=== PATIENT | female | born 1990 | race Asian ===

== ENCOUNTER → 2019-05-29 10:37 | Outpatient (CLI) | payer OTHER, SELFPAY ==
[2019-05-29 12:30] LABS: Absolute Lymphocyte Count 2.22 X10^3/uL (0.83-4.51); Absolute Neutrophil Count 3.1 X10^3/uL (2.0-7.7); Basophil# 0.05 X10^3/uL; Basophil% 0.9 % (0-1); Eosinophils% 1.7 % (0-5); Hematocrit 41.5 % (37-47); Hemoglobin 13.6 g/dL (12.0-15.0); Lymphocyte # 2.22 X10^3/ul (4.0); Mean Corp Hgb Conc 32.8 g/dL (32-36); Mean Corpuscular Hgb 30.5 pg (27.0-32.0); Mean Platelet Vol. 12.1 fl (6.2-12.0); Monocyte# 0.37 X10^3/uL; Monocyte% 6.3 % (0-10); NRBC Flagged by Analyzer 0 % (0-5); Neutrophil # 3.09 X10^3/uL (2.7-7.7); Neutrophil % 52.9 % (47-70); Platelet Count 231 K/mm3 (150-450); RBC Distribution Width CV 12.1 % (11.6-14.6); RBC Distribution Width SD 41.4 fl (35.1-43.9); Red Blood Count 4.46 M/mm3 (4.2-5.4); White Blood Count 5.8 K/mm3 (4.4-11.0)
[2019-05-29 12:41] LABS: Free T3 2.7 pg/mL (2.18-3.98); T4 Free Direct 0.98 ng/dL (0.76-1.46); Thyroid Stim Hormone (TSH) 4.18 uIU/mL (0.358-3.74)
[2019-05-30 20:28] LABS: Anti-Thyroglobulin AB < 1.0 IU/mL (0.0-0.9); Thyroglobulin, Serum Qt. 14.1 ng/mL (1.5-38.5)
== END ==
PROVIDERS: Family Provider Family Medicine; PCP Family Medicine; Referring Provider Family Medicine; Visit Provider Family Medicine
DX: E07.9 Disorder of thyroid, unspecified (principal)
CPT/HCPCS: 36415; 84432; 84439; 84443; 84481; 85025; 86800

== ENCOUNTER → 2020-07-12 18:22 | Outpatient (CLI) | payer OTHER, SELFPAY | PROVIDERS: PCP Family Medicine; Visit Provider Nurse Practitioner Adult Health | DX: Z20.828 Contact with and (suspected) exposure to other viral communicable diseases (principal) | CPT/HCPCS: 87635; U0003 ==

== ENCOUNTER → 2023-11-06 | Outpatient (CLI) | payer OTHER, SELFPAY ==
[2023-11-06 16:29] LABS: Absolute Lymphocyte Count 2.96 X10^3/uL (0.83-4.51); Absolute Neutrophil Count 4.1 X10^3/uL (2.0-7.7); Basophil# 0.05 X10^3/uL; Basophil% 0.6 % (0-1); Eosinophil# 0.09 X10^3/uL; Eosinophils% 1.2 % (0-5); Hematocrit 43.3 % (37-47); Lymphocyte # 2.96 X10^3/ul (0.83-4.51); Lymphocyte % 38.1 % (19-41); Mean Corp Hgb Conc 32.3 g/dL (32-36); Mean Corpuscular Volume 92.7 fL (81-99); Mean Platelet Vol. 12.1 fl (6.2-12.0); Monocyte# 0.57 X10^3/uL; Monocyte% 7.3 % (0-10); NRBC Flagged by Analyzer 0 % (0-5); Neutrophil # 4.05 X10^3/uL (2.7-7.7); Neutrophil % 52.3 % (47-70); Platelet Count 278 K/mm3 (150-450); RBC Distribution Width CV 11.9 % (11.6-14.6); RBC Distribution Width SD 40.7 fl (35.1-43.9); Red Blood Count 4.67 M/mm3 (4.2-5.4); White Blood Count 7.8 K/mm3 (4.4-11.0)
[2023-11-06 17:02] LABS: AST(SGOT) 19 U/L (15-37); Alanine Aminotransfer ALT/SGPT 21 U/L (13-56); Alkaline Phosphatase 55 U/L (45-117); Anion Gap 7 (5-15); BUN 10 mg/dL (7-18); BUN/Creat Ratio 15.9 RATIO (10-20); Chloride 105 mmol/L (98-107); Cholesterol 169 mg/dL (200); Creatinine, Serum 0.63 mg/dL (0.55-1.02); EST Glomerular Filtration Rate 117 mL/min (>60); Est Glom Filt Rate - Afr Amer 142 mL/min (>60); Follicle Stimulating Hormone 5.7 mIU/mL; Glucose 98 mg/dL (74-106); High Density Lipoprotein 43 mg/dL; Luteinizing Hormone 20.8 mIU/mL; Potassium 3.9 mmol/L (3.5-5.1); Sodium Level 139 mmol/L (136-145); Thyroid Stim Hormone (TSH) 4.81 uIU/mL (0.358-3.74); Triglycerides 117 mg/dL; Very Low Density Lipoprotein 23 mg/dL (5-40)
== END | disposition home or self-care (01) ==
LOC: BIMLAB 15:03
PROVIDERS: PCP Family Medicine; Referring Provider Family Medicine; Visit Provider Family Medicine
DX: E78.5 Hyperlipidemia, unspecified (principal); E78.6 Lipoprotein deficiency
CPT/HCPCS: 36415; 80053; 80061; 83001; 83002; 84146; 84443; 85025

== ENCOUNTER → 2023-11-13 | Outpatient (CLI) | payer OTHER, SELFPAY ==
--- NOTE | 2023-11-13 08:08 | US_ITS ---
INDICATION: infertility EXAMINATION: Ultrasound US Transvaginal Non-OB TECHNIQUE: Transvaginal (for optimal evaluation of the adnexa) pelvic ultrasound was performed. Grayscale and color flow Doppler evaluation of the adnexa. COMPARISON: None. FINDINGS: UTERUS: Anteverted. The uterus measures 7.8 x 4.4 x 2.9 cm. Normal myometrial appearance. The endometrial stripe measures 1 cm in AP diameter which is within normal limits. RIGHT OVARY: 3.3 x 1.7 x 2.5 cm. Multiple normal small follicles. Internal color flow is noted. LEFT OVARY: 3.4 x 2.3 x 2.6 cm. Multiple normal small follicles. Internal color flow is noted. FREE FLUID: Trace anechoic free fluid in the cul-de-sac.. US/Transvaginal Non- IMPRESSION: Normal uterine appearance. Normal ovarian appearance. Trace dependent fluid in the cul-de-sac which is commonly physiologic. Electronically Signed: Shlomo Ramsey MD at 18:08 EDT ,
== END | disposition home or self-care (01) ==
LOC: US 08:08
PROVIDERS: PCP Family Medicine; Referring Provider Family Medicine; Visit Provider Family Medicine
DX: E78.5 Hyperlipidemia, unspecified (principal); E78.6 Lipoprotein deficiency
CPT/HCPCS: 76830

== ENCOUNTER → 2023-11-27 | Outpatient (CLI) | payer OTHER, SELFPAY ==
[2023-11-27 15:33] LABS: Internal QC Validated? YES +Cl - CLEAR BKGD; Pregnancy, Serum, hCG Quali. NEGATIVE Negative
== END | disposition home or self-care (01) ==
LOC: BIMLAB 13:09
PROVIDERS: PCP Family Medicine; Visit Provider Family Medicine
DX: N91.2 Amenorrhea, unspecified (principal)
CPT/HCPCS: 36415; 84703

== ENCOUNTER → 2024-04-10 | Outpatient (CLI) | payer OTHER, SELFPAY ==
--- NOTE | 2024-04-10 09:03 | RAD_ITS ---
INDICATION: INFERTILITY EXAMINATION/TECHNIQUE: Routine hysterosalpingography was performed. Total Fluoroscopic Time: 35 seconds AND number of Fluoroscopic Images: 3 OR Radiation dosage index: 12.59 mGy. COMPARISON: FINDINGS: The uterine cavity contour is unremarkable. There are no filling defects or abnormalities. The left fallopian tube is patent with free peritoneal spillage. The proximal portion of the left fallopian tube is visualized without any spell. RAD/Salpingogram IMPRESSION: Patency of the right fallopian tube with free spill. The uterus is unremarkable. The proximal portion of the left fallopian tube is visualized with no spill. Electronically Signed: Bo Adam MD at 9:47 EDT ,
--- NOTE | 2024-04-10 09:23 | PCM.OPRPT ---
Problems Associated Problem List Diagnoses (1) Infertility, tubal origin: (2) PCOS (polycystic ovarian syndrome): (3) Hirsutism: (4) Abnormal uterine bleeding (AUB): (5) Infertility: Report of Operation Date of Procedure: 04/10/24 Pre-Operative Diagnosis: Infertility, PCOS Post-Operative Diagnosis: Same , left fallopian tube not patent Surgery/Procedure Performed:: HSG Description of Surgical Findings:: Right tube patent , left tube not patent Surgeon: Lois Nava surgical services assistant: None Type of Anesthesia: None Description of Procedure: Speculum was placed in the vagina. Cervix was cleaned with Betadine. Tenaculum used to grasp the anterior lip of the cervix. Cervix was stenotic, had to use os finder to dilate- once dilated the cather inserted w/o difficulty. At this time fluoroscopy dye was injected and spillage was noted from the right tube however not from the left tube. Grafts/Implants Used: none Complications none
== END | disposition home or self-care (01) ==
LOC: RAD 08:57
PROVIDERS: PCP Family Medicine; Referring Provider Obstetrics & Gynecology; Visit Provider Obstetrics & Gynecology
DX: N97.9 Female infertility, unspecified (principal)
CPT/HCPCS: 58340; 74740

== ENCOUNTER 2025-04-13 22:12 | Outpatient (CLI) | payer OTHER, SELFPAY ==
[2025-04-13 22:18] VITALS: BMI 29.7
--- OUTSIDE RECORDS SUMMARY | 2025-04-13 22:18 | XMS RPT_ITS | CCD ---
Author Organization [facility] Care Team Providers Care Virtual Assistant Name Role Phone MARGARITO CASTAÑEDA Unavailable Unavailable SELF, SELF Unavailable Unavailable CLAUDY BERGER Unavailable Unavailable SELF, SELF Unavailable Unavailable Dr. Solis Berger Primary Care Provider Dr. Solis Berger Referring Provider Dr. Rakesh Vega Attending Provider Unavailable Primary Care Provider Unavailabl e Nekishoret-Clive, Lois Attending Unavail able Rakesh Vega Primary Care Unavailable Neyhart-Perez, Lois Admitting Unavail able Neyhart-Perez, Lois Attending Unavail able Neyhart-Perez, Lois Referring Unavail able Rakesh Vega Primary Care Unavailable MINDZORA, KAMILA Referring Unavailable NEYHART PEREZ, LOIS Referring Unavail able MINDZORAREVAEN Attending Unavailable REVA BEARDEN Referring Unavailable JOHN MAE Attending Unavailable NEYHART PEREZ, LOIS Referring Unavail able HUMBERTO, MEAGAN Referring Unavailable CORRY POLANCO Referring Unavailable NEYHART PEREZ, LOIS Attending Unavail able HUMBERTO, MEAGAN Referring Unavailable ANTHONY VILLATORO Attending Unavailable MANUEL WHITTAKERICA Referring Unavailable FERN WHITTAKER Attending Unavailable NEYHART PEREZ, LOIS Attending Unavail able JOHN MAE Attending Unavailable ROSALINDA, FERN Referring Unavailable FERN WHITTAKER Attending Unavailable EDMAR ALLISON Attending Unavailable HUMBERTO, MEAGAN Attending Unavailable MINDZORA, KAMILA Referring Unavailable ANTHONY VILLATORO Attending Unavailable WISWELL, ARIANNA Referring Unavailable ANTHONY VILLATORO Attending Unavailable ARIANNA NYE Attending Unavailable HUMBERTO, MEAGAN Referring Unavailable RUBINA LANDAVERDE Attending Unavailable HUMBERTO, MEAGAN Referring Unavailable RUBINA LANDAVERDE Referring Unavailable MEAGAN PAUL Referring Unavailable MEAGAN PAUL Referring Unavailable Allergies Allergy Classification Reported Allergen(s) Allergy Type Date of Onset Reaction(s) Facility Sulfonamides (antibiotic) (1 source) Sulfonamides (Antibiotic) Drug Allergy 9 [facility] Work Phone: (4 sources) Sulfonamides (Antibiotic); Translations: [SULFA (SULFONAMIDE ANTIBIOTICS)] Allergy to substance 9 [facility] (20 sources) Sulfonamides (Antibiotic) Drug Allergy 9 [facility] Work Phone: (1 source) Sulfonamides (Antibiotic) Drug allergy (disorder) 4 [facility] Repository Medications Current Medications Medication Drug Class(es) Dates Sig (Normalized) Sig (Original) aspirin 81 mg delayed release oral tablet (20 sources) Platelet Aggregation Inhibitor, Nonsteroidal Anti-inflammatory Drug Start: 09-09-2024 take 1 tablet by mouth once daily aspirin, enteric coated (ECOTRIN LOW STRENGTH) 81 mg EC tablet Indications: Encounter for supervision in primigravida, antepartum ([facility]) , with uncertain dates, antepartum ([facility]) , Encounter for care in first trimester of first ([facility]) Take 1 tablet by mouth once daily. 90 tablet 3 09/09/2024 Active docosahexaenoic acid 200 mg oral capsule (3 sources) Start: 11-06-2023 Docosahexaenoic Acid (Algal [place]-3 Dha) 200 mg capsule Active MG PO November 06, 2023 12:00am Kzfeysln-Xjchwpq-Wgjb amine (3 sources) Start: 11-06-2023 Xvfkryay-Kcrvfpa-Uje tamine Active TABLET PO November 06, 2023 12:00am levothyroxine sodium 0.05 mg oral tablet (20 sources) l-Thyroxine Start: 12-01-2024 End: 04-08-2025 take 1 tablet by mouth once daily before breakfast levothyroxine (SYNTHROID) 50 mcg tablet Take 1 tablet by mouth daily before breakfast. 30 tablet 2 04/08/2025 Active Start: 11-07-2023 End: 12-01-2024 take 1 tablet by mouth once levothyroxine (SYNTHROID) 25 mcg tablet Take 1 tablet by mouth every afternoon. 90 tablet 11/10/2024 12/01/2024 Discontinued 24 hr metFORMIN hydrochloride 500 mg extended release oral tablet (16 sources) Biguanide Start: 01-24-2024 End: 01-31-2025 take 3 tablets by mouth once daily at dinner, then take 1 tablet by mouth at breakfast, then take 2 tablets by mouth at dinner, then take 3 tablets by mouth at dinner metFORMIN ER (GLUCOPHAGE XR) 500 mg 24 hr tablet Take 3 tablets by mouth daily with dinner. May divide dose up and take 1 tablet with breakfast or lunch and 2 tablets with dinner if you don't tolerate all three with dinner. 270 tablet 1 08/04/2024 10/30/2024 Discontinued (Other) Multivitamin preparation (3 sources) Start: 11-06-2023 take 1 tablet by mouth once daily Multivitamin Active 1 TABLET PO DAILY November 06, 2023 12:00am vcoye-1-wpr-epa-dpa-f don oil 1,050 mg(300 mg -675 mg-75 mg) cap (20 sources) take 3 tablets by mouth once daily dtubg-4-wgy-epa-dpa -fish oil 1,050 mg(300 mg -675 mg-75 mg) cap Take 3 tablets by mouth once daily. Active qasvn-8-pgr-epa- dpa-fish oil 1,050 mg(300 mg -675 mg-75 mg) cap Take by mouth. Active pqabi-6-snz-epa- dpa-fish oil 1,050 mg(300 mg -675 mg-75 mg) cap Take by mouth. 0 Active PNV no.95/ferrous fum/folic ac ( ORAL) (20 sources) take 2 tablets by mouth once daily before mealtime PNV no.95/ferrous fum/folic ac ( ORAL) Take 2 tablets by mouth once daily. Active ubidecarenone 75 mg oral capsule (3 sources) Start: 11-06-2023 Coenzyme Q10 (Ultra Coq10) 75 mg capsule Active 75 MG PO DAILY November 06, 2023 12:00am Completed/Discontinued Medications Medication Drug Class(es) Dates Sig (Normalized) Sig (Original) ZSBNIINA-GUDOVWV-QM UTAMINE ORAL (14 sources) Start: 11-06-2023 End: 09-09-2024 QWYQSVPA-TSDDVOD-NVC TAMINE ORAL Take by mouth. 11/06/2023 09/09/2024 Discontinued Start: 11-06-2023 INOSITOL-CHOLI NE-GLUTAMINE ORAL Take by mouth. 11/06/2023 Active Start: 11-06-2023 INOSITOL-CHOLI NE-GLUTAMINE ORAL Take by mouth. 0 11/06/2023 Active letrozole 2.5 mg oral tablet (4 sources) Aromatase Inhibitor Start: 07-03-2024 End: 09-09-2024 letrozole (FEMARA) 2.5 mg tablet Take 2 tablets by mouth once daily. Cycle days 3-7 10 tablet 3 07/03/2024 09/09/2024 Discontinued MERCQTGOMOLM-JSCL-UPH IC ACID ORAL (14 sources) End: 09-09-2024 IXHQMXOEBKNE-VUHH-MJBFV ACID ORAL Take by mouth. 09/09/2024 Discontinued MULTIVITAMIN-IRO N-FOLIC ACID ORAL Take by mouth. Active MULTIVITAMIN-IRO N-FOLIC ACID ORAL Take by mouth. 0 Active Problems Active Problems Problem Classification Problem Date Documented Da te Episodic/Chronic Conditions associated with dizziness or vertigo (1 source) Conditions associated with dizziness or vertigo Onset: 11-15-2017 Disorders of lipid metabolism (6 sources) Hyperlipidemia; Translations: [Hyperlipidemia, unspecified] 11-06-2023 Chronic Female infertility (20 sources) Female infertility; Translations: [Female infertility, unspecified] Onset: 04-16-2024 04-23-2024 Chronic Immunizations and screening for infectious disease (3 sources) Vaccination needed; Translations: [Encounter for immunization] Onset: 05-29-2024 01-23-2025 Episodic Menstrual disorders (2 sources) Amenorrhea; Translations: [Amenorrhea, unspecified] 11-27-2023 Chronic Other complications of (8 sources) Uterine size for dates discrepancy; Translations: [Uterine size-date discrepancy, third trimester] Onset: 03-30-2025 03-26-2025 Episodic Other complications of (1 source) Uterine size-date discrepancy, third trimester; Translations: [Uterine size-date discrepancy, third trimester (HCC)] Onset: 03-30-2025 Episodic Other endocrine disorders (2 sources) Polycystic ovary syndrome; Translations: [Polycystic ovarian syndrome] 04-23-2024 Chronic Other endocrine disorders (1 source) Polycystic ovarian syndrome; Translations: [PCOS (polycystic ovarian syndrome)] Onset: 05-19-2024 Chronic Other female genital disorders (1 source) Abnormal uterine bleeding; Translations: [Abnormal uterine and vaginal bleeding, unspecified] 12-14-2023 Chronic Other female genital disorders (2 sources) Fallopian tube disorder; Translations: [Noninflammatory disorder of ovary, fallopian tube and broad ligament, unspecified] 04-23-2024 Episodic Other nutritional; endocrine; and metabolic disorders (20 sources) Lipoprotein deficiency disorder; Translations: [Lipoprotein deficiency] Onset: 11-06-2023 09-09-2024 Chronic Other and delivery including normal (20 sources) ; Translations: [Encounter for supervision of normal first , unspecified trimester] Onset: 09-09-2024 09-03-2024 Episodic Other screening for suspected conditions (not mental disorders or infectious disease) (14 sources) Patient encounter status; Translations: [Encounter for screening for diabetes mellitus] Onset: 06-10-2024 12-14-2023 Episodic Other skin disorders (2 sources) Hirsutism; Translations: [Hirsutism] 12-14-2023 Episodic Residual codes; unclassified (1 source) Gestation period, 9 weeks; Translations: [9 weeks gestation of ] 09-09-2024 Episodic Residual codes; unclassified (2 sources) Gestation period, 12 weeks; Translations: [12 weeks gestation of ] 10-02-2024 Episodic Residual codes; unclassified (1 source) Gestation period, 16 weeks; Translations: [16 weeks gestation of ] 10-30-2024 Episodic Residual codes; unclassified (2 sources) Gestation period, 20 weeks; Translations: [20 weeks gestation of ] 11-27-2024 Episodic Residual codes; unclassified (1 source) Gestation period, 24 weeks; Translations: [24 weeks gestation of ] 12-25-2024 Episodic Residual codes; unclassified (1 source) Gestation period, 28 weeks; Translations: [28 weeks gestation of ] 01-23-2025 Episodic Residual codes; unclassified (1 source) Gestation period, 30 weeks; Translations: [30 weeks gestation of ] 02-03-2025 Episodic Residual codes; unclassified (1 source) Gestation period, 32 weeks; Translations: [32 weeks gestation of ] 02-20-2025 Episodic Residual codes; unclassified (1 source) Gestation period, 34 weeks; Translations: [34 weeks gestation of ] 03-06-2025 Episodic Residual codes; unclassified (2 sources) Gestation period, 37 weeks; Translations: [37 weeks gestation of ] 03-24-2025 Episodic Residual codes; unclassified (1 source) Gestation period, 38 weeks; Translations: [38 weeks gestation of ] 03-31-2025 Episodic Residual codes; unclassified (1 source) Gestation period, 39 weeks; Translations: [39 weeks gestation of ] 04-07-2025 Episodic Residual codes; unclassified (1 source) 39 weeks gestation of ; Translations: [39 weeks gestation of (HCC)] Onset: 04-07-2025 Episodic Residual codes; unclassified (1 source) 38 weeks gestation of ; Translations: [38 weeks gestation of (HCC)] Onset: 03-31-2025 Episodic Residual codes; unclassified (1 source) 36 weeks gestation of ; Translations: [36 weeks gestation of (HCC)] Onset: 03-26-2025 Episodic Residual codes; unclassified (1 source) 37 weeks gestation of ; Translations: [37 weeks gestation of (HCC)] Onset: 03-24-2025 Episodic Residual codes; unclassified (1 source) 34 weeks gestation of ; Translations: [34 weeks gestation of (HCC)] Onset: 03-06-2025 Episodic Residual codes; unclassified (1 source) 32 weeks gestation of ; Translations: [32 weeks gestation of (HCC)] Onset: 02-20-2025 Episodic Residual codes; unclassified (1 source) 28 weeks gestation of ; Translations: [28 weeks gestation of (HCC)] Onset: 02-03-2025 Episodic Residual codes; unclassified (1 source) 30 weeks gestation of ; Translations: [30 weeks gestation of (HCC)] Onset: 02-03-2025 Episodic Thyroid disorders (20 sources) Subclinical hypothyroidism; Translations: [Other specified hypothyroidism] Onset: 09-09-2024 11-07-2023 Chronic Unclassified (6 sources) Infertile; Translations: [Infertility] 11-06-2023 Unclassified (20 sources) [facility] - COMMON Onset: 09-09-2024 09-09-2024 Unclassified (20 sources) Education - [place] Onset: 09-09-2024 09-09-2024 Past or Other Problems Problem Classification Problem Date Documented Date Episodic/Chronic Conditions associated with dizziness or vertigo (1 source) Dizziness and giddiness; Translations: [Dizziness and giddiness] Onset: 11-15-2017 Episodic Contraceptive and procreative management (6 sources) Fertility problem; Translations: [Encounter for other procreative investigation and testing] Onset: 05-29-2024 05-19-2024 Episodic Other female genital disorders (1 source) Noninflammatory disorder of ovary, fallopian tube and broad ligament, unspecified; Translations: [Fallopian tube disorder] Onset: 05-19-2024 Episodic Residual codes; unclassified (1 source) 24 weeks gestation of ; Translations: [24 weeks gestation of (HCC)] Onset: 12-25-2024 Episodic Residual codes; unclassified (1 source) 20 weeks gestation of ; Translations: [20 weeks gestation of (HCC)] Onset: 11-27-2024 Episodic Residual codes; unclassified (1 source) 9 weeks gestation of ; Translations: [9 weeks gestation of ] Onset: 10-02-2024 Episodic Results Test Name Value Interpretation Reference Range Facility [facility] 04[facility]09[facility]20[facility] (NIRUGYLindaM[facility] -------- CELIA TORRES ([id number]) 1990 F Date Time Provider Department 04/09/25 CORRY POLANCO During your visit today, we recorded the following information about you: Shadia Hargrove RN 04/09/2025 9:51 AM Addendum 39w5d Pt calls c/o dark brown sticky discharge noted this morning. Denies vaginal bleeding. No recent sexual intercourse. States on Sunday had cervical exam AND has had a little spotting since then. Having Irregular cramping in lower abdomen. Positive movement. Staying hydrated. Pt advised to continue to monitor at this time AND advised that the brownish discharge is likely due to recent cervical exam AND nearing due date/body is preparing itself. Advised to monitor for severe abdominal pain, vaginal bleeding, LOF, decreased movement, and regular contractions lasting every 10 minutes or more. Pt voiced understanding. No need to call Pt unless additional advise is needed.BRIDGETT Gallardo Jennifer, MD 04/09/2025 10:09 AM Signed agree Allergies As of Date: 04/09/2025 Noted Allergy Reaction SULFA (SULFONAMIDE ANTIBIOTICS) 03/17/2019 2 - Rash Date Reviewed: 04/07/2025 Reviewed by: Dulce Schmitz MA - Fully Assessed Reason for Visit: Brown sticky discharge [Other] Prescriptions as of 04/09/2025 - levothyroxine (SYNTHROID) 50 mcg tablet Take 1 tablet by mouth daily before breakfast. - aspirin, enteric coated (ECOTRIN LOW STRENGTH) 81 mg EC tablet Take 1 tablet by mouth once daily. - PNV no.95/ferrous fum/folic ac ( ORAL) Take 2 tablets by mouth once daily. - kvfwh-1-xnz-hcs-lwo-kkvt oil 1,050 mg(300 mg -675 mg-75 mg) cap Take 3 tablets by mouth once daily. Problem List As Of Date 04/09/2025 Noted Resolved Hypothyroidism [E03.9] Encounter for supervision in primigra*09/09/2024 Female infertility, unspecified [N97.9] 04/16/2024 Lipoprotein deficiency [E78.6] 11/06/2023 Uterine size-date discrepancy, third trimester *03/30/2025 Encounter Status:Closed by CORRY POLANCO on 04/09/25 Normal [facility] URINE OB DIP B/Oon 5 Glucose Ql (U) Negative Neg mg/dL [facility] Protein.monoclonal (U) [Mass/Vol] Negative Neg mg/dL [facility] URINE OB DIP B/Oon 5 Glucose Ql (U) Negative Neg mg/dL [facility] Interpretation and review of laboratory results Normal [facility] Protein.monoclonal (U) [Mass/Vol] Negative Neg mg/dL [facility] Examination level ultrasound on 03-26-2025 [facility] Radiology Study observation (narrative) [facility] CNOVon 03-24-2025 CNOV Office Visit (OBGYWM ) -------- CELIA TORRES ([id number]) 1990 F Date Time Provider Department 03/24/25 1:45 PM FERN WHITTAKER During your visit today, we recorded the following information about you: Blood pressure Weight 114/68 68 kg Sowmya Edgar MA 03/24/2025 1:34 PM Signed SEQUENTIAL SCREENINGS The [facility] offers sequential screenings for women who are interested in screenings for chromosomal abnormalities and certain defects during a . The sequential screen combines ultrasound and blood tests to determine the risk of chromosomal abnormalities, including Down's Syndrome (Trisomy 21) and Trisomy 18, as well as open neural tube defects including spina bifida. Ultrasound examination is performed between 11 weeks and 13 weeks gestational age. Blood tests are drawn after the ultrasound and again later in the between 15 and 21 weeks gestational age. Please let your physician know if you are interested in this testing. It will require an appointment with our fisheries technician. This is not an ultrasound performed by a physician in our office during a routine visit. SIGNS AND SYMPTOMS OF LABOR 1. Contractions every 10 minutes or more often 2. Clear, pink, or brownish fluid (water) leaking from vagina 3. Feeling that baby is pushing down, pressure 4. Low, dull backache 5. Cramps that feel like a period 6. Cramps with or without diarrhea If you notice any of the above symptoms, contact our office at [phone] and ask to speak with a nurse. After hours, you can call [employer] [facility] at [phone] OR call [facility] at [phone] and ask to have the doctor shoe reconditioner paged. If you consider this an emergency, dial 4-1-2 or go to your nearest emergency department. NEED HELP? Are you dealing with a violent or abusive relationship? Are you a victim of rape or sexual assult? Call [facility] ([place]) 24 hour Crisis Hotline: 836.752.2623 or 075-960-0357. MANUAL Your Guide to a Healthy manual is now on-line. Visit [email or web address] to download your free copy Fern Whittaker APRN.CNM 03/25/2025 1:35 PM Signed ARMANDO-S: Celia Torres is a 34 year old female who presents at 37w3d with MAZIN:04/11/2025, by Last Menstrual Period for a routine visit. Denies headache, visual changes, chest pain, shortness of breath, vaginal bleeding, leakage of fluid, or dysuria. Feeling well, no complaints. O: See flow sheet Gen: No apparent distress Abd: Gravid, nontender 27lb TWG, S>D ASSESSMENT/PLAN: 1. 37 weeks gestation of -Continue PNV -Continue ASA 2. Encounter for supervision of normal first in third trimester 3. Hypothyroidism, unspecified type -Thyroid studies normal, continue Synthroid 50mcg PO once daily 4. Uterine size-date discrepancy, third trimester -S>D, growth US ordered and scheduled for 2 days PTL precautions reviewed and when to call RTO in one week Fern Whittaker APRN.CNM Allergies As of Date: 03/24/2025 Noted Allergy Reaction SULFA (SULFONAMIDE ANTIBIOTICS) 03/17/2019 2 - Rash Date Reviewed: 03/24/2025 Reviewed by: Sowmya Edgar MA - Fully Assessed Reason for Visit: Care [86] Primary Visit Diagnosis:Encounter for supervision in primigravida, antepartum (HCC) [Z34.00] Other Visit Diagnoses:Hypothyroidism , unspecified type [E03.9] 37 weeks gestation of (HCC) [Z3A.37] Order(s):URINE OB DIP B/O [[id number]] Order #: [id number] Prescriptions as of 03/25/2025 - levothyroxine (SYNTHROID) 50 mcg tablet Take 1 tablet by mouth daily before breakfast. - aspirin, enteric coated (ECOTRIN LOW STRENGTH) 81 mg EC tablet Take 1 tablet by mouth once daily. - PNV no.95/ferrous fum/folic ac ( ORAL) Take 2 tablets by mouth once daily. - hskji-0-ljm-rid-jsk-pghz oil 1,050 mg(300 mg -675 mg-75 mg) cap Take 3 tablets by mouth once daily. Problem List As Of Date 03/24/2025 Noted Resolved Hypothyroidism [E03.9] Encounter for supervision in primigra*09/09/2024 Female infertility, unspecified [N97.9] 04/16/2024 Lipoprotein deficiency [E78.6] 11/06/2023 Notes for Staff Will only call if abnormal Other instructions from your clinician: SEQUENTIAL SCREENINGS The [facility] offers sequential screenings for women who are interested in screenings for chromosomal abnormalities and certain defects during a . The sequential screen combines ultrasound and blood tests to determine the risk of chromosomal abnormalities, including Down's Syndrome (Trisomy 21) and Trisomy 18, as well as open neural tube defects including spina bifida. Ultrasound examination is performed between 11 weeks and 13 weeks gestational age. Blood tests are drawn after the ultrasound and again later in the between 15 and 2 (more content not included)... Normal [facility] URINE OB DIP B/Oon 5 Glucose Ql (U) Negative Neg mg/dL [facility] Interpretation and review of laboratory results Normal [facility] Protein.monoclonal (U) [Mass/Vol] Negative Neg mg/dL [facility] ROUTINE, GROUP B ST REPTOCOCCUS BY PCRon 03-20-2025 ROUTINE, GROUP B STREPTOCOCCUS BY PCR Not detected Normal [facility] Comment on above: Performed By: #### T SPN #### [facility] CLIA [id number] [address] [place] [address] [place] T4 Free SerPl-mCncon 025 Free T4 [Mass/Vol] 0.9 ng/dL Normal 0.9-1.7 [facility] Comment on above: Order Comment: Speci men Type: BLOOD SPECIMEN Ordering Facility: [facility] Address: [address] [place] [address] Performed By: #### 3 024-7, 3016-3 #### [facility] CLIA [id number] [address] [place] [address] [place] TSH SerPl-aCncon 03-20-2025 TSH Qn 2.330 m[IU]/L Normal 0.270-4.200 [facility] Comment on above: Order Comment: Speci men Type: BLOOD SPECIMEN Ordering Facility: [facility] Address: [address] [place] [address] Result Comment: If t he patient is , TSH reference range varies by gestational period: First Trimester (weeks 9-12): 0.180-2.990 mIU/L Second Trimester: 0.110-3.980 mIU/L Third Trimester: 0.480-4.710 mIU/L Leobardo Young et al. A Practical Approach for the Verifications and Determination of Site- and Trimester-Specific Reference Intervals for Thyroid Function tests in . Thyroid, 2019:29:3:412-420. Victor Manuel Simons, et al. 2017 Guidelines of the [place] [employer] Association for the Diagnosis and Management of Thyroid Disease during and the . Thyroid, 2017:27:3:315-389. Performed By: #### 3 024-7, 3016-3 #### [facility] CLIA [id number] [address] [place] [address] [place] URINE OB DIP B/Oon 5 Glucose Ql (U) Negative Neg mg/dL [facility] Interpretation and review of laboratory results Normal [facility] Protein.monoclonal (U) [Mass/Vol] Negative Neg mg/dL [facility] TSH SerPl-aCncon 02-03-2025 TSH Qn 1.690 m[IU]/L Normal 0.270-4.200 [facility] Comment on above: Order Comment: Geovannai men Type: BLOOD SPECIMEN Ordering Facility: [facility] Address: [address] [place] [address] Result Comment: If t he patient is , TSH reference range varies by gestational period: First Trimester (weeks 9-12): 0.180-2.990 mIU/L Second Trimester: 0.110-3.980 mIU/L Third Trimester: 0.480-4.710 mIU/L Leobardo Young et al. A Practical Approach for the Verifications and Determination of Site- and Trimester-Specific Reference Intervals for Thyroid Function tests in . Thyroid, 2019:29:3:412-420. Victor Manuel Simons et al. 2017 Guidelines of the [place] Thy[employer] Association for the Diagnosis and Management of Thyroid Disease during and the . Thyroid, 2017:27:3:315-389. Performed By: #### 3 016-3 #### [facility] CLIA [id number] [address] [place] [address] [place] CBC W Auto Differential pane l (Bld)on 01-23-2025 Basophils (Bld) [#/Vol] 0.05 10*3/uL Normal <0.11 [facility] Comment on above: Order Comment: Speci men Type: BLOOD SPECIMEN Ordering Facility: [facility] Address: [address] [place] [address] Performed By: #### 3 016-3 #### [facility] CLIA [id number] [address] [place] [address] [place] Basophils/100 WBC (Bld) 0.5 % Normal [facility] Comment on above: Order Comment: Geovannai parveen Type: BLOOD SPECIMEN Ordering Facility: [facility] Address: [address] [place] [address] Performed By: #### 3 016-3 #### [facility] CLIA [id number] [address] [place] [address] [place] Differential cell count method Nom (Bld) Auto Normal [facility] Comment on above: Order Comment: Speci men Type: BLOOD SPECIMEN Ordering Facility: [facility] Address: [address] [place] [address] Performed By: #### 3 016-3 #### [facility] CLIA [id number] [address] [place] [address] [place] Eosinophils (Bld) [#/Vol] 0.05 10*3/uL Normal <0.46 [facility] Comment on above: Order Comment: Speci men Type: BLOOD SPECIMEN Ordering Facility: [facility] Address: [address] [place] [address] Performed By: #### 3 016-3 #### [facility] CLIA [id number] [address] [place] [address] [place] Eosinophils/100 WBC (Bld) 0.5 % Normal [facility] Comment on above: Order Comment: Speci men Type: BLOOD SPECIMEN Ordering Facility: [facility] Address: [address] [place] [address] Performed By: #### 3 016-3 #### [facility] CLIA [id number] [address] [place] [address] [place] Erythrocyte distribution width (RBC) [Ratio] 13.7 % Normal 11.5-15.0 [facility] Comment on above: Order Comment: Speci men Type: BLOOD SPECIMEN Ordering Facility: [facility] Address: [address] [place] [address] Performed By: #### 3 016-3 #### [facility] CLIA [id number] [address] [place] [address] [place] Hematocrit (Bld) [Volume fraction] 35.2 % Low 36.0-46.0 [facility] Comment on above: Order Comment: Speci men Type: BLOOD SPECIMEN Ordering Facility: [facility] Address: [address] [place] [address] Performed By: #### 3 016-3 #### [facility] CLIA [id number] [address] [place] [address] [place] Hemoglobin (Bld) [Mass/Vol] 11.8 g/dL Normal 11.5-15.5 [facility] Comment on above: Order Comment: Speci men Type: BLOOD SPECIMEN Ordering Facility: [facility] Address: [address] [place] [address] Performed By: #### 3 016-3 #### [facility] CLIA [id number] [address] [place] [address] [place] Immature granulocytes (Bld) [#/Vol] 0.17 10*3/uL High <0.10 [facility] Comment on above: Order Comment: Speci men Type: BLOOD SPECIMEN Ordering Facility: [facility] Address: [address] [place] [address] Performed By: #### 3 016-3 #### [facility] CLIA [id number] [address] [place] [address] [place] Immature granulocytes/100 WBC (Bld) 1.8 % Normal [facility] Comment on above: Order Comment: Speci men Type: BLOOD SPECIMEN Ordering Facility: [facility] Address: [address] [place] [address] Performed By: #### 3 016-3 #### [facility] CLIA [id number] [address] [place] [address] [place] Lymphocytes (Bld) [#/Vol] 1.67 10*3/uL Normal 1.00-4.00 [facility] Comment on above: Order Comment: Speci men Type: BLOOD SPECIMEN Ordering Facility: [facility] Address: [address] [place] [address] Performed By: #### 3 016-3 #### [facility] CLIA [id number] [address] [place] [address] [place] Lymphocytes/100 WBC (Bld) 18.0 % Normal [facility] Comment on above: Order Comment: Speci men Type: BLOOD SPECIMEN Ordering Facility: [facility] Address: [address] [place] [address] Performed By: #### 3 016-3 #### [facility] CLIA [id number] [address] [place] [address] [place] MCH (RBC) [Entitic mass] 30.1 pg Normal 26.0-34.0 [facility] Comment on above: Order Comment: Speci men Type: BLOOD SPECIMEN Ordering Facility: [facility] Address: [address] [place] [address] Performed By: #### 3 016-3 #### [facility] CLIA [id number] [address] [place] [address] [place] MCHC (RBC) [Mass/Vol] 33.5 g/dL Normal 30.5-36.0 [facility] Comment on above: Order Comment: Speci men Type: BLOOD SPECIMEN Ordering Facility: [facility] Address: [address] [place] [address] Performed By: #### 3 016-3 #### [facility] CLIA [id number] [address] [place] [address] [place] MCV (RBC) [Entitic vol] 89.8 fL Normal 80.0-100.0 [facility] Comment on above: Order Comment: Speci men Type: BLOOD SPECIMEN Ordering Facility: [facility] Address: [address] [place] [address] Performed By: #### 3 016-3 #### [facility] CLIA [id number] [address] [place] [address] [place] Monocytes (Bld) [#/Vol] 0.59 10*3/uL Normal <0.87 [facility] Comment on above: Order Comment: Speci men Type: BLOOD SPECIMEN Ordering Facility: [facility] Address: [address] [place] [address] Performed By: #### 3 016-3 #### [facility] CLIA [id number] [address] [place] [address] [place] Monocytes/100 WBC (Bld) 6.4 % Normal [facility] Comment on above: Order Comment: Speci men Type: BLOOD SPECIMEN Ordering Facility: [facility] Address: [address] [place] [address] Performed By: #### 3 016-3 #### [facility] CLIA [id number] [address] [place] [address] [place] Neutrophils (Bld) [#/Vol] 6.75 10*3/uL Normal 1.45-7.50 [facility] Comment on above: Order Comment: Speci men Type: BLOOD SPECIMEN Ordering Facility: [facility] Address: [address] [place] [address] Performed By: #### 3 016-3 #### [facility] CLIA [id number] [address] [place] [address] [place] Neutrophils/100 WBC (Bld) 72.8 % Normal [facility] Comment on above: Order Comment: Speci men Type: BLOOD SPECIMEN Ordering Facility: [facility] Address: [address] [place] [address] Performed By: #### 3 016-3 #### [facility] CLIA [id number] [address] [place] [address] [place] Nucleated RBC (Bld) [#/Vol] 10*3/uL Normal <0.01 [facility] Comment on above: Order Comment: Speci men Type: BLOOD SPECIMEN Ordering Facility: [facility] Address: [address] [place] [address] Performed By: #### 3 016-3 #### [facility] CLIA [id number] [address] [place] [address] [place] Nucleated RBC/100 WBC (Bld) [Ratio] 0.0 /100 WBC Normal [facility] Comment on above: Order Comment: Speci men Type: BLOOD SPECIMEN Ordering Facility: [facility] Address: [address] [place] [address] Performed By: #### 3 016-3 #### [facility] CLIA [id number] [address] [place] [address] [place] Platelet mean volume (Bld) [Entitic vol] 10.6 fL Normal 9.0-12.7 [facility] Comment on above: Order Comment: Speci men Type: BLOOD SPECIMEN Ordering Facility: [facility] Address: [address] [place] [address] Performed By: #### 3 016-3 #### [facility] CLIA [id number] [address] [place] [address] [place] Platelets (Bld) [#/Vol] 207 10*3/uL Normal 150-400 [facility] Comment on above: Order Comment: Speci men Type: BLOOD SPECIMEN Ordering Facility: [facility] Address: [address] [place] [address] Performed By: #### 3 016-3 #### [facility] CLIA [id number] [address] [place] [address] [place] RBC (Bld) [#/Vol] 3.92 10*6/uL Normal 3.90-5.20 [facility] Comment on above: Order Comment: Speci men Type: BLOOD SPECIMEN Ordering Facility: [facility] Address: [address] [place] [address] Performed By: #### 3 016-3 #### [facility] CLIA [id number] [address] [place] [address] [place] WBC (Bld) [#/Vol] 9.28 10*3/uL Normal 3.70-11.00 [facility] Comment on above: Order Comment: Speci men Type: BLOOD SPECIMEN Ordering Facility: [facility] Address: [address] [place] [address] Performed By: #### 3 016-3 #### [facility] CLIA [id number] [address] [place] [address] [place] GESTATIONAL GLUCOSE SCREEN, 1-HOUR, 50 GRAM, NON-FASTINGon 01-23-2025 Glucose [Mass/Vol] 127 mg/dL Normal 74-134 [facility] Comment on above: Order Comment: Juan saiin Type: BLOOD SPECIMEN Ordering Facility: [facility] Address: [address] [place] [address] Result Comment: [facility] Congress of Obstetricians and Gynecologists (Bola/Jaret) guidelines state a gestational diabetes mellitus positive screen is made, in women not previously diagnosed with overt diabetes, when the 1 hr plasma glucose level is equal to or above 140 mg/dL. The [facility] 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 [facility] [place] recommends a 135 mg/dL cutoff. Performed By: #### 3 016-3 #### [facility] CLIA [id number] [address] [place] [address] [place] Reagin and Treponema pallidu m IgG and IgM [Interp]on 01-23-2025 T. pallidum IgG+IgM IA Ql (S) Non-Reactive Normal Nonreactive [facility] Comment on above: Order Comment: Juan saini Type: BLOOD SPECIMEN Ordering Facility: [facility] Address: [address] [place] [address] Performed By: #### T SPN #### [facility] CLIA [id number] [address] [place] [address] [place] Reagin+T pallidum IgG+IgM Se rPl-Impon 01-23-2025 Reagin and Treponema pallidum IgG and IgM [Interp] Cannot exclude recent Treponemal infection if specimen collected within 7-10 days after appearance of suspect lesions or 2-3 weeks after an exposure. Clinical correlation is required. Normal [facility] Comment on above: Order Comment: Juan saini Type: BLOOD SPECIMEN Ordering Facility: [facility] Address: [address] [place] [address] Performed By: #### T SPN #### [facility] CLIA [id number] [address] [place] [address] [place] TSH W/REFLEX FT4on Interpretation and review of laboratory results Normal [facility] TSH Qn 2 m[IU]/L [facility] Comment on above: If the patient is pr egnant, TSH reference range varies by gestational period: First Trimester (weeks 9-12): 0.180-2.990 mIU/L Second Trimester: 0.110-3.980 mIU/L Third Trimester: 0.480-4.710 mIU/L Leobardo Young et al. A Practical Approach for the Verifications and Determination of Site- and Trimester-Specific Reference Intervals for Thyroid Function tests in . Thyroid, 2019:29:3:412-420. Victor Manuel Simons et al. 2017 Guidelines of the [place] Thyroid Association for the Diagnosis and Management of Thyroid Disease during and the . Thyroid, 2017:27:3:315-389. [facility] TSH W/REFLEX FT4on 5 TSH Qn 2.000 m[IU]/L Normal 0.270-4.200 [facility] Comment on above: Order Comment: Speci men Type: BLOOD SPECIMEN Ordering Facility: [facility] Address: [address] [place] [address] Result Comment: If t he patient is , TSH reference range varies by gestational period: First Trimester (weeks 9-12): 0.180-2.990 mIU/L Second Trimester: 0.110-3.980 mIU/L Third Trimester: 0.480-4.710 mIU/L Leobardo Young et al. A Practical Approach for the Verifications and Determination of Site- and Trimester-Specific Reference Intervals for Thyroid Function tests in . Thyroid, 2019:29:3:412-420. Victor Manuel Simons et al. 2017 Guidelines of the [place] Thyroid Association for the Diagnosis and Management of Thyroid Disease during and the . Thyroid, 2017:27:3:315-389. Performed By: #### 3 024-7, 3016-3 #### [facility] CLIA [id number] [address] [place] [address] [place] [address] [place] Examination level ultrasound on 11-27-2024 Indication Standard anatomic survey Impression REMOTE READ The patient is referred for a standard anatomic survey. - Single, live, intrauterine . - biometry is consistent with the established gestational age. - No malformations were visualized on a complete standard anatomic survey. - The amniotic fluid volume is normal amount. - The placenta is posterior, fundal. - The Transabdominal cervical length measures 30 mm with no evidence of funneling or other dynamic changes. - Not all structural malformations can be detected by ultrasound examination. Recommendations Additional follow-up as clinically indicated. Maternal Assessment Height 152 cm Height (ft) 5 ft Physical Exam Initial weight (lb) 123 lb Initial BMI 24.02 kg/m Method Transabdominal ultrasound examination. View: Adequate visualization Sandhu . Number of fetuses: 1 Dating LMP on: 07/05/2024 GA by LMP 20 w + 5 d MAZIN by LMP: 04/11/2025 GA by prior assessment 20 w + 5 d MAZIN by prior assessment: 04/11/2025 Ultrasound examination on: 11/27/2024 GA by U/S based upon: AC, BPD, Femur, HC GA by U/S 20 w + 1 d MAZIN by U/S: 04/15/2025 Assigned: based on stated MAZIN, selected on 10/02/2024 Assigned GA 20 w + 5 d Assigned MAZIN: 04/11/2025 General Evaluation Cardiac activity present. FHR 144 bpm. movements: present. Presentation: breech Placenta: Placental site: posterior, fundal Umbilical cord: Cord vessels: 3 vessel cord. Insertion site: normal insertion Amniotic fluid: Amount of AF: normal amount. MVP 4.6 cm Growth Overview Exam date GA BPD (mm) HC (mm) AC (mm) FL (mm) HL (mm) EFW (g) 11/27/2024 20w 5d 48.3 45% 176.6 32% 142.7 13% 32.6 43% 30.7 28% 319 11% Biometry Standard BPD 48.3 mm 20w 4d 45% Hadlock OFD 62.4 mm 20w 1d 39% Nicolaides HC 176.6 mm 20w 1d 32% Nirali Cerebellum tr 20.9 mm 19w 6d 36% Hill Nuchal fold 2.2 mm AC 142.7 mm 19w 4d 13% Hadlock Femur 32.6 mm 20w 2d 43% Nirali Humerus 30.7 mm 20w 1d 28% Nirali EFW 319 g 19w 6d 11% Hadlock EFW (lb) 0 lb EFW (oz) 11 oz EFW by: Hadlock (HC-AC-FL) Extended Scarrer 4.2 mm CM 5.0 mm 43% Nicolaides Extremities / Bony Struc FL / HC 0.18 15% Hadlock Other Structures FHR 144 bpm Anatomy Cranium: normal Lateral ventricles: normal Choroid plexus: normal Midline falx: normal Cavum septi pellucidi: normal Cerebellum: normal Cisterna magna: normal Head / Neck Vermis: Normal but not required for a standard anatomy exam Neck: Normal but not required for a standard anatomy exam Nuchal fold: Normal but not required for a standard anatomy exam Lips: normal Profile: Normal but not required for a standard anatomy exam Nose: Normal but not required for a standard anatomy exam Face Maxilla: Normal but not required for a standard anatomy exam Mandible: Normal but not required for a standard anatomy exam Orbits: Normal but not required for a standard anatomy exam Lens: Normal but not required for a standard anatomy exam 4-chamber view: normal RVOT view: normal LVOT view: normal 3-vessel view: normal 5-wlakca-dmbhxmt view: normal Heart / Thorax Situs: situs solitus (normal) Aortic arch view: Normal but not required for a standard anatomy exam SVC: Normal but not required for a standard anatomy exam IVC: Normal but not required for a standard anatomy exam Cardiac axis: normal Rt lung: Normal but not required for a standard anatomy exam Lt lung: Normal but not required for a standard anatomy exam Diaphragm: Normal but not required for a standard anatomy exam Cord insertion: normal Stomach: normal Kidneys: normal Bladder: normal Genitals: normal Abdomen Abdom. wall: normal Cervical spine: normal Thoracic spine: normal Lumbar spine: normal Sacral spine: normal Arms: normal Legs: normal Rt upper arm: normal Rt forearm: normal Rt hand: normal Rt fingers: normal Lt upper arm: normal Lt forearm: normal Lt hand: normal Lt fingers: normal Rt upper leg: normal Rt lower leg: normal Rt foot: normal Lt upper leg: normal Lt lower leg: normal Lt foot: normal sex: female sex: normal Wants to know sex: yes Maternal Structures Uterus / Cervix Uterus: Visualized Cervix: Visualized Approach: Transabdominal Cervical length 30.0 mm Other: Patient declined transvaginal ultrasound for cervical length. Ovaries / Tubes / Adnexa Rt ovary: Visualized Lt ovary: Visualized Performed By: Kamila Felix RDMS Read By: Marisel Ojeda M.D. MATERNAL MEDICINE [facility] Radiology Study observation (narrative) [facility] T4 Free SerPl-mCncon 025 Free T4 [Mass/Vol] 0.9 ng/dL Normal 0.9-1.7 [facility] Comment on above: Order Comment: Specsaqib saini Type: BLOOD SPECIMEN Ordering Facility: [facility] Address: [address] [place] [address] Performed By: #### 3 024-7, 3016-3 #### [facility] CLIA [id number] [address] [place] [address] [place] TSH SerPl-aCncon 11-27-2024 TSH Qn 4.420 m[IU]/L High 0.270-4.200 [facility] Comment on above: Order Comment: Juan saini Type: BLOOD SPECIMEN Ordering Facility: [facility] Address: [address] [place] [address] Result Comment: If t he patient is , TSH reference range varies by gestational period: First Trimester (weeks 9-12): 0.180-2.990 mIU/L Second Trimester: 0.110-3.980 mIU/L Third Trimester: 0.480-4.710 mIU/L Leobardo Young et al. A Practical Approach for the Verifications and Determination of Site- and Trimester-Specific Reference Intervals for Thyroid Function tests in . Thyroid, 2019:29:3:412-420. Victor Manuel E, et al. 2017 Guidelines of the [place] Thyroid Association for the Diagnosis and Management of Thyroid Disease during and the . Thyroid, 2017:27:3:315-389. Performed By: #### 3 024-7, 6-3 #### [facility] CLIA [id number] [address] [place] [address] [place] [id number] PLUSon 10-15-2024 Cell-free DNA./Cell-free DNA.total Dosage of chromosome-specific cfDNA (cfDNA) [Molar fraction] 17% Normal [facility] Comment on above: Order Comment: Juan saini Type: BLOOD SPECIMEN Ordering Facility: [facility] Address: [address] [place] [address] Performed By: #### T SPN #### [facility] CLIA [id number] [address] [place] [address] [place] Chr 13+18+21+X+Y aneuploidy Dosage of chromosome-specific cfDNA Ql (cfDNA) Negative Normal [facility] Comment on above: Order Comment: Speci men Type: BLOOD SPECIMEN Ordering Facility: [facility] Address: [address] [place] [address] Performed By: #### T SPN #### [facility] CLIA [id number] [address] [place] [address] [place] Chr 21 trisomy Dosage of chromosome-specific cfDNA Ql (cfDNA) Negative Normal [facility] Comment on above: Order Comment: Speci men Type: BLOOD SPECIMEN Ordering Facility: [facility] Address: [address] [place] [address] Performed By: #### T SPN #### [facility] CLIA [id number] [address] [place] [address] [place] Chr X and Y aneuploidy risk Sequencing Ql (cfDNA) [Interp] Not detected Normal [facility] Comment on above: Order Comment: Speci men Type: BLOOD SPECIMEN Ordering Facility: [facility] Address: [address] [place] [address] Result Comment: Not Detected Not Detected Performed By: #### T SPN #### [facility] CLIA [id number] [address] [place] [address] [place] Citation Raghavendra (Reference lab test) Comment Normal [facility] Comment on above: Order Comment: Speci men Type: BLOOD SPECIMEN Ordering Facility: [facility] Address: [address] [place] [address] Result Comment: 1. P oksana BARBER, et al. Clarissa Med. 2012;14(3):296-305. 2. Watson LUEVANO et al. Prenat Diag. 2013;33(6):591-597. 3. Douglas C, et al. Clin Chem. 2015 Apr;61(4):608-616. 4. Henry BARBER et al. Clarissa Med. 2011;13(11):913-920. 5. ACOG/SMFM Practice Bulletin No. 226, May 2020. Performed By: #### T SPN #### [facility] CLIA [id number] [address] [place] [address] [place] Gestational age Estimated from conception date Sandhu Normal [facility] Comment on above: Order Comment: Speci men Type: BLOOD SPECIMEN Ordering Facility: [facility] Address: [address] [place] [address] Performed By: #### T SPN #### [facility] CLIA [id number] [address] [place] [address] GESTATIONALAGE AGE > OR = 9W Yes Normal [facility] Comment on above: Order Comment: Juan saini Type: BLOOD SPECIMEN Ordering Facility: [facility] Address: [address] [place] [address] Performed By: #### T SPN #### [facility] CLIA [id number] [address] [place] [address] [place] Laboratory comment Raghavendra (Report) Comment Normal [facility] Comment on above: Order Comment: Juan saini Type: BLOOD SPECIMEN Ordering Facility: [facility] Address: [address] [place] [address] Result Comment: The MaterniT(R) 21 PLUS laboratory-developed test (LDT) analyzes circulating cell-free DNA from a maternal blood sample. This test is used for screening purposes and not diagnostic. Clinical correlation is recommended. Validation data on twin pregnancies is limited and the ability of this test to detect aneuploidy in higher multiple gestations has not yet been validated. Performed By: #### T SPN #### [facility] CLIA [id number] [address] [place] [address] survey operations director name Nom (Provider) Comment Normal [facility] Comment on above: Order Comment: Geovannai parveen Type: BLOOD SPECIMEN Ordering Facility: [facility] Address: [address] [place] [address] Result Comment: This specimen showed an expected representation of chromosome 21, 18 and 13 material. Clinical correlation is suggested. Comment Wu Dumont MD, PhD, Director, [employer] Performed By: #### T SPN #### [facility] CLIA [id number] [address] [place] [address] [id number] [place] [address] [place] LIMITATIONS OF THE TEST Comment Normal [facility] Comment on above: Order Comment: Speci men Type: BLOOD SPECIMEN Ordering Facility: [facility] Address: [address] [place] [address] Result Comment: Whil e the results of these tests are highly reliable, discordant results, including inaccurate sex prediction, may occur due to placental, maternal, or mosaicism or neoplasm; vanishing twin; prior maternal organ transplant; or other causes. These tests are screening tests and not diagnostic; they do not replace the accuracy and precision of diagnosis with CVS or amniocentesis. A patient with a positive test result should be referred for genetic counseling and offered invasive diagnosis for confirmation of test results.[5] The results of this testing, including the benefits and limitations, should be discussed with a qualified healthcare provider. management decisions, including termination of the , should not be based on the results of these tests alone. The healthcare provider is responsible for the use of this information in the management of their patient. Sex chromosomal aneuploidies are not reportable for known multiple gestations. A negative result does not ensure an unaffected nor does it exclude the possibility of other chromosomal abnormalities or defects which are not a part of these tests. An uninformative result may be reported, the causes of which may include, but are not limited to, insufficient sequencing coverage, noise or artifacts in the region, amplification or sequencing bias, or insufficient fraction. These tests are not intended to identify pregnancies at risk for neural tube defects or ventral wall defects. Testing for whole chromosome abnormalities (including sex chromosomes) and for subchromosomal abnormalities could lead to the potential discovery of both and maternal genomic abnormalities that could have major, minor, or no, clinical significance. Evaluating the significance of a positive or a non-reportable result may involve both invasive testing and additional studies on the mother. Such investigations may lead to a diagnosis of maternal chromosomal or subchromosomal abnormalities, which on occasion may be associated with benign or malignant maternal neoplasms. These tests may not accurately identify triploidy, balanced rearrangements, or the precise location of subchromosomal duplications or deletions; these may be detected by diagnosis with CVS or amniocentesis. The ability to report results may be impacted by maternal BMI, maternal weight, maternal systemic lupus erythematosus (SLE) and/or by certain pharmaceutical agents such as low molecular weight heparin (for example: Lovenox(R), Xaparin(R), Clexane(R) and Fragmin(R)). Performed By: #### T SPN #### [facility] CLIA [id number] [address] [place] [address] [facility] Monosomy X risk Dosage of chromosome-specific cfDNA Ql (Plasma cell-free+WBC DNA) [Interp] Not detected Normal [facility] Comment on above: Order Comment: Juan saini Type: BLOOD SPECIMEN Ordering Facility: [facility] Address: [address] [place] [address] Performed By: #### T SPN #### [facility] CLIA [id number] [address] [place] [address] [facility] NEGATIVE PREDICTIVE VALUE Note Normal [facility] Comment on above: Order Comment: Juan saini Type: BLOOD SPECIMEN Ordering Facility: [facility] Address: [address] [place] [address] Result Comment: The Negative Predictive Value (NPV) for trisomy 21, 18, and 13 is greater than 99%. The NPV for SCA and ESS cannot be calculated as SCA and ESS are only reported when an abnormality is detected. Performed By: #### T SPN #### [facility] CLIA [id number] [address] [place] [address] [place] PERFORMANCE CHARACTERISTICS Note Normal [facility] Comment on above: Order Comment: Juan saini Type: BLOOD SPECIMEN Ordering Facility: [facility] Address: [address] [place] [address] Result Comment: ! Sex ! Accuracy: 99.4% ! ! ! ! Region (associated syndrome) ! Est. Sens# ! Est. Spec ! ! ! ! Trisomy 21 (Down Syndrome) ! 99.1% ! 99.9% ! ! ! ! Trisomy 18 (Barcenas Syndrome) ! >99.9% ! 99.6% ! ! ! ! Trisomy 13 (Patau Syndrome) ! 91.7% ! 99.7% ! ! ! ! Sex Chromosome Aneuploidies## ! 96.2% ! 99.7% ! ! ! * As reported in ISCA database nstd37 [https://www.ncbi.nlm.nih.gov/dbvar/studies/nstd37/ ] # Estimated Sensitivity. Sensitivity estimated across the observed size distribution of each syndrome [per ISCA database nstd37] and across the range of fractions observed in routine clinical NIPT. Actual sensitivity can also be influenced by other factors such as the size of the event, total sequence counts, amplification bias, or sequence bias. ## Sandhu gestation only. Performed By: #### T SPN #### [facility] CLIA [id number] [address] [place] [address] POSITIVE PREDICTIVE VALUE N/A Normal [facility] Comment on above: Order Comment: Speci men Type: BLOOD SPECIMEN Ordering Facility: [facility] Address: [address] [place] [address] Performed By: #### T SPN #### [facility] CLIA [id number] [address] [place] [address] Reference Lab Test Method Comment Normal [facility] Comment on above: Order Comment: Speci men Type: BLOOD SPECIMEN Ordering Facility: [facility] Address: [address] [place] [address] Result Comment: See Notes Circulating cell-free DNA was purified from the plasma component of maternal blood. The extracted DNA was then converted into a genomic DNA library for aneuploidy analysis of chromosomes 21, 18, and 13 via next generation sequencing.[1] Optional findings based on the test order include sex chromosome aneuploidy (SCA)[2], and enhanced sequencing series (ESS)[3], which will only be reported on as an additional finding when an abnormality is detected. SCA testing includes information on X and Y representation, while ESS testing includes deletions in selected regions (22q, 15q, 11q, 8q, 5p, 4p, 1p) and trisomy of chromosomes 16 and 22. Performed By: #### T SPN #### [facility] CLIA [id number] [address] [place] [address] [place] Service comment (Unsp spec) [Interp] Comment Normal [facility] Comment on above: Order Comment: Speci men Type: BLOOD SPECIMEN Ordering Facility: [facility] Address: [address] [place] [address] Result Comment: See Notes [employer] is a subsidiary of [employer], using the brand [employer]. This test was developed and its performance characteristics determined by [employer]. It has not been cleared or approved by the Food and Drug Administration. This laboratory is certified under the Clinical Laboratory Improvement Amendments (CLIA) as qualified to perform high complexity clinical laboratory testing and accredited by the [employer] ([employer]). If there is future clinical need for adding MaterniT GENOME testing, this specimen will be available until term. [facility] samples will not be retained beyond 60 days. [facility] patients will have to send a new sample for re-sequencing ([facility] Test Code: 160774). Performed By: #### T SPN #### [facility] CLIA [id number] [address] [place] [address] [place] Sex Dosage of chromosome-specific cfDNA Nom (cfDNA) Comment Normal [facility] Comment on above: Order Comment: Speci men Type: BLOOD SPECIMEN Ordering Facility: [facility] Address: [address] [place] [address] Result Comment: Cons istent with Female Performed By: #### T SPN #### [facility] CLIA [id number] [address] [place] [address] [place] Test performance information Raghavendra (Unsp spec) Comment Normal [facility] Comment on above: Order Comment: Speci men Type: BLOOD SPECIMEN Ordering Facility: [facility] Address: [address] [place] [address] Result Comment: The performance characteristics of the MaterniT(R) 21 PLUS laboratory-developed test (LDT) have been determined in a clinical validation study with women at increased risk for chromosomal aneuploidy.[1-4] Performed By: #### T SPN #### [facility] CLIA [id number] [address] [place] [address] [place] Trisomy 13 risk Dosage of chromosome-specific cfDNA Ql (cfDNA) [Interp] Negative Normal [facility] Comment on above: Order Comment: Speci men Type: BLOOD SPECIMEN Ordering Facility: [facility] Address: [address] [place] [address] Performed By: #### T SPN #### [facility] CLIA [id number] [address] [place] [address] [place] Trisomy 18 risk Dosage of chromosome-specific cfDNA Ql (Plasma cell-free+WBC DNA) [Interp] Negative Normal [facility] Comment on above: Order Comment: Speci men Type: BLOOD SPECIMEN Ordering Facility: [facility] Address: [address] [place] [address] Performed By: #### T SPN #### [facility] CLIA [id number] [address] [place] [address] [place] CNCOon 10-06-2024 CNCO Letter Text Normal [facility] CBC W Auto Differential pane l (Bld)on 10-02-2024 Basophils (Bld) [#/Vol] 0.04 10*3/uL Normal <0.11 [facility] Comment on above: Order Comment: Speci men Type: BLOOD SPECIMEN Ordering Facility: [facility] Address: [address] [place] [address] Performed By: #### 3 024-7, 3016-3 #### [facility] CLIA [id number] [address] [place] [address] [place] Basophils/100 WBC (Bld) 0.5 % Normal [facility] Comment on above: Order Comment: Speci men Type: BLOOD SPECIMEN Ordering Facility: [facility] Address: [address] [place] [address] Performed By: #### 3 024-7, 3016-3 #### [facility] CLIA [id number] [address] [place] [address] [place] Differential cell count method Nom (Bld) Auto Normal [facility] Comment on above: Order Comment: Speci men Type: BLOOD SPECIMEN Ordering Facility: [facility] Address: [address] [place] [address] Performed By: #### 3 024-7, 3016-3 #### [facility] CLIA [id number] [address] [place] [address] [place] Eosinophils (Bld) [#/Vol] 0.04 10*3/uL Normal <0.46 [facility] Comment on above: Order Comment: Speci men Type: BLOOD SPECIMEN Ordering Facility: [facility] Address: [address] [place] [address] Performed By: #### 3 024-7, 3016-3 #### [facility] CLIA [id number] [address] [place] [address] [place] Eosinophils/100 WBC (Bld) 0.5 % Normal [facility] Comment on above: Order Comment: Speci men Type: BLOOD SPECIMEN Ordering Facility: [facility] Address: [address] [place] [address] Performed By: #### 3 024-7, 3016-3 #### [facility] CLIA [id number] [address] [place] [address] [place] Erythrocyte distribution width (RBC) [Ratio] 12.1 % Normal 11.5-15.0 [facility] Comment on above: Order Comment: Speci men Type: BLOOD SPECIMEN Ordering Facility: [facility] Address: [address] [place] [address] Performed By: #### 3 024-7, 3016-3 #### [facility] CLIA [id number] [address] [place] [address] [place] Hematocrit (Bld) [Volume fraction] 38.6 % Normal 36.0-46.0 [facility] Comment on above: Order Comment: Speci men Type: BLOOD SPECIMEN Ordering Facility: [facility] Address: [address] [place] [address] Performed By: #### 3 024-7, 3016-3 #### [facility] CLIA [id number] [address] [place] [address] [place] Hemoglobin (Bld) [Mass/Vol] 13.1 g/dL Normal 11.5-15.5 [facility] Comment on above: Order Comment: Speci men Type: BLOOD SPECIMEN Ordering Facility: [facility] Address: [address] [place] [address] Performed By: #### 3 024-7, 3015-3 #### [facility] CLIA [id number] [address] [place] [address] [place] Immature granulocytes (Bld) [#/Vol] 0.04 10*3/uL Normal <0.10 [facility] Comment on above: Order Comment: Speci men Type: BLOOD SPECIMEN Ordering Facility: [facility] Address: [address] [place] [address] Performed By: #### 3 024-7, 3015-3 #### [facility] CLIA [id number] [address] [place] [address] [place] Immature granulocytes/100 WBC (Bld) 0.5 % Normal [facility] Comment on above: Order Comment: Speci men Type: BLOOD SPECIMEN Ordering Facility: [facility] Address: [address] [place] [address] Performed By: #### 3 024-7, 6-3 #### [facility] CLIA [id number] [address] [place] [address] [place] Lymphocytes (Bld) [#/Vol] 1.89 10*3/uL Normal 1.00-4.00 [facility] Comment on above: Order Comment: Speci men Type: BLOOD SPECIMEN Ordering Facility: [facility] Address: [address] [place] [address] Performed By: #### 3 024-7, 3016-3 #### [facility] CLIA [id number] [address] [place] [address] [place] Lymphocytes/100 WBC (Bld) 22.3 % Normal [facility] Comment on above: Order Comment: Speci men Type: BLOOD SPECIMEN Ordering Facility: [facility] Address: [address] [place] [address] Performed By: #### 3 024-7, 3016-3 #### [facility] CLIA [id number] [address] [place] [address] [place] MCH (RBC) [Entitic mass] 30.2 pg Normal 26.0-34.0 [facility] Comment on above: Order Comment: Speci men Type: BLOOD SPECIMEN Ordering Facility: [facility] Address: [address] [place] [address] Performed By: #### 3 024-7, 3016-3 #### [facility] CLIA [id number] [address] [place] [address] [place] MCHC (RBC) [Mass/Vol] 33.9 g/dL Normal 30.5-36.0 [facility] Comment on above: Order Comment: Speci men Type: BLOOD SPECIMEN Ordering Facility: [facility] Address: [address] [place] [address] Performed By: #### 3 024-7, 3016-3 #### [facility] CLIA [id number] [address] [place] [address] [place] MCV (RBC) [Entitic vol] 88.9 fL Normal 80.0-100.0 [facility] Comment on above: Order Comment: Speci men Type: BLOOD SPECIMEN Ordering Facility: [facility] Address: [address] [place] [address] Performed By: #### 3 024-7, 3016-3 #### [facility] CLIA [id number] [address] [place] [address] [place] Monocytes (Bld) [#/Vol] 0.42 10*3/uL Normal <0.87 [facility] Comment on above: Order Comment: Speci men Type: BLOOD SPECIMEN Ordering Facility: [facility] Address: [address] [place] [address] Performed By: #### 3 024-7, 3016-3 #### [facility] CLIA [id number] [address] [place] [address] [place] Monocytes/100 WBC (Bld) 5.0 % Normal [facility] Comment on above: Order Comment: Speci men Type: BLOOD SPECIMEN Ordering Facility: [facility] Address: [address] [place] [address] Performed By: #### 3 024-7, 3016-3 #### [facility] CLIA [id number] [address] [place] [address] [place] Neutrophils (Bld) [#/Vol] 6.03 10*3/uL Normal 1.45-7.50 [facility] Comment on above: Order Comment: Speci men Type: BLOOD SPECIMEN Ordering Facility: [facility] Address: [address] [place] [address] Performed By: #### 3 024-7, 3016-3 #### [facility] CLIA [id number] [address] [place] [address] [place] Neutrophils/100 WBC (Bld) 71.2 % Normal [facility] Comment on above: Order Comment: Speci men Type: BLOOD SPECIMEN Ordering Facility: [facility] Address: [address] [place] [address] Performed By: #### 3 024-7, 3016-3 #### [facility] CLIA [id number] [address] [place] [address] [place] Nucleated RBC (Bld) [#/Vol] 10*3/uL Normal <0.01 [facility] Comment on above: Order Comment: Speci men Type: BLOOD SPECIMEN Ordering Facility: [facility] Address: [address] [place] [address] Performed By: #### 3 024-7, 3016-3 #### [facility] CLIA [id number] [address] [place] [address] [place] Nucleated RBC/100 WBC (Bld) [Ratio] 0.0 /100 WBC Normal [facility] Comment on above: Order Comment: Speci men Type: BLOOD SPECIMEN Ordering Facility: [facility] Address: [address] [place] [address] Performed By: #### 3 024-7, 3016-3 #### [facility] CLIA [id number] [address] [place] [address] [place] Platelet mean volume (Bld) [Entitic vol] 10.8 fL Normal 9.0-12.7 [facility] Comment on above: Order Comment: Speci men Type: BLOOD SPECIMEN Ordering Facility: [facility] Address: [address] [place] [address] Performed By: #### 3 024-7, 3016-3 #### [facility] CLIA [id number] [address] [place] [address] [place] Platelets (Bld) [#/Vol] 277 10*3/uL Normal 150-400 [facility] Comment on above: Order Comment: Speci men Type: BLOOD SPECIMEN Ordering Facility: [facility] Address: [address] [place] [address] Performed By: #### 3 024-7, 3016-3 #### [facility] CLIA [id number] [address] [place] [address] [place] RBC (Bld) [#/Vol] 4.34 10*6/uL Normal 3.90-5.20 [facility] Comment on above: Order Comment: Speci men Type: BLOOD SPECIMEN Ordering Facility: [facility] Address: [address] [place] [address] Performed By: #### 3 024-7, 3016-3 #### [facility] CLIA [id number] [address] [place] [address] [address] [place] WBC (Bld) [#/Vol] 8.46 10*3/uL Normal 3.70-11.00 [facility] Comment on above: Order Comment: Speci men Type: BLOOD SPECIMEN Ordering Facility: [facility] Address: [address] [place] [address] Performed By: #### 3 024-7, 3016-3 #### [facility] CLIA [id number] [address] [place] [address] [place] Examination level ultrasound on 10-02-2024 Indication First trimester anatomic survey Impression REMOTE READ The patient is referred for a first trimester anatomy scan including nuchal translucency measurement as clinically indicated. - Single, live, intrauterine . - Bloomer rump length measurement is consistent with the established gestational age. - A qualitative screen of the nuchal translucency and other anatomic structures was unremarkable on incomplete first trimester anatomic assessment. - Not all structural malformations can be detected by ultrasound examination. Maternal Structures: Right Ovary: Size 35 mm x 19 mm x 16 mm Left Ovary: Size 23 mm x 23 mm x 14 mm Recommendations Return for anatomy ultrasound Maternal Assessment Height 152 cm Height (ft) 5 ft Physical Exam Initial weight (lb) 123 lb Initial BMI 24.02 kg/m Maternal assessment other: 1 Para 0 Method Transabdominal ultrasound examination Sandhu . Number of fetuses: 1 Dating LMP on: 07/05/2024 GA by LMP 12 w + 5 d MAZIN by LMP: 04/11/2025 GA by prior assessment 12 w + 5 d MAZIN by prior assessment: 04/11/2025 Ultrasound examination on: 10/02/2024 GA by U/S based upon: CRL GA by U/S 12 w + 4 d MAZIN by U/S: 04/12/2025 Assigned: based on stated MAZIN, selected on 10/02/2024 Assigned GA 12 w + 5 d Assigned MAZIN: 04/11/2025 General Evaluation Cardiac activity present Placenta: posterior Cord vessels: 3 vessel cord Amniotic fluid: normal amount Biometry Standard FHR 151 bpm CRL 61.6 mm 12w 4d 31% [facility] First Trimester Anatomy Calvarium: normal Falx cerebri: normal Choroid plexus: normal Profile: normal Nasal bone: normal Retronasal triangle: normal Maxilla: normal Mandible: normal Nuchal translucency: Unremarkable Situs: normal Cardiac position: normal Cardiac axis: normal 4-chamber view: suboptimal 4-chamber view with color: suboptimal [id number] view: suboptimal Abdominal cord insertion: normal Stomach: normal Kidneys: normal Bladder: normal Color doppler of perivesical umbilical arteries: normal Vertebral alignment: normal Arms: normal Hands: normal Legs: normal Feet: normal Maternal Structures Uterus / Cervix Uterus: Visualized Uterus length 113 mm Uterus width 91 mm Uterus height 84 mm Uterus Vol 450.1 cm Ovaries / Tubes / Adnexa Rt ovary: Visualized Rt ovary D1 35 mm Rt ovary D2 19 mm Rt ovary D3 16 mm Rt ovary Vol 5.7 cm Lt ovary: Visualized Lt ovary D1 23 mm Lt ovary D2 23 mm Lt ovary D3 14 mm Lt ovary Vol 3.8 cm Performed By: Mae Jordan RDMS, RVT Read By: Marisel Ojeda M.D. MATERNAL MEDICINE [facility] Radiology Study observation (narrative) [facility] HBV surface Ag Ser Qlon 09-14 HBV surface Ag Ql (S) Negative Normal Negative [facility] Comment on above: Order Comment: Speci men Type: BLOOD SPECIMEN Ordering Facility: [facility] Address: [address] [place] [address] Performed By: #### T SPN #### [facility] CLIA [id number] [address] [place] [address] [place] HCV Ab Ser Qlon 10-02-2024 HCV Ab Ql (S) Negative Normal Negative [facility] Comment on above: Order Comment: Speci men Type: BLOOD SPECIMEN Ordering Facility: [facility] Address: [address] [place] [address] Result Comment: The result suggests no evidence of active infection with Hepatitis C virus. Should recent infection be suspected, repeat testing may be considered 4-6 weeks after this draw. Performed By: #### 3 016-3 #### [facility] CLIA [id number] [address] [place] HIV 1+2 Ab IA Qlon HIV 1 and 2 Ab IA.rapid Nom (S/P/Bld) Normal [facility] Comment on above: Order Comment: Speci men Type: BLOOD SPECIMEN Ordering Facility: [facility] Address: [address] [place] [address] Result Comment: Test not indicated. Performed By: #### T SPN #### [facility] CLIA [id number] [address] [place] [address] [place] HIV 1+2 Ab+HIV1 p24 Ag IA Ql Non-Reactive Normal Nonreactive [facility] Comment on above: Order Comment: Speci men Type: BLOOD SPECIMEN Ordering Facility: [facility] Address: [address] [place] [address] Performed By: #### T SPN #### [facility] CLIA [id number] [address] [place] [address] OF [facility] HIV immunoassay testing algorithm interpretation (S/P/Bld) [Interp] Normal [facility] Comment on above: Order Comment: Speci men Type: BLOOD SPECIMEN Ordering Facility: [facility] Address: [address] [place] [address] Result Comment: No e vidence of HIV-1 or HIV-2 infection. Should recent infection be suspected, repeat testing may be considered 2-3 weeks after this draw. [place] Rev. Code 3701.243(E): This information has been disclosed to you from confidential records protected from disclosure by state law. ???You shall make no further disclosure of this information without the specific, written, and informed release of the individual to whom it pertains or as otherwise permitted by state law. A general authorization for the release of medical or other information is not sufficient for the purpose of the release of HIV test results or diagnoses. Performed By: #### T SPN #### [facility] CLIA [id number] [address] [place] [address] [place] HbA1c (Bld)on 10-02-2024 Average glucose Estimated from glycated hemoglobin (Bld) [Mass/Vol] 97 mg/dL Normal [facility] Comment on above: Order Comment: Juan parveen Type: BLOOD SPECIMEN Ordering Facility: [facility] Address: [address] [place] [address] Result Comment: eAG: (Estimated average glucose) is a calculated value from HgbA1c and is insurance sales representative of the average blood glucose level in the last 2-3 month period. Performed By: #### T SPN #### [facility] CLIA [id number] [address] [place] [address] STATES OF [facility] HbA1c (Bld) [Mass fraction] 5.0 % Normal 4.3-5.6 [facility] Comment on above: Order Comment: Juan saini Type: BLOOD SPECIMEN Ordering Facility: [facility] Address: [address] [place] [address] Result Comment: [place] Diabetes [employer] guidelines indicate that patients with HgbA1c in the range 5.7-6.4% are at increased risk for development of diabetes, and intervention by lifestyle modification may be beneficial. HgbA1c greater or equal to 6.5% is considered diagnostic of diabetes. Performed By: #### T SPN #### [facility] CLIA [id number] [address] [place] [address] [place] RUBELLA IGG ANTIBODYon 10-02 RUBELLA IGG AB, QUAL Positive Normal Positive [facility] Comment on above: Order Comment: Juan parveen Type: BLOOD SPECIMEN Ordering Facility: [facility] Address: [address] [place] [address] Result Comment: The result suggests recent or past exposure to Rubella virus or history of Rubella vaccination. Positive result may also be seen due to presence of passively-transferred antibodies. Please correlate with patient's history. Performed By: #### T SPN #### [facility] CLIA [id number] [address] [place] [address] [place] Reagin and Treponema pallidu m IgG and IgM [Interp]on 10-02-2024 T. pallidum IgG+IgM IA Ql (S) Non-Reactive Normal Nonreactive [facility] Comment on above: Order Comment: Speci men Type: BLOOD SPECIMEN Ordering Facility: [facility] Address: [address] [place] [address] Performed By: #### T SPN #### [facility] CLIA [id number] [address] [place] [address] [place] Reagin+T pallidum IgG+IgM Se rPl-Impon 10-02-2024 Reagin and Treponema pallidum IgG and IgM [Interp] Cannot exclude recent Treponemal infection if specimen collected within 7-10 days after appearance of suspect lesions or 2-3 weeks after an exposure. Clinical correlation is required. Normal [facility] Comment on above: Order Comment: Speci men Type: BLOOD SPECIMEN Ordering Facility: [facility] Address: [address] [place] [address] Performed By: #### T SPN #### [facility] CLIA [id number] [address] [place] [address] [place] T4 Free SerPl-mCncon 025 Free T4 [Mass/Vol] 1.1 ng/dL Normal 0.9-1.7 [facility] Comment on above: Order Comment: Speci men Type: BLOOD SPECIMEN Ordering Facility: [facility] Address: [address] [place] [address] Performed By: #### 3 016-3 #### [facility] CLIA [id number] [address] [place] [address] [place] TSH SerPl-aCncon 10-02-2024 TSH Qn 2.060 m[IU]/L Normal 0.270-4.200 [facility] Comment on above: Order Comment: Speci men Type: BLOOD SPECIMEN Ordering Facility: [facility] Address: [address] [place] [address] Result Comment: If t he patient is , TSH reference range varies by gestational period: First Trimester (weeks 9-12): 0.180-2.990 mIU/L Second Trimester: 0.110-3.980 mIU/L Third Trimester: 0.480-4.710 mIU/L Leobardo Young et al. A Practical Approach for the Verifications and Determination of Site- and Trimester-Specific Reference Intervals for Thyroid Function tests in . Thyroid, 2019:29:3:412-420. Victor Manuel Simons, et al. 2017 Guidelines of the [place] [employer] for the Diagnosis and Management of Thyroid Disease during and the . Thyroid, 2017:27:3:315-389. Performed By: #### 3 016-3 #### [facility] CLIA [id number] [address] [place] [address] [place] TYPE + SCREEN PRENATALon ABO A Normal [facility] Comment on above: Order Comment: Speci men Type: BLOOD SPECIMEN Ordering Facility: [facility] Address: [address] [place] [address] Performed By: #### T SPN #### [facility] CLIA [id number] [address] [place] [address] [place] Rh Nom (Bld) Positive Normal [facility] Comment on above: Order Comment: Speci men Type: BLOOD SPECIMEN Ordering Facility: [facility] Address: [address] [place] [address] Performed By: #### T SPN #### [facility] CLIA [id number] [address] [place] [address] [place] TYPE AND SCREEN EXPIRATION 10/05/2024 23:59 Normal [facility] Comment on above: Order Comment: Speci men Type: BLOOD SPECIMEN Ordering Facility: [facility] Address: [address] [place] [address] Performed By: #### T SPN #### [facility] CLIA [id number] [address] [place] [address] [place] Bacteria Ur Culton 5 Bacteria identified Cx Nom (U) ORGANISM ID: 1 <10,000 CFU/ml Lactose positive gram negative bacilli Insignificant colony count. No further workup. Normal [facility] Comment on above: Performed By: #### T SPN #### [facility] CLIA [id number] [address] [place] [address] [place] C. trachomatis+N. gonorrhoea e DNA DIMITRY+probe Ql (Unsp spec)on 09-09-2024 C. trachomatis rRNA DIMITRY+probe Ql (Unsp spec) Not detected Normal Not detected [facility] Comment on above: Order Comment: Speci men Type: BLOOD SPECIMEN Ordering Facility: [facility] Address: [address] [place] [address] Performed By: #### T SPN #### [facility] CLIA [id number] [address] [place] [address] [place] N. gonorrhoeae rRNA DIMITRY+probe Ql (Unsp spec) Not detected Normal Not detected [facility] Comment on above: Order Comment: Speci men Type: BLOOD SPECIMEN Ordering Facility: [facility] Address: [address] [place] [address] Performed By: #### T SPN #### [facility] CLIA [id number] [address] [place] [address] [place] HIGH RISK HUMAN PAPILLOMA KENDRA (HPV), PCR FOR DETECTION AND GENOTYPINGon 09-09-2024 HPV 16 Ag Ql (Unsp spec) Not detected Normal Not detected [facility] Comment on above: Order Comment: Speci men Type: BLOOD SPECIMEN Ordering Facility: [facility] Address: [address] [place] [address] Performed By: #### T SPN #### [facility] CLIA [id number] [address] [place] [address] [place] HPV 18 Ag Ql (Unsp spec) Not detected Normal Not detected [facility] Comment on above: Order Comment: Speci men Type: BLOOD SPECIMEN Ordering Facility: [facility] Address: [address] [place] [address] Performed By: #### T SPN #### [facility] CLIA [id number] [address] [place] [address] [place] HPV 31+33+35+39+45+51+52+ 56+58+59+66+68 DNA DIMITRY+probe Ql (Cvx) Not detected Normal Not detected [facility] Comment on above: Order Comment: Speci men Type: BLOOD SPECIMEN Ordering Facility: [facility] Address: [address] [place] [address] Result Comment: High Risk HPV Other Type includes HPV types 31, 33, 35, 39, 45, 51, 52, 56, 58, 59, 66 and 68. Performed By: #### T SPN #### [facility] CLIA [id number] [address] [place] [address] [place] PAP TESTon 09-09-2024 ADEQUACY Satisfactory for interpretation. Normal [facility] Comment on above: Order Comment: Speci men Type: BLOOD SPECIMEN Ordering Facility: [facility] Address: [address] [place] [address] Performed By: #### T SPN #### [facility] CLIA [id number] [address] [place] [address] [place] CASE REPORT Normal [facility] Comment on above: Order Comment: Speci men Type: BLOOD SPECIMEN Ordering Facility: [facility] Address: [address] [place] [address] Result Comment: Gyne cologic Cytology Report Case: [id number] Authorizing Provider: Meagan Paul APRN.HEAVY RAIL TRAIN OPERATOR Collected: 09/09/2024 09:31 AM Ordering Location: OB/Gynecology Received: 09/09/2024 12:04 PM First Screen: Sharon, Tammi, CT, ASCP Specimen: Pap Test, ThinPrep, Cervix Performed By: #### T SPN #### [facility] CLIA [id number] [address] [place] [address] [place] CLINICAL HISTORY, CYTOLOGY, TRAVELING ELECTRICIAN Routine Exam Normal [facility] Comment on above: Order Comment: Speci men Type: BLOOD SPECIMEN Ordering Facility: [facility] Address: [address] [place] [address] Performed By: #### T SPN #### [facility] CLIA [id number] [address] [place] [address] [place] FINAL PERFORMING LAB Normal [facility] Comment on above: Order Comment: Speci men Type: BLOOD SPECIMEN Ordering Facility: [facility] Address: [address] [place], [place] [id number] Result Comment: Tech nical component, ceramic tiler screening performed at [facility], [address] [place] [address] CLIA# [id number] Diagnostic interpretation performed at [facility], [address] [place] [address] CLIA# [id number] Crtt: Edward Toledo M.D. Performed By: #### T SPN #### [facility] CLIA [id number] [address] [place], [place] [id number] [place] INTERPRETATION, CYTOLOGY, TRAVELING ELECTRICIAN Normal [facility] Comment on above: Order Comment: Speci men Type: BLOOD SPECIMEN Ordering Facility: [facility] Address: [address] [place] [address] Result Comment: Nega tive for intraepithelial lesion or malignancy. Performed By: #### T SPN #### [facility] CLIA [id number] [address] [place] [address] [place] LMP 07/05/2024 Normal [facility] Comment on above: Order Comment: Speci men Type: BLOOD SPECIMEN Ordering Facility: [facility] Address: [address] [place] [address] Performed By: #### T SPN #### [facility] CLIA [id number] [address] [place], [place] [id number] [place] PAP DISCLAIMER COMMENT The Pap Smear is a screening test for cervical cancer. False negative results occur with all screening tests, emphasizing the need for rescreening at recommended intervals, and clinical correlation. Normal [facility] Comment on above: Order Comment: Speci men Type: BLOOD SPECIMEN Ordering Facility: [facility] Address: [address] [place] [address] Performed By: #### T SPN #### [facility] CLIA [id number] [address] [place] [address] STATES [facility] PAP COMPUTER PROCESSING SCHEDULER COMMENT This specimen has be en analyzed by the ThinPrep Imaging System, an automated imaging and review system, which assists the laboratory in evaluating cells on ThinPrep Pap tests. Following automated imaging, selected rudd from every slide are reviewed by a ceramic tiler. Normal [facility] Comment on above: Order Comment: Speci men Type: BLOOD SPECIMEN Ordering Facility: [facility] Address: [address] [place] [address] Performed By: #### T SPN #### [facility] CLIA [id number] [address] [place] [address] [place] POC RN GYNECOLOGY ULTRASOUNDon 09-09-19 Indication Confirmation of intrauterine . Confirmation of cardiac activity. Estimation of gestational age Impression cardiac activity is visualized, CRL is appropriate for clinical dates, corresponding to MAZIN 04/11/25 Recommendations Follow up for 1st Trimester Anatomy with Nuchal Translucency as clinically indicated if desired. Method Transabdominal and transvaginal ultrasound examination. View: Adequate visualization Sandhu . Number of embryos: 1 Dating LMP on: 07/05/2024 GA by LMP 9 w + 3 d MAZIN by LMP: 04/11/2025 Ultrasound examination on: 09/09/2024 GA by U/S based upon: CRL GA by U/S 9 w + 1 d MAZIN by U/S: 04/13/2025 Assigned: based on the LMP, selected on 09/09/2024 Assigned GA 9 w + 3 d Assigned MAZIN: 04/11/2025 Biometry Standard FHR 177 bpm CRL 23.8 mm 9w 1d 15% Hadlock Assessment Gestational sac: visualized Location: intrauterine Yolk sac: visualized Embryo: visualized CRL 23.8 mm 9w 1d 15% Hadlock Cardiac activity: present FHR 177 bpm General Evaluation Cardiac activity present. FHR 177 bpm. movements: present Performed By: Meagan Paul CNP Read By: Meagan Paul CNP MATERNAL MEDICINE [facility] Radiology Study observation (narrative) [facility] B-HCG SerPl-aCncon 5 HCG.beta subunit Qn 7485.0 m[IU]/mL High <5.0 [facility] Comment on above: Order Comment: Speci men Type: BLOOD SPECIMEN Ordering Facility: [facility] Address: [address] [place] [address] Result Comment: STEPHANIE TITATIVE HCG NORMAL RANGES Weeks of Gestation (Weeks Since LMP) 3 Weeks (5.8-71.2 mIU/mL) 4 Weeks (9.5-750 mIU/mL) 5 Weeks (217-7138 mIU/mL) 6 Weeks (158-80669 mIU/mL) 7 Weeks (3697-758095 mIU/mL) 8 Weeks (66157-730216 mIU/mL) 9 Weeks (67971-717869 mIU/mL) 10 Weeks (08362-731954 mIU/mL) 12 Weeks (34144-304317 mIU/mL) Referenced to 4th IS of [facility] Performed By: #### 3 016-3 #### [facility] CLIA [id number] [address] [place] [address] [place] B-HCG SerPl-aCncon 4 HCG.beta subunit Qn 4864.0 m[IU]/mL High <5.0 [facility] Comment on above: Order Comment: Speci men Type: BLOOD SPECIMEN Ordering Facility: [facility] Address: [address] [place] [address] Result Comment: STEPHANIE TITATIVE HCG NORMAL RANGES Weeks of Gestation (Weeks Since LMP) 3 Weeks (5.8-71.2 mIU/mL) 4 Weeks (9.5-750 mIU/mL) 5 Weeks (217-7138 mIU/mL) 6 Weeks (158-97209 mIU/mL) 7 Weeks (3697-088286 mIU/mL) 8 Weeks (15822-846539 mIU/mL) 9 Weeks (05644-846765 mIU/mL) 10 Weeks (27244-880307 mIU/mL) 12 Weeks (08091-681951 mIU/mL) Referenced to 4th IS of [facility] Performed By: #### T SPN #### [facility] CLIA [id number] [address] [place] [address] [place] CARRIER SCREEN, EXPANDEDon 1 CARRIER SCREEN RESULTS View results in Scanned Documents link when available. Normal [facility] Comment on above: Order Comment: Speci men Type: BLOOD SPECIMEN Ordering Facility: [facility] Address: [address] [place] [address] Performed By: #### T SPN #### [facility] CLIA [id number] [address] [place] [address] OF [place] TYPE + SCREEN PRENATALon ABO A Normal [facility] Comment on above: Order Comment: Speci men Type: BLOOD SPECIMEN Ordering Facility: [facility] Address: [address] [place] [address] Performed By: #### T SPN #### [facility] CLIA [id number] [address] [place] [address] [place] Rh Nom (Bld) Positive Normal [facility] Comment on above: Order Comment: Speci men Type: BLOOD SPECIMEN Ordering Facility: [facility] Address: [address] [place] [address] Performed By: #### T SPN #### [facility] CLIA [id number] [address] [place] [address] [place] TYPE AND SCREEN EXPIRATION 06/13/2024 23:59 Normal [facility] Comment on above: Order Comment: Speci men Type: BLOOD SPECIMEN Ordering Facility: [facility] Address: [address] [place] [address] Performed By: #### T SPN #### [facility] CLIA [id number] [address] [place] [address] [place] WHIIVF GC/CHLAMYDIA AMPLIF, URINEon 06-10-2024 WHIIVF GC/CHLAMYDIA AMPLIF, URINE NEISSERIA GONORRHOEAE (GC): Negative for Neisseria gonorrhoeae by amplification CHLAMYDIA TRACHOMATIS (CT): Negative for Chlamydia trachomatis by amplification Normal [facility] Comment on above: Performed By: #### T SPN #### [facility] CLIA [id number] [address] [place] [address] [place] HBV core Ab Ser Qlon 024 HBV core Ab Ql (S) Negative Normal Negative [facility] Comment on above: Order Comment: Speci men Type: BLOOD SPECIMEN Ordering Facility: [facility] Address: [address] [place] [address] Result Comment: No e vidence of current or past infection with Hepatitis B virus. Should recent infection be suspected, repeat testing may be considered 3-4 weeks after this draw. Performed By: #### 3 016-3 #### [facility] CLIA [id number] [address] [place] [address] [place] HBV surface Ag Ser Qlon 05-13 HBV surface Ag Ql (S) Negative Normal Negative [facility] Comment on above: Order Comment: Speci men Type: BLOOD SPECIMEN Ordering Facility: [facility] Address: [address] [place] [address] Performed By: #### 3 016-3 #### [facility] CLIA [id number] [address] [place] [address] [place] HCV Ab Ser Qlon 05-29-2024 HCV Ab Ql (S) Negative Normal Negative [facility] Comment on above: Order Comment: Speci men Type: BLOOD SPECIMEN Ordering Facility: [facility] Address: [address] [place] [address] Result Comment: The result suggests no evidence of active infection with Hepatitis C virus. Should recent infection be suspected, repeat testing may be considered 4-6 weeks after this draw. Performed By: #### 3 024-7, 3016-3 #### [facility] CLIA [id number] [address] [place] [address] OF [place] HIV 1+2 Ab IA Qlon 4 HIV 1 and 2 Ab IA.rapid Nom (S/P/Bld) Normal [facility] Comment on above: Order Comment: Speci men Type: BLOOD SPECIMEN Ordering Facility: [facility] Address: [address] [place] [address] Result Comment: Test not indicated. Performed By: #### 3 016-3 #### [facility] CLIA [id number] [address] [place] [address] OF [facility] HIV 1+2 Ab+HIV1 p24 Ag IA Ql Non-Reactive Normal Nonreactive [facility] Comment on above: Order Comment: Speci men Type: BLOOD SPECIMEN Ordering Facility: [facility] Address: [address] [place] [address] Performed By: #### 3 016-3 #### [facility] CLIA [id number] [address] [place] [address] HIV immunoassay testing algorithm interpretation (S/P/Bld) [Interp] Normal [facility] Comment on above: Order Comment: Speci men Type: BLOOD SPECIMEN Ordering Facility: [facility] Address: [address] [place] [address] Result Comment: No e vidence of HIV-1 or HIV-2 infection. Should recent infection be suspected, repeat testing may be considered 2-3 weeks after this draw. [place] Rev. Code 3701.243(E): This information has been disclosed to you from confidential records protected from disclosure by state law. ???You shall make no further disclosure of this information without the specific, written, and informed release of the individual to whom it pertains or as otherwise permitted by state law. A general authorization for the release of medical or other information is not sufficient for the purpose of the release of HIV test results or diagnoses. Performed By: #### 3 016-3 #### [facility] CLIA [id number] [address] [place] [address] [place] RUBELLA IGG ANTIBODYon 05-29 RUBELLA IGG AB, QUAL Positive Normal Positive [facility] Comment on above: Order Comment: Speci men Type: BLOOD SPECIMEN Ordering Facility: [facility] Address: [address] [place] [address] Result Comment: The result suggests recent or past exposure to Rubella virus or history of Rubella vaccination. Positive result may also be seen due to presence of passively-transferred antibodies. Please correlate with patient's history. Performed By: #### 3 024-7, 3016-3 #### [facility] CLIA [id number] [address] [place] [address] [place] Reagin and Treponema pallidu m IgG and IgM [Interp]on 05-29-2024 T. pallidum IgG+IgM IA Ql (S) Non-Reactive Normal Nonreactive [facility] Comment on above: Order Comment: Speci men Type: BLOOD SPECIMEN Ordering Facility: [facility] Address: [address] [place] [address] Performed By: #### 3 016-3 #### [facility] CLIA [id number] [address] [place] [address] [place] Reagin+T pallidum IgG+IgM Se rPl-Impon 05-29-2024 Reagin and Treponema pallidum IgG and IgM [Interp] Cannot exclude recent Treponemal infection if specimen collected within 7-10 days after appearance of suspect lesions or 2-3 weeks after an exposure. Clinical correlation is required. Normal [facility] Comment on above: Order Comment: Speci men Type: BLOOD SPECIMEN Ordering Facility: [facility] Address: [address] [place] [address] Performed By: #### 3 016-3 #### [facility] CLIA [id number] [address] [place] [address] [place] VARICELLA ZOSTER IGGon 05-29 VARICELLA ZOSTER IGG, QUAL Positive Normal Positive [facility] Comment on above: Order Comment: Juan saini Type: BLOOD SPECIMEN Ordering Facility: [facility] Address: [address] [place] [address] Result Comment: The result suggests recent or past exposure to Varicella-Zoster virus or chickenpox vaccination or zoster vaccination. Positive result may also be seen due to presence of passively-transferred antibodies. Please correlate with patient's history. Performed By: #### 3 024-7, 3016-3 #### [facility] CLIA [id number] [address] [place] [address] [place] T3Free SerPl-mCncon 04-25-20 24 Free T3 [Mass/Vol] 2.6 pg/mL Normal 2.3-4.1 [facility] Comment on above: Order Comment: Juan saini Type: BLOOD SPECIMEN Ordering Facility: [facility] Address: [address] [place] [address] Performed By: #### T SPN #### [facility] CLIA [id number] [address] [place] [address] [place] T4 Free SerPl-mCncon 024 Free T4 [Mass/Vol] 1.1 ng/dL Normal 0.9-1.7 [facility] Comment on above: Order Comment: Juan saini Type: BLOOD SPECIMEN Ordering Facility: [facility] Address: [address] [place] [address] Performed By: #### T SPN #### [facility] CLIA [id number] [address] [place] [address] [place] TSH SerPl-aCncon 04-25-2024 TSH Qn 3.760 m[IU]/L Normal 0.270-4.200 [facility] Comment on above: Order Comment: Juan saini Type: BLOOD SPECIMEN Ordering Facility: [facility] Address: [address] [place] [address] Result Comment: If t he patient is , TSH reference range varies by gestational period: First Trimester (weeks 9-12): 0.180-2.990 mIU/L Second Trimester: 0.110-3.980 mIU/L Third Trimester: 0.480-4.710 mIU/L Leobardo Young et al. A Practical Approach for the Verifications and Determination of Site- and Trimester-Specific Reference Intervals for Thyroid Function tests in . Thyroid, 2019:29:3:412-420. Victor Manuel Simons et al. 2017 Guidelines of the [place] [employer] for the Diagnosis and Management of Thyroid Disease during and the . Thyroid, 2017:27:3:315-389. Performed By: #### T SPN #### [facility] CLIA [id number] [address] [place], [place] [id number] [facility] Operative Reporton 4 Operative Report [facility] Medical Records Department [address] [place] [address] Operative Report 04/10/24 0923 MR#: [id number] Acct: [id number] Name: CELIA TORRES Rep #: [id number] : 1990 33 From: Lois Nava MD PCP: Dr. Rakesh Vega, DO Status:[facility] Location: RAD Problems Associated Problem List Diagnoses (1) Infertility, tubal origin: (2) PCOS (polycystic ovarian syndrome): (3) Hirsutism: (4) Abnormal uterine bleeding (AUB): (5) Infertility: Report of Operation Date of Procedure: 04/10/24 Pre-Operative Diagnosis: Infertility, PCOS Post-Operative Diagnosis: Same , left fallopian tube not patent Surgery/Procedure Performed:: [facility] Description of Surgical Findings:: Right tube patent , left tube not patent Surgeon: Lois Nava yarn finisher: None Type of Anesthesia: None Description of Procedure: Speculum was placed in the vagina. Cervix was cleaned with Betadine. Tenaculum used to grasp the anterior lip of the cervix. Cervix was stenotic, had to use os finder to dilate- once dilated the cather inserted w/o difficulty. At this time fluoroscopy dye was injected and spillage was noted from the right tube however not from the left tube. Grafts/Implants Used: none Complications none 04/10/24 0930 Cosigner Signature (if applicable): CC: Dr Lois Nava MD; Dr. Rakesh Vega, Signed Normal [facility] Salpingogramon 04-10-2024 Salpingogram [facility] Imaging Services [address] [place], [place] [id number] Salpingogram MR#: [id number] Acct: [id number] Name: CELIA TORRES Rep #: [id number] : 1990 F 33 From: Bo sigala MD PCP: Dr. Rakesh Vega DO Status: REG CLI Study: Salpingogram Date of Exam: 04/10/24 Exam# [id number] Ordering Dr: Ragland MD [id number] INDICATION: INFERTILITY EXAMINATION/TECHNIQUE: Routine hysterosalpingography was performed. Total Fluoroscopic Time: 35 seconds AND number of Fluoroscopic Images: 3 OR Radiation dosage index: 12.59 mGy. COMPARISON: FINDINGS: The uterine cavity contour is unremarkable. There are no filling defects or abnormalities. The left fallopian tube is patent with free peritoneal spillage. The proximal portion of the left fallopian tube is visualized without any spell. RAD/Salpingogram IMPRESSION: Patency of the right fallopian tube with free spill. The uterus is unremarkable. The proximal portion of the left fallopian tube is visualized with no spill. Electronically Signed: Bo Adam MD at 9:47 EDT , CC: Dr Lois Nava MD; Dr. Rakesh Vega DO Felt Finishing Supervisor: Signed Normal [facility] Serum or plasma choriogonado tropin detectionOrdered By: Rakesh Gary on 11-27-2023 HCG ( test) Ql Negative [facility] Absolute lymphocyte countOrd ered By: aRkesh Gary on 11-06-2023 Lymphocytes Auto (Unsp spec) [#/Vol] 2.96 10*3/uL 0.83-4.51 [facility] Automated lymphocyte count a s percentage of total leukocytesOrdered By: Rkaesh Vega on 11-06-2023 Lymphocytes/100 WBC Auto (Unsp spec) 38.1 % 19-41 [facility] Basophil percentageOrdered B y: Rakesh Vega on 11-06-2023 Basophils/100 WBC (Bld) 0.6 % 0-1 [facility] Bilirubin [Mass/Vol] 0.40 mg/dL 0.20-1.00 [facility] Comment on above: For patients on eltr ombopag therapy, use of Dimension [place] TBIL is not recommended. Chloride [Moles/Vol] 105 mmol/L 98-107 [facility] Cholesterol [Mass/Vol] 169 mg/dL <200 [facility] Comment on above: <200 mg/dL Desirable 200-240 mg/dL Borderline >240 mg/dL High Risk Eosinophils/100 WBC (Bld) 1.2 % 0-5 [facility] Glucose [Mass/Vol] 98 mg/dL 74-106 [facility] Hemoglobin (Bld) [Mass/Vol] 14.0 g/dL 12.0-15.0 [facility] Monocytes/100 WBC (Bld) 7.3 % 0-10 [facility] Neutrophils (Bld) [#/Vol] 4.1 10*3/uL 2.0-7.7 [facility] Neutrophils/100 WBC (Bld) 52.3 % 47-70 [facility] Potassium [Moles/Vol] 3.9 mmol/L 3.5-5.1 [facility] Protein [Mass/Vol] 8.0 g/dL 6.4-8.2 [facility] Sodium [Moles/Vol] 139 mmol/L 136-145 [facility] Triglyceride [Mass/Vol] 117 mg/dL <199 [facility] Comment on above: The drugs N-Acetylcy steine and Metamizole may falsely depress this assay.Serum Triglycerides Reference Interval Normal <150 mg/dL Borderline high 150 - 199 mg/dL High 200 - 499 mg/dL Very High > or = 500 mg/dL WBC (Bld) [#/Vol] 7.8 10*3/uL 4.4-11.0 [facility] Determination of erythrocyte mean corpuscular volume (MCV)Ordered By: Rakesh Vega on 11-06-2023 MCV (RBC) [Entitic vol] 92.7 fL 81-99 [facility] Erythrocyte distribution wid th ratioOrdered By: Rakeshlion Vega on 11-06-2023 Erythrocyte distribution width (RBC) [Ratio] 11.9 % 11.6-14.6 [facility] Erythrocyte distribution wid th standard deviationOrdered By: Rakesh Vega on 11-06-2023 Erythrocyte distribution width (RBC) [Entitic vol] 40.7 fL 35.1-43.9 [facility] Hematocrit Auto (Bld) [Volum e fraction]Ordered By: Rakesh Vega on 11-06-2023 Hematocrit (Bld) [Volume fraction] 43.3 % 37-47 [facility] Immature granulocytes/100 WB C Auto (Bld)Ordered By: Rakesh Vega on 11-06-2023 Immature granulocytes/100 WBC (Bld) 0.500 % 0.0-0.9 [facility] Comment on above: IG% - Immature Granu locytes (promyelocytes, myelocytes and metamyelocytes) > 1% indicates that a LEFT SHIFT is Present. Laboratory - Chemistry and C hemistry - challengeOrdered By: Rakesh Vega on 11-06-2023 Albumin/Globulin [Mass ratio] 1.0 {ratio} 0.9-2.4 [facility] ALP [Catalytic activity/Vol] 55 U/L 45-117 [facility] ALT [Catalytic activity/Vol] 21 U/L 13-56 [facility] Cholesterol in HDL [Mass/Vol] 43 mg/dL >40 [facility] Comment on above: The drugs N-Acetylcy steine and Metamizole may falsely depress this assay. Reference Range HDL <40 mg/dL Low HDL Cholesterol HDL >or= 60 mg/dL High HDL Cholesterol Cholesterol in LDL [Mass/Vol] 103 mg/dL 0-130 [facility] CO2 [Moles/Vol] 27.0 mmol/L 21.0-32.0 [facility] Globulin (S) [Mass/Vol] 4.0 g/dL 2.2-4.2 [facility] Urea nitrogen/Creatinine [Mass ratio] 15.9 mg/mg 10-20 [facility] Laboratory - Hematology and Cell countsOrdered By: Rakesh Vega on 11-06-2023 MCH (RBC) [Entitic mass] 30.0 pg 27.0-32.0 [facility] MCHC (RBC) [Mass/Vol] 32.3 g/dL 32-36 [facility] Nucleated RBC/100 WBC (Bld) [Ratio] 0 % 0-5 [facility] Platelet mean volume (Bld) [Entitic vol] 12.1 fL 6.2-12.0 [facility] Platelets (Bld) [#/Vol] 278 10*3/uL 150-450 [facility] No Panel InformationOrdered By: Rakesh Vega on 11-06-2023 Estimated GFR (MDRD) Amer 142 mL/min >60 [facility] Comment on above: GFR Calc Estimated GFR (MDRD) Non-Af Amer 117 mL/min >60 [facility] Comment on above: Non- GFR Calc Follicle Stimulating Hormone 5.7 mIU/mL [facility] Comment on above: NORMAL REFERENCE RAN GES FEMALE FOLLICULAR 2.3 - 12.6 mIU/mL MID-CYCLE PEAK 5.2 - 17.5 mIU/mL LUTEAL 1.7 - 12.9 mIU/mL POST-MENOPAUSAL ON MHT 5.9 - 72.8 mIU/mL NOT ON MHT 12.7 - 132.2 mlU/mL MALE 0.7 - 10.8 mIU/mL Luteinizing Hormone 20.8 mIU/mL [facility] Comment on above: NORMAL REFERENCE RAN GES FEMALE FOLLICULAR 1.9 - 26.2 mIU/mL MID-CYCLE PEAK 22.8 - 76.1 mIU/mL LUTEAL 0.6 - 16.6 mIU/mL POST-MENOPAUSAL ON MHT 1.1 - 52.4 mIU/mL NOT ON MHT 8.6 - 61.8 mIU/mL MALE 1.2 - 10.6 mIU/mL Prolactin 10.0 ng/mL [facility] Comment on above: NORMAL REFERENCE RAN GES FEMALE NON- 2.2 - 30.3 ng/mL 8.1 - 347.6 ng/mL POST-MENOPAUSAL 0.7 - 31.5 ng/mL MALE 2.5 - 17.4 ng/mL VLDL Cholesterol 23 mg/dL 5-40 [facility] RBC Auto (Bld) [#/Vol]Ordere d By: Rakesh Vega on 11-06-2023 RBC (Bld) [#/Vol] 4.67 10*6/uL 4.2-5.4 [facility] Serum or plasma calcium sni urement (mass/volume)Ordered By: Rakesh Vega on 11-06-2023 Calcium [Mass/Vol] 9.0 mg/dL 8.5-10.1 [facility] Serum or plasma creatinine m easurement (mass/volume)Ordered By: Rakesh Vega on 11-06-2023 Creatinine [Mass/Vol] 0.63 mg/dL 0.55-1.02 [facility] Comment on above: The validity of the calculated GFR & GFRAA in patients over 70 years has not been determined. Clinical correlation is essential. Serum or plasma thyroid stim ulating hormone (TSH) measurement (units/volume)Ordered By: Rakesh Vega on 11-06-2023 TSH Qn 4.81 uIU/mL 0.358-3.74 [facility] Serum or plasma urea nitroge n measurement (mass/volume)Ordered By: Rakesh Vega on 11-06-2023 Urea nitrogen [Mass/Vol] 10 mg/dL 7-18 [facility] Thin prep Papanicolaou smear with manual screeningOrdered By: Rakesh Vega on 11-06-2023 Thin prep Papanicolaou smear with manual screening 4.0 g/dL 3.2-5.0 [facility] Thin prep Papanicolaou smear with manual screening 19 U/L 15-37 [facility] Thin prep Papanicolaou smear with manual screening 7 5-15 [facility] Vital Signs Date Time Vital Sign Value Performing Clinician Faci lity 04-07-2025 08:46-0400 Body mass index (BMI) [Ratio] 28.9 kg/m2 Lois Perez MD Work Phone: [facility] 04-07-2025 08:46-0400 Body weight 67.13 kg Lois Perez MD Work Phone: [facility] 04-07-2025 08:46-0400 Diastolic blood pressure 60 mm[Hg] Lois Perez MD Work Phone: [facility] 04-07-2025 08:46-0400 Systolic blood pressure 100 mm[Hg] Lois Perez MD Work Phone: [facility] 03-31-2025 10:04-0400 Body mass index (BMI) [Ratio] 29.29 kg/m2 John Mae MD Work Phone: [facility] 03-31-2025 10:04-0400 Body weight 68.04 kg John Mae MD Work Phone: [facility] 03-31-2025 10:04-0400 Diastolic blood pressure 58 mm[Hg] John Mae MD Work Phone: [facility] 03-31-2025 10:04-0400 Systolic blood pressure 102 mm[Hg] John Mae MD Work Phone: [facility] 03-26-2025 11:20-0400 Diastolic blood pressure 66 mm[Hg] [facility] 03-26-2025 11:20-0400 Systolic blood pressure 118 mm[Hg] [facility] 03-24-2025 13:36-0400 Body mass index (BMI) [Ratio] 29.29 kg/m2 Fern Whittaker APRN.CNM Work Phone: [facility] 03-24-2025 13:36-0400 Body weight 68.04 kg Fern Whittaker APRN.CNM Work Phone: [facility] 03-24-2025 13:36-0400 Diastolic blood pressure 68 mm[Hg] Fern Whittaker APRN.CNM Work Phone: [facility] 03-24-2025 13:36-0400 Systolic blood pressure 114 mm[Hg] Fern Whittaker FORMING PROCESS LINE WORKER.CNM Work Phone: [facility] 03-06-2025 08:58-0400 Body mass index (BMI) [Ratio] 28.32 kg/m2 Edmar Haury FORMING PROCESS LINE WORKER.HEAVY RAIL TRAIN OPERATOR Work Phone: [facility] 03-06-2025 08:58-0400 Body weight 65.77 kg Edmar Haury FORMING PROCESS LINE WORKER.HEAVY RAIL TRAIN OPERATOR Work Phone: [facility] 03-06-2025 08:58-0400 Diastolic blood pressure 60 mm[Hg] Edmar Haury FORMING PROCESS LINE WORKER.HEAVY RAIL TRAIN OPERATOR Work Phone: [facility] 03-06-2025 08:58-0400 Systolic blood pressure 98 mm[Hg] Edmar Haury FORMING PROCESS LINE WORKER.HEAVY RAIL TRAIN OPERATOR Work Phone: [facility] 02-20-2025 08:50-0400 Body mass index (BMI) [Ratio] 27.73 kg/m2 Anthony Villatoro MD Work Phone: [facility] 02-20-2025 08:50-0400 Body weight 64.41 kg Anthony Villatoro MD Work Phone: [facility] 02-20-2025 08:50-0400 Diastolic blood pressure 52 mm[Hg] Anthony Villatoro MD Work Phone: [facility] 02-20-2025 08:50-0400 Systolic blood pressure 96 mm[Hg] Anthony Villatoro MD Work Phone: [facility] 02-03-2025 13:40-0400 Body mass index (BMI) [Ratio] 27.38 kg/m2 Anthony Villatoro MD Work Phone: [facility] 02-03-2025 13:40-0400 Body weight 63.59 kg Anthony Villatoro MD Work Phone: [facility] 02-03-2025 13:40-0400 Diastolic blood pressure 60 mm[Hg] Anthony Villatoro MD Work Phone: [facility] 02-03-2025 13:40-0400 Systolic blood pressure 100 mm[Hg] Anthony Villatoro MD Work Phone: [facility] 01-23-2025 09:48-0400 Body mass index (BMI) [Ratio] 26.99 kg/m2 Arianna Nye MD Work Phone: [facility] 01-23-2025 09:48-0400 Body weight 62.69 kg Arianna Nye MD Work Phone: [facility] 01-23-2025 09:48-0400 Diastolic blood pressure 54 mm[Hg] Arianna Nye MD Work Phone: [facility] 01-23-2025 09:48-0400 Systolic blood pressure 98 mm[Hg] Arianna Nye MD Work Phone: [facility] 12-25-2024 08:04-0400 Body mass index (BMI) [Ratio] 25.58 kg/m2 Lois Perez MD Work Phone: [facility] 12-25-2024 08:04-0400 Body weight 59.42 kg Lois Perez MD Work Phone: [facility] 12-25-2024 08:04-0400 Diastolic blood pressure 56 mm[Hg] Lois Perez MD Work Phone: [facility] 12-25-2024 08:04-0400 Systolic blood pressure 100 mm[Hg] Lois Perez MD Work Phone: [facility] 11-27-2024 09:01-0400 Body mass index (BMI) [Ratio] 25 kg/m2 Rubina Landaverde APRN.CNM Work Phone: [facility] 11-27-2024 09:01-0400 Body weight 58.06 kg Rubina Landaverde FORMING PROCESS LINE WORKER.CNM Work Phone: [facility] 11-27-2024 09:01-0400 Diastolic blood pressure 66 mm[Hg] Rubina Landaverde FORMING PROCESS LINE WORKER.CNM Work Phone: [facility] 11-27-2024 09:01-0400 Systolic blood pressure 102 mm[Hg] Rubina Landaverde FORMING PROCESS LINE WORKER.CNM Work Phone: [facility] 10-30-2024 08:35-0400 Body mass index (BMI) [Ratio] 24.41 kg/m2 John Mae MD Work Phone: [facility] 10-30-2024 08:35-0400 Body weight 56.7 kg John Mae MD Work Phone: [facility] 10-30-2024 08:35-0400 Diastolic blood pressure 60 mm[Hg] John Mae MD Work Phone: [facility] 10-30-2024 08:35-0400 Systolic blood pressure 108 mm[Hg] John Mae MD Work Phone: [facility] 10-02-2024 09:27-0500 Body mass index (BMI) [Ratio] 24.02 kg/m2 Anthony Villatoro MD Work Phone: [facility] 10-02-2024 09:27-0500 Body weight 55.79 kg Anthony Villatoro MD Work Phone: [facility] 10-02-2024 09:27-0500 Diastolic blood pressure 60 mm[Hg] Anthony Villatoro MD Work Phone: [facility] 10-02-2024 09:27-0500 Systolic blood pressure 102 mm[Hg] Anthony Villatoro MD Work Phone: [facility] 09-09-2024 08:20-0500 Body height 152.4 cm Meagan Humberto FORMING PROCESS LINE WORKER.HEAVY RAIL TRAIN OPERATOR Work Phone: [facility] 09-09-2024 08:20-0500 Body mass index (BMI) [Ratio] 24.06 kg/m2 Meagan [place] FORMING PROCESS LINE WORKER.HEAVY RAIL TRAIN OPERATOR Work Phone: [facility] 09-09-2024 08:20-0500 Body weight 55.88 kg Meagan Humberto FORMING PROCESS LINE WORKER.HEAVY RAIL TRAIN OPERATOR Work Phone: [facility] 09-09-2024 08:20-0500 Diastolic blood pressure 62 mm[Hg] Meagan Humberto FORMING PROCESS LINE WORKER.HEAVY RAIL TRAIN OPERATOR Work Phone: [facility] 09-09-2024 08:20-0500 Systolic blood pressure 108 mm[Hg] Meagan Humberto FORMING PROCESS LINE WORKER.HEAVY RAIL TRAIN OPERATOR Work Phone: [facility] 12-14-2023 09:18-0400 Body height 149.9 cm Lois Perez MD Work Phone: [facility] 12-14-2023 09:18-0400 Body mass index (BMI) [Ratio] 24.64 kg/m2 Lois Perez MD Work Phone: [facility] 12-14-2023 09:18-0400 Body weight 55.34 kg Lois Perez MD Work Phone: [facility] 12-14-2023 09:18-0400 Diastolic blood pressure 60 mm[Hg] Lois Perez MD Work Phone: [facility] 12-14-2023 09:18-0400 Systolic blood pressure 98 mm[Hg] Lois Perez MD Work Phone: [facility] 11-06-2023 14:21-0400 Body height 154.[address] Solis Berger Work Phone: [facility] 11-06-2023 14:21-0400 Body mass index (BMI) [Ratio] 22.6 kg/m2 Dr. Solis Berger Work Phone: [facility] 11-06-2023 14:21-0400 Body temperature 98.2 [degF] Dr. Solis Berger Work Phone: [facility] 11-06-2023 14:21-0400 Body weight 54.[address] Solis Berger Work Phone: [facility] 11-06-2023 14:21-0400 Diastolic blood pressure 72 mm[Hg] Dr. Solis Berger Work Phone: [facility] 11-06-2023 14:21-0400 Heart rate 74 /min Dr. Solis Berger Work Phone: [facility] 11-06-2023 14:21-0400 Respiratory rate 16 /min Dr. Solis Berger Work Phone: [facility] 11-06-2023 14:21-0400 SaO2% (BldA) [Mass fraction] 99 % Dr. Solis Berger Work Phone: [facility] 11-06-2023 14:21-0400 Systolic blood pressure 108 mm[Hg] Dr. Solis Berger Work Phone: [facility] Encounters Encounter Date Encounter Type Care Provider Facility Start: 04-11-2025 ambulatory Lois Nava Facility:[facility] Start: 04-09-2025 End: 04-09-2025 Telephone encounter Corry Polanco MD Work Phone: OB/Gynecology Comment on above: Brown sticky dischar ge Start: 04-08-2025 End: 04-08-2025 Get Medical Advice Lois Perez MD Work Phone: OB/Gynecology Comment on above: Need refills for thy roid medication Start: 04-07-2025 End: 04-07-2025 ambulatory LOIS PEREZ Facility:[facility] Start: 04-07-2025 End: 04-07-2025 Patient encounter procedure Lois Perez MD Work Phone: OB/Gynecology Comment on above: Encounter for superv ision in primigravida, antepartum (HCC) (Primary Dx); Hypothyroidism, unspecified type; Uterine size-date discrepancy, third trimester (HCC); 39 weeks gestation of (HCC) Start: 04-01-2025 End: 04-01-2025 ambulatory Lexis Rogers MA [facility] Start: 04-01-2025 End: 04-01-2025 Patient encounter procedure Lexis Rogers MA [facility] [place] Comment on above: Population Health Na vigation Outreach (Ob/peds) Start: 03-31-2025 End: 03-31-2025 Patient encounter procedure John Mae MD Work Phone: OB/Gynecology Comment on above: Encounter for superv ision in primigravida, antepartum (HCC) (Primary Dx); Hypothyroidism, unspecified type; 38 weeks gestation of (HCC) Start: 03-31-2025 End: 03-31-2025 ambulatory JOHN MAE Facility:[facility] Start: 03-26-2025 End: 03-26-2025 Patient encounter procedure [employer] [facility] Comment on above: Uterine size date di screpancy, third trimester (HCC) (Primary Dx); Encounter for supervision of normal first in third trimester (HCC); 37 weeks gestation of (HCC) Start: 03-26-2025 End: 03-26-2025 ambulatory FERN WHITTAKER Facility:[facility] Start: 03-24-2025 End: 03-24-2025 Patient encounter procedure Fern Whittaker APRN.CNM Work Phone: OB/Gynecology Comment on above: Encounter for superv ision in primigravida, antepartum (HCC) (Primary Dx); Hypothyroidism, unspecified type; 37 weeks gestation of (HCC) Start: 03-24-2025 End: 03-24-2025 ambulatory FERN WHITTAKER Facility:[facility] Start: 03-20-2025 End: 03-20-2025 ambulatory FERN WHITTAKER Facility:[facility] Start: 03-06-2025 End: 03-06-2025 Patient encounter procedure Edmar Allison FORMING PROCESS LINE WORKER.HEAVY RAIL TRAIN OPERATOR Work Phone: OB/Gynecology Comment on above: Encounter for superv ision of normal first in third trimester (HCC) (Primary Dx); 34 weeks gestation of (HCC); Hypothyroidism, unspecified type Start: 03-06-2025 End: 03-06-2025 ambulatory EDMAR ALLISON Facility:[facility] Start: 02-20-2025 End: 02-20-2025 Patient encounter procedure Anthony Villatoro MD Work Phone: OB/Gynecology Comment on above: Encounter for superv ision of normal first in third trimester (HCC) (Primary Dx); Hypothyroidism, unspecified type; 32 weeks gestation of (HCC) Start: 02-20-2025 End: 02-20-2025 ambulatory ANTHONY VILLATORO Facility:[facility] Start: 02-16-2025 End: 02-17-2025 ambulatory Anthony Villatoro MD Work Phone: OB/Gynecology Comment on above: FMLA paperwork Start: 02-16-2025 End: 02-17-2025 E-mail encounter from caregiver Anthony Villatoro MD Work Phone: OB/Gynecology Start: 02-05-2025 End: 04-07-2025 Follow-up encounter Arianna Nye MD Work Phone: OB/Gynecology Start: 02-03-2025 End: 02-03-2025 Patient encounter procedure Anthony Villatoro MD Work Phone: OB/Gynecology Comment on above: 30 weeks gestation o f (HCC) (Primary Dx); Encounter for supervision of normal first in third trimester (HCC); Hypothyroidism, unspecified type Start: 02-03-2025 End: 02-03-2025 ambulatory ARIANNA [facility] Facility:[facility] Start: 01-26-2025 End: 03-28-2025 Follow-up encounter Lois Perez MD Work Phone: OB/Gynecology Start: 01-23-2025 End: 01-23-2025 Patient encounter procedure Arianna Nye MD Work Phone: OB/Gynecology Comment on above: 28 weeks gestation o f (HCC) (Primary Dx); Encounter for supervision of normal first in third trimester (HCC); Need for vaccination; Hypothyroidism, unspecified type Start: 01-23-2025 End: 01-23-2025 [facility] Start: 01-22-2025 End: 01-22-2025 ambulatory Lois Perez MD Work Phone: OB/Gynecology Start: 01-22-2025 End: 01-22-2025 Letter encounter Lois Perez MD Work Phone: OB/Gynecology Comment on above: Can I get a letter s aying I am ? Start: 12-31-2024 End: 12-31-2024 ambulatory CORRY POLANCO Facility:[facility] Start: 12-25-2024 End: 12-25-2024 Patient encounter procedure Lois Perez MD Work Phone: OB/Gynecology Comment on above: Encounter for superv ision of normal first in second trimester (HCC) (Primary Dx); Hypothyroidism, unspecified type; Screening for diabetes mellitus; Encounter for supervision of normal first in third trimester (HCC); 24 weeks gestation of (HCC) Start: 12-25-2024 End: 12-25-2024 ambulatory LOIS PEREZ Facility:[facility] Start: 12-01-2024 End: 01-31-2025 Follow-up encounter Corry Polanco MD Work Phone: OB/Gynecology Start: 11-27-2024 End: 11-27-2024 ambulatory RUBINA LANDAVERDE Facility:[facility] Start: 11-27-2024 End: 11-27-2024 Patient encounter procedure Rubina Landaverde FORMING PROCESS LINE WORKER.CNM Work Phone: OB/Gynecology Comment on above: Hypothyroidism, unsp ecified type (Primary Dx); Encounter for supervision of normal first in second trimester (HCC); 20 weeks gestation of (HCC) Encounter for anatomic survey (HCC) (Primary Dx); 20 weeks gestation of (HCC) Start: 11-27-2024 End: 11-27-2024 ambulatory MEAGAN PAUL Facility:[facility] Start: 11-10-2024 End: 11-10-2024 Get Medical Advice Anthony Villatoro MD Work Phone: OB/Gynecology Comment on above: Thyroid medication r efill Start: 10-30-2024 End: 10-30-2024 ambulatory JOHN MAE Facility:[facility] Start: 10-30-2024 End: 10-30-2024 Patient encounter procedure John Mae MD Work Phone: OB/Gynecology Comment on above: Hypothyroidism, unsp ecified type (Primary Dx); 16 weeks gestation of ; Encounter for supervision of normal first in second trimester Start: 10-15-2024 End: 10-15-2024 [facility] Facility:[facility] Start: 10-02-2024 End: 12-02-2024 Follow-up encounter John Mae MD Work Phone: OB/Gynecology Start: 10-02-2024 End: 10-02-2024 [facility] Facility:[facility] Start: 10-02-2024 End: 10-02-2024 Patient encounter procedure Anthony Villatoro MD Work Phone: OB/Gynecology Comment on above: Encounter for prenat al care in first trimester of first (Primary Dx); 12 weeks gestation of ; Hypothyroidism, unspecified type Encounter for antena tamara screening for malformation using ultrasound (Primary Dx); 12 weeks gestation of Start: 09-11-2024 End: 09-11-2024 ambulatory [facility] FORMING PROCESS LINE WORKER.HEAVY RAIL TRAIN OPERATOR Work Phone: OB/Gynecology Comment on above: NIPT needs prior aut horization from insurance Start: 09-09-2024 End: 09-09-2024 [facility] Facility:[facility] Start: 09-09-2024 End: 09-09-2024 Patient encounter procedure [facility] FORMING PROCESS LINE WORKER.HEAVY RAIL TRAIN OPERATOR Work Phone: OB/Gynecology Comment on above: Encounter for superv ision in primigravida, antepartum (Primary Dx); with uncertain dates, antepartum; Encounter for care in first trimester of first ; Screening for cervical cancer; 9 weeks gestation of ; Hypothyroidism, unspecified type Start: 08-14-2024 End: 08-14-2024 ambulatory [facility] Facility:[facility] Start: 08-12-2024 End: 08-12-2024 [facility] Facility:[facility] Start: 08-05-2024 End: 08-11-2024 ambulatory Kamila Beard APRN.HEAVY RAIL TRAIN OPERATOR Work Phone: Reproductive Endocrinology Infertility Start: 08-05-2024 End: 08-11-2024 Patient encounter procedure Kamila Beard APRN.HEAVY RAIL TRAIN OPERATOR Work Phone: Reproductive Endocrinology Infertility Comment on above: Got a positive pregn fide test!! Start: 08-04-2024 End: 08-04-2024 Get Medical Advice Lois Perez MD Work Phone: OB/Gynecology Comment on above: Metformin is about t o finish with no refills left Start: 07-06-2024 End: 07-07-2024 ambulatory Kamila Beard APRN.HEAVY RAIL TRAIN OPERATOR Work Phone: Reproductive Endocrinology Infertility Start: 07-06-2024 End: 07-07-2024 Patient encounter procedure Kamila Beard APRN.HEAVY RAIL TRAIN OPERATOR Work Phone: Reproductive Endocrinology Infertility Comment on above: Updates Start: 06-10-2024 End: 06-10-2024 ambulatory KAMILA BEARD Facility:[facility] Start: 06-03-2024 End: 06-04-2024 ambulatory Kamila Beard FORMING PROCESS LINE WORKER.HEAVY RAIL TRAIN OPERATOR Work Phone: Reproductive Endocrinology Infertility Start: 06-03-2024 End: 06-04-2024 Patient encounter procedure Kamila Beard APRN.HEAVY RAIL TRAIN OPERATOR Work Phone: Reproductive Endocrinology Infertility Comment on above: Request for missing labs Missing tests Start: 05-29-2024 End: 05-29-2024 ambulatory KAMILA BEARD Facility:[facility] Start: 05-19-2024 End: 06-02-2024 [facility] Kamila Beard FORMING PROCESS LINE WORKER.HEAVY RAIL TRAIN OPERATOR Work Phone: Reproductive Endocrinology Infertility Comment on above: Screen for sexually transmitted diseases (Primary Dx); PCOS (polycystic ovarian syndrome); Fallopian tube disorder; Female infertility; Procreation management investigation and testing; Screening for genetic disease carrier status IUI scheduling with monitoring Start: 04-25-2024 End: 04-25-2024 ambulatory LOIS PEREZ Facility:[facility] Start: 04-22-2024 End: 04-23-2024 ambulatory Lois Perez MD Work Phone: OB/Gynecology Comment on above: Any suggestions on w hat to do next? Start: 04-10-2024 End: 04-10-2024 ambulatory Lois Perez MD Work Phone: OB/Gynecology Start: 04-10-2024 End: 04-10-2024 ambulatory Lois Nava Facility:[facility] Start: 01-24-2024 Orders Only Lois Perez MD Work Phone: OB/Gynecology Start: 01-23-2024 ambulatory Lois Perez MD Work Phone: OB/Gynecology Comment on above: Progesterone test Start: 01-14-2024 ambulatory Lois Perez MD Work Phone: OB/Gynecology Start: 01-14-2024 Follow-up encounter Lois Perez MD Work Phone: OB/Gynecology Comment on above: Test results follow up Start: 12-14-2023 End: 12-14-2023 Patient encounter procedure Lois Perez MD Work Phone: OB/Gynecology Comment on above: Abnormal uterine ble eding (AUB) (Primary Dx); Hirsutism; Hypothyroidism, unspecified type; Encounter for screening for diabetes mellitus; Screening cholesterol level Start: 11-27-2023 End: 11-27-[address] Solis Berger Work Phone: [facility] Work Phone: Start: 11-27-2023 End: 11-27-[address] Solis Berger Work Phone: [facility], [facility] Start: 11-13-2023 End: 11-13-[address] Solis Berger Work Phone: [facility] Work Phone: Start: 11-13-2023 End: 11-13-[address] Solis Berger Work Phone: [facility], [facility] Work Phone: Start: 11-06-2023 End: 11-06-[address] Solis Berger Work Phone: [facility] Work Phone: Start: 11-06-2023 End: 11-06-[address] Solis Berger Work Phone: [facility], [facility] Start: 11-06-2023 End: 11-06-[address] Solis Berger Work Phone: [facility] Work Phone: Start: 11-15-2017 Ambulatory CLAUDY BERGER [facility] Procedures Date Procedure Procedure Detail Performing Clinician Start: 04-07-2025 Urnls dip stick/tabl et rgnt non-auto w/o micrscp Lois Perez MD Work Phone: Start: 03-31-2025 Urnls dip stick/tabl et rgnt non-auto w/o micrscp John Mae MD Work Phone: Start: 03-26-2025 Us preg uterus after 1st trimest 08/13 gestation Fern Whittaker FORMING PROCESS LINE WORKER.CNM Work Phone: Start: 03-24-2025 Urnls dip stick/tabl et rgnt non-auto w/o micrscp Fern Whittaker FORMING PROCESS LINE WORKERMilyCNM Work Phone: Start: 03-06-2025 Urnls dip stick/tabl et rgnt non-auto w/o micrscp Edmar Allison FORMING PROCESS LINE WORKER.HEAVY RAIL TRAIN OPERATOR Work Phone: Start: 11-27-2024 Us preg uterus after 1st trimest 08/13 gestation Meagan Paul FORMING PROCESS LINE WORKER.HEAVY RAIL TRAIN OPERATOR Work Phone: Start: 10-02-2024 Antibody screen KAMILA CHIRAG Comment on above: Order Comment: Speci men Type: BLOOD SPECIMEN Ordering Facility: [facility] Address: [address] [place] [address] Performed By: #### T SPN #### [facility] CLIA [id number] [address] [place] [address] [place] Start: 10-02-2024 Us preg uterus after 1st trimest 08/13 gestation Meagan Humberto FORMING PROCESS LINE WORKER.HEAVY RAIL TRAIN OPERATOR Work Phone: Start: 09-09-2024 Us uterus l imited fetuses Meagan Humberto FORMING PROCESS LINE WORKER.HEAVY RAIL TRAIN OPERATOR Work Phone: Start: 09-09-2024 Adult depression scr eening assessment Anthony Villatoro MD Work Phone: Start: 06-10-2024 Antibody screen KAMILA BATISTACHEPE Comment on above: Order Comment: Speci men Type: BLOOD SPECIMEN Ordering Facility: [facility] Address: [address] [place] [address] Performed By: #### T SPN #### [facility] CLIA [id number] [address] [place] [address] Start: 11-13-[address] Solis Beregr Work Phone: Plan of Treatment Date Care Activity Detail Author Start: 01-23-2035 Urine microalbumin profile DTaP,Tdap,Td Vaccine (2 - Td or Tdap) [facility] Start: 09-09-2029 Screening for malign ant neoplasm of cervix Cervical Cancer Screening [facility] Start: 09-09-2025 Anxiety Screening Anxiety Screening [facility] Start: 09-09-2025 Depression Screening Depression Scre ening [facility] Start: 04-16-2025 End: 04-16-2025 Patient encounter procedure 04/16/2025 10:00 AM EDT Routine Office Visit OB/Gynecology [address] [place] [address] Corry Polanco MD [address] [place] [address] OB OB/Gynecology Comment on above: OB Start: 04-13-2025 [facility] Start: 04-07-2025 End: 04-07-2025 Patient encounter procedure 04/07/2025 8:40 AM EDT Routine Office Visit OB/Gynecology [address] [place] [address] Lois Quinn MD [address] [place] [address] OB OB/Gynecology Comment on above: OB Start: 03-31-2025 End: 03-31-2025 Patient encounter procedure 03/31/2025 10:10 AM EDT Routine Office Visit OB/Gynecology [address] [place] [address] John Mae MD [address] [place] [address] OB OB/Gynecology Comment on above: OB Start: 03-26-2025 End: 03-26-2025 Patient encounter procedure 03/26/2025 9:00 AM EDT Routine Office Visit Maternal Medicine [address] [place] [address] Growth Maternal Medicine Comment on above: Growth Start: 03-24-2025 End: 03-24-2025 Patient encounter procedure 03/24/2025 1:45 PM EDT Office Visit OB/Gynecology [address] [place] [address] Fern Whittaker APRN.CN [address] [place] [address] OB OB/Gynecology Comment on above: OB Start: 03-20-2025 End: 03-20-2025 Patient encounter procedure 03/20/2025 9:15 AM EDT Routine Office Visit OB/Gynecology [address] [place] [address] Fern Whittaker APRN.CNM [address] [place] [address] OB OB/Gynecology Comment on above: OB Start: 03-06-2025 End: 03-06-2025 Patient encounter procedure 03/06/2025 9:00 AM EDT Routine Office Visit OB/Gynecology [address] [place] [address] Edmar Allison, FORMING PROCESS LINE WORKER.HEAVY RAIL TRAIN OPERATOR [address] [place] [address] OB OB/Gynecology Comment on above: OB Start: 02-23-2025 Hepatitis B Vaccine (2 of 2 - CpG 2-dose series) Hepatitis B Vaccine (2 of 2 - CpG 2-dose series) [facility] Start: 02-20-2025 End: 02-20-2025 Patient encounter procedure OB/Gynecology Comment on above: OB OB- FMLA paperwork c ompleted, extra copy for patient in chart prep binder Start: 02-03-2025 End: 02-03-2025 Patient encounter procedure 02/03/2025 1:50 PM EDT Routine Office Visit OB/Gynecology [address] [place] [address] Anthony Villatoro MD [address] [place] [address] OB OB/Gynecology Comment on above: OB Start: 01-26-2025 End: 01-26-2025 ambulatory 01/26/2025 8:30 AM EDT Results Only Jermain Joy [facility] [address] [place] [address] Jermain [place] [facility] Start: 01-25-2025 End: 04-26-2025 ANEMIA REFLEX PANEL ANEMIA REFLEX PANEL Lab Routine Encounter for supervision of normal first in third trimester (HCC) Expected: 01/25/2025, Expires: 04/26/2025 [facility] Comment on above: Expected: 01/25/2025 , Expires: 04/26/2025 Start: 01-25-2025 End: 12-25-2025 GESTATIONAL GLUCOSE SCREEN, 1-HOUR, 50 GRAM, NON-FASTING GESTATIONAL GLUCOSE SCREEN, 1-HOUR, 50 GRAM, NON-FASTING Lab Routine Screening for diabetes mellitus Expected: 01/25/2025, Expires: 12/25/2025 [facility] Work Phone: Comment on above: Expected: 01/25/2025 , Expires: 12/25/2025 Start: 01-25-2025 End: 12-25-2025 SYPHILIS TREPONEMAL W/REFLEX SYPHILIS TREPONEMAL W/REFLEX Lab Routine Encounter for supervision of normal first in third trimester (HCC) Expected: 01/25/2025, Expires: 12/25/2025 [facility] Comment on above: Expected: 01/25/2025 , Expires: 12/25/2025 Start: 01-23-2025 End: 04-24-2025 Thyrotropin [Units/volume] in Serum or Plasma THYROID STIMULATING HORMONE Lab Routine 28 weeks gestation of ([facility]) Hypothyroidism, unspecified type Expected: 01/23/2025, Expires: 04/24/2025 [facility] Work Phone: Comment on above: Expected: 01/23/2025 , Expires: 04/24/2025 Start: 01-23-2025 End: 01-23-2025 Patient encounter procedure 01/23/2025 10:10 AM EDT Routine Office Visit OB/Gynecology [address] [place] [address] Arianna Nye MD [address] [place] [address] Glucose Test OB/Gynecology Comment on above: Glucose Test Start: 01-23-2025 End: 01-23-2025 ambulatory 01/23/2025 9:45 AM EDT Results [facility] [address] [place] [address] Glucose Test Jermain [facility] Comment on above: Glucose Test Start: 01-22-2025 End: 01-22-2025 Patient encounter procedure 01/22/2025 8:45 AM EDT Routine Office Visit OB/Gynecology [address] [place] [address] Edmar Allison APRN.HEAVY RAIL TRAIN OPERATOR [address] [place] [address] Glucose Test OB/Gynecology Comment on above: Glucose Test Start: 01-22-2025 End: 01-22-2025 ambulatory 01/22/2025 8:30 AM EDT Results Only [place] [facility] [address] [place] [address] Glucose Test [facility] Comment on above: Glucose Test Start: 12-31-2024 End: 12-31-2024 ambulatory 12/31/2024 8:45 AM EDT Results Only Jermain [place]ard[place] [facility] [address] [place] [address] Jermain Broussardwn [facility] Start: 12-25-2024 End: 12-25-2024 Patient encounter procedure 12/25/2024 8:10 AM EDT Routine Office Visit OB/Gynecology [address] [place] [address] Lois Quinn MD [address] [place] [address] OB OB/Gynecology Comment on above: OB Start: 11-27-2024 End: 02-26-2025 Thyrotropin [Units/volume] in Serum or Plasma [facility] Work Phone: Comment on above: Expected: 11/27/2024 , Expires: 02/26/2025 Start: 11-27-2024 End: 02-26-2025 Thyroxine (T4) free [Mass/volume] in Serum or Plasma [facility] Comment on above: Expected: 11/27/2024 , Expires: 02/26/2025 Start: 11-27-2024 End: 11-27-2024 Patient encounter procedure Maternal Medicine Comment on above: Anatomy Anatomy/OB Start: 10-30-2024 End: 10-30-2024 Patient encounter procedure 10/30/2024 8:30 AM EDT Routine Office Visit OB/Gynecology [address] [place] [address] John Mae MD [address] [place] [address] OB OB/Gynecology Comment on above: OB Start: 10-02-2024 End: 01-01-2025 Thyroxine (T4) free [Mass/volume] in Serum or Plasma [facility] Work Phone: Comment on above: Expected: 10/02/2024 , Expires: 01/01/2025 Start: 10-02-2024 End: 10-02-2024 Patient encounter procedure Maternal Medicine Comment on above: Nuchal OB Routine Start: 09-09-2024 End: 12-09-2024 ANEMIA REFLEX PANEL ANEMIA REFLEX PANEL Lab Routine Encounter for supervision in primigravida, antepartum with uncertain dates, antepartum Encounter for care in first trimester of first Expected: 09/09/2024, Expires: 12/09/2024 [facility] Work Phone: Comment on above: Expected: 09/09/2024 , Expires: 12/09/2024 Start: 09-09-2024 End: 12-09-2024 Chromosome 21 trisomy [Presence] in Blood or Tissue by Cytogenetics [id number] PLUS Lab Routine 9 weeks gestation of Expected: 09/09/2024, Expires: 12/09/2024 [facility] Comment on above: Expected: 09/09/2024 , Expires: 12/09/2024 Start: 09-09-2024 End: 12-09-2024 Hemoglobin A1c in Blood HEMOGLOBIN A1C Lab Routine Encounter for supervision in primigravida, antepartum with uncertain dates, antepartum Encounter for care in first trimester of first Expected: 09/09/2024, Expires: 12/09/2024 [facility] Comment on above: Expected: 09/09/2024 , Expires: 12/09/2024 Start: 09-09-2024 End: 12-09-2024 Hepatitis B virus surface Ag [Presence] in Serum HEPATITIS B SURFACE ANTIGEN Lab Routine Encounter for supervision in primigravida, antepartum with uncertain dates, antepartum Encounter for care in first trimester of first Expected: 09/09/2024, Expires: 12/09/2024 [facility] Comment on above: Expected: 09/09/2024 , Expires: 12/09/2024 Start: 09-09-2024 End: 12-09-2024 Hepatitis C virus Ab [Presence] in Serum HEPATITIS C ANTIBODY IA WITH CONFIRMATION Lab Routine Encounter for supervision in primigravida, antepartum with uncertain dates, antepartum Encounter for care in first trimester of first Expected: 09/09/2024, Expires: 12/09/2024 [facility] Comment on above: Expected: 09/09/2024 , Expires: 12/09/2024 Start: 09-09-2024 End: 12-09-2024 HIV 1+2 Ab [Presence] in Serum or Plasma by Immunoassay HIV 1/2 COMBO WITH REFLEX TO DIFFERENTIATION Lab Routine Encounter for supervision in primigravida, antepartum with uncertain dates, antepartum Encounter for care in first trimester of first Expected: 09/09/2024, Expires: 12/09/2024 [facility] Comment on above: Expected: 09/09/2024 , Expires: 12/09/2024 Start: 09-09-2024 End: 09-09-2025 OBSTETRIC ULTRASOUND WHI OBSTETRIC ULTRASOUND WHI Anc Imaging Routine Encounter for supervision in primigravida, antepartum with uncertain dates, antepartum Encounter for care in first trimester of first Expected: 09/09/2024, Expires: 09/09/2025 [facility] Comment on above: Expected: 09/09/2024 , Expires: 09/09/2025 Start: 09-09-2024 End: 12-09-2024 RUBELLA IGG ANTIBODY RUBELLA IGG ANTIBODY Lab Routine Encounter for supervision in primigravida, antepartum with uncertain dates, antepartum Encounter for care in first trimester of first Expected: 09/09/2024, Expires: 12/09/2024 [facility] Comment on above: Expected: 09/09/2024 , Expires: 12/09/2024 Start: 09-09-2024 End: 12-09-2024 SYPHILIS TREPONEMAL W/REFLEX SYPHILIS TREPONEMAL W/REFLEX Lab Routine Encounter for supervision in primigravida, antepartum with uncertain dates, antepartum Encounter for care in first trimester of first Expected: 09/09/2024, Expires: 12/09/2024 [facility] Comment on above: Expected: 09/09/2024 , Expires: 12/09/2024 Start: 09-09-2024 End: 12-09-2024 Thyrotropin [Units/volume] in Serum or Plasma THYROID STIMULATING HORMONE Lab Routine 9 weeks gestation of Hypothyroidism, unspecified type Expected: 09/09/2024, Expires: 12/09/2024 [facility] Comment on above: Expected: 09/09/2024 , Expires: 12/09/2024 Start: 09-09-2024 End: 12-09-2024 TYPE + SCREEN TYPE + SCREEN Blood Bank Routine Encounter for supervision in primigravida, antepartum with uncertain dates, antepartum Encounter for care in first trimester of first Expected: 09/09/2024, Expires: 12/09/2024 [facility] Comment on above: Expected: 09/09/2024 , Expires: 12/09/2024 Start: 05-19-2024 End: 08-18-2024 CARRIER SCREEN, EXPANDED CARRIER SCREEN, EXPANDED Lab Routine Screening for genetic disease carrier status Expected: 05/19/2024, Expires: 08/18/2024 [facility] Comment on above: Expected: 05/19/2024 , Expires: 08/18/2024 Start: 05-19-2024 End: 08-18-2024 Hepatitis B virus core Ab [Presence] in Serum HEPATITIS B CORE ANTIBODY TOTAL Lab Routine Screen for sexually transmitted diseases Expected: 05/19/2024 (Approximate), Expires: 08/18/2024 [facility] Comment on above: Expected: 05/19/2024 (Approximate), Expires: 08/18/2024 Start: 05-19-2024 End: 08-18-2024 Hepatitis B virus surface Ag [Presence] in Serum HEPATITIS B SURFACE ANTIGEN Lab Routine Screen for sexually transmitted diseases Expected: 05/19/2024 (Approximate), Expires: 08/18/2024 [facility] Comment on above: Expected: 05/19/2024 (Approximate), Expires: 08/18/2024 Start: 05-19-2024 End: 08-18-2024 Hepatitis C virus Ab [Presence] in Serum HEPATITIS C ANTIBODY IA WITH CONFIRMATION Lab Routine Screen for sexually transmitted diseases Expected: 05/19/2024 (Approximate), Expires: 08/18/2024 [facility] Comment on above: Expected: 05/19/2024 (Approximate), Expires: 08/18/2024 Start: 05-19-2024 End: 08-18-2024 HIV 1+2 Ab [Presence] in Serum or Plasma by Immunoassay HIV 1/2 COMBO WITH REFLEX TO DIFFERENTIATION Lab Routine Screen for sexually transmitted diseases Expected: 05/19/2024, Expires: 08/18/2024 [facility] Comment on above: Expected: 05/19/2024 , Expires: 08/18/2024 Start: 05-19-2024 End: 08-18-2024 RUBELLA IGG ANTIBODY RUBELLA IGG ANTIBODY Lab Routine Procreation management investigation and testing Expected: 05/19/2024, Expires: 08/18/2024 [facility] Comment on above: Expected: 05/19/2024 , Expires: 08/18/2024 Start: 05-19-2024 End: 08-18-2024 SYPHILIS TOTAL W/REFLEX SYPHILIS TOTAL W/REFLEX Lab Routine Screen for sexually transmitted diseases Expected: 05/19/2024 (Approximate), Expires: 08/18/2024 [facility] Comment on above: Expected: 05/19/2024 (Approximate), Expires: 08/18/2024 Start: 05-19-2024 End: 08-18-2024 TYPE + SCREEN TYPE + SCREEN Blood Bank Routine Procreation management investigation and testing Expected: 05/19/2024 (Approximate), Expires: 08/18/2024 [facility] Comment on above: Expected: 05/19/2024 (Approximate), Expires: 08/18/2024 Start: 05-19-2024 End: 08-18-2024 VARICELLA ZOSTER IGG VARICELLA ZOSTER IGG Lab Routine Procreation management investigation and testing Expected: 05/19/2024, Expires: 08/18/2024 [facility] Comment on above: Expected: 05/19/2024 , Expires: 08/18/2024 Start: 05-19-2024 End: 08-18-2024 WHIIVF GC/CHLAMYDIA AMPLIF, URINE WHIIVF GC/CHLAMYDIA AMPLIF, URINE Microbiology Routine Screen for sexually transmitted diseases Expected: 05/19/2024 (Approximate), Expires: 08/18/2024 [facility] Work Phone: Comment on above: Expected: 05/19/2024 (Approximate), Expires: 08/18/2024 Start: 04-23-2024 End: 07-23-2024 Thyrotropin [Units/volume] in Serum or Plasma THYROID STIMULATING HORMONE Lab Routine Hypothyroidism, unspecified type Expected: 04/23/2024, Expires: 07/23/2024 [facility] Work Phone: Comment on above: Expected: 04/23/2024 , Expires: 07/23/2024 Start: 04-23-2024 End: 07-23-2024 Thyroxine (T4) free [Mass/volume] in Serum or Plasma T4 FREE/FREE THYROXINE Lab Routine Hypothyroidism, unspecified type Expected: 04/23/2024, Expires: 07/23/2024 [facility] Comment on above: Expected: 04/23/2024 , Expires: 07/23/2024 Start: 04-23-2024 End: 07-23-2024 Triiodothyronine (T3) Free [Mass/volume] in Serum or Plasma T3, FREE Lab Routine Hypothyroidism, unspecified type Expected: 04/23/2024, Expires: 07/23/2024 [facility] Comment on above: Expected: 04/23/2024 , Expires: 07/23/2024 Start: 04-13-2024 Covid-19 Vaccine () Covid-19 Vaccine () [facility] Start: 04-13-2024 Covid-19 Vaccine ( season) Covid-19 Vaccine () [facility] Start: 04-13-2024 Covid-19 Vaccine ( season) Covid-19 Vaccine () [facility] Start: 04-13-2024 Influenza vaccination C [facility] Start: 01-22-2024 End: 01-22-2024 ambulatory 01/22/2024 8:45 AM EDT Results Only [facility] [address] [place] [address] [facility] Start: 01-15-2024 End: 04-15-2024 Progesterone [Mass/volume] in Serum or Plasma PROGESTERONE Lab Routine Irregular menstrual cycle Expected: 01/15/2024, Expires: 04/15/2024 [facility] Work Phone: Comment on above: Expected: 01/15/2024 , Expires: 04/15/2024 Start: 01-01-2024 End: 04-01-2024 DHEA-S BLD DHEA-S BLD Lab Routine Abnormal uterine bleeding (AUB) Hirsutism Expected: 01/01/2024, Expires: 04/01/2024 [facility] Comment on above: Expected: 01/01/2024 , Expires: 04/01/2024 Start: 01-01-2024 End: 04-01-2024 Hemoglobin A1c in Blood HEMOGLOBIN A1C Lab Routine Encounter for screening for diabetes mellitus Expected: 01/01/2024 (Approximate), Expires: 04/01/2024 [facility] Comment on above: Expected: 01/01/2024 (Approximate), Expires: 04/01/2024 Start: 01-01-2024 End: 04-01-2024 Insulin [Units/volume] in Serum or Plasma INSULIN ASSAY BLOOD Lab Routine Encounter for screening for diabetes mellitus Expected: 01/01/2024 (Approximate), Expires: 04/01/2024 [facility] Work Phone: Comment on above: Expected: 01/01/2024 (Approximate), Expires: 04/01/2024 Start: 01-01-2024 End: 04-01-2024 Lipid 1996 panel - Serum or Plasma LIPID PANEL BASIC Lab Routine Screening cholesterol level Expected: 01/01/2024 (Approximate), Expires: 04/01/2024 [facility] Comment on above: Expected: 01/01/2024 (Approximate), Expires: 04/01/2024 Start: 01-01-2024 End: 04-01-2024 TESTOSTERONE, FREE AND TOTAL TESTOSTERONE, FREE AND TOTAL Lab Routine Abnormal uterine bleeding (AUB) Hirsutism Expected: 01/01/2024, Expires: 04/01/2024 [facility] Comment on above: Expected: 01/01/2024 , Expires: 04/01/2024 Start: 01-01-2024 End: 04-01-2024 Thyrotropin [Units/volume] in Serum or Plasma THYROID STIMULATING HORMONE Lab Routine Hypothyroidism, unspecified type Expected: 01/01/2024 (Approximate), Expires: 04/01/2024 [facility] Comment on above: Expected: 01/01/2024 (Approximate), Expires: 04/01/2024 Start: 01-01-2024 End: 04-01-2024 WHIIVF ANTI MULLERIAN HORMONE WHIIVF ANTI [facility] Lab Routine Abnormal uterine bleeding (AUB) Hirsutism Expected: 01/01/2024 (Approximate), Expires: 04/01/2024 [facility] Comment on above: Expected: 01/01/2024 (Approximate), Expires: 04/01/2024 Start: 01-01-2024 End: 01-01-2024 ambulatory 01/01/2024 8:15 AM EDT Results Only [facility] [address] [place] [address] [facility] Start: 08-13-2023 Behavioral Health Screening Behavioral Health Screening [facility] Start: 04-13-2023 Covid-19 Vaccine () Covid-19 Vaccine () [facility] Start: 2022 Screening for malign ant neoplasm of cervix HPV Testing [facility] Start: 2019 HPV Vaccine (1 - 3-d ose SCDM series) HPV Vaccine (1 - 3-dose SCDM series) [facility] Start: 2013 Screening for malign ant neoplasm of cervix [facility] Start: 2011 Hepatitis B Vaccine (1 of 3 - 19+ 3-dose series) Hepatitis B Vaccine (1 of 3 - 19+ 3-dose series) [facility] Start: 2011 Urine microalbumin profile DTaP,Tdap,Td Vaccine (1 - Tdap) [facility] Start: 2010 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 Disease Visit Annual PCP Team Chronic Disease Visit [facility] Start: 2010 Anxiety Screening Anxiety Screening [facility] Start: 2010 Depression Screening Depression Scre ening [facility] Start: 2010 Hepatitis C screening Hepatitis C Sc lucía [facility] Start: 2010 HIV screening HIV Screening [facility] Bacteria identified in Urine by Culture BACTERIAL CULTURE, URINE Microbiology Routine Encounter for supervision in primigravida, antepartum with uncertain dates, antepartum Encounter for care in first trimester of first 09/09/2024 9:31 AM [facility] Chlamydia trachomatis+Neisseria gonorrhoeae DNA [Presence] in Unspecified specimen by DIMITRY with probe detection GONORRHEA/CHLAMYDIA NAAT Lab Routine Encounter for supervision in primigravida, antepartum with uncertain dates, antepartum Encounter for care in first trimester of first 09/09/2024 9:31 AM [facility] End: 08-11-2025 Choriogonadotropin.beta subunit [Units/volume] in Serum or Plasma HCG QUANTITATIVE Lab Routine examination or test, unconfirmed Daily for 2 Occurrences starting 08/11/2024 until 08/11/2025 [facility] Work Phone: Comment on above: Daily for 2 Occurren octavia starting 08/11/2024 until 08/11/2025 PAP TEST PAP TEST Lab Nima magana Screening for cervical cancer 09/09/2024 9:31 AM [facility] US Pelvis transvaginal [facility] Immunizations Immunization Date Immunization Notes Care Provider Fa cility 01-23-2025 tetanus toxoid, redu jose diphtheria toxoid, and acellular pertussis vaccine, adsorbed Arianna Nye MD Work Phone: [facility] Payers Date Payer Category Payer Self-pay [id number] 2024 Unknown [id number] 2023 Private Health Insurance [id number] 2023 Unknown [employer] [place] [employer] CHOICE PLAN GENERIC [id number] 2023-Present [address] [place] [address] PPO [id number] 2023 Unknown [id number] 2017 Unknown [id number] Unknown [id number] Unknown [id number] Social History Date Type Detail Facility Start: 11-06-2023 [facility] ever smoked [facility] Start: 1990 Sex Assigned At Female [facility] Start: 12-14-2023 [facility] Never smoked tobacco [facility] Start: 12-14-2023 Tobacco use and exposure Smokeless tobacco non-user [facility] Start: 12-14-2023 End: 03-31-2025 Alcohol intake Lifetime non-drinker (finding) [facility] Start: 12-14-2023 End: 01-23-2025 History of Social function [facility] Start: 12-14-2023 End: 01-23-2025 Tobacco use panel [facility] Start: 03-08-2019 National Score (1-10 0), lower number is lower risk 35 [facility] Start: 12-11-2023 Gender identity Identifies as female gender (finding) [facility] Start: 12-11-2023 Sexual orientation Heterosexual (fin ding) [facility] Start: 09-03-2024 Education 20 [facility] Start: 07-19-2024 [facility] Goals Date Patient Goal Desired Activity /State Personal health goal Clinical Notes 12-14-2023 to 04-09-2025 Telephone Encounter - Corry Polanco MD - 04/09/2025 10:09 AM EDTTelephone Encounter - Corry Polanco MD - 04/09/2025 10:09 AM EDTTelephone Encounter - Shadia Hargrove RN - 04/09/2025 9:20 AM EDT Note Date & Type Note Facility 04-09-2025 Telephone encounter Note agree [facility] Work Phone: 04-09-2025 Miscellaneous Notes agree 39w5d Pt calls c/o dark brown sticky discharge noted this morning. Denies vaginal bleeding. No recent sexual intercourse. States on Sunday had cervical exam & has had a little spotting since then. Having Irregular cramping in lower abdomen. Positive movement. Staying hydrated. Pt advised to continue to monitor at this time & advised that the brownish discharge is likely due to recent cervical exam & nearing due date/body is preparing itself. Advised to monitor for severe abdominal pain, vaginal bleeding, LOF, decreased movement, and regular contractions lasting every 10 minutes or more. Pt voiced understanding. No need to call Pt unless additional advise is needed.Shadia Hargrove, BRIDGETT documented in this encounter [facility] 04-09-2025 Telephone encounter Note 39w5d Pt calls c/o dark brown sticky discharge noted this morning. Denies vaginal bleeding. No recent sexual intercourse. States on Sunday had cervical exam & has had a little spotting since then. Having Irregular cramping in lower abdomen. Positive movement. Staying hydrated. Pt advised to continue to monitor at this time & advised that the brownish discharge is likely due to recent cervical exam & nearing due date/body is preparing itself. Advised to monitor for severe abdominal pain, vaginal bleeding, LOF, decreased movement, and regular contractions lasting every 10 minutes or more. Pt voiced understanding. No need to call Pt unless additional advise is needed.Shadia Hargrove RN [facility] 04-08-2025 Telephone encounter Note ordered [facility] 04-08-2025 Miscellaneous Notes ordered Last refill 11/2024. Thyroid labs drawn 03/20/2025 documented in this encounter [facility] 04-08-2025 Telephone encounter Note Last refill 11/2024. Thyroid labs drawn 03/20/2025 [facility] 04-07-2025 Progress note Formatting of t his note might be different from the original. DM-Pt doing well. Denies vaginal Bleeding, Leaking fluid, or regular Contractions. Pt reports good movement Physical Exam: Gen: female in no apparent distress Abd: soft, Gravid. Non tender to palpation. See flow sheet Participation of a fellow, resident, medical student, or advanced practice provider student in performing the sensitive examination was discussed with the patient or authorized insurance sales representative. The patient or authorized insurance sales representative has agreed to proceed with the sensitive examination. @ 39.3 weeks Assessment & Plan Encounter for supervision in primigravida, antepartum (HCC) Orders: URINE OB DIP B/O Hypothyroidism, unspecified type Orders: URINE OB DIP B/O Uterine size-date discrepancy, third trimester (HCC) Orders: URINE OB DIP B/O 39 weeks gestation of (HCC) Kick counts and labor reviewed RTO weekly- pt agreeable to IOL 41 weeks- will schedule next week if no spontaneous labor at that time. Orders: URINE OB DIP B/O Lois Nava MD [facility] 04-07-2025 Miscellaneous Notes DM-Pt doing well. Denies vaginal Bleeding, Leaking fluid, or regular Contractions. Pt reports good movement Physical Exam: Gen: female in no apparent distress Abd: soft, Gravid. Non tender to palpation. See flow sheet Participation of a fellow, resident, medical student, or advanced practice provider student in performing the sensitive examination was discussed with the patient or authorized insurance sales representative. The patient or authorized insurance sales representative has agreed to proceed with the sensitive examination. @ 39.3 weeks Assessment & Plan Encounter for supervision in primigravida, antepartum (HCC) Orders: URINE OB DIP B/O Hypothyroidism, unspecified type Orders: URINE OB DIP B/O Uterine size-date discrepancy, third trimester (HCC) Orders: URINE OB DIP B/O 39 weeks gestation of ([facility]) Kick counts and labor reviewed RTO weekly- pt agreeable to IOL 41 weeks- will schedule next week if no spontaneous labor at that time. Orders: URINE OB DIP B/O Lois Nava MD documented in this encounter [facility] 04-07-2025 Instructions Dulce Schmitz MA - 04/07/2025 8:43 AM EDT SEQUENTIAL SCREENINGS The [facility] offers sequential screenings for women who are interested in screenings for chromosomal abnormalities and certain defects during a . The sequential screen combines ultrasound and blood tests to determine the risk of chromosomal abnormalities, including Down's Syndrome (Trisomy 21) and Trisomy 18, as well as open neural tube defects including spina bifida. Ultrasound examination is performed between 11 weeks and 13 weeks gestational age. Blood tests are drawn after the ultrasound and again later in the between 15 and 21 weeks gestational age. Please let your physician know if you are interested in this testing. It will require an appointment with our fisheries technician. This is not an ultrasound performed by a physician in our office during a routine visit. SIGNS AND SYMPTOMS OF LABOR 1. Contractions every 10 minutes or more often 2. Clear, pink, or brownish fluid (water) leaking from vagina 3. Feeling that baby is pushing down, pressure 4. Low, dull backache 5. Cramps that feel like a period 6. Cramps with or without diarrhea If you notice any of the above symptoms, contact our office at [phone] and ask to speak with a nurse. After hours, you can call doctors registry at [phone] OR call [facility] at [phone] and ask to have the doctor shoe reconditioner paged. If you consider this an emergency, dial [phone] or go to your nearest emergency department. NEED HELP? Are you dealing with a violent or abusive relationship? Are you a victim of rape or sexual assult? Call [facility] ([place]) 24 hour Crisis Hotline: 345.414.9153 or 529-571-9652. MANUAL Your Guide to a Healthy manual is now on-line. Visit [email or web address] to download your free copy documented in this encounter [facility] 04-01-2025 Note HNO ID: [id number] Author: LEXIS ROGERS MA Service: ? Author Type: Creative Arts Therapist Type: Progress Notes Filed: 04/01/2025 13:27 Note Text: POPULATION HEALTH NAVIGATION OUTREACH Action/FYI Called and spoke with pt and states she will outreach back via [facility]. Reason for Outreach Medicaid OB/Peds Care Gaps due: N/A Patient Contacted: Spoke to patient/parent/or legal guardian Patient identified by name and : Yes Medicaid OB/Peds actions taken: Patient declined: Patient requested call back from navigator/ will call navigator back Navigation Signature: Lexis Magaña MA April 01, 2025 1:26 PM [facility] 04-01-2025 History of Presen t illness Narrative POPULATION HEALTH NAVIGATION OUTREACH Action/FYI Called and spoke with pt and states she will outreach back via . Reason for Outreach Medicaid OB/Peds Care Gaps due: N/A Patient Contacted: Spoke to patient/parent/or legal guardian Patient identified by name and : Yes Medicaid OB/Peds actions taken: Patient declined: Patient requested call back from navigator/ will call navigator back Navigation Signature: Lexis Magaña MA April 01, 2025 1:26 PM documented in this encounter [facility] 04-01-2025 Note Patient Outreach (NE TNAV) CELIA TORRES ([id number]) 1990 F Date Time Provider Department 04/01/25 LEXIS ROGERS During your visit today, we recorded the following information about you: Lexis Rogers MA 04/01/2025 1:27 PM Signed POPULATION HEALTH NAVIGATION OUTREACH Action/FYI Called and spoke with pt and states she will outreach back via . Reason for Outreach Medicaid OB/Peds Care Gaps due: N/A Patient Contacted: Spoke to patient/parent/or legal guardian Patient identified by name and : Yes Medicaid OB/Peds actions taken: Patient declined: Patient requested call back from navigator/ will call navigator back Navigation Signature: Lexis Magaña MA April 01, 2025 1:26 PM Allergies As of Date: 04/01/2025 Noted Allergy Reaction SULFA (SULFONAMIDE ANTIBIOTICS) 03/17/2019 2 - Rash Date Reviewed: 03/31/2025 Reviewed by: John Mae MD - Fully Assessed Reason for Visit: Population Health Navigation Outreach [3910] Cmt: Ob/peds Prescriptions as of 04/01/2025 - levothyroxine (SYNTHROID) 50 mcg tablet Take 1 tablet by mouth daily before breakfast. - aspirin, enteric coated (ECOTRIN LOW STRENGTH) 81 mg EC tablet Take 1 tablet by mouth once daily. - PNV no.95/ferrous fum/folic ac ( ORAL) Take 2 tablets by mouth once daily. - ppfln-7-uwz-scj-kul-mopb oil 1,050 mg(300 mg -675 mg-75 mg) cap Take 3 tablets by mouth once daily. 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 RR- VB No. LOF No. CTXS No. Movement: present. Other c/o: No. Medication list reviewed. SENSITIVE EXAM: Sensitive exam not performed. Physical Exam See Flow Sheet Abd: soft, nontender, gravid Ext: edema: 2+ , 2+ DTR, no clonus A/P 38w3d Estimated Date of Delivery: 04/11/25 ASSESSMENT/PLAN: 1. Encounter for supervision in primigravida, antepartum (HCC) - ICD9: V22.0, ICD10: Z34.00 (primary diagnosis) - URINE OB DIP B/O 2. Hypothyroidism, unspecified type - ICD9: 244.9, ICD10: E03.9 labs up to date, cont current dose of levothyroxine - URINE OB DIP B/O 3. 38 weeks gestation of (HCC) - ICD9: V22.2, ICD10: Z3A.38 d/w her edema. Call/return for signs/symptoms of preeclampsia kick counts Growth US done today. - URINE OB DIP B/O John Mae MD [facility] 03-31-2025 Miscellaneous Notes RR- VB No. LOF No. CTXS No. Movement: present. Other c/o: No. Medication list reviewed. SENSITIVE EXAM: Sensitive exam not performed. Physical Exam See Flow Sheet Abd: soft, nontender, gravid Ext: edema: 2+ , 2+ DTR, no clonus A/P 38w3d Estimated Date of Delivery: 04/11/25 ASSESSMENT/PLAN: 1. Encounter for supervision in primigravida, antepartum ([facility]) - ICD9: V22.0, ICD10: Z34.00 (primary diagnosis) - URINE OB DIP B/O 2. Hypothyroidism, unspecified type - ICD9: 244.9, ICD10: E03.9 labs up to date, cont current dose of levothyroxine - URINE OB DIP B/O 3. 38 weeks gestation of ([facility]) - ICD9: V22.2, ICD10: Z3A.38 d/w her edema. Call/return for signs/symptoms of preeclampsia kick counts Growth US done today. - URINE OB DIP B/O John Mae MD documented in this encounter [facility] 03-31-2025 Instructions Shanta Charles MA - 03/31/2025 10:02 AM EDT SEQUENTIAL SCREENINGS The [facility] offers sequential screenings for women who are interested in screenings for chromosomal abnormalities and certain defects during a . The sequential screen combines ultrasound and blood tests to determine the risk of chromosomal abnormalities, including Down's Syndrome (Trisomy 21) and Trisomy 18, as well as open neural tube defects including spina bifida. Ultrasound examination is performed between 11 weeks and 13 weeks gestational age. Blood tests are drawn after the ultrasound and again later in the between 15 and 21 weeks gestational age. Please let your physician know if you are interested in this testing. It will require an appointment with our fisheries technician. This is not an ultrasound performed by a physician in our office during a routine visit. SIGNS AND SYMPTOMS OF LABOR 1. Contractions every 10 minutes or more often 2. Clear, pink, or brownish fluid (water) leaking from vagina 3. Feeling that baby is pushing down, pressure 4. Low, dull backache 5. Cramps that feel like a period 6. Cramps with or without diarrhea If you notice any of the above symptoms, contact our office at [phone] and ask to speak with a nurse. After hours, you can call doctors registry at [phone] OR call [facility] at [phone] and ask to have the doctor shoe reconditioner paged. If you consider this an emergency, dial [phone] or go to your nearest emergency department. NEED HELP? Are you dealing with a violent or abusive relationship? Are you a victim of rape or sexual assult? Call [facility] ([place]) 24 hour Crisis Hotline: 114.687.2052 or 710-070-8538. MANUAL Your Guide to a Healthy manual is now on-line. Visit [email or web address] to download your free copy documented in this encounter [facility] 03-26-2025 Note Indication Evaluation of growth Discrepancy between uterine size and clinical dates, Hypothyroidism Impression - Single, live, intrauterine . - presentation is cephalic. - The biometry is consistent with the assigned gestational dating. - The EFW is 2660 g, at the 11%. AC is at the 13%. - Amniotic fluid volume is normal amount with an MVP of 5.8 cm and RENE of 18.6 cm. - The placenta is posterior, fundal. - No malformations visualized on a limited survey as detailed below. Recommendations Additional follow-up as clinically indicated. Maternal Assessment Height 152 cm Height (ft) 5 ft Physical Exam Initial weight (lb) 123 lb Initial BMI 24.02 kg/m Maternal assessment other: 1 Para 0 REMOTE READ Method Transabdominal ultrasound examination Sandhu . Number of fetuses: 1 Dating LMP on: 07/05/2024 GA by LMP 37 w + 5 d MAZIN by LMP: 04/11/2025 GA by prior assessment 37 w + 5 d MAZIN by prior assessment: 04/11/2025 Ultrasound examination on: 03/26/2025 GA by U/S based upon: AC, BPD, Femur, HC GA by U/S 35 w + 0 d MAZIN by U/S: 04/30/2025 Assigned: based on stated MAZIN, selected on 03/26/2025 Assigned GA 37 w + 5 d Assigned MAZIN: 04/11/2025 General Evaluation Cardiac activity present. FHR 156 bpm. movements: present. Presentation: cephalic Placenta: Placental site: posterior, fundal Umbilical cord: Cord vessels: 3 vessel cord Amniotic fluid: Amount of AF: normal amount. MVP 5.8 cm. RENE 18.6 cm. Q1 4.0 cm, Q2 5.8 cm, Q3 4.6 cm, Q4 4.2 cm Growth Overview Exam date GA BPD (mm) HC (mm) AC (mm) FL (mm) HL (mm) EFW (g) 11/27/2024 20w 5d 48.3 45% 176.6 32% 142.7 13% 32.6 43% 30.7 28% 319 11% 03/26/2025 37w 5d 86.6 7% 319.4 17% 317.4 13% 67.3 10% 2660 11% Biometry Standard BPD 86.6 mm 35w 0d 7% Hadlock OFD 113.0 mm 35w 0d 31% Nicolaides HC 319.4 mm 35w 0d 17% Nirali AC 317.4 mm 35w 5d 13% Hadlock Femur 67.3 mm 34w 2d 10% Nirali EFW 2,660 g 35w 2d 11% Hadlock EFW (lb) 5 lb EFW (oz) 14 oz EFW by: Hadlock (HC-AC-FL) Extended Scarrer 4.6 mm Extremities / Bony Struc FL / HC 0.21 Other Structures FHR 156 bpm Anatomy Lateral ventricles: normal Cavum septi pellucidi: normal Cerebellum: suboptimally visualized Cisterna magna: suboptimally visualized 4-chamber view: suboptimally visualized RVOT view: normal LVOT view: normal 3-vessel view: normal Heart / Thorax Situs: situs solitus (normal) Diaphragm: normal Stomach: normal Kidneys: normal Bladder: normal sex: female Wants to know sex: yes Performed By: Mae Jordan RDMS, RVT Read By: Leonardo Car M.D. [facility] 03-24-2025 Progress note Formatting of t his note might be different from the original. ARMANDO-S: Celia Torres is a 34 year old female who presents at 37w3d with MAZIN:04/11/2025, by Last Menstrual Period for a routine visit. Denies headache, visual changes, chest pain, shortness of breath, vaginal bleeding, leakage of fluid, or dysuria. Feeling well, no complaints. O: See flow sheet Gen: No apparent distress Abd: Gravid, nontender 27lb TWG, S>D ASSESSMENT/PLAN: 1. 37 weeks gestation of -Continue PNV -Continue ASA 2. Encounter for supervision of normal first in third trimester 3. Hypothyroidism, unspecified type -Thyroid studies normal, continue Synthroid 50mcg PO once daily 4. Uterine size-date discrepancy, third trimester -S>D, growth US ordered and scheduled for 2 days PTL precautions reviewed and when to call RTO in one week Fern Whittaker APRN.CNM [facility] Work Phone: 03-24-2025 Miscellaneous Notes ARMANDO-S: Celia Torres is a 34 year old female who presents at 37w3d with MAZIN:04/11/2025, by Last Menstrual Period for a routine visit. Denies headache, visual changes, chest pain, shortness of breath, vaginal bleeding, leakage of fluid, or dysuria. Feeling well, no complaints. O: See flow sheet Gen: No apparent distress Abd: Gravid, nontender 27lb TWG, S>D ASSESSMENT/PLAN: 1. 37 weeks gestation of -Continue PNV -Continue ASA 2. Encounter for supervision of normal first in third trimester 3. Hypothyroidism, unspecified type -Thyroid studies normal, continue Synthroid 50mcg PO once daily 4. Uterine size-date discrepancy, third trimester -S>D, growth US ordered and scheduled for 2 days PTL precautions reviewed and when to call RTO in one week Fern Whittaker APRN.CNM documented in this encounter [facility] 03-24-2025 Instructions Sowmya Edgar MA - 03/24/2025 1:34 PM EDT SEQUENTIAL SCREENINGS The [facility] offers sequential screenings for women who are interested in screenings for chromosomal abnormalities and certain defects during a . The sequential screen combines ultrasound and blood tests to determine the risk of chromosomal abnormalities, including Down's Syndrome (Trisomy 21) and Trisomy 18, as well as open neural tube defects including spina bifida. Ultrasound examination is performed between 11 weeks and 13 weeks gestational age. Blood tests are drawn after the ultrasound and again later in the between 15 and 21 weeks gestational age. Please let your physician know if you are interested in this testing. It will require an appointment with our fisheries technician. This is not an ultrasound performed by a physician in our office during a routine visit. SIGNS AND SYMPTOMS OF LABOR 1. Contractions every 10 minutes or more often 2. Clear, pink, or brownish fluid (water) leaking from vagina 3. Feeling that baby is pushing down, pressure 4. Low, dull backache 5. Cramps that feel like a period 6. Cramps with or without diarrhea If you notice any of the above symptoms, contact our office at [phone] and ask to speak with a nurse. After hours, you can call doctors registry at [phone] OR call [facility] at [phone] and ask to have the doctor shoe reconditioner paged. If you consider this an emergency, dial or go to your nearest emergency department. NEED HELP? Are you dealing with a violent or abusive relationship? Are you a victim of rape or sexual assult? Call [facility] ([facility] 24 hour Crisis Hotline: 741.229.5613 or 847-390-7508. MANUAL Your Guide to a Healthy manual is now on-line. Visit [email or web address] to download your free copy documented in this encounter [facility] 03-06-2025 Progress note Formatting of t his note might be different from the original. EH - S: Celia is a 34 year old female who presents at 34w6d for a routine visit. Feeling movement. Denies headache, visual changes, chest pain, shortness of breath, vaginal bleeding, leakage of fluid, or dysuria. Has some itching to belly. No itching of palms or soles. O: See flow sheet Gen: No apparent distress Abd: Gravid, nontender, S=D, 23 lb TWG ASSESSMENT/PLAN: 1. Encounter for supervision of normal first in third trimester ([facility]) - ICD9: V22.0, ICD10: Z34.03 (primary diagnosis) - Continue PNV and LDA 2. 34 weeks gestation of ([facility]) - ICD9: V22.2, ICD10: Z3A.34 - GBS next visit 3. Hypothyroidism, unspecified type - ICD9: 244.9, ICD10: E03.9 - Repeat TSH/T4 next visit - Continue Synthroid PTL precautions and kick counts reviewed. RTO in 2 weeks or sooner as needed. Edmar Allison APRN.HEAVY RAIL TRAIN OPERATOR [facility] 03-06-2025 Miscellaneous Notes EH - S: Celia is a 34 year old female who presents at 34w6d for a routine visit. Feeling movement. Denies headache, visual changes, chest pain, shortness of breath, vaginal bleeding, leakage of fluid, or dysuria. Has some itching to belly. No itching of palms or soles. O: See flow sheet Gen: No apparent distress Abd: Gravid, nontender, S=D, 23 lb TWG ASSESSMENT/PLAN: 1. Encounter for supervision of normal first in third trimester ([facility]) - ICD9: V22.0, ICD10: Z34.03 (primary diagnosis) - Continue PNV and LDA 2. 34 weeks gestation of (HCC) - ICD9: V22.2, ICD10: Z3A.34 - GBS next visit 3. Hypothyroidism, unspecified type - ICD9: 244.9, ICD10: E03.9 - Repeat TSH/T4 next visit - Continue Synthroid PTL precautions and kick counts reviewed. RTO in 2 weeks or sooner as needed. Edmar Allison APRN.HEAVY RAIL TRAIN OPERATOR documented in this encounter [facility] 03-06-2025 Instructions Sowmya Edgar MA - 03/06/2025 8:51 AM EDT SEQUENTIAL SCREENINGS The [facility] offers sequential screenings for women who are interested in screenings for chromosomal abnormalities and certain defects during a . The sequential screen combines ultrasound and blood tests to determine the risk of chromosomal abnormalities, including Down's Syndrome (Trisomy 21) and Trisomy 18, as well as open neural tube defects including spina bifida. Ultrasound examination is performed between 11 weeks and 13 weeks gestational age. Blood tests are drawn after the ultrasound and again later in the between 15 and 21 weeks gestational age. Please let your physician know if you are interested in this testing. It will require an appointment with our fisheries technician. This is not an ultrasound performed by a physician in our office during a routine visit. SIGNS AND SYMPTOMS OF LABOR 1. Contractions every 10 minutes or more often 2. Clear, pink, or brownish fluid (water) leaking from vagina 3. Feeling that baby is pushing down, pressure 4. Low, dull backache 5. Cramps that feel like a period 6. Cramps with or without diarrhea If you notice any of the above symptoms, contact our office at [phone] and ask to speak with a nurse. After hours, you can call doctors registry at [phone] OR call [facility] at [phone] and ask to have the doctor shoe reconditioner paged. If you consider this an emergency, dial or go to your nearest emergency department. NEED HELP? Are you dealing with a violent or abusive relationship? Are you a victim of rape or sexual assult? Call [facility] ([place]) 24 hour Crisis Hotline: 432.548.7093 or 674-772-0821. MANUAL Your Guide to a Healthy manual is now on-line. Visit [email or web address] to download your free copy documented in this encounter [facility] 02-20-2025 Progress note Formatting of t his note might be different from the original. KJ - S: Celia denies LOF, contractions or vaginal bleeding. O: 32w6d, see flow sheet SENSITIVE EXAM: Sensitive exam not performed. A/P: Assessment & Plan Encounter for supervision of normal first in third trimester (HCC) Hypothyroidism, unspecified type Continue synthroid 32 weeks gestation of (HCC) Reviewed PTL & FM precautions Anthony Villatoro MD [facility] 02-20-2025 Miscellaneous Notes KJ - S: Celia denies LOF, contractions or vaginal bleeding. O: 32w6d, see flow sheet SENSITIVE EXAM: Sensitive exam not performed. A/P: Assessment & Plan Encounter for supervision of normal first in third trimester (HCC) Hypothyroidism, unspecified type Continue synthroid 32 weeks gestation of (HCC) Reviewed PTL & FM precautions Anthony Villatoro MD documented in this encounter [facility] 02-20-2025 Instructions Shanta Charles MA - 02/20/2025 8:50 AM EDT SEQUENTIAL SCREENINGS The [facility] offers sequential screenings for women who are interested in screenings for chromosomal abnormalities and certain defects during a . The sequential screen combines ultrasound and blood tests to determine the risk of chromosomal abnormalities, including Down's Syndrome (Trisomy 21) and Trisomy 18, as well as open neural tube defects including spina bifida. Ultrasound examination is performed between 11 weeks and 13 weeks gestational age. Blood tests are drawn after the ultrasound and again later in the between 15 and 21 weeks gestational age. Please let your physician know if you are interested in this testing. It will require an appointment with our fisheries technician. This is not an ultrasound performed by a physician in our office during a routine visit. SIGNS AND SYMPTOMS OF LABOR 1. Contractions every 10 minutes or more often 2. Clear, pink, or brownish fluid (water) leaking from vagina 3. Feeling that baby is pushing down, pressure 4. Low, dull backache 5. Cramps that feel like a period 6. Cramps with or without diarrhea If you notice any of the above symptoms, contact our office at [phone] and ask to speak with a nurse. After hours, you can call doctors registry at [phone] OR call [facility] at [phone] and ask to have the doctor shoe reconditioner paged. If you consider this an emergency, dial 9-1-5 or go to your nearest emergency department. NEED HELP? Are you dealing with a violent or abusive relationship? Are you a victim of rape or sexual assult? Call [facility] ([place]) 24 hour Crisis Hotline: 940.619.1813 or 305-744-7154. MANUAL Your Guide to a Healthy manual is now on-line. Visit [email or web address] to download your free copy documented in this encounter [facility] 02-16-2025 Telephone encounter Note Received [facility] papework - 02/16/2025 STELLA completed and in providers mail box for signing. 02/16/2025 ANIRUDH signed and faxed, 02/17/2025 Sowmya Edgar MA [facility] 02-16-2025 Miscellaneous Notes Received [employer]ML[employer] papework - 02/16/2025 FMLA completed and in providers mail box for signing. 02/16/2025 FMSTELLA signed and faxed, 02/17/2025 Sowmya Edgar MA documented in this encounter [facility] 02-03-2025 Progress note Formatting of t his note might be different from the original. KJ - S: Celia denies LOF, contractions or vaginal bleeding. O: 30w3d, see flow sheet SENSITIVE EXAM: Sensitive exam not performed. A/P: Assessment & Plan 30 weeks gestation of (HCC) Encounter for supervision of normal first in third trimester (HCC) Hypothyroidism, unspecified type COntinue synthroid Repeat TSH today Reviewed PTL & FM Precautions Anthony Villatoro MD [facility] 02-03-2025 Miscellaneous Notes KJ - S: Celia denies LOF, contractions or vaginal bleeding. O: 30w3d, see flow sheet SENSITIVE EXAM: Sensitive exam not performed. A/P: Assessment & Plan 30 weeks gestation of (HCC) Encounter for supervision of normal first in third trimester (HCC) Hypothyroidism, unspecified type COntinue synthroid Repeat TSH today Reviewed PTL & FM Precautions Anthony Villatoro MD documented in this encounter [facility] 02-03-2025 Instructions Lexis Akbar MA - 02/03/2025 1:38 PM EDT SEQUENTIAL SCREENINGS The [facility] offers sequential screenings for women who are interested in screenings for chromosomal abnormalities and certain defects during a . The sequential screen combines ultrasound and blood tests to determine the risk of chromosomal abnormalities, including Down's Syndrome (Trisomy 21) and Trisomy 18, as well as open neural tube defects including spina bifida. Ultrasound examination is performed between 11 weeks and 13 weeks gestational age. Blood tests are drawn after the ultrasound and again later in the between 15 and 21 weeks gestational age. Please let your physician know if you are interested in this testing. It will require an appointment with our fisheries technician. This is not an ultrasound performed by a physician in our office during a routine visit. SIGNS AND SYMPTOMS OF LABOR 1. Contractions every 10 minutes or more often 2. Clear, pink, or brownish fluid (water) leaking from vagina 3. Feeling that baby is pushing down, pressure 4. Low, dull backache 5. Cramps that feel like a period 6. Cramps with or without diarrhea If you notice any of the above symptoms, contact our office at [phone] and ask to speak with a nurse. After hours, you can call doctors registry at [phone] OR call [facility] at [phone] and ask to have the doctor shoe reconditioner paged. If you consider this an emergency, dial 9-1-6 or go to your nearest emergency department. NEED HELP? Are you dealing with a violent or abusive relationship? Are you a victim of rape or sexual assult? Call [facility] ([place]) 24 hour Crisis Hotline: 698.948.5650 or 094-688-0183. MANUAL Your Guide to a Healthy manual is now on-line. Visit [email or web address] to download your free copy documented in this encounter [facility] 01-23-2025 Progress note Formatting of t his note might be different from the original. SW- Pt doing well. No pain, vb, lof. Good FM. Exertional dyspnea PE: Gen- NAD, well appearing Abd- Soft, gravid, NT See flowsheet A/p 28 wk gestation - Hypothyroidism: TSH next visit - Cont LDA - plan sheet given - LARC declined - Signed up for classes at [facility] [employer] - 28 wk labs today - Tdap today - Discussed peds - RTO 2 wks Arianna Nye DO [facility] 01-23-2025 Miscellaneous Notes SW- Pt doing well. No pain, vb, lof. Good FM. Exertional dyspnea PE: Gen- NAD, well appearing Abd- Soft, gravid, NT See flowsheet A/p 28 wk gestation - Hypothyroidism: TSH next visit - Cont LDA - plan sheet given - LARC declined - Signed up for classes at [facility] [employer] [employer] - 28 wk labs today - Tdap today - Discussed peds - RTO 2 wks Arianna Nye DO documented in this encounter [facility] 01-23-2025 Note HNO ID: [id number] Author: LEXIS AKBAR MA Service: ? Author Type: Creative Arts Therapist Type: Progress Notes Filed: 01/23/2025 11:05 Note Text: Patient identified by name and date of . Celia Torres presents today for a vaccination of Tdap. Patient denies an allergy to latex: yes Patient denies a severe (life-threatening) allergy to a previous dose of Tdap, DTP, DTaP, DT or Td vaccine. Yes Patient denies history of epilepsy or neurological problems: Yes Patient is afebrile and denies being moderately or severely ill: Yes Patient denies history of Guillain[employer] Syndrome (a severe paralytic illness): Yes Tdap Adacel injection was given without incident. See immunizations for details of immunizations administered today. VIS sheet provided: Yes Provider Arianna Nye DO was present in office at time of injection. Lexis Akbar MA [facility] 01-23-2025 History of Presen t illness Narrative Patient identified by name and date of . Celia Torres presents today for a vaccination of Tdap. Patient denies an allergy to latex: yes Patient denies a severe (life-threatening) allergy to a previous dose of Tdap, DTP, DTaP, DT or Td vaccine. Yes Patient denies history of epilepsy or neurological problems: Yes Patient is afebrile and denies being moderately or severely ill: Yes Patient denies history of Guillain[employer] Syndrome (a severe paralytic illness): Yes Tdap Adacel injection was given without incident. See immunizations for details of immunizations administered today. VIS sheet provided: Yes Provider Arianna Nye DO was present in office at time of injection. Lexis Akbar MA documented in this encounter [facility] 01-23-2025 Instructions Lexis Akbar MA - 01/23/2025 9:45 AM EDT SEQUENTIAL SCREENINGS The [facility] offers sequential screenings for women who are interested in screenings for chromosomal abnormalities and certain defects during a . The sequential screen combines ultrasound and blood tests to determine the risk of chromosomal abnormalities, including Down's Syndrome (Trisomy 21) and Trisomy 18, as well as open neural tube defects including spina bifida. Ultrasound examination is performed between 11 weeks and 13 weeks gestational age. Blood tests are drawn after the ultrasound and again later in the between 15 and 21 weeks gestational age. Please let your physician know if you are interested in this testing. It will require an appointment with our fisheries technician. This is not an ultrasound performed by a physician in our office during a routine visit. SIGNS AND SYMPTOMS OF LABOR 1. Contractions every 10 minutes or more often 2. Clear, pink, or brownish fluid (water) leaking from vagina 3. Feeling that baby is pushing down, pressure 4. Low, dull backache 5. Cramps that feel like a period 6. Cramps with or without diarrhea If you notice any of the above symptoms, contact our office at [phone] and ask to speak with a nurse. After hours, you can call doctors registry at [phone] OR call [facility] at [phone] and ask to have the doctor shoe reconditioner paged. If you consider this an emergency, dial [phone] or go to your nearest emergency department. NEED HELP? Are you dealing with a violent or abusive relationship? Are you a victim of rape or sexual assult? Call [facility] ([place]) 24 hour Crisis Hotline: 409.948.2831 or 221-538-4098. MANUAL Your Guide to a Healthy manual is now on-line. Visit [email or web address] to download your free copy documented in this encounter [facility] 12-25-2024 Progress note Formatting of t his note might be different from the original. DM-Pt doing well. Denies vaginal Bleeding, Leaking fluid, or regular Contractions. Pt reports good movement Physical Exam: Gen: female in no apparent distress Abd: soft, Gravid. Non tender to palpation. See flow sheet @ 24.5 weeks Assessment & Plan Encounter for supervision of normal first in second trimester ([facility]) Hypothyroidism, unspecified type Screening for diabetes mellitus Orders: GESTATIONAL GLUCOSE SCREEN, 1-HOUR, 50 GRAM, NON-FASTING; Future Encounter for supervision of normal first in third trimester ([facility]) Orders: SYPHILIS TREPONEMAL W/REFLEX; Future ANEMIA REFLEX PANEL; Future 24 weeks gestation of ([facility]) RTO 4 wks Lois Nava MD [facility] 12-25-2024 Miscellaneous Notes DM-Pt doing well. Denies vaginal Bleeding, Leaking fluid, or regular Contractions. Pt reports good movement Physical Exam: Gen: female in no apparent distress Abd: soft, Gravid. Non tender to palpation. See flow sheet @ 24.5 weeks Assessment & Plan Encounter for supervision of normal first in second trimester ([facility]) Hypothyroidism, unspecified type Screening for diabetes mellitus Orders: GESTATIONAL GLUCOSE SCREEN, 1-HOUR, 50 GRAM, NON-FASTING; Future Encounter for supervision of normal first in third trimester ([facility]) Orders: SYPHILIS TREPONEMAL W/REFLEX; Future ANEMIA REFLEX PANEL; Future 24 weeks gestation of ([facility]) RTO 4 wks Lois Nava MD documented in this encounter [facility] 12-25-2024 Instructions Dulce Schmitz MA - 12/25/2024 8:02 AM EDT SEQUENTIAL SCREENINGS The [facility] offers sequential screenings for women who are interested in screenings for chromosomal abnormalities and certain defects during a . The sequential screen combines ultrasound and blood tests to determine the risk of chromosomal abnormalities, including Down's Syndrome (Trisomy 21) and Trisomy 18, as well as open neural tube defects including spina bifida. Ultrasound examination is performed between 11 weeks and 13 weeks gestational age. Blood tests are drawn after the ultrasound and again later in the between 15 and 21 weeks gestational age. Please let your physician know if you are interested in this testing. It will require an appointment with our fisheries technician. This is not an ultrasound performed by a physician in our office during a routine visit. SIGNS AND SYMPTOMS OF LABOR 1. Contractions every 10 minutes or more often 2. Clear, pink, or brownish fluid (water) leaking from vagina 3. Feeling that baby is pushing down, pressure 4. Low, dull backache 5. Cramps that feel like a period 6. Cramps with or without diarrhea If you notice any of the above symptoms, contact our office at [phone] and ask to speak with a nurse. After hours, you can call doctors registry at [phone] OR call [facility] at [phone] and ask to have the doctor shoe reconditioner paged. If you consider this an emergency, dial 7-1-3 or go to your nearest emergency department. NEED HELP? Are you dealing with a violent or abusive relationship? Are you a victim of rape or sexual assult? Call [facility] ([facility] 24 hour Crisis Hotline: 279.825.9550 or 363-117-3890. MANUAL Your Guide to a Healthy manual is now on-line. Visit [email or web address] to download your free copy documented in this encounter [facility] 11-27-2024 Progress note Formatting of t his note might be different from the original. S: Celia Torres is a 34 year old female who presents at 20 weeks gestation for a routine visit. Just completed anatomy US. Feeling flutters. Occasional headaches. Sitting at computer most of the day- recommended having eyes checked. Does not take any medications for headaches. Denies visual changes, chest pain, shortness of breath, vaginal bleeding, leakage of fluid, or dysuria. O: See flow sheet Gen: No apparent distress Abd: Gravid, nontender ASSESSMENT/PLAN: 1. Hypothyroidism, unspecified type 2. Encounter for supervision of normal first in second trimester 3. 20 weeks gestation of - vitamin / ASA daily - Continue Synthroid 25 mcg PO daily - Thyroid levels today - RTO 4 weeks for HERVE Landaverde APRN.CNM [facility] Work Phone: 11-27-2024 Miscellaneous Notes S: Celia Torres is a 34 year old female who presents at 20 weeks gestation for a routine visit. Just completed anatomy US. Feeling flutters. Occasional headaches. Sitting at computer most of the day- recommended having eyes checked. Does not take any medications for headaches. Denies visual changes, chest pain, shortness of breath, vaginal bleeding, leakage of fluid, or dysuria. O: See flow sheet Gen: No apparent distress Abd: Gravid, nontender ASSESSMENT/PLAN: 1. Hypothyroidism, unspecified type 2. Encounter for supervision of normal first in second trimester 3. 20 weeks gestation of - vitamin / ASA daily - Continue Synthroid 25 mcg PO daily - Thyroid levels today - RTO 4 weeks for HERVE Landaverde APRN.CNM documented in this encounter [facility] 11-27-2024 Instructions Kyle Aguirre MA - 11/27/2024 8:48 AM EDT SEQUENTIAL SCREENINGS The [facility] offers sequential screenings for women who are interested in screenings for chromosomal abnormalities and certain defects during a . The sequential screen combines ultrasound and blood tests to determine the risk of chromosomal abnormalities, including Down's Syndrome (Trisomy 21) and Trisomy 18, as well as open neural tube defects including spina bifida. Ultrasound examination is performed between 11 weeks and 13 weeks gestational age. Blood tests are drawn after the ultrasound and again later in the between 15 and 21 weeks gestational age. Please let your physician know if you are interested in this testing. It will require an appointment with our fisheries technician. This is not an ultrasound performed by a physician in our office during a routine visit. SIGNS AND SYMPTOMS OF LABOR 1. Contractions every 10 minutes or more often 2. Clear, pink, or brownish fluid (water) leaking from vagina 3. Feeling that baby is pushing down, pressure 4. Low, dull backache 5. Cramps that feel like a period 6. Cramps with or without diarrhea If you notice any of the above symptoms, contact our office at [phone] and ask to speak with a nurse. After hours, you can call doctors registry at [phone] OR call [facility] at [phone] and ask to have the doctor shoe reconditioner paged. If you consider this an emergency, dial 9-1- or go to your nearest emergency department. NEED HELP? Are you dealing with a violent or abusive relationship? Are you a victim of rape or sexual assult? Call [facility] ([place]) 24 hour Crisis Hotline: 522.997.7580 or 236-435-4433. MANUAL Your Guide to a Healthy manual is now on-line. Visit [email or web address] to download your free copy documented in this encounter [facility] 11-10-2024 Telephone encounter Note Refill sent [facility] 11-10-2024 Miscellaneous Notes Refill sent 18w2d Can you please review in KJ's absence? Patient is out of medication. documented in this encounter [facility] 11-10-2024 Telephone encounter Note 18w2d Can you please review in KJ's absence? Patient is out of medication. [facility] 10-30-2024 Progress note Formatting of t his note might be different from the original. RR- VB No. LOF No. CTXS No. Movement: absent. Other c/o: No. Medication list reviewed. SENSITIVE EXAM: Sensitive exam not performed. Physical Exam See Flow Sheet Abd: soft, nontender A/P 16w5d Estimated Date of Delivery: 04/11/25 Assessment & Plan Hypothyroidism, unspecified type cont. synthroid, recheck tsh next visit 16 weeks gestation of Encounter for supervision of normal first in second trimester reviewed labs anatomy US to be scheduled cont PNV and asa John Mae M.D. [facility] 10-30-2024 Miscellaneous Notes RR- VB No. LOF No. CTXS No. Movement: absent. Other c/o: No. Medication list reviewed. SENSITIVE EXAM: Sensitive exam not performed. Physical Exam See Flow Sheet Abd: soft, nontender A/P 16w5d Estimated Date of Delivery: 04/11/25 Assessment & Plan Hypothyroidism, unspecified type cont. synthroid, recheck tsh next visit 16 weeks gestation of Encounter for supervision of normal first in second trimester reviewed labs anatomy US to be scheduled cont PNV and asa John Mae M.D. documented in this encounter [facility] 10-30-2024 Instructions Shanta Charles MA - 10/30/2024 8:32 AM EDT SEQUENTIAL SCREENINGS The [facility] offers sequential screenings for women who are interested in screenings for chromosomal abnormalities and certain defects during a . The sequential screen combines ultrasound and blood tests to determine the risk of chromosomal abnormalities, including Down's Syndrome (Trisomy 21) and Trisomy 18, as well as open neural tube defects including spina bifida. Ultrasound examination is performed between 11 weeks and 13 weeks gestational age. Blood tests are drawn after the ultrasound and again later in the between 15 and 21 weeks gestational age. Please let your physician know if you are interested in this testing. It will require an appointment with our fisheries technician. This is not an ultrasound performed by a physician in our office during a routine visit. SIGNS AND SYMPTOMS OF LABOR 1. Contractions every 10 minutes or more often 2. Clear, pink, or brownish fluid (water) leaking from vagina 3. Feeling that baby is pushing down, pressure 4. Low, dull backache 5. Cramps that feel like a period 6. Cramps with or without diarrhea If you notice any of the above symptoms, contact our office at [phone] and ask to speak with a nurse. After hours, you can call doctors registry at [phone] OR call [facility] at [phone] and ask to have the doctor shoe reconditioner paged. If you consider this an emergency, dial 9-1-3 or go to your nearest emergency department. NEED HELP? Are you dealing with a violent or abusive relationship? Are you a victim of rape or sexual assult? Call [facility] ([facility] 24 hour Crisis Hotline: 963.157.6501 or 853-179-1451. MANUAL Your Guide to a Healthy manual is now on-line. Visit [email or web address] to download your free copy documented in this encounter [facility] 10-02-2024 Progress note Formatting of t his note might be different from the original. Anatomy ultrasound reviewed. No abnormalities identified. Follow up as clinically indicated. Please place copy in ob chart. John Mae MD [facility] 10-02-2024 Miscellaneous Notes Anatomy ultrasound reviewed. No abnormalities identified. Follow up as clinically indicated. Please place copy in ob chart. John Mae MD documented in this encounter [facility] 10-02-2024 Progress note Formatting of t his note might be different from the original. KJ - VB No. LOF No. CTXS No. Movement: absent. Other c/o: No. Medication list reviewed. Physical Exam See Flow Sheet Gen: no accute distress, well appearing A/P 12w5d Estimated Date of Delivery: 04/11/25 NT today PNB Plans NIPT when approved by insurance Discussed weaning off metfomin over the next 2 weeks Anthony Villatoro MD [facility] 10-02-2024 Miscellaneous Notes KJ - VB No. LOF No. CTXS No. Movement: absent. Other c/o: No. Medication list reviewed. Physical Exam See Flow Sheet Gen: no accute distress, well appearing A/P 12w5d Estimated Date of Delivery: 04/11/25 NT today PNB Plans NIPT when approved by insurance Discussed weaning off metfomin over the next 2 weeks Anthony Villatoro MD documented in this encounter [facility] 10-02-2024 Aisha Monte LPN - 10/02/2024 9:25 AM EST SEQUENTIAL SCREENINGS The [facility] offers sequential screenings for women who are interested in screenings for chromosomal abnormalities and certain defects during a . The sequential screen combines ultrasound and blood tests to determine the risk of chromosomal abnormalities, including Down's Syndrome (Trisomy 21) and Trisomy 18, as well as open neural tube defects including spina bifida. Ultrasound examination is performed between 11 weeks and 13 weeks gestational age. Blood tests are drawn after the ultrasound and again later in the between 15 and 21 weeks gestational age. Please let your physician know if you are interested in this testing. It will require an appointment with our fisheries technician. This is not an ultrasound performed by a physician in our office during a routine visit. SIGNS AND SYMPTOMS OF LABOR 1. Contractions every 10 minutes or more often 2. Clear, pink, or brownish fluid (water) leaking from vagina 3. Feeling that baby is pushing down, pressure 4. Low, dull backache 5. Cramps that feel like a period 6. Cramps with or without diarrhea If you notice any of the above symptoms, contact our office at [phone] and ask to speak with a nurse. After hours, you can call doctors registry at [phone] OR call [facility] at [phone] and ask to have the doctor shoe reconditioner paged. If you consider this an emergency, dial 04-13-3 or go to your nearest emergency department. NEED HELP? Are you dealing with a violent or abusive relationship? Are you a victim of rape or sexual assult? Call [facility] ([place]) 24 hour Crisis Hotline: 818.955.1112 or 269-250-4733. MANUAL Your Guide to a Healthy manual is now on-line. Visit [email or web address] to download your free copy documented in this encounter [facility] 09-03-2024 Note HNO ID: [id number] Author: MEAGAN PAUL APRN.HEAVY RAIL TRAIN OPERATOR Service: ? 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 INITIAL OB ASSESSMENT HPI: Celia is a 33 year old Female here to establish Obstetrical Care. Patient's last menstrual period was 07/05/2024 (exact date). from OB Dating Form. was planned Complaints: No OB History T0 L0 SAB0 IAB0 Ectopic0 Multiple0 Live Births0 Previous history: Prior : never History of 4th degree laceration: NA History of shoulder dystocia: No History of Hypertensive disorders including pre-eclampsia or gestational hypertension: No History of gestational diabetes: No Patient's Risk Screening for delivery: Have you had a prior sandhu between 20w and 36w6d? No How many pregnancies have you had before? 0 Did you have a previous baby with a GBS Infection? No Please select all that apply for any prior : N/A MEDICAL/PSYCHOSOCIAL HISTORY: History of hemorrhage or bleeding concerns: No Thyroid Disease: Yes History of chronic hypertension: No History of pre-existing diabetes: No No results found for: ABORHD No weight on file for this encounter. Last Pap: History of abnormal pap: No Prior treatment for cervical dysplasia: N/A. Last HPV: N/A History of STDs: N/A Partner History of STDs: None Did you have a partner with Herpes? No Tobacco use: No E-Cigarette/Vaping Use: No Caffeine use: Yes- 1 cup of black tea per day Drug use: No Alcohol use: No Multivitamin with Folic acid: Yes Would refuse blood transfusion if medically necessary: No Social Needs: How often does this describe you? I don't have enough money to pay my bills: Never Within the past 12 months, have you worried that your food would run out before you had money to buy more? Never In the past 12 months, has lack of reliable transportation kept you from going to medical appointments or work, or from getting things needed for daily living? Never In the past 12 months, have you had any concerns about having a place to live, or about the condition or quality of your housing? Never Would you like more information on any of the following (please check all that apply)? Centering (group care classes); Retail Pos Specialist; Harness Puller care Social History: Do you have any history of depression, anxiety, PTSD, or other mood problems? No Do you have a history of abuse or trauma that may impact your experience? No Are you currently employed? Yes Depression/Anxiety Screening: denies symptoms of depression. OB Depression and Anxiety Screening- This Encounter (since 09/02/2024) Over the past 2 weeks have you felt down, depressed, or hopeless? Negative Over the past two weeks, have you felt little interest or pleasure in doing things?? Negative Feeling nervous, anxious or on edge 0-Not at all Not being able to stop or control worrying 0-Not al all Anxiety Pre-Screening Total (If >/= 3 additional questions will be reviewed) 0 Genetic Screening: Partner present: Yes Patient verbalized knowledge of partner family health history: Yes Do you or your partner have any personal or family history of defects not previously discussed: No Do you have history of a complicated by anomaly, genetic condition, or demise: No Preeclampsia Risk Screening: Screening for prevention of preeclampsia: High risk factors: None Moderate risk ractors: Nulliparity OB Risk Screening: Completed, no positive findings documented. Marital Status: Partner: Name: Danilo Age: 32 Occupation: [employer] Gender: Male PAST MEDICAL HISTORY Diagnosis Date Hypothyroidism PAST SURGICAL HISTORY Procedure Laterality Date HSG Bilateral 04/10/2024 LEFT blocked Current Outpatient Medications Medication Sig Dispense Refill metFORMIN ER (GLUCOPHAGE XR) 500 mg 24 hr tablet Take 3 tablets by mouth daily with dinner. May divide dose up and take 1 tablet with breakfast or lunch and 2 tablets with dinner if you don't tolerate all three with dinner. 270 tablet 1 levothyroxine (SYNTHROID) 25 mcg tablet Take 1 tablet by mouth every afternoon. lkzqq-0-kac-brr-qez-zdac oil 1,050 mg(300 mg -675 mg-75 mg) cap Take 3 tablets by mouth once daily. PNV no.95/ferrous fum/folic ac ( ORAL) Take 2 tablets by mouth once daily. letrozole (FEMARA) 2.5 mg tablet Take 2 tablets by mouth once daily. Cycle days 3-7 (Patient not taking: Reported on 09/03/2024) 10 tablet 3 OHUBETSJ-WGQBKEW-EFTMYNAGU ORAL Take by mouth. (Patient not taking: Reported on 09/03/2024) XLAOGZAKQHLY-OXPE-JSXGD ACID ORAL Take by mouth. (Patient not taking: Reported on 09/03/2024) No current facility-administered medications for this visit. Allergies As of Date: 09/09/2024 Allergen Noted Reactio (more content not included)... 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 INITIAL OB ASSESSMENT HPI: Celia is a 33 year old Female here to establish Obstetrical Care. Patient's last menstrual period was 07/05/2024 (exact date). from OB Dating Form. was planned Complaints: No OB History T0 L0 SAB0 IAB0 Ectopic0 Multiple0 Live Births0 Previous history: Prior : never History of 4th degree laceration: NA History of shoulder dystocia: No History of Hypertensive disorders including pre-eclampsia or gestational hypertension: No History of gestational diabetes: No Patient's Risk Screening for delivery: Have you had a prior sandhu between 20w and 36w6d? No How many pregnancies have you had before? 0 Did you have a previous baby with a GBS Infection? No Please select all that apply for any prior : N/A MEDICAL/PSYCHOSOCIAL HISTORY: History of hemorrhage or bleeding concerns: No Thyroid Disease: Yes History of chronic hypertension: No History of pre-existing diabetes: No No results found for: ABORHD No weight on file for this encounter. Last Pap: History of abnormal pap: No Prior treatment for cervical dysplasia: N/A. Last HPV: N/A History of STDs: N/A Partner History of STDs: None Did you have a partner with Herpes? No Tobacco use: No E-Cigarette/Vaping Use: No Caffeine use: Yes- 1 cup of black tea per day Drug use: No Alcohol use: No Multivitamin with Folic acid: Yes Would refuse blood transfusion if medically necessary: No Social Needs: How often does this describe you? I don't have enough money to pay my bills: Never Within the past 12 months, have you worried that your food would run out before you had money to buy more? Never In the past 12 months, has lack of reliable transportation kept you from going to medical appointments or work, or from getting things needed for daily living? Never In the past 12 months, have you had any concerns about having a place to live, or about the condition or quality of your housing? Never Would you like more information on any of the following (please check all that apply)? Centering (group care classes); Retail Pos Specialist; Harness Puller care Social History: Do you have any history of depression, anxiety, PTSD, or other mood problems? No Do you have a history of abuse or trauma that may impact your experience? No Are you currently employed? Yes Depression/Anxiety Screening: denies symptoms of depression. OB Depression and Anxiety Screening- This Encounter (since 09/02/2024) Over the past 2 weeks have you felt down, depressed, or hopeless? Negative Over the past two weeks, have you felt little interest or pleasure in doing things? Negative Feeling nervous, anxious or on edge 0-Not at all Not being able to stop or control worrying 0-Not al all Anxiety Pre-Screening Total (If >/= 3 additional questions will be reviewed) 0 Genetic Screening: Partner present: Yes Patient verbalized knowledge of partner family health history: Yes Do you or your partner have any personal or family history of defects not previously discussed: No Do you have history of a complicated by anomaly, genetic condition, or demise: No Preeclampsia Risk Screening: Screening for prevention of preeclampsia: High risk factors: None Moderate risk ractors: Nulliparity OB Risk Screening: Completed, no positive findings documented. Marital Status: Partner: Name: Danilo Age: 32 Occupation: [employer] Gender: Male PAST MEDICAL HISTORY Diagnosis Date Hypothyroidism PAST SURGICAL HISTORY Procedure Laterality Date HSG Bilateral 04/10/2024 LEFT blocked Current Outpatient Medications Medication Sig Dispense Refill metFORMIN ER (GLUCOPHAGE XR) 500 mg 24 hr tablet Take 3 tablets by mouth daily with dinner. May divide dose up and take 1 tablet with breakfast or lunch and 2 tablets with dinner if you don't tolerate all three with dinner. 270 tablet 1 levothyroxine (SYNTHROID) 25 mcg tablet Take 1 tablet by mouth every afternoon. jhnwy-2-zbb-rpa-cku-weac oil 1,050 mg(300 mg -675 mg-75 mg) cap Take 3 tablets by mouth once daily. PNV no.95/ferrous fum/folic ac ( ORAL) Take 2 tablets by mouth once daily. letrozole (FEMARA) 2.5 mg tablet Take 2 tablets by mouth once daily. Cycle days 3-7 (Patient not taking: Reported on 09/03/2024) 10 tablet 3 XWTXTBAR-NHLMBHF-PRCOSCASE ORAL Take by mouth. (Patient not taking: Reported on 09/03/2024) EMXJZVZLHRGV-VUYM-CGTKR ACID ORAL Take by mouth. (Patient not taking: Reported on 09/03/2024) No current facility-administered medications for this visit. Allergies As of Date: 09/09/2024 Allergen Noted Reaction SULFA (SULFONAMIDE ANTIBIOTICS) 03/17/2019 Rash Fully Assessed 09/03/2024 Does patient have penicillin allergy: No REVIEW OF SYSTEMS: GENERAL: Negative for: Fever or Chills HEENT: Negative for: Headache, Impaired Vision, Ringing in Ears, Nosebleeds NECK: Negative for: Swelling, Pain, Stiffness RESPIRATORY: Negative for: Cough, Shortness of breath, Wheezing GASTROINTESTINAL: Positive for: Nausea MUSCULOSKELETAL: Negative for: Muscle or joint pain, stiffness, Joint swelling NEUROLOGIC/PSYCHIATRIC: Negative for: Weakness, Paralysis, Numbness, Tingling, Tremor, Anxiety, Depression, Memory loss SKIN: Negative for: Rash, Itching GENITOURINARY: Negative for: vaginal itching, vaginal discharge, hematuria or dysuria SENSITIVE EXAM: The sensitive examination was discussed with the Patient or Patient's Authorized Mold Swabber. As applicable, any other physician, advance practice provider, medical student, or other health professional student that will be observing or involved in the sensitive examination for educational or training purposes was discussed with the Patient or Authorized Mold Swabber. The Patient or Authorized Mold Swabber has agreed to proceed with the sensitive examination. (Sensitive examination includes inspection and/or palpation of the breasts, pelvis, prostate and anorectal regions). PHYSICAL EXAM: LMP 07/05/2024 GENERAL: pleasant in no apparent distress DERMATOLOGY: Normal, without lesions, non-icteric, and non-hirsute NECK: Supple, full range of motion, no adenopathy, and thyroid normal CHEST: Normal inspiratory effort BREAST: soft, non-tender, symmetric, no dominant mass, normal nipple-areolar complex, no lymphadenopathy, and no nipple discharge ABDOMEN: soft, non-tender, and no masses NEURO: alert and oriented x3,exam grossly non-focal PELVIS: External genitalia normal without lesions. Perineal body intact. No vaginal or cervical lesions. Scant bleeding with exam. Cervix closed. No adnexal masses or tenderness. Clinical Pelvimetry: Pelvimetry clinically assessed as adequate Limited OB ultrasound exam: single intrauterine , positive cardiac activity, and POCUS performed. +cardiac activity, CRL consistent with LMP. Meagan Paul, FORMING PROCESS LINE WORKER.HEAVY RAIL TRAIN OPERATOR ASSESSMENT: 33 year old at 8w4d wks gestational age PLAN: 1) Patient oriented to practice. Patient given new OB orientation folder. Discussed nutrition, folic acid supplementation, dietary guidelines, exercise, smoking, alcohol, caffeine, and drug use. Discussed gestational weight gain guidelines. Discussed routine OB labs including STD/HIV. Discussed how to access Your guide to a health and the Adjunct Mathematics Instructor. Reviewed midwifery and pharmacy specialist services that are available. 2) Screening: Hemoglobin A1C: ordered Baby Aspirin: The patient has been counseled about the potential benefits of low dose aspirin in and our recommendation that this be offered to all patients, regardless of whether they meet the high risk criteria specified above. She Accepts Aneuploidy Screening: Discussed aneuploidy screening, nuchal translucency/first trimester early anatomy ultrasound and NIPT. The risks/benefits and limitations of NIPT/aneuploidy screening were reviewed including the potential for false negative and false positive results. The availability of genetic counseling was reviewed. Information on aneuploidy screening was provided. The patient chooses to proceed with First trimester early anatomy ultrasound (12-13w6d) and NIPT (10 weeks) Myriad Carrier Screening: Discussed myriad carrier screening. We discussed the availability of professional-society guided carrier screening and reviewed the conditions screened and limitations of screening. The availability of genetic counseling was reviewed. Information on carrier screening was provided. The patient Previously ordered 3) Patient offered option of Virtual Visits. Patient unsure. May consider in future. 4) Thyroid Disease: TSH ordered Follow up in 4 weeks or sooner prn. Meagan Paul APRN.HEAVY RAIL TRAIN OPERATOR documented in this encounter [facility] 09-03-2024 Instructions Shaylee Martinez LPN - 09/03/2024 2:07 PM EST Please select the following link to access the [facility] Your Guide to a Healthy . [email or web address] Please select the following link to access the [facility] Your Guide to a Healthy . [email or web address] documented in this encounter [facility] 08-04-2024 Telephone encounter Note ordered [facility] 08-04-2024 Miscellaneous Notes ordered Please order with increase dosage. Mae Parrish RN Was she ever able to get up to taking 1000mg (2 tabs with dinner)? If so then I would like to bump up to 1500mg daily if possible she can do 500mg with breakfast or lunch then 1000mg at dinner or if she can tolerate she can do all 1500mg with dinner. Please let me know so I can order appropriately. Last visit with DM 12/14/23. Lexie Sainz RN documented in this encounter [facility] 08-04-2024 Telephone encounter Note Please order with increase dosage. Mae Parrish RN [facility] 08-04-2024 Telephone encounter Note Was she ever able to get up to taking 1000mg (2 tabs with dinner)? If so then I would like to bump up to 1500mg daily if possible she can do 500mg with breakfast or lunch then 1000mg at dinner or if she can tolerate she can do all 1500mg with dinner. Please let me know so I can order appropriately. [facility] 08-04-2024 Telephone encounter Note Last visit with DM 12/14/23. Lexie Sainz RN [facility] 05-19-2024 Note HNO ID: [id number] Author: KAMILA BEARD APRN.HEAVY RAIL TRAIN OPERATOR Service: ? Author Type: Nurse Practitioner Type: Progress Notes Filed: 05/19/2024 15:48 Note Text: REPRODUCTIVE ENDOCRINOLOGY AND INFERTILITY [facility] PATIENT CLINIC NOTE SERVICE DATE: 05/19/2024 SERVICE TIME: 2:59 PM NAME: Celia Torres This is a virtual visit. It required patient-provider interaction for the medical decision making as documented below. Patient name and birthday verified: Yes Location of patient: [place] Persons Present: patient This is a virtual visit using Zoom. It required patient-provider interaction for the medical decision making as documented below. I have communicated my name and active licensure. The patient's identity and physical location were verified at the time of this visit. Either the patient or their legal insurance sales representative has been informed of the risks and benefits of -- and alternatives to -- treatment through a remote evaluation and consents to proceed with the evaluation remotely. REFERRED BY: Consultation requested by Dr. Nava for an opinion regarding infertilty. My final recommendations will be communicated back to the requesting physician by way of shared Medical record or letter to requesting physician via US mail. Lois Nava [address] [facility] [id number] CHIEF COMPLAINT: Procreative management and counseling HISTORY OF PRESENT ILLNESS Celia Torres is a 33 year old female TTC x 2 years Regular cycles q 31-32 days for 3-5 days OPK+ CD#15-17 No hx STDs or abnormal pap test PMHx: Hypothyroidism on Synthroid; Metformin daily for PCOS management 12/2023 AMH 4.36 03/2024 HSG left tube blocked otherwise normal healthy, non smoker; has never established a 02/2024 normal SA, consulted to Dr. Gerson CALVIN Intake Questionnaire Reason for visit: Infertility evaluation, Polycystic ovary syndrome (PCOS) Partner with whom fertility is desired: Yes Same sex relationship: No Menstrual cycle pattern: Regular periods (25-34 days in length) Cycle length (days): 28-31 Days of bleedin-5 OPK use: Yes, able to detect Dysmenorrhea: Rarely Dyspareunia: No STI history: None Last Pap Smear Date: 03/17/23 Last pap outcome: Normal History of abnormal PAP: No, all prior PAP smears have been normal Procedure for abnormal pap smear: None History of abnormal mammogram: Never done Prior chemotherapy or radiation: No Number of caffeinated beverages daily: None Number of cigarettes smoked daily: None Second hand smoke exposure: No Marijuana use: No Number of alcoholic beverages / week: None Hours of moderate exercise / week: >7 Ever been : No Duration of intercourse without using contraception: 2 years Average frequency of intercourse: 2-4 times per week Pain with intercourse: No Lubricants with intercourse: No Eggs, sperm, or embryos frozen: No Have you had the following tests or treatments: HSG, Semen analysis Partner Information * If Partner is female, check box for associated questions.: No Partner's Name: Danilo Dunlap Partner's : 09/11/1991 Partner's Partner's Ethnicity: Partner's Race: 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 Legally ?: Yes Do they have children together?: No Any other Previous Pregnancies?: No Number of cigarettes smoked daily: None Marijuana use: No Number of alcoholic beverages: Noneper week Medications: vitamins Pertinent Medical Hx: none Pertinent Surgical Hx: none Pertinent Genetic Hx: none Fathered children prior relationship: No Partner has had: Semen analysis, Evaluation by urologist Partner had fever in the last 4 months: No Partner has [facility] medical chart: Yes Partner had prior fertility testing or treatment elsewhere: No Semen Analysis: ASSESSMENT AND PLAN Celia Torres is a 33 year old female Celia was seen today for new patient. Diagnoses and all orders for this visit: Screen for sexually transmitted diseases - WHIIVF GC/CHLAMYDIA AMPLIF, URINE; Future - HEPATITIS B CORE ANTIBODY TOTAL; Future - HEPATITIS B SURFACE ANTIGEN; Future - HEPATITIS C ANTIBODY IA WITH CONFIRMATION; Future - HIV 1/2 COMBO WITH REFLEX TO DIFFERENTIATION; Future - SYPHILIS TOTAL W/REFLEX; Future PCOS (polycystic ovarian syndrome) - CONSULT TO INFERTILITY CLINIC Fallopian tube disorder - CONSULT TO INFERTILITY CLINIC Female infertility - CONSULT TO INFERTILITY CLINIC Procreation management investigation and testing - VARICELLA ZOSTER IGG; Future - TYPE + SCREEN ; Future - RUBELLA IGG ANTIBODY; Future Screening for genetic disease carrier status - CARRIER SCREEN, EXPANDED; Future Assessment Celia is a 33 year old patient with regular cycles trying to conceive for 24 months. Counseled on the different categories of infertility: male factor, ova (more content not included)... [facility] 05-19-2024 History of Presen t illness Narrative Images from the original note were not included. REPRODUCTIVE ENDOCRINOLOGY AND INFERTILITY [facility] PATIENT CLINIC NOTE SERVICE DATE: 05/19/2024 SERVICE TIME: 2:59 PM NAME: Celia Torres This is a virtual visit. It required patient-provider interaction for the medical decision making as documented below. Patient name and birthday verified: Yes Location of patient: [place] Persons Present: patient This is a virtual visit using Zoom. It required patient-provider interaction for the medical decision making as documented below. I have communicated my name and active licensure. The patient's identity and physical location were verified at the time of this visit. Either the patient or their legal insurance sales representative has been informed of the risks and benefits of -- and alternatives to -- treatment through a remote evaluation and consents to proceed with the evaluation remotely. REFERRED BY: Consultation requested by Dr. Nava for an opinion regarding infertilty. My final recommendations will be communicated back to the requesting physician by way of shared Medical record or letter to requesting physician via US mail. Lois Nava [address] [facility] [id number] CHIEF COMPLAINT: Procreative management and counseling HISTORY OF PRESENT ILLNESS Celia Torres is a 33 year old female TTC x 2 years Regular cycles q 31-32 days for 3-5 days OPK+ CD#15-17 No hx STDs or abnormal pap test PMHx: Hypothyroidism on Synthroid; Metformin daily for PCOS management 12/2023 AMH 4.36 03/2024 HSG left tube blocked otherwise normal healthy, non smoker; has never established a 02/2024 normal SA, consulted to Dr. Gerson CALVIN Intake Questionnaire Reason for visit: Infertility evaluation, Polycystic ovary syndrome (PCOS) Partner with whom fertility is desired: Yes Same sex relationship: No Menstrual cycle pattern: Regular periods (25-34 days in length) Cycle length (days): 28-31 Days of bleedin-5 OPK use: Yes, able to detect Dysmenorrhea: Rarely Dyspareunia: No STI history: None Last Pap Smear Date: 03/17/23 Last pap outcome: Normal History of abnormal PAP: No, all prior PAP smears have been normal Procedure for abnormal pap smear: None History of abnormal mammogram: Never done Prior chemotherapy or radiation: No Number of caffeinated beverages daily: None Number of cigarettes smoked daily: None Second hand smoke exposure: No Marijuana use: No Number of alcoholic beverages / week: None Hours of moderate exercise / week: >7 Ever been : No Duration of intercourse without using contraception: 2 years Average frequency of intercourse: 2-4 times per week Pain with intercourse: No Lubricants with intercourse: No Eggs, sperm, or embryos frozen: No Have you had the following tests or treatments: HSG, Semen analysis Partner Information * If Partner is female, check box for associated questions.: No Partner's Name: Danilo Dunlap Partner's : 09/11/1991 Partner's Partner's Ethnicity: Partner's Race: 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 Legally ?: Yes Do they have children together?: No Any other Previous Pregnancies?: No Number of cigarettes smoked daily: None Marijuana use: No Number of alcoholic beverages: Noneper week Medications: vitamins Pertinent Medical Hx: none Pertinent Surgical Hx: none Pertinent Genetic Hx: none Fathered children prior relationship: No Partner has had: Semen analysis, Evaluation by urologist Partner had fever in the last 4 months: No Partner has [facility] medical chart: Yes Partner had prior fertility testing or treatment elsewhere: No Semen Analysis: ASSESSMENT AND PLAN Celia Torres is a 33 year old female Celia was seen today for new patient. Diagnoses and all orders for this visit: Screen for sexually transmitted diseases - WHIIVF GC/CHLAMYDIA AMPLIF, URINE; Future - HEPATITIS B CORE ANTIBODY TOTAL; Future - HEPATITIS B SURFACE ANTIGEN; Future - HEPATITIS C ANTIBODY IA WITH CONFIRMATION; Future - HIV 1/2 COMBO WITH REFLEX TO DIFFERENTIATION; Future - SYPHILIS TOTAL W/REFLEX; Future PCOS (polycystic ovarian syndrome) - CONSULT TO INFERTILITY CLINIC Fallopian tube disorder - CONSULT TO INFERTILITY CLINIC Female infertility - CONSULT TO INFERTILITY CLINIC Procreation management investigation and testing - VARICELLA ZOSTER IGG; Future - TYPE + SCREEN ; Future - RUBELLA IGG ANTIBODY; Future Screening for genetic disease carrier status - CARRIER SCREEN, EXPANDED; Future Assessment Celia is a 33 year old patient with regular cycles trying to conceive for 24 months. Counseled on the different categories of infertility: male factor, ovarian factor, cervical factor, tubal/uterine factor, and unexplained infertility. Latest Ref Rng 01/01/2024 01/22/2024 04/25/2024 Cholesterol, Total <200 mg/dL 178 Triglyceride <150 mg/dL 91 HDL Cholesterol >39 mg/dL 41 Non HDL Cholesterol <130 mg/dL 137 (H) Fasting Time hrs 12 VLDL Cholesterol <30 mg/dL 18 TC:HDL Ratio <5.10 4.34 LDL Cholesterol <100 mg/dL 119 (H) LDL:HDL Ratio <2.54 2.90 (H) Hemoglobin A1C 4.3 - 5.6 % 5.2 Estimated Average Glucose mg/dL 103 Testosterone Free <0.13 - 1.03 ng/dL 0.69 Testosterone 8 - 60 ng/dL 26 Insulin 3.0 - 25.0 mU/L 8.9 TSH 0.270 - 4.200 mIU/L 2.630 3.760 Anti Mullerian Hormone 0.58 - 8.13 ng/mL 4.36 DHEA-S 98.8 - 340.0 ug/dL 405.2 (H) Progesterone See comment ng/mL 4.5 Free T3 2.3 - 4.1 pg/mL 2.6 Free T4 0.9 - 1.7 ng/dL 1.1 Legend: (H) High HSG results: Patient Evaluation: labs: Type & Screen, Rubella titer, Varicella titer, HbA1c, Vitamin D Genetic Carrier Screening STI screening Pelvic Ultrasound Partner Evaluation: Semen Analysis (done) Genetic Carrier Screening (only if needed) STI screening Required Screening -Please provide a copy of all results from labs outside of the [facility]. [] labs: T&S, Rubella IgG, Varicella IgG, HbA1c [] Patient STI Testing [] Patient Genetic Carrier Screening [x] HSG [x] Pelvic Ultrasound [] [facility] up to date (pap/mammogram/annual exam) [x] Semen Analysis [] Partner STI Testing [] Partner Genetic Carrier Screening Next Steps: folate and vit D supplementation complete evaluation outlined above schedule a follow up visit to review results and set treatment plan. Let 5mg/IUI +/- monitoring/ IUI x3-4 cycles Kamila Beard APRN.CNP I spent a total of 45 minutes on the date of the service which included preparing to see the patient, [id number] patient care, completing clinical documentation, obtaining and/or reviewing separately obtained history, performing a medically appropriate examination, counseling and educating the patient/family/caregiver, ordering medications, tests, or procedures, and care coordination (not separately reported). To patients reading this note: Please be advised the primary purpose of this note is for me to communicate with myself and other members of your medical team. Standard sentence structure is not always used. Medical terminology and medical abbreviations may be used. There may be grammatical and typographical errors missed in proofreading. documented in this encounter [facility] 04-23-2024 Note Addended by: LOIS DALLAS on: 04/23/2024 03:36 PM Modules accepted: Orders [facility] 04-23-2024 Miscellaneous Notes Addended by: LOIS PEREZ on: 04/23/2024 03:36 PM Modules accepted: Orders Labs ordered and MARIXA consult ordered documented in this encounter [facility] 04-23-2024 Telephone encounter Note Labs ordered and MARIXA consult ordered [facility] 04-10-2024 History of Presen t illness Narrative Pt had HSG at [facility] on 04/10/24- Right tube was patent but left tube did not demonstrate dye spillage. Pt counseled on findings. documented in this encounter [facility] 02-29-2024 Telephone encounter Note Semen analysis results mailed to patient. Mae Parrish RN [facility] 02-29-2024 Miscellaneous Notes Semen analysis results mailed to patient. Mae Parrish RN Refills for metformin. The semen analysis was reviewed and scanned to husbands chart I believe. Spouse's semen analysis to provider. See [employer] message. The HSG can be done by whoever is available. I will always try but with my schedule it may not be possible. HSG can be done CD 6-10 if not done this cycle look for next- she need to call or send a message on CD 1 so it can be arranged. Patient last seen on December 14, 2023 for AUB/trying to conceive. Order was faxed to [facility] in [place] on January 13 for semen analysis for . Serum progesterone level 4.5 yesterday. Patient responding to result note sent yesterday by Dr. Perez regarding her interest in metformin and ovulation testing. documented in this encounter [facility] 02-28-2024 Telephone encounter Note Refills for metformin. The semen analysis was reviewed and scanned to husbands chart I believe. [facility] Work Phone: 02-28-2024 Telephone encounter Note Spouse's semen analysis to provider. [facility] 02-10-2024 Telephone encounter Note See [employer] message. The HSG can be done by whoever is available. I will always try but with my schedule it may not be possible. HSG can be done CD 6-10 if not done this cycle look for next- she need to call or send a message on CD 1 so it can be arranged. [facility] 01-24-2024 History of Presen t illness Narrative Creatinine and GFR wnl - done at [facility]- 10/2023 documented in this encounter [facility] 01-23-2024 Telephone encounter Note Patient last seen on December 14, 2023 for AUB/trying to conceive. Order was faxed to [facility] in [place] on January 13 for semen analysis for . Serum progesterone level 4.5 yesterday. Patient responding to result note sent yesterday by Dr. Perez regarding her interest in metformin and ovulation testing. [facility] 01-17-2024 Telephone encounter Note Order signed and faxed to [facility]. Lexie Sainz RN [facility] 01-17-2024 Miscellaneous Notes Order signed and faxed to [facility]. 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 Semen analysis form to provider to sign. Mae Parrish RN Please prepare semen analysis order for , see [employer] message. Schedule HSG with me or available provider on day 6-10 of cycle. 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 Semen analysis form to provider to sign. Mae Parrish RN [facility] 01-15-2024 Telephone encounter Note Please prepare semen analysis order for , see mychart message. Schedule HSG with me or available provider on day 6-10 of cycle. [facility] 12-14-2023 History of Presen t illness Narrative Celia Torres is a 33 year old female who presents for concerns regarding conception. Pt reports menses are typically about every 30 days, but occasionally could be as long as 45 days, menses are moderate to light flow with 5-6 days of bleeding, nothing painful. Pt reports was constant weight until 2021, pt states was always 48kg now is 54kg. Pt reports has had regular visits with PCP last pap in March 2023, wnl. Pt had ultrasound and blood work recently- started on synthroid 25mcg. Pt taking supplement for ? PCOS but was never diagnosed- pt has never seen roller mechanic but was told to establish with one. Pt was given appt with [facility] in [place]. Pt states has been actively trying to get since April 2023- Home Ovulation is positive, home sperm test is normal and her discharge is c/w ovulation. Pt reports does not smoke, no major medical problems for her or - he does not have other children. No h/o STD. Pt reports does have some facial hair but did not think much of it. No other concerns. OB History T0 L0 SAB0 IAB0 Ectopic0 Multiple0 Live Births0 Spray Technician History LMP: 11/28/2023, Having periods Age at Menarche: Age at First : Age at Menopause: Spray Technician History Comments: Sexual Activity: Yes; Male Contraception: No contraception data on record PAST MEDICAL HISTORY Diagnosis Date NEGATIVE MEDICAL HISTORY PAST SURGICAL HISTORY Procedure Laterality Date NONE FAMILY HISTORY Problem Relation Age of Onset Diabetes Paternal Grandfather Hypertension Paternal Grandfather Social History Tobacco Use Smoking status: Never Smokeless tobacco: Never Vaping Use Vaping Use: Never used Substance Use Topics Alcohol use: Never Drug use: Never Current Outpatient Medications Medication Sig levothyroxine (SYNTHROID) 25 mcg tablet Take 1 tablet by mouth every afternoon. [id number] ORAL Take by mouth. nikll-2-uas-cui-day-tquj oil 1,050 mg(300 mg -675 mg-75 mg) cap Take by mouth. [id number]-PJIDH ACID ORAL Take by mouth. No current facility-administered medications for this visit. Allergies As of Date: 12/14/2023 Allergen Noted Reaction SULFA (SULFONAMIDE ANTIBIOTICS) 03/17/2019 Rash Fully Assessed 12/14/2023 REVIEW OF SYSTEMS Abdomen: no pain Bladder: no dysuria. Expanded ROS: no fever Allergies and current medication updated:Yes EXAM: BP 98/60 Ht 4' 11 (1.50m) Wt 122 lb (55.3kg) LMP 11/28/2023 BMI 24.63 kg/(m^2). GENERAL: pleasant, female in no apparent distress HEENT: Normocephalic, atraumatic, and mucus membranes moist NECK: full range of motion DERMATOLOGY: Normal, without lesions, and +mild Hirsutism NEURO: alert and oriented x3,exam grossly non-focal ASSESSMENT AND PLAN: Encounter Diagnosis ICD-10-CM 1. Abnormal uterine bleeding (AUB) N93.9 WHIIVF ANTI MULLERIAN HORMONE TESTOSTERONE, FREE AND TOTAL DHEA-S BLD CANCELED: TESTOSTERONE, FREE AND TOTAL CANCELED: WHIIVF ANTI MULLERIAN HORMONE CANCELED: THYROID STIMULATING HORMONE CANCELED: DHEA-S BLD 2. Hirsutism L68.0 WHIIVF ANTI MULLERIAN HORMONE TESTOSTERONE, FREE AND TOTAL DHEA-S BLD CANCELED: TESTOSTERONE, FREE AND TOTAL CANCELED: WHIIVF ANTI MULLERIAN HORMONE CANCELED: DHEA-S BLD 3. Hypothyroidism, unspecified type E03.9 THYROID STIMULATING HORMONE CANCELED: THYROID STIMULATING HORMONE 4. Encounter for screening for diabetes mellitus Z13.1 INSULIN ASSAY BLOOD HEMOGLOBIN A1C 5. Screening cholesterol level Z13.220 LIPID PANEL BASIC 6. Discussed possible PCOS diagnosis. Labs ordered.reviewed nutrition and exercise and supplements 7. Discussed possible further work up with semen analysis and HSG. Reviewed possible use of metformin and clomid vs letrozole 8. Will call with results 9 . [facility] labs reviewed including Ultrasound- TSH, CBC, CMP, FSH, PRL, LH Medical Decision Making: Problems: Moderate: New problem with uncertain prognosis Data: Unique test result(s) reviewed: 3+ Unique test(s) ordered: 3+ Medical Decision Making Level: 4 - Moderate Lois Nava MD documented in this encounter [facility] Evaluation note Diagnosis Onset Date Hyperlipidemia with low HDL acute Infertility [facility] Work Phone: Evaluation note* Diagnosis Abnormal uterine bleeding (AUB)- Primary Hirsutism Hypothyroidism, unspecified type Encounter for screening for diabetes mellitus Screening for diabetes mellitus Screening cholesterol level Screening for lipoid disorders documented in this encounter [facility] note* Diagnosis Irregular menstrual cycle- Primary documented in this encounter [facility] note* Diagnosis Hypothyroidism, unspecified type- Primary Hirsutism PCOS (polycystic ovarian syndrome) Polycystic ovaries Fallopian tube disorder Unspecified noninflammatory disorder of ovary, fallopian tube, and broad ligament Female infertility Female infertility of unspecified origin documented in this encounter [facility] note* Diagnosis Screen for sexually transmitted diseases- Primary Screening examination for venereal disease PCOS (polycystic ovarian syndrome) Polycystic ovaries Fallopian tube disorder Unspecified noninflammatory disorder of ovary, fallopian tube, and broad ligament Female infertility Female infertility of unspecified origin Procreation management investigation and testing Other investigation and testing for procreative management Screening for genetic disease carrier status documented in this encounter [facility] note* Diagnosis Procreation management investigation and testing- Primary Other investigation and testing for procreative management documented in this encounter [facility] note* Diagnosis Procreation management investigation and testing- Primary Other investigation and testing for procreative management documented in this encounter [facility] note* Diagnosis examination or test, unconfirmed- Primary documented in this encounter [facility] note* Diagnosis Encounter for supervision in primigravida, antepartum- Primary with uncertain dates, antepartum state, incidental Encounter for care in first trimester of first Screening for cervical cancer Screening for malignant neoplasm of the cervix 9 weeks gestation of state, incidental Hypothyroidism, unspecified type documented in this encounter [facility] note* Diagnosis Encounter for care in first trimester of first - Primary 12 weeks gestation of state, incidental Hypothyroidism, unspecified type documented in this encounter [facility] note* Diagnosis Encounter for screening for malformation using ultrasound- Primary 12 weeks gestation of state, incidental documented in this encounter [facility] note* Diagnosis Hypothyroidism, unspecified type- Primary 16 weeks gestation of state, incidental Encounter for supervision of normal first in second trimester Supervision of normal first * Assessment & Plan Note - John Mae MD - 10/30/2024 8:55 AM EDT Associated Problem(s): Hypothyroidism cont. synthroid, recheck tsh next visit documented in this encounter [facility] note* Diagnosis Hypothyroidism, unspecified type- Primary 16 weeks gestation of ([facility]) state, incidental Encounter for supervision of normal first in second trimester ([facility]) Supervision of normal first Hypothyroidism, unspecified type- Primary Encounter for supervision of normal first in second trimester ([facility]) Supervision of normal first 20 weeks gestation of ([facility]) state, incidental documented in this encounter [facility] note* Diagnosis Hypothyroidism, unspecified type- Primary 16 weeks gestation of ([facility]) state, incidental Encounter for supervision of normal first in second trimester ([facility]) Supervision of normal first Encounter for anatomic survey ([facility])- Primary Encounter for anatomic survey 20 weeks gestation of ([facility]) state, incidental documented in this encounter [facility] note* Diagnosis Hypothyroidism, unspecified type- Primary 16 weeks gestation of ([facility]) state, incidental Encounter for supervision of normal first in second trimester ([facility]) Supervision of normal first Encounter for supervision of normal first in second trimester ([facility])- Primary Supervision of normal first Hypothyroidism, unspecified type Screening for diabetes mellitus Encounter for supervision of normal first in third trimester ([facility]) Supervision of normal first 24 weeks gestation of ([facility]) state, incidental * Assessment & Plan Note - Lois Quinn MD - 12/25/2024 8:15 AM EDT Associated Problem(s): Hypothyroidism documented in this encounter [facility] note* Diagnosis Hypothyroidism, unspecified type- Primary 16 weeks gestation of ([facility]) state, incidental Encounter for supervision of normal first in second trimester ([facility]) Supervision of normal first Encounter for supervision of normal first in second trimester ([facility])- Primary Supervision of normal first Hypothyroidism, unspecified type Screening for diabetes mellitus Encounter for supervision of normal first in third trimester ([facility]) Supervision of normal first 24 weeks gestation of ([facility]) state, incidental 28 weeks gestation of ([facility])- Primary state, incidental Encounter for supervision of normal first in third trimester ([facility]) Supervision of normal first Need for vaccination Need for prophylactic vaccination and inoculation against unspecified single disease Hypothyroidism, unspecified type documented in this encounter [facility] note* Diagnosis Hypothyroidism, unspecified type- Primary 16 weeks gestation of ([facility]) state, incidental Encounter for supervision of normal first in second trimester ([facility]) Supervision of normal first Hypothyroidism, unspecified type- Primary Encounter for supervision of normal first in second trimester ([facility])- Primary Supervision of normal first Hypothyroidism, unspecified type Screening for diabetes mellitus Encounter for supervision of normal first in third trimester ([facility]) Supervision of normal first 24 weeks gestation of ([facility]) state, incidental documented in this encounter [facility] note* Diagnosis Hypothyroidism, unspecified type- Primary 16 weeks gestation of ([facility]) state, incidental Encounter for supervision of normal first in second trimester ([facility]) Supervision of normal first Encounter for supervision of normal first in second trimester ([facility])- Primary Supervision of normal first Hypothyroidism, unspecified type Screening for diabetes mellitus Encounter for supervision of normal first in third trimester ([facility]) Supervision of normal first 24 weeks gestation of ([facility]) state, incidental 30 weeks gestation of ([facility])- Primary state, incidental Encounter for supervision of normal first in third trimester ([facility]) Supervision of normal first Hypothyroidism, unspecified type * Assessment & Plan Note - Anthony Villatoro MD - 02/03/2025 2:02 PM EDTAssociated Problem(s): Hypothyroidism COntinue synthroid Repeat TSH today documented in this encounter [facility] note* Diagnosis Hypothyroidism, unspecified type- Primary 16 weeks gestation of ([facility]) state, incidental Encounter for supervision of normal first in second trimester ([facility]) Supervision of normal first Encounter for supervision of normal first in second trimester ([facility])- Primary Supervision of normal first Hypothyroidism, unspecified type Screening for diabetes mellitus Encounter for supervision of normal first in third trimester ([facility]) Supervision of normal first 24 weeks gestation of (HCC) state, incidental 30 weeks gestation of ([facility])- Primary state, incidental Encounter for supervision of normal first in third trimester ([facility]) Supervision of normal first Hypothyroidism, unspecified type Encounter for supervision of normal first in third trimester ([facility])- Primary Supervision of normal first Hypothyroidism, unspecified type 32 weeks gestation of ([facility]) state, incidental * Assessment & Plan Note - Anthony Villatoro MD - 02/20/2025 9:29 AM EDTAssociated Problem(s): Hypothyroidism Continue synthroid documented in this encounter [facility] note* Diagnosis Hypothyroidism, unspecified type- Primary 16 weeks gestation of ([facility]) state, incidental Encounter for supervision of normal first in second trimester ([facility]) Supervision of normal first Encounter for supervision of normal first in second trimester ([facility])- Primary Supervision of normal first Hypothyroidism, unspecified type Screening for diabetes mellitus Encounter for supervision of normal first in third trimester ([facility]) Supervision of normal first 24 weeks gestation of ([facility]) state, incidental 30 weeks gestation of ([facility])- Primary state, incidental Encounter for supervision of normal first in third trimester ([facility]) Supervision of normal first Hypothyroidism, unspecified type Encounter for supervision of normal first in third trimester ([facility])- Primary Supervision of normal first Hypothyroidism, unspecified type 32 weeks gestation of ([facility]) state, incidental Encounter for supervision of normal first in third trimester ([facility])- Primary Supervision of normal first 34 weeks gestation of ([facility]) state, incidental Hypothyroidism, unspecified type documented in this encounter [facility] note* Diagnosis Hypothyroidism, unspecified type- Primary 16 weeks gestation of ([facility]) state, incidental Encounter for supervision of normal first in second trimester ([facility]) Supervision of normal first Encounter for supervision of normal first in second trimester ([facility])- Primary Supervision of normal first Hypothyroidism, unspecified type Screening for diabetes mellitus Encounter for supervision of normal first in third trimester ([facility]) Supervision of normal first 24 weeks gestation of ([facility]) state, incidental 30 weeks gestation of ([facility])- Primary state, incidental Encounter for supervision of normal first in third trimester ([facility]) Supervision of normal first Hypothyroidism, unspecified type Encounter for supervision of normal first in third trimester ([facility])- Primary Supervision of normal first Hypothyroidism, unspecified type 32 weeks gestation of ([facility]) state, incidental Encounter for supervision in primigravida, antepartum ([facility])- Primary Hypothyroidism, unspecified type 37 weeks gestation of ([facility]) state, incidental [facility]* Diagnosis Hypothyroidism, unspecified type- Primary 16 weeks gestation of ([facility]) state, incidental Encounter for supervision of normal first in second trimester ([facility]) Supervision of normal first Encounter for supervision of normal first in second trimester ([facility])- Primary Supervision of normal first Hypothyroidism, unspecified type Screening for diabetes mellitus Encounter for supervision of normal first in third trimester ([facility]) Supervision of normal first 24 weeks gestation of ([facility]) state, incidental 30 weeks gestation of ([facility])- Primary state, incidental Encounter for supervision of normal first in third trimester ([facility]) Supervision of normal first Hypothyroidism, unspecified type Encounter for supervision of normal first in third trimester ([facility])- Primary Supervision of normal first Hypothyroidism, unspecified type 32 weeks gestation of ([facility]) state, incidental Uterine size date discrepancy, third trimester ([facility])- Primary Encounter for supervision of normal first in third trimester ([facility]) Supervision of normal first 37 weeks gestation of ([facility]) state, incidental [facility]* Diagnosis Hypothyroidism, unspecified type- Primary 16 weeks gestation of ([facility]) state, incidental Encounter for supervision of normal first in second trimester ([facility]) Supervision of normal first Encounter for supervision of normal first in second trimester ([facility])- Primary Supervision of normal first Hypothyroidism, unspecified type Screening for diabetes mellitus Encounter for supervision of normal first in third trimester ([facility]) Supervision of normal first 24 weeks gestation of ([facility]) state, incidental 30 weeks gestation of ([facility])- Primary state, incidental Encounter for supervision of normal first in third trimester ([facility]) Supervision of normal first Hypothyroidism, unspecified type Encounter for supervision of normal first in third trimester ([facility])- Primary Supervision of normal first Hypothyroidism, unspecified type 32 weeks gestation of ([facility]) state, incidental Encounter for supervision in primigravida, antepartum (HCC)- Primary Hypothyroidism, unspecified type 38 weeks gestation of ([facility]) state, incidental documented in this encounter [facility] note* Diagnosis Hypothyroidism, unspecified type- Primary 16 weeks gestation of (HCC) state, incidental Encounter for supervision of normal first in second trimester ([facility]) Supervision of normal first Encounter for supervision of normal first in second trimester ([facility])- Primary Supervision of normal first Hypothyroidism, unspecified type Screening for diabetes mellitus Encounter for supervision of normal first in third trimester ([facility]) Supervision of normal first 24 weeks gestation of ([facility]) state, incidental 30 weeks gestation of ([facility])- Primary state, incidental Encounter for supervision of normal first in third trimester ([facility]) Supervision of normal first Hypothyroidism, unspecified type Encounter for supervision of normal first in third trimester ([facility])- Primary Supervision of normal first Hypothyroidism, unspecified type 32 weeks gestation of ([facility]) state, incidental Encounter for supervision in primigravida, antepartum ([facility])- Primary Hypothyroidism, unspecified type Uterine size-date discrepancy, third trimester ([facility]) 39 weeks gestation of ([facility]) state, incidental * Assessment & Plan Note - Lois Quinn MD - 04/07/2025 9:31 AM EDT Associated Problem(s): Encounter for supervision in primigravida, antepartum (HCC) Orders: URINE OB DIP B/O * Assessment & Plan Note - Lois Quinn MD - 04/07/2025 9:31 AM EDT Associated Problem(s): Hypothyroidism Orders: URINE OB DIP B/O * Assessment & Plan Note - Lois Quinn MD - 04/07/2025 9:31 AM EDT Associated Problem(s): Uterine size-date discrepancy, third trimester (HCC) Orders: URINE OB DIP B/O [facility] Diagnostic Procedure Only (Routine) - New Request Specialty Diagnoses / Procedures Referred By Contac t Referred To Contact [facility] Diagnoses Encounter for supervision in primigravida, antepartum with uncertain dates, antepartum Encounter for care in first trimester of first Procedures OBSTETRIC ULTRASOUND WHI US PREG UTERUS AFTER 1ST TRIMEST GESTATION Meagan Paul APRN.CNP [address] [place] [address] [facility] [employer] [place] [id number] Referral ID Status Reason Start Date Expiration Date Visits Requested Visits Authorized [id number] New Request Auto-Generat ed Referral 09/09/2024 09/09/2025 1 1 * Diagnostic Procedure Only (Routine) - Pending Review Specialty Diagnoses / Procedures Referred By Jasbir baumann Referred To Contact [facility] Diagnoses Encounter for supervision in primigravida, antepartum with uncertain dates, antepartum Encounter for care in first trimester of first Procedures OBSTETRIC ULTRASOUND WHI US PREG UTERUS AFTER 1ST TRIMEST GESTATION Meagan Paul APRN.CNP [address] [place] [address] [facility] [address] [place] [address] Referral ID Status Reason Start Date Expiration Date Visits Requested Visits Authorized [id number] Pending Review Auto-Generat ed Referral 09/09/2024 09/09/2025 1 1 [facility] Summary Purpose Family History No Family History Records FoundNo Family History Records FoundNo Family History Records Found Advance Directives No Advanced Directives Records FoundNo Advanced Directives Records FoundNo Advanced Directives Records Found Chief Complaint and Reason for Visit Chief Complaint [employer] EST CARE-PPW SENT Reason for Visit Hyperlipidemia with low HDL Infertility Chief Complaint [employer] EST CARE-PPW SENT INFERTILITY Reason for Visit Hyperlipidemia with low HDL Infertility Reason for Referral Specialty Diagnoses / Procedures Referred By Jasbir baumann Referred To Contact Diagnoses PCOS (polycystic ovarian syndrome) Fallopian tube disorder Female infertility Procedures CONSULT TO INFERTILITY CLINIC OFFICE/OUTPATIENT [facility] 60 MINUTES Lois Quinn MD [address] [place] [address] Referral ID Status Reason Start Date Expiration Date Visits Requested Visits Authorized [id number] Pending Review PCP Requested Referral Auto-Generate d Referral 04/23/2024 04/23/2025 1 1 Additional Source Comments INFORMATION SOURCE (unrecogn ized section and content) DATE CREATED AUTHOR 02/16/2018 [facility] DATE CREATED AUTHOR AUTHOR'S ORGANIZ ATION 04/04/2025 [facility] DATE CREATED AUTHOR AUTHOR'S ORGANIZ ATION 04/11/2025 [facility] Care Teams (unrecognized sec tion and content) Team Status: Active Member Role Status Dates Dr. Solis Berger MD Family Provider Active Dr. Rakesh Vega , DO Primary Care Provider Active Team Status: Inactive Member Role Status Dates Dr. Solis Berger MD Primary Care Provider, Referring P paul Active Dr. Rakesh Vega , DO Attending Provider Active Team Status: Inactive Member Role Status Dates Dr. Rakesh Vega DO Primary Care Pr ovider, Attending Provider, Referring Provider Active Team Status: Inactive Member Role Status Dates Dr. Rakesh Vega , DO Primary Care Provider, Attend ing Provider Active Goals (unrecognized section and content) Goals may be documented in a n alternate sectionGoals may be documented in an alternate sectionGoals may be documented in an alternate section Source Comments (unrecognize d section and content) In the event this informatio n is protected by the Federal Confidentiality of Alcohol and Drug Abuse Patient Records regulations: The Federal rules restrict any use of the information to criminally investigate or prosecute any alcohol or drug abuse patient.[facility] the event this information is protected by the Federal Confidentiality of Alcohol and Drug Abuse Patient Records regulations: The Federal rules restrict any use of the information to criminally investigate or prosecute any alcohol or drug abuse patient.[facility] the event this information is protected by the Federal Confidentiality of Alcohol and Drug Abuse Patient Records regulations: The Federal rules restrict any use of the information to criminally investigate or prosecute any alcohol or drug abuse patient.[facility] CenterIn the event this information is protected by the Federal Confidentiality of Alcohol and Drug Abuse Patient Records regulations: The Federal rules restrict any use of the information to criminally investigate or prosecute any alcohol or drug abuse patient.[facility] the event this information is protected by the Federal Confidentiality of Alcohol and Drug Abuse Patient Records regulations: The Federal rules restrict any use of the information to criminally investigate or prosecute any alcohol or drug abuse patient.[facility] the event this information is protected by the Federal Confidentiality of Alcohol and Drug Abuse Patient Records regulations: The Federal rules restrict any use of the information to criminally investigate or prosecute any alcohol or drug abuse patient.[facility] the event this information is protected by the Federal Confidentiality of Alcohol and Drug Abuse Patient Records regulations: The Federal rules restrict any use of the information to criminally investigate or prosecute any alcohol or drug abuse patient.[facility] CenterIn the event this information is protected by the Federal Confidentiality of Alcohol and Drug Abuse Patient Records regulations: The Federal rules restrict any use of the information to criminally investigate or prosecute any alcohol or drug abuse patient.[facility] CenterIn the event this information is protected by the Federal Confidentiality of Alcohol and Drug Abuse Patient Records regulations: The Federal rules restrict any use of the information to criminally investigate or prosecute any alcohol or drug abuse patient.[facility] Center[facility] the event this information is protected by the Federal Confidentiality of Alcohol and Drug Abuse Patient Records regulations: The Federal rules restrict any use of the information to criminally investigate or prosecute any alcohol or drug abuse patient.[facility] Center[facility] the event this information is protected by the Federal Confidentiality of Alcohol and Drug Abuse Patient Records regulations: The Federal rules restrict any use of the information to criminally investigate or prosecute any alcohol or drug abuse patient.[facility] Center[facility] the event this information is protected by the Federal Confidentiality of Alcohol and Drug Abuse Patient Records regulations: The Federal rules restrict any use of the information to criminally investigate or prosecute any alcohol or drug abuse patient.[facility] CenterIn the event this information is protected by the Federal Confidentiality of Alcohol and Drug Abuse Patient Records regulations: The Federal rules restrict any use of the information to criminally investigate or prosecute any alcohol or drug abuse patient.[facility] the event this information is protected by the Federal Confidentiality of Alcohol and Drug Abuse Patient Records regulations: The Federal rules restrict any use of the information to criminally investigate or prosecute any alcohol or drug abuse patient.[facility] CenterIn the event this information is protected by the Federal Confidentiality of Alcohol and Drug Abuse Patient Records regulations: The Federal rules restrict any use of the information to criminally investigate or prosecute any alcohol or drug abuse patient.[facility] CenterIn the event this information is protected by the Federal Confidentiality of Alcohol and Drug Abuse Patient Records regulations: The Federal rules restrict any use of the information to criminally investigate or prosecute any alcohol or drug abuse patient.[facility] the event this information is protected by the Federal Confidentiality of Alcohol and Drug Abuse Patient Records regulations: The Federal rules restrict any use of the information to criminally investigate or prosecute any alcohol or drug abuse patient.[facility] CenterIn the event this information is protected by the Federal Confidentiality of Alcohol and Drug Abuse Patient Records regulations: The Federal rules restrict any use of the information to criminally investigate or prosecute any alcohol or drug abuse patient.[facility] CenterIn the event this information is protected by the Federal Confidentiality of Alcohol and Drug Abuse Patient Records regulations: The Federal rules restrict any use of the information to criminally investigate or prosecute any alcohol or drug abuse patient.[facility] CenterIn the event this information is protected by the Federal Confidentiality of Alcohol and Drug Abuse Patient Records regulations: The Federal rules restrict any use of the information to criminally investigate or prosecute any alcohol or drug abuse patient.[facility] CenterIn the event this information is protected by the Federal Confidentiality of Alcohol and Drug Abuse Patient Records regulations: The Federal rules restrict any use of the information to criminally investigate or prosecute any alcohol or drug abuse patient.[facility] CenterIn the event this information is protected by the Federal Confidentiality of Alcohol and Drug Abuse Patient Records regulations: The Federal rules restrict any use of the information to criminally investigate or prosecute any alcohol or drug abuse patient.[facility] CenterIn the event this information is protected by the Federal Confidentiality of Alcohol and Drug Abuse Patient Records regulations: The Federal rules restrict any use of the information to criminally investigate or prosecute any alcohol or drug abuse patient.[facility] CenterIn the event this information is protected by the Federal Confidentiality of Alcohol and Drug Abuse Patient Records regulations: The Federal rules restrict any use of the information to criminally investigate or prosecute any alcohol or drug abuse patient.[facility] CenterIn the event this information is protected by the Federal Confidentiality of Alcohol and Drug Abuse Patient Records regulations: The Federal rules restrict any use of the information to criminally investigate or prosecute any alcohol or drug abuse patient.[facility] CenterIn the event this information is protected by the Federal Confidentiality of Alcohol and Drug Abuse Patient Records regulations: The Federal rules restrict any use of the information to criminally investigate or prosecute any alcohol or drug abuse patient.[facility] CenterIn the event this information is protected by the Federal Confidentiality of Alcohol and Drug Abuse Patient Records regulations: The Federal rules restrict any use of the information to criminally investigate or prosecute any alcohol or drug abuse patient.[facility] CenterIn the event this information is protected by the Federal Confidentiality of Alcohol and Drug Abuse Patient Records regulations: The Federal rules restrict any use of the information to criminally investigate or prosecute any alcohol or drug abuse patient.[facility] CenterIn the event this information is protected by the Federal Confidentiality of Alcohol and Drug Abuse Patient Records regulations: The Federal rules restrict any use of the information to criminally investigate or prosecute any alcohol or drug abuse patient.[facility] CenterIn the event this information is protected by the Federal Confidentiality of Alcohol and Drug Abuse Patient Records regulations: The Federal rules restrict any use of the information to criminally investigate or prosecute any alcohol or drug abuse patient.[facility] CenterIn the event this information is protected by the Federal Confidentiality of Alcohol and Drug Abuse Patient Records regulations: The Federal rules restrict any use of the information to criminally investigate or prosecute any alcohol or drug abuse patient.[facility] CenterIn the event this information is protected by the Federal Confidentiality of Alcohol and Drug Abuse Patient Records regulations: The Federal rules restrict any use of the information to criminally investigate or prosecute any alcohol or drug abuse patient.[facility] CenterIn the event this information is protected by the Federal Confidentiality of Alcohol and Drug Abuse Patient Records regulations: The Federal rules restrict any use of the information to criminally investigate or prosecute any alcohol or drug abuse patient.[facility] CenterIn the event this information is protected by the Federal Confidentiality of Alcohol and Drug Abuse Patient Records regulations: The Federal rules restrict any use of the information to criminally investigate or prosecute any alcohol or drug abuse patient.[facility] CenterIn the event this information is protected by the Federal Confidentiality of Alcohol and Drug Abuse Patient Records regulations: The Federal rules restrict any use of the information to criminally investigate or prosecute any alcohol or drug abuse patient.[facility] CenterIn the event this information is protected by the Federal Confidentiality of Alcohol and Drug Abuse Patient Records regulations: The Federal rules restrict any use of the information to criminally investigate or prosecute any alcohol or drug abuse patient.[facility] CenterIn the event this information is protected by the Federal Confidentiality of Alcohol and Drug Abuse Patient Records regulations: The Federal rules restrict any use of the information to criminally investigate or prosecute any alcohol or drug abuse patient.[facility] CenterIn the event this information is protected by the Federal Confidentiality of Alcohol and Drug Abuse Patient Records regulations: The Federal rules restrict any use of the information to criminally investigate or prosecute any alcohol or drug abuse patient.[facility] CenterIn the event this information is protected by the Federal Confidentiality of Alcohol and Drug Abuse Patient Records regulations: The Federal rules restrict any use of the information to criminally investigate or prosecute any alcohol or drug abuse patient.[facility] Reason for Visit (unrecogniz ed section and content) Reason Comments Establish Care Specialty Diagnoses / Procedures Referred By Jasbir t Referred To Contact 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 Examiner / OR MANAGER Diagnoses Encounter for gynecological examination (general) (routine) without abnormal findings annual discuss conception Procedures NEW I TRAVELING ELECTRICIAN ANNUAL Self Lois uQinn MD [address] [place] [address] Referral ID Status Reason Start Date Expiration Date Visits Requested Visits Authorized [id number] Closed Financial Clearance Required - OON Payor OON Notification Letter Financial Clearance Not Required Patient Cleared - INN Insurance Found 12/14/2023 03/13/2024 1 1 Reason Comments New Patient Specialty Diagnoses / Procedures Referred By Jasbir t Referred To Contact OR MANAGER Diagnoses PCOS (polycystic ovarian syndrome) Fallopian tube disorder Female infertility Procedures CONSULT TO INFERTILITY CLINIC OFFICE/OUTPATIENT [facility] 60 MINUTES Lois Quinn MD [address] [place] [address] [employer] [address] [place] [address] Referral ID Status Reason Start Date Expiration Date V isits Requested Visits Authorized [id number] Closed PCP Requested Referral Auto-Generated Referral 05/19/2024 08/12/2024 1 1 Reason Comments Initial OB Visit Reason Onset Date Comments Care 10/02/2024 Reason Comments US Specialty Diagnoses / Procedures Referred By Jasbir t Referred To Contact [facility] Diagnoses Encounter for supervision in primigravida, antepartum with uncertain dates, antepartum Encounter for care in first trimester of first Procedures OBSTETRIC ULTRASOUND WHI US PREG UTERUS AFTER 1ST TRIMEST GESTATION Meagan Paul APRN.HEAVY RAIL TRAIN OPERATOR [address] [place] [address] Phone: tel: fax: [facility] [address] [place] [address] Referral ID Status Reason Start Date Expiration Date Visits Requested Visits Authorized [id number] Authorized Auto-Generat ed Referral 09/22/2024 08/12/2025 20 20 Reason Onset Date Comments Care 10/30/2024 Reason Onset Date Comments Care 11/27/2024 Specialty Diagnoses / Procedures Referred By Contac t Referred To Contact [facility] Diagnoses Encounter for supervision in primigravida, antepartum (HCC) with uncertain dates, antepartum (HCC) Encounter for care in first trimester of first (HCC) Procedures OBSTETRIC ULTRASOUND WHI US PREG UTERUS AFTER 1ST TRIMEST GESTATION Meagan Paul FORMING PROCESS LINE WORKER.HEAVY RAIL TRAIN OPERATOR [address] [place] [address] Phone: tel: fax:[phone] [address] Referral ID Status Reason Start Date Expiration Date Visits Requested Visits Authorized [id number] Authorized Auto-Generat ed Referral 11/13/2024 08/12/2025 20 20 Reason Onset Date Comments Care 12/25/2024 Reason Onset Date Comments Care 01/23/2025 Reason Onset Date Comments Care 02/03/2025 Reason Onset Date Comments Care 02/20/2025 Reason Onset Date Comments Care 03/06/2025 Reason Onset Date Comments Care 03/24/2025 Specialty Diagnoses / Procedures Referred By Contac t Referred To Contact [facility] Diagnoses 36 weeks gestation of (HCC) Encounter for supervision of normal first in third trimester ([facility]) Procedures OBSTETRIC ULTRASOUND WHI US PREG UTERUS AFTER 1ST TRIMEST GESTATION Fern Whittaker APRN.CNM [address] [place] [address] Phone: tel: fax:[phone] [address] Referral ID Status Reason Start Date Expiration Date Visits Requested Visits Authorized [id number] Authorized Auto-Generat ed Referral 03/23/2025 08/12/2025 20 20 Reason Onset Date Comments Care 03/31/2025 Reason Onset Date Comments Population Health Navigation Outreach 04/01/2025 Ob/peds Reason Onset Date Comments Care 04/07/2025 Reason Comments Brown sticky discharge FOR RECORDS PERTAINING TO PATIENTS WHO ARE OR HAVE BEEN ENROLLED IN A CHEMICAL DEPENDENCY/SUBSTANCEABUSE PROGRAM, SOME INFORMATION MAY BE OMITTED. This clinical summary was aggregated from multiple sources. Caution should be exercised in using it in the provision of clinical care. This summary normalizes information from multiple sources, and as a consequence, information in this document may materially change the coding, format and clinical context of patient data. In addition, data may be omitted in some cases. CLINICAL DECISIONS SHOULD BE BASED ON THE PRIMARY CLINICAL RECORDS. [facility] provides no warranty or guarantee of the accuracy or completeness of information in this document.
[2025-04-13 22:25] VITALS: BP 110/72; PULSE 85; RESP 16; TEMP 36.7
[2025-04-13 23:08] LABS: ROM Internal Control Test YES-OK TO RESULT pt. (Internal QC); ROM Patient Test Negative (Negative); Record Kit Lot#, ROM+ K3358
--- NOTE | 2025-04-13 23:26 | OB.TRI.NOTE ---
HPI - General General Date of Admission: 04/13/25 Date of Service: 04/13/25 Chief Complaint: leaking fluid HPI Narrative CORDELL FLORES, is a 34 F who presents complaining of feeling wet. No contractions. Good movement. No bleeding. ROM negative. Not laboring. Maternal Data Information Final MAZIN: 04/10/25 Gestational age: 40+2 PFSH PFSH Home Medications ?Medication ?Instructions ?Recorded ?Last Taken ?Type docosahexaenoic acid 200 mg mg PO 11/06/23 04/13/25 History capsule (Algal [place]-3 DHA) multivitamin 1 tab PO DAILY 11/06/23 04/13/25 History levothyroxine 25 mcg tablet 25 mcg PO DAILY #90 TABLETS 08/07/24 04/13/25 Rx Allergy/AdvReac Type Severity Reaction Status Date / Time Sulfa (Sulfonamide Allergy Mild Rash Verified 04/13/25 22:30 Antibiotics) Social History (Updated 11/06/23 @ 14:19 by Elizabet Crews MA) adopted: No household members: spouse current occupational status: employed current occupation: [employer] pets and animals: No Smoking Status: Never smoker alcohol intake: never substance use type: does not use caffeine: Yes (2) Type: tea frequency: 5-6 times per week do you feel safe at home: Yes History 1 Elective abortions Hx Para 0 Spontaneous abortions Hx # Term Pregnancies Ectopic pregnancies Hx # Pregnancies Multiple births # of living children NST FHR Rate Baby A Baseline: 155 Variability:: Moderate Accelerations:: 15 x 15 Decelerations:: None NST Reactive:: Yes Uterine Activity:: occasional Assessment & Plan (1) Encounter for suspected PROM, with rupture of membranes not found: PLAN: Discharge home with labor precautions (2) 40 weeks gestation of :
[2025-04-14 10:29] VITALS: PULSE 94; O2SAT 96
[2025-04-14 10:34] VITALS: PULSE 103; O2SAT 96
[2025-04-14 10:39] VITALS: PULSE 108; O2SAT 95
[2025-04-14 10:44] VITALS: PULSE 90; PULSE 97; O2SAT 94; O2SAT 95
== END 2025-04-14 00:35 | disposition home or self-care (01) ==
LOC: WPOUT 22:16 → WP 22:17
PROVIDERS: PCP Family Medicine; Visit Provider Obstetrics & Gynecology
DX: Z34.93 Encounter for supervision of normal pregnancy, unspecified, third trimester (principal)
CPT/HCPCS: 59025; 84112; 99221; G0378

== ENCOUNTER 2025-04-16 11:05 | Inpatient (IN) | payer OTHER, SELFPAY ==
[2025-04-16] VITALS (32 sets, daily range): BP systolic 100–144; BP diastolic 48–75; PULSE 69–96; RESP 12–16; TEMP 35.7–37.3; O2SAT 97–100; BMI 29.5
[2025-04-16] MEDS: Lactated Ringers 1,000 ML 50 ML IV (11:45)
[2025-04-16 12:03] LABS: Hematocrit 36.7 % (37-47); Hemoglobin 12.5 g/dL (12.0-15.0); Immature Granulocytes Count 0.110 X10^3/uL (0.0-0.0); Mean Corp Hgb Conc 34.1 g/dL (32-36); Mean Corpuscular Volume 90.6 fL (81-99); Mean Platelet Vol. 11.7 fl (6.2-12.0); NRBC Flagged by Analyzer 0 % (0-5); Platelet Count 198 K/mm3 (150-450); RBC Distribution Width CV 13.9 % (11.6-14.6); RBC Distribution Width SD 46.5 fl (35.1-43.9); Red Blood Count 4.05 M/mm3 (4.2-5.4); White Blood Count 8.1 K/mm3 (4.4-11.0)
[2025-04-16 13:15] LABS: Syphilis Antibodies Nonreactive (Nonreactive)
[2025-04-16] MEDS: Oxytocin 15 Units/NS 250ml 15 UNITS/250 ML IV.SOLN 2 UNITS IV (13:50)
[2025-04-16] MEDS: Lactated Ringers 1,000 ML 999 ML IV (17:40)
--- NOTE | 2025-04-16 17:47 | PCM.HP.OB ---
HPI - General General Date of Admission: 04/16/25 HPI Narrative CORDELL FLORES, is a 34 F at 40.5 weeks gestation who presents from office due to AROM while having cervical exam. Maternal Data Information MAZIN Calculator Estimated Delivery Date Method Current WG Current Estimate 04/11/25 Manual 40w 5d PFSH PFS Medical History (Updated 04/16/25 @ 17:53 by Rubina Landaverde CNM) Hirsutism PCOS (polycystic ovarian syndrome) HDL lipoprotein deficiency Hypothyroidism Infertility Home Medications ?Medication ?Instructions ?Recorded ?Last Taken ?Type docosahexaenoic acid 200 mg mg PO 11/06/23 04/16/25 History capsule (Algal [place]-3 DHA) multivitamin 1 tab PO DAILY 11/06/23 04/13/25 History levothyroxine 25 mcg tablet 50 mcg PO DAILY Hypothyroidism 04/16/25 04/16/25 History Allergy/AdvReac Type Severity Reaction Status Date / Time Sulfa (Sulfonamide Allergy Mild Rash Verified 04/16/25 12:53 Antibiotics) Social History (Updated 11/06/23 @ 14:19 by Elizabet Crews MA) adopted: No household members: spouse current occupational status: employed current occupation: [employer] pets and animals: No Smoking Status: Never smoker alcohol intake: never substance use type: does not use caffeine: Yes (2) Type: tea frequency: 5-6 times per week do you feel safe at home: Yes History 1 Elective abortions Hx Para 0 Spontaneous abortions Hx # Term Pregnancies Ectopic pregnancies Hx # Pregnancies Multiple births # of living children ROS Eyes Eyes: Denies blurry vision, change in vision or spots in vision ENT HEENT: Denies dizziness or headache(s) Cardiovascular Cardiovascular: Denies abdominal pain, chest pain or dyspnea Respiratory/Chest Respiratory/Chest: Denies cough, dyspnea, shortness of breath at rest or shortness of breath with exertion Gastrointestinal Gastrointestinal: Denies abdominal pain, diarrhea or vomiting Genitourinary Genitourinary: Denies change in urinary stream, difficulty urinating or dysuria Musculoskeletal Musculoskeletal: Reports none Integumentary Integumentary: Denies rash Neurologic Neurologic: Denies dizziness, headache(s), memory loss or weakness Psychiatric Psychiatric: Reports none Vital Signs Vital Signs Vital Signs: 04/16/25 11:30 04/16/25 11:30 04/16/25 11:30 Temperature 99.1 F Temperature Source Tympanic Pulse Rate Respiratory Rate 14 Blood Pressure BP Systolic BP Diastolic Pulse Ox 04/16/25 12:47 04/16/25 13:15 04/16/25 13:15 Temperature 99.1 F Temperature Source Pulse Rate 90 Respiratory Rate Blood Pressure 113/70 BP Systolic 113 BP Diastolic 70 Pulse Ox 04/16/25 15:46 04/16/25 15:46 04/16/25 15:46 Temperature 97.7 F L Temperature Source Pulse Rate 76 Respiratory Rate Blood Pressure 115/71 BP Systolic 115 BP Diastolic 71 Pulse Ox 04/16/25 17:11 04/16/25 17:11 04/16/25 17:11 Temperature 98.4 F Temperature Source Pulse Rate 72 Respiratory Rate Blood Pressure 121/56 H BP Systolic 121 BP Diastolic 56 Pulse Ox 04/16/25 17:32 04/16/25 17:32 04/16/25 17:32 Temperature Temperature Source Pulse Rate 69 Respiratory Rate Blood Pressure 109/57 L BP Systolic 109 BP Diastolic 57 Pulse Ox 97 04/16/25 17:33 Temperature 97.7 F L Temperature Source Pulse Rate Respiratory Rate Blood Pressure BP Systolic BP Diastolic Pulse Ox Weight Weight: 151 lb Body Mass Index (BMI) 29.5 Physical Exam Const alert, oriented x3 and no apparent distress General Appearance: cooperative Orientation / Consciousness: awake Exam Limitations: no limitations HEENT normocephalic Head and Scalp: normal to inspection Eyes General Eye: normal appearance of both eyes Neck full ROM and no lymphadenopathy Lymph Lymphatic: no lymphadenopathy noted Chest inspection of chest normal Resp normal respiratory effort, normal air movement and clear to auscultation bilaterally Effort and Inspection: able to speak in complete sentences and symmetric chest movement Cardio regular rate and regular rhythm GI normal to inspection, nondistended, normoactive bowel sounds Manual OB Exam: presentation cephalic Back/Spine normal ROM Extremity full ROM and no calf tenderness Skin no rashes or lesions noted General Skin Exam: no breakdown Neuro oriented x3 and CN's II-XII intact bilaterally Psych mental status grossly normal and thought process normal Labs Labs Labs: Blood Type A POSITIVE Antibody Screen NEGATIVE Hct 36.7 % (37-47) L Hgb 12.5 g/dL (12.0-15.0) Syphilis Total Ab Nonreactive (Nonreactive) Assessment & Plan (1) 40 weeks gestation of : (2) Subclinical hypothyroidism: (3) Artificial rupture of membranes antepartum: (4) Hyperlipidemia with low HDL: PLAN: Plan ROM plus- positive Admit to labor and delivery Routine labs CE /- Start Pitocin at 2 mu/min and increase per orders Epidural/pain medications when indicated GBS negative Dr. Nye notified of admission and is collaborating physician
[2025-04-16] MEDS: fentaNYL-bupivacaine (epidural) 100 ML BAG EPIDURAL ×2 (18:25→22:40)
--- NOTE | 2025-04-16 18:42 | PN.OBGYN_ITS ---
Subjective Subjective Patient seen at bedside. Just received epidural and is starting to feel comfortable. Objective Data Objective Data Vital Signs: Vital Signs Temp Pulse Resp BP Pulse Ox 98.9 F 85 14 111/68 99 04/16/25 17:45 04/16/25 18:41 04/16/25 17:45 04/16/25 18:41 04/16/25 18:40 Weight: 151 lb Body Mass Index (BMI) 29.5 Intake & Output: Intake and Output for Last 24 Hours 04/14/25 04/15/25 04/16/25 23:59 23:59 23:59 Intake Total 908.06 / 908.06 Output Total 800 / 800 Balance 108.06 / 108.06 Lab / Micro Data 04/16/25 11:45 Labs: Laboratory Results - last 24 hr 04/16/25 11:45: WBC 8.1, RBC 4.05 L, Hgb 12.5, Hct 36.7 L, MCV 90.6, MCH 30.9, MCHC 34.1, RDW Std Deviation 46.5 H, RDW Coeff of Ele 13.9, Plt Count 198, MPV 11.7, Immature Gran % (Auto) 1.400 H, Neut % (Auto) 69.4, Lymph % (Auto) 21.3, [place] % (Auto) 7.2, Eos % (Auto) 0.2, Baso % (Auto) 0.5, Absolute Neuts (auto) 5.6, Absolute Lymphs (auto) 1.72, Nucleated RBC % 0, Syphilis Total Ab Nonreactive, Blood Type A POSITIVE, Antibody Screen NEGATIVE, Antibody Identification NEGATIVE ANTIBODY PANEL Assessment & Plan (1) Artificial rupture of membranes antepartum: (2) 40 weeks gestation of : (3) Hyperlipidemia with low HDL: (4) Subclinical hypothyroidism: PLAN: Plan CE 4.5/90/-1 Pitocin at 2 mu/min- had to be turned down due to tachysystole GBS negative Cat. 1 tracing- NST reactive Continue with current plan of care Anticipate Dr. Nye updated on A&P
--- OUTSIDE RECORDS SUMMARY | 2025-04-16 18:43 | XMS RPT_ITS | CCD ---
Author Organization [facility] CliniSyut Care Team Providers Care Integration Software Developer Name Role Phone MARGARITO CASTAÑEDA Unavailable Unavailable SELF, SELF Unavailable Unavailable CLAUDY BERGER Unavailable Unavailable SELF, SELF Unavailable Unavailable Dr. Solis Berger Primary Care Provider Dr. Solis Berger Referring Provider [phone] Rakesh Vega Attending Provider Unavailable Primary Care Provider Unavailabl e MINDZORA, KAMILA Referring Unavailable NEYHART PEREZ, LOIS Referring Unavail able MINDZORA, KAMILA Attending Unavailable MINDZORA, KAMILA Referring Unavailable JOHN MAE Attending Unavailable NEYHART PEREZ, LOIS Referring Unavail able HUMBERTO, MEAGAN Referring Unavailable CORRY POLANCO Referring Unavailable NEYHART PEREZ, LOIS Attending Unavail able HUMBERTO, MEAGAN Referring Unavailable IRVING, KARMON Attending Unavailable WHITTAKER, FERN Referring Unavailable WHITTAKER, FERN Attending Unavailable NEYHART PEREZ, LOIS Attending Unavail able JOHN MAE Attending Unavailable WHITTAKER, FERN Referring Unavailable WHITTAKER, FERN Attending Unavailable EDMAR ALLISON Attending Unavailable HUMBERTO, MEAGAN Attending Unavailable MINDZORA, KAMILA Referring Unavailable IRVING, KARMON Attending Unavailable WISWELL, ARIANNA Referring Unavailable IRVING, KARMON Attending Unavailable WISWELL, ARIANNA Attending Unavailable HUMBERTO, MEAGAN Referring Unavailable PLOTTS, RUBINA Attending Unavailable HUMBERTO, MEAGAN Referring Unavailable PLOTTS, RUBINA Referring Unavailable HUMBERTO, MEAGAN Referring Unavailable HUMBERTO, MEAGAN Referring Unavailable Dr. Rakesh Vega DO Primary Care Provider Collin WILSON, Dr. Wheatley Attending Provider Rakesh Vega Primary Care Unavailable Corry Polanco Attending Unavailable Neyhart-Perez, Lois Attending Unavail Lois Romano Admitting Unavail Rakesh Rosa Primary Care Unavailable Allergies Allergy Classification Reported Allergen(s) Allergy Type Date of Onset Reaction(s) Facility Sulfonamides (antibiotic) (1 source) Sulfonamides (Antibiotic) Drug Allergy 9 [facility] Work Phone: (5 sources) Sulfonamides (Antibiotic); Translations: [SULFA (SULFONAMIDE ANTIBIOTICS)] Allergy to substance [facility] (20 sources) Sulfonamides (Antibiotic) Drug Allergy 9 [facility] Work Phone: (1 source) Sulfonamides (Antibiotic) Drug allergy (disorder) 5 [facility] Medications Current Medications Medication Drug Class(es) Dates Sig (Normalized) Sig (Original) aspirin 81 mg delayed release oral tablet (20 sources) Platelet Aggregation Inhibitor, Nonsteroidal Anti-inflammatory Drug Start: 09-09-2024 take 1 tablet by mouth once daily aspirin, enteric coated (ECOTRIN LOW STRENGTH) 81 mg EC tablet Indications: Encounter for supervision in primigravida, antepartum ([facility]) , with uncertain dates, antepartum (HCC) , Encounter for care in first trimester of first ([facility]) Take 1 tablet by mouth once daily. 90 tablet 3 09/09/2024 Active docosahexaenoic acid 200 mg oral capsule (4 sources) Start: 11-06-2023 Docosahexaenoic Acid (Algal Bellvue-3 Dha) 200 mg capsule Active mg PO November 06, 2023 12:00am Gzjvlcvz-Pehuikw-Pnrk amine (3 sources) Start: 11-06-2023 Gcjeywau-Bdljapv-Wna tamine Active TABLET PO November 06, 2023 12:00am levothyroxine sodium 0.05 mg oral tablet (20 sources) l-Thyroxine Start: 12-01-2024 End: 04-08-2025 take 1 tablet by mouth once daily before breakfast levothyroxine (SYNTHROID) 50 mcg tablet Take 1 tablet by mouth daily before breakfast. 30 tablet 2 04/08/2025 Active Start: 11-07-2023 End: 12-01-2024 take 1 tablet by mouth once daily Levothyroxine (Synthroid) 25 mcg tablet Discontinued 25 ug PO DAILY 90 0 May 09, 2024 4:16pm August 07, 2024 1:16pm 24 hr metFORMIN hydrochloride 500 mg extended [...] TABLET PO DAILY November 06, 2023 12:00am Multivitamin tablet (1 source) Start: 11-06-2023 Multivitamin t ablet Active 1 {tbl} PO DAILY November 06, 2023 12:00am ksrhi-9-lzd-epa-dpa-f don oil 1,050 mg(300 mg -675 mg-75 mg) cap (20 sources) take 3 tablets by mouth once daily zexts-4-poa-epa-dpa -fish oil 1,050 mg(300 mg -675 mg-75 mg) cap Take 3 tablets by mouth once daily. Active dudxm-7-rle-epa- dpa-fish oil 1,050 mg(300 mg -675 mg-75 mg) cap Take by mouth. Active xowtm-1-haa-epa- dpa-fish oil 1,050 mg(300 mg -675 mg-75 mg) cap Take by mouth. 0 Active PNV no.95/ferrous fum/folic ac ( ORAL) (20 sources) take 2 tablets by mo uth once daily before mealtime PNV no.95/ferrous fum/folic ac ( ORAL) Take 2 tablets by mouth once daily. Active Completed/Discontinued Medications Medication Drug Class(es) Dates Sig (Normalized) Sig (Original) BKASLJNR-RBCKNUI-FR UTAMINE ORAL (14 sources) Start: 11-06-2023 End: 09-09-2024 TQGBCRFP-PHWCFBU-CVS TAMINE ORAL Take by mouth. 11/06/2023 09/09/2024 Discontinued Start: 11-06-2023 INOSITOL-CHOLI NE-GLUTAMINE ORAL Take by mouth. 11/06/2023 Active Start: 11-06-2023 INOSITOL-CHOLI NE-GLUTAMINE ORAL Take by mouth. 0 11/06/2023 Active Vhlebofu-Vrjqbue-Gtdsxmxou tablet (1 source) Start: 11-06-2023 End: 04-13-2025 Oxafryjh-Ycxxdur-Smhytfxjk tablet Discontinued {tbl} PO November 06, 2023 12:00am April 13, 2025 10:32pm letrozole 2.5 mg oral tablet (4 sources) Aromatase Inhibitor Start: 07-03-2024 End: 09-09-2024 letrozole (FEMARA) 2.5 mg tablet Take 2 tablets by mouth once daily. Cycle days 3-7 10 tablet 3 07/03/2024 09/09/2024 Discontinued UGGXMNXMILKD-DTZP-FCIHV ACID ORAL (14 sources) End: 09-09-2024 DNCSBTIXCDZW-ITWT-HWMYF ACID ORAL Take by mouth. 09/09/2024 Discontinued MULTIVITAMIN-IRO N-FOLIC ACID ORAL Take by mouth. Active MULTIVITAMIN-IRO N-FOLIC ACID ORAL Take by mouth. 0 Active ubidecarenone 75 mg oral cap chaitanya (4 sources) Start: 11-06-2023 End: 04-13-2025 Coenzyme Q10 (Ultra Coq10) 7 5 mg capsule Discontinued 75 mg PO DAILY November 06, 2023 12:00am April 13, 2025 10:31pm Problems Active Problems Problem Classification Problem Date Documented Da te Episodic/Chronic Conditions associated with dizziness or vertigo (1 source) Conditions associated with dizziness or vertigo Onset: 11-15-2017 Disorders of lipid metabolism (7 sources) Hyperlipidemia; Translations: [Hyperlipidemia, unspecified] 11-06-2023 Chronic Female infertility (20 sources) Female infertility; Translations: [Female infertility, unspecified] Onset: 04-16-2024 04-23-2024 Chronic Immunizations and screening for infectious disease (3 sources) Vaccination needed; Translations: [Encounter for immunization] Onset: 05-29-2024 01-23-2025 Episodic Menstrual disorders (3 sources) Amenorrhea; Translations: [Amenorrhea, unspecified] 11-27-2023 Chronic Other complications of (8 sources) Uterine size for dates discrepancy; Translations: [Uterine size-date discrepancy, third trimester] Onset: 03-30-2025 03-26-2025 Episodic Other complications of (1 source) Uterine size-date discrepancy, third trimester; Translations: [Uterine size-date discrepancy, third trimester (HCC)] Onset: 03-30-2025 Episodic Other endocrine disorders (3 sources) Polycystic ovary syndrome; Translations: [Polycystic ovarian syndrome] 04-23-2024 Chronic Other endocrine disorders (1 source) Polycystic ovarian syndrome; Translations: [PCOS (polycystic ovarian syndrome)] Onset: 05-19-2024 Chronic Other female genital disorders (2 sources) Abnormal uterine bleeding; Translations: [Abnormal uterine and [...] conditions (not mental disorders or infectious disease) (16 sources) Patient encounter status; Translations: [Encounter for screening for diabetes mellitus] Onset: 06-10-2024 12-14-2023 Episodic Other skin disorders (3 sources) Hirsutism; Translations: [Hirsutism] 12-14-2023 Episodic Residual [...] (HCC)] Onset: 02-03-2025 Episodic Residual codes; unclassified (2 sources) Gestation period, 40 weeks; Translations: [40 weeks gestation of ] 04-13-2025 Episodic Residual codes; unclassified (1 source) Infertile 11-06-2023 Episodic Thyroid disorders (20 sources) Subclinical hypothyroidism; [...] Results Test Name Value Interpretation Reference Range Facil ity (ROM) Rupture Of Membraneson 04-13-2025 ROM Negative Normal Negative [facility] Comment on above: Result Comment: Amni otic fluid not present indicates No Rupture of Membranes at time of specimen collection. Performed By: #### L 205.1000 #### [facility] [address] [place], [address] OB Triage Physician Noteon 0 04-13-2025 OB Triage Physician Note [facility] Medical Records Department [address] [place] [address] OB Triage Physician Note 04/13/25 2326 MR#: [id number] Acct: [id number] Name: CELIA TORRES Rep #: [id number] : 1990 34 From: Corry Polanco MD PCP: Dr. Rakesh Vega, DO Status:DEP CLI Y Location: [facility] HPI - General General Date of Admission: 04/13/25 Date of Service: 04/13/25 Chief Complaint: leaking fluid HPI Narrative CELIA TORRES, is a 34 F who presents complaining of feeling wet. No contractions. Good movement. No bleeding. ROM negative. Not laboring. Maternal Data Information Final MAZIN: 04/10/25 Gestational age: 40+2 PFSH PFSH Home Medications ???Medication ???Instructions ???Recorded ???Last Taken ???Type docosahexaenoic acid 200 mg mg PO 11/06/23 04/13/25 History capsule (Algal Bellvue-3 DHA) multivitamin 1 tab PO DAILY 11/06/23 04/13/25 H istory levothyroxine 25 mcg tablet 25 mcg PO DAILY #90 TABLETS 04/13/25 Rx Allergy/AdvReac Type Severity Reaction Status Date / Time Sulfa (Sulfonamide Allergy Mild Rash Verified 04/13/25 22:30 Antibiotics) Social History (Updated 11/06/23 @ 14:19 by Elizabet Crews MA) adopted: No household members: spouse current occupational status: employed current occupation: [employer] pets and animals: No Smoking Status: Never smoker alcohol intake: never substance use type: does not use caffeine: Yes (2) Type: tea frequency: 5-6 times per week do you feel safe at home: Yes History 1 Elective abortions Hx Para 0 Spontaneous abortions Hx # Term Pregnancies Ectopic pregnancies Hx # Pregnancies Multiple births # of living children NST FHR Rate Baby A Baseline: 155 Variability:: Moderate Accelerations:: 15 x 15 Decelerations:: None NST Reactive:: Yes Uterine Activity:: occasional Assessment Plan (1) Encounter for suspected PROM, with rupture of membranes not found: PLAN: Discharge home with labor precautions (2) 40 weeks gestation of : 04/14/25917 Date Corry Polanco MD Cosigner Signature (if applicable): Date _ CC: Dr. Rakesh Vega, DO; Dr. Corry Polanco MD Signed [facility] 04-09-2025 [facility] Telephone (OBGYWM) CELIA TRORES ([id number]) 1990 F Date Time Provider Department 04/09/25 CORRY POLANCO During your visit today, we recorded the following information about you: Shadia Hargrove, BRIDGETT 04/09/2025 9:51 AM Addendum 39w5d Pt calls [...] Pt unless additional advise is needed.Shadia Hargrove, Corry Nuñez MD 04/09/2025 10:09 AM Signed agree Allergies [...] 2 tablets by mouth once daily. - enbkf-6-uhm-epa-dpa- fish oil 1,050 mg(300 mg -675 mg-75 mg) cap Take 3 tablets by mouth once daily. Problem List As Of Date 04/09/2025 Noted Resolved Hypothyroidism [E03.9] Encounter for supervision in primigra*09/09/2024 Female infertility, unspecified [N97.9] 04/16/2024 Lipoprotein deficiency [E78.6] 11/06/2023 Uterine size-date discrepancy, third trimester *03/30/2025 Encounter Status:Closed by CORRY POLANCO on 04/09/25 Normal [facility] URINE OB DIP B/Oon 5 Glucose Ql (U) Negative Neg mg/dL [facility] Protein.monoclonal (U) [Mass/Vol] Negative Neg mg/dL [facility] URINE OB DIP B/Oon 5 Glucose Ql (U) Negative Neg mg/dL [facility] Interpretation and review of laboratory results Normal [facility] Protein.monoclonal (U) [Mass/Vol] Negative Neg mg/dL [facility] Examination level ultrasound on 03-26-2025 [facility] Radiology Study observation (narrative) [facility] CNOVon 03-24-2025 CNOV Office Visit (OBGYWM) CELIA TORRES ([id number]) 1990 F Date Time Provider Department 03/24/25 1:45 PM FERN WHITTAKER During your visit today, we recorded the following information about you: Blood pressure Weight 114/68 68 kg Sowmya Edgar MA 03/24/2025 1:34 PM Signed SEQUENTIAL SCREENINGS The [facility] offers sequential screenings for women who are [...] It will require an appointment with our ultrasound manager. This is not an ultrasound performed by [...] the above symptoms, contact our office at [phone] and ask to speak with a nurse. After hours, you can call doctors registry at [phone] OR call [facility] at [phone] and ask to have the doctor multimedia instructional designer paged. If you consider this an emergency, dial [phone] or go to your nearest emergency department. NEED HELP? Are you dealing with a violent or abusive relationship? Are you a victim of rape or sexual assult? Call [facility] ([place]) 24 hour Crisis Hotline: 487.234.2459 or 947-688-7895. MANUAL Your Guide to a Healthy manual is now on-line. Visit [email or web address]/ HealthyPregnancyGuid e to download your free copy Fern Whittaker [...] in primigravida, antepartum (HCC) [Z34.00] Other Visit Diagnoses:Hypothyroi dism, unspecified type [E03.9] 37 weeks gestation of (HCC) [Z3A.37] Order(s):URINE OB DIP B/O [[id number]] Order #: [id number] Prescriptions as of 03/25/2025 - levothyroxine (SYNTHROID) 50 mcg tablet Take 1 tablet by mouth daily before breakfast. - aspirin, enteric coated (ECOTRIN LOW STRENGTH) 81 mg EC tablet Take 1 tablet by mouth once daily. - PNV no.95/ferrous fum/folic ac ( ORAL) Take 2 tablets by mouth once daily. - jjmwr-5-ccr-epa-dpa- fish oil 1,050 mg(300 mg -675 mg-75 mg) cap Take 3 tablets by mouth once daily. Problem List As Of Date 03/24/2025 Noted Resolved Hypothyroidism [E03.9] Encounter for supervision in primigra*09/09/2024 Female infertility, unspecified [N97.9] 04/16/2024 Lipoprotein deficiency [E78.6] 11/06/2023 Notes for Staff Will only call if abnormal Other instructions from your clinician: SEQUENTIAL SCREENINGS [facility] offers sequential screenings for women who are [...] and 2 (more content not included)... Normal [facility] URINE OB DIP B/Oon 5 Glucose Ql (U) Negative Neg mg/dL [facility] Interpretation and review of laboratory results Normal [facility] Protein.monoclonal (U) [Mass/Vol] Negative Neg mg/dL [facility] ROUTINE, GROUP B ST REPTOCOCCUS BY PCRon 03-20-2025 ROUTINE, GROUP B STREPTOCOCCUS BY PCR Not detected Normal [facility] Comment on above: Performed By: #### T SPN #### [facility]OD [facility] CLIA [id number] [address] [place] [address] [place] T4 Free SerPl-mCncon 025 Free T4 [Mass/Vol] 0.9 ng/dL Normal 0.9-1.7 [facility] Comment on above: Order Comment: Speci men Type: BLOOD SPECIMEN Ordering Facility: [facility] Address: [address] [place] [address] Performed By: #### 3 024-7, 3016-3 #### [facility] CLIA [id number] [address] [place] [address] [place] TSH SerPl-aCncon 03-20-2025 TSH Qn 2.330 m[IU]/L Normal 0.270-4.200 [facility] Comment on above: Order Comment: Juan saini Type: BLOOD SPECIMEN Ordering Facility: [facility] Address: [address] [place] [address] Result Comment: If t he patient is [...] Simons, et al. 2017 Guidelines of the [place] [employer] for the Diagnosis and Management of Thyroid Disease during and the . Thyroid, 2017:27:3:315-389. Performed By: #### 3 024-7, 3016-3 #### [facility] CLIA [id number] [address] [place] [address] [place] URINE OB DIP B/Oon 5 Glucose Ql (U) Negative Neg mg/dL [facility] Interpretation and review of laboratory results Normal [facility] Protein.monoclonal (U) [Mass/Vol] Negative Neg mg/dL [facility] TSH SerPl-aCncon 02-03-2025 TSH Qn 1.690 m[IU]/L Normal 0.270-4.200 [facility] Comment on above: Order Comment: Juan saini Type: BLOOD SPECIMEN Ordering Facility: [facility] Address: [address] [place] [address] Result Comment: If t he patient is [...] Simons et al. 2017 Guidelines of the [place] [employer] for the Diagnosis and Management of Thyroid Disease during and the . Thyroid, 2017:27:3:315-389. Performed By: #### 3 016-3 #### [facility] CLIA [id number] [address] [place] [address] [place] CBC W Auto Differential pane l (Bld)on 01-23-2025 Basophils (Bld) [#/Vol] 0.05 10*3/uL Normal <0.11 [facility] Comment on above: Order Comment: Speci men Type: BLOOD SPECIMEN Ordering Facility: [facility] Address: [address] [place] [address] Performed By: #### 3 016-3 #### [facility] CLIA [id number] [address] [place] [address] [place] Basophils/100 WBC (Bld) 0.5 % Normal [facility] Comment on above: Order Comment: Speci men Type: BLOOD SPECIMEN Ordering Facility: [facility] Address: [address] [place] [address] Performed By: #### 3 016-3 #### [facility] CLIA [id number] [address] [place] [address] [place] Differential cell count method Nom (Bld) Auto Normal [facility] Comment on above: Order Comment: Speci men Type: BLOOD SPECIMEN Ordering Facility: [facility] Address: [address] [place] [address] Performed By: #### 3 016-3 #### [facility] CLIA [id number] [address] [place] [address] [place] Eosinophils (Bld) [#/Vol] 0.05 10*3/uL Normal <0.46 [facility] Comment on above: Order Comment: Speci men Type: BLOOD SPECIMEN Ordering Facility: [facility] Address: [address] [place] [address] Performed By: #### 3 016-3 #### [facility] CLIA [id number] [address] [place] [address] [place] Eosinophils/100 WBC (Bld) 0.5 % Normal [facility] Comment on above: Order Comment: Speci men Type: BLOOD SPECIMEN Ordering Facility: [facility] Address: [address] [place] [address] Performed By: #### 3 016-3 #### [facility] CLIA [id number] [address] [place] [address] [place] Erythrocyte distribution width (RBC) [Ratio] 13.7 % Normal 11.5-15.0 [facility] Comment on above: Order Comment: Speci men Type: BLOOD SPECIMEN Ordering Facility: [facility] Address: [address] [place] [address] Performed By: #### 3 016-3 #### [facility] CLIA [id number] [address] [place] [address] [place] Hematocrit (Bld) [Volume fraction] 35.2 % Low 36.0-46.0 [facility] Comment on above: Order Comment: Speci men Type: BLOOD SPECIMEN Ordering Facility: [facility] Address: [address] [place] [address] Performed By: #### 3 016-3 #### [facility] CLIA [id number] [address] [place] [address] [place] Hemoglobin (Bld) [Mass/Vol] 11.8 g/dL Normal 11.5-15.5 [facility] Comment on above: Order Comment: Speci men Type: BLOOD SPECIMEN Ordering Facility: [facility] Address: [address] [place] [address] Performed By: #### 3 016-3 #### [facility] CLIA [id number] [address] [place] [address] [place] Immature granulocytes (Bld) [#/Vol] 0.17 10*3/uL High <0.10 [facility] Comment on above: Order Comment: Speci men Type: BLOOD SPECIMEN Ordering Facility: [facility] Address: [address] [place] [address] Performed By: #### 3 016-3 #### [facility] CLIA [id number] [address] [place] [address] [place] Immature granulocytes/100 WBC (Bld) 1.8 % Normal [facility] Comment on above: Order Comment: Speci men Type: BLOOD SPECIMEN Ordering Facility: [facility] Address: [address] [place] [address] Performed By: #### 3 016-3 #### [facility] CLIA [id number] [address] [place] [address] [place] Lymphocytes (Bld) [#/Vol] 1.67 10*3/uL Normal 1.00-4.00 [facility] Comment on above: Order Comment: Speci men Type: BLOOD SPECIMEN Ordering Facility: [facility] Address: [address] [place] [address] Performed By: #### 3 016-3 #### [facility] CLIA [id number] [address] [place] [address] [place] Lymphocytes/100 WBC (Bld) 18.0 % Normal [facility] Comment on above: Order Comment: Speci men Type: BLOOD SPECIMEN Ordering Facility: [facility] Address: [address] [place] [address] Performed By: #### 3 016-3 #### [facility] CLIA [id number] [address] [place] [address] [place] MCH (RBC) [Entitic mass] 30.1 pg Normal 26.0-34.0 [facility] Comment on above: Order Comment: Speci men Type: BLOOD SPECIMEN Ordering Facility: [facility] Address: [address] [place] [address] Performed By: #### 3 016-3 #### [facility] CLIA [id number] [address] [place] [address] [place] MCHC (RBC) [Mass/Vol] 33.5 g/dL Normal 30.5-36.0 [facility] Comment on above: Order Comment: Speci men Type: BLOOD SPECIMEN Ordering Facility: [facility] Address: [address] [place] [address] Performed By: #### 3 016-3 #### [facility] CLIA [id number] [address] [place] [address] [place] MCV (RBC) [Entitic vol] 89.8 fL Normal 80.0-100.0 [facility] Comment on above: Order Comment: Speci men Type: BLOOD SPECIMEN Ordering Facility: [facility] Address: [address] [place] [address] Performed By: #### 3 016-3 #### [facility] CLIA [id number] [address] [place] [address] [place] Monocytes (Bld) [#/Vol] 0.59 10*3/uL Normal <0.87 [facility] Comment on above: Order Comment: Speci men Type: BLOOD SPECIMEN Ordering Facility: [facility] Address: [address] [place] [address] Performed By: #### 3 016-3 #### [facility] CLIA [id number] [address] [place] [address] [place] Monocytes/100 WBC (Bld) 6.4 % Normal [facility] Comment on above: Order Comment: Speci men Type: BLOOD SPECIMEN Ordering Facility: [facility] Address: [address] [place] [address] Performed By: #### 3 016-3 #### [facility] CLIA [id number] [address] [place] [address] [place] Neutrophils (Bld) [#/Vol] 6.75 10*3/uL Normal 1.45-7.50 [facility] Comment on above: Order Comment: Speci men Type: BLOOD SPECIMEN Ordering Facility: [facility] Address: [address] [place] [address] Performed By: #### 3 016-3 #### [facility] CLIA [id number] [address] [place] [address] [place] Neutrophils/100 WBC (Bld) 72.8 % Normal [facility] Comment on above: Order Comment: Speci men Type: BLOOD SPECIMEN Ordering Facility: [facility] Address: [address] [place] [address] Performed By: #### 3 016-3 #### [facility] CLIA [id number] [address] [place] [address] [place] Nucleated RBC (Bld) [#/Vol] 10*3/uL Normal <0.01 [facility] Comment on above: Order Comment: Speci men Type: BLOOD SPECIMEN Ordering Facility: [facility] Address: [address] [place] [address] Performed By: #### 3 016-3 #### [facility] CLIA [id number] [address] [place] [address] [place] Nucleated RBC/100 WBC (Bld) [Ratio] 0.0 /100 WBC Normal [facility] Comment on above: Order Comment: Speci men Type: BLOOD SPECIMEN Ordering Facility: [facility] Address: [address] [place] [address] Performed By: #### 3 016-3 #### [facility] CLIA [id number] [address] [place] [address] [place] Platelet mean volume (Bld) [Entitic vol] 10.6 fL Normal 9.0-12.7 [facility] Comment on above: Order Comment: Speci men Type: BLOOD SPECIMEN Ordering Facility: [facility] Address: [address] [place] [address] Performed By: #### 3 016-3 #### [facility] CLIA [id number] [address] [place] [address] [place] Platelets (Bld) [#/Vol] 207 10*3/uL Normal 150-400 [facility] Comment on above: Order Comment: Speci men Type: BLOOD SPECIMEN Ordering Facility: [facility] Address: [address] [place] [address] Performed By: #### 3 016-3 #### [facility] CLIA [id number] [address] [place] [address] [place] RBC (Bld) [#/Vol] 3.92 10*6/uL Normal 3.90-5.20 [facility] Comment on above: Order Comment: Speci men Type: BLOOD SPECIMEN Ordering Facility: [facility] Address: [address] [place] [address] Performed By: #### 3 016-3 #### [facility] CLIA [id number] [address] [place] [address] [place] WBC (Bld) [#/Vol] 9.28 10*3/uL Normal 3.70-11.00 [facility] Comment on above: Order Comment: Speci men Type: BLOOD SPECIMEN Ordering Facility: [facility] Address: [address] [place] [address] Performed By: #### 3 016-3 #### [facility] CLIA [id number] [address] [place] [address] [place] GESTATIONAL GLUCOSE SCREEN, 1-HOUR, 50 GRAM, NON-FASTINGon 01-23-2025 Glucose [Mass/Vol] 127 mg/dL Normal 74-134 [facility] Comment on above: Order Comment: Speci men Type: BLOOD SPECIMEN Ordering Facility: [facility] Address: [address] [place] [address] Result Comment: [facility] Congress of Obstetricians and Gynecologists (Bola/Jaret) guidelines state a gestational diabetes mellitus positive screen is made, in women not previously diagnosed with overt diabetes, when the 1 hr plasma glucose level is equal to or above 140 mg/dL. The [facility] [employer] Superintendent and [facility] recommends a 135 mg/dL cutoff. Performed By: #### 3 016-3 #### [facility] CLIA [id number] [address] [place] [address] [place] Reagin and Treponema pallidu m IgG and IgM [Interp]on 01-23-2025 T. pallidum IgG+IgM IA Ql (S) Non-Reactive Normal Nonreactive [facility] Comment on above: Order Comment: Speci men Type: BLOOD SPECIMEN Ordering Facility: [facility] Address: [address] [place] [address] Performed By: #### T SPN #### [facility] BLOOD [facility] [place] [id number] [address] [place] [address] [place] Reagin+T pallidum IgG+IgM Se rPl-Impon 01-23-2025 Reagin and Treponema pallidum IgG and IgM [Interp] Cannot exclude recent Treponemal infection if specimen collected within 7-10 days after appearance of suspect lesions or 2-3 weeks after an exposure. Clinical correlation is required. Normal [facility] Comment on above: Order Comment: Speci men Type: BLOOD SPECIMEN Ordering Facility: [facility] Address: [address] [place] [address] Performed By: #### T SPN #### [facility] BLOOD BANK [place] [id number] [address] [place] [address] [place] TSH W/REFLEX FT4on Interpretation and review of laboratory results Normal [facility] TSH Qn 2 m[IU]/L [facility] Comment on above: If the patient is [...] Simons, et al. 2017 Guidelines of the [place] Thyroid Association for the Diagnosis and Management of Thyroid Disease during and the . Thyroid, 2017:27:3:315-389. [facility] TSH W/REFLEX FT4on 5 TSH Qn 2.000 m[IU]/L Normal 0.270-4.200 [facility] Comment on above: Order Comment: Speci men Type: BLOOD SPECIMEN Ordering Facility: [facility] Address: [address] [place] [address] Result Comment: If t he patient is [...] Simons, et al. 2017 Guidelines of the [place] Thy[employer] Association for the Diagnosis and Management of Thyroid Disease during and the . Thyroid, 2017:27:3:315-389. Performed By: #### 3 024-7, 3016-3 #### [facility] CLIA [id number] [address] [place], [place] [address] [address] [place] Examination level ultrasound [...] 11 oz EFW by: Hadlock (HC-AC-FL) Extended Grease Maker Head 4.2 mm CM 5.0 mm 43% Nicolaides [...] normal LVOT view: normal 3-vessel view: normal 2-pqzefg-zudwgqn view: normal Heart / Thorax Situs: situs [...] Read By: Marisel Ojeda M.D. MATERNAL MEDICINE [facility] Radiology Study observation (narrative) [facility] T4 Free SerPl-mCncon 025 Free T4 [Mass/Vol] 0.9 ng/dL Normal 0.9-1.7 [facility] Comment on above: Order Comment: Speci men Type: BLOOD SPECIMEN Ordering Facility: [facility] Address: [address] [place] [address] Performed By: #### 3 024-7, 3016-3 #### [facility] CLIA [id number] [address] [place] [address] [place] TSH SerPl-aCncon 11-27-2024 TSH Qn 4.420 m[IU]/L High 0.270-4.200 [facility] Comment on above: Order Comment: Speci men Type: BLOOD SPECIMEN Ordering Facility: [facility] Address: [address] [place] [address] Result Comment: If t he patient is [...] Simons, et al. 2017 Guidelines of the [place] Thyroid Association for the Diagnosis and Management of Thyroid Disease during and the . Thyroid, 2017:27:3:315-389. Performed By: #### 3 024-7, 3016-3 #### [facility] CLIA [id number] [address] [place] [address] [place] [id number] PLUSon 10-15-2024 Cell-free DNA./Cell-free DNA.total Dosage of chromosome-specific cfDNA (cfDNA) [Molar fraction] 17% Normal [facility] Comment on above: Order Comment: Speci men Type: BLOOD SPECIMEN Ordering Facility: [facility] Address: [address] [place] [address] Performed By: #### T SPN #### [facility] CLIA [id number] [address] [place] [address] [place] Chr 13+18+21+X+Y aneuploidy Dosage of chromosome-specific cfDNA Ql (cfDNA) Negative Normal [facility] Comment on above: Order Comment: Speci men Type: BLOOD SPECIMEN Ordering Facility: [facility] Address: [address] [place] [address] Performed By: #### T SPN #### [facility] CLIA [id number] [address] [place] [address] Chr 21 trisomy Dosage of chromosome-specific cfDNA Ql (cfDNA) Negative Normal [facility] Comment on above: Order Comment: Speci men Type: BLOOD SPECIMEN Ordering Facility: [facility] Address: [address] [place] [address] Performed By: #### T SPN #### [facility] CLIA [id number] [address] [place] [address] [place] Chr X and Y aneuploidy risk Sequencing Ql (cfDNA) [Interp] Not detected Normal [facility] Comment on above: Order Comment: Speci men Type: BLOOD SPECIMEN Ordering Facility: [facility] Address: [address] [place] [address] Result Comment: Not Detected Not Detected Performed By: #### T SPN #### [facility] CLIA [id number] [address] [place] [address] [place] Citation Raghavendra (Reference lab test) Comment Normal [facility] Comment on above: Order Comment: Speci men Type: BLOOD SPECIMEN Ordering Facility: [facility] Address: [address] [place] [address] Result Comment: 1. P oksana BARBER, et al. Clarissa Med. 2012;14(3):296-305. 2. Watson LUEVANO et al. Prenat Diag. 2013;33(6):591-597. 3. Douglas C, et al. Clin Chem. 2015 Apr;61(4):608-616. 4. Henry BARBER et al. Clarissa Med. 2011;13(11):913-920. 5. ACOG/SMFM Practice Bulletin No. 226, May 2020. Performed By: #### T SPN #### [facility] CLIA [id number] [address] [place] [address] [place] Gestational age Estimated from conception date Sandhu Normal [facility] Comment on above: Order Comment: Speci men Type: BLOOD SPECIMEN Ordering Facility: [facility] Address: [address] [place] [address] Performed By: #### T SPN #### [facility] CLIA [id number] [address] [place] [address] OF [place] GESTATIONALAGE AGE > OR = 9W Yes Normal [facility] Comment on above: Order Comment: Speci men Type: BLOOD SPECIMEN Ordering Facility: [facility] Address: [address] [place] [address] Performed By: #### T SPN #### [facility] CLIA [id number] [address] [place] [address] [place] Laboratory comment Raghavendra (Report) Comment Normal [facility] Comment on above: Order Comment: Speci men Type: BLOOD SPECIMEN Ordering Facility: [facility] Address: [address] [place] [address] Result Comment: The MaterniT(R) 21 PLUS laboratory-developed [...] SPN #### [facility] CLIA [id number] [address] [place] [address] media services director name Nom (Provider) Comment Normal [facility] Comment on above: Order Comment: Geovannai men Type: BLOOD SPECIMEN Ordering Facility: [facility] Address: [address] [place] [address] Result Comment: This specimen showed an expected representation of chromosome 21, 18 and 13 material. Clinical correlation is suggested. Comment Wu Dumont MD, PhD, Director, [employer] Performed By: #### T SPN #### [facility] CLIA [id number] [address] [facility] DESK [id number] [place] [address] [place] LIMITATIONS OF THE TEST Comment Normal [facility] Comment on above: Order Comment: Speci men Type: BLOOD SPECIMEN Ordering Facility: [facility] Address: [address] [place] [address] [place] [address] Result Comment: Natasha simons the results of these tests are highly [...] SPN #### [facility] CLIA [id number] [address] [place] [address] [place] Monosomy X risk Dosage of chromosome-specific cfDNA Ql (Plasma cell-free+WBC DNA) [Interp] Not detected Normal [facility] Comment on above: Order Comment: Juan saini Type: BLOOD SPECIMEN Ordering Facility: [facility] Address: [address] [place] [address] Performed By: #### T SPN #### [facility] CLIA [id number] [address] [place] [address] [place] NEGATIVE PREDICTIVE VALUE Note Normal [facility] Comment on above: Order Comment: Juan saini Type: BLOOD SPECIMEN Ordering Facility: [facility] Address: [address] [place] [address] Result Comment: The Negative Predictive Value (NPV) for trisomy 21, 18, and 13 is greater than 99%. The NPV for SCA and ESS cannot be calculated as SCA and ESS are only reported when an abnormality is detected. Performed By: #### T SPN #### [facility] CLIA [id number] [address] [place] [address] OF [place] PERFORMANCE CHARACTERISTICS Note Normal [facility] Comment on above: Order Comment: Juan saini Type: BLOOD SPECIMEN Ordering Facility: [facility] Address: [address] [place] [address] Result Comment: ! Sex ! Accuracy: 99.4% [...] ! ! ! * As reported in [facility] database nstd37 [https://www.ncbi.nlm.nih.gov/dbvar/studies/nstd37/ ] # Estimated Sensitivity. [...] SPN #### [facility] CLIA [id number] [address] [place] [address] [place] POSITIVE PREDICTIVE VALUE N/A Normal [facility] Comment on above: Order Comment: Speci men Type: BLOOD SPECIMEN Ordering Facility: [facility] Address: [address] [place] [address] Performed By: #### T SPN #### [facility] CLIA [id number] [address] [place] [address] [place] Reference Lab Test Method Comment Normal [facility] Comment on above: Order Comment: Speci men Type: BLOOD SPECIMEN Ordering Facility: [facility] Address: [address] [place] [address] Result Comment: See Notes Circulating cell-free DNA [...] SPN #### [facility] CLIA [id number] [address] [place] [address] [place] Service comment (Unsp spec) [Interp] Comment Normal [facility] Comment on above: Order Comment: Speci men Type: BLOOD SPECIMEN Ordering Facility: [facility] Address: [address] [place] [address] Result Comment: See Notes [employer] is a subsidiary of [employer], using the brand [employer]. This test was developed and its performance characteristics determined by [employer]. It has not been cleared or approved by the Food and Drug Administration. This laboratory is certified under the Clinical Laboratory Improvement Amendments (CLIA) as qualified to perform high complexity clinical laboratory testing and accredited by the College of [place] [employer] (CAP). If there is future clinical need for adding MaterniT GENOME testing, this specimen will be available until term. [facility] samples will not be retained beyond 60 days. [facility] patients will have to send a new sample for re-sequencing ([facility] Test Code: [id number]). Performed By: #### T SPN #### [facility] CLIA [id number] [address] [place] [address] [place] Sex Dosage of chromosome-specific cfDNA Nom (cfDNA) Comment Normal [facility] Comment on above: Order Comment: Speci men Type: BLOOD SPECIMEN Ordering Facility: [facility] Address: [address] [place] [address] Result Comment: Cons istent with Female Performed By: #### T SPN #### [facility] CLIA [id number] [address] [place] [address] [place] Test performance information Raghavendra (Unsp spec) Comment Normal [facility] Comment on above: Order Comment: Speci men Type: BLOOD SPECIMEN Ordering Facility: [facility] Address: [address] [place] [address] Result Comment: The performance characteristics of the MaterniT(R) 21 PLUS laboratory-developed test (LDT) have been determined in a clinical validation study with women at increased risk for chromosomal aneuploidy.[1-4] Performed By: #### T SPN #### [facility] CLIA [id number] [address] [place] [address] STATES OF [facility] Trisomy 13 risk Dosage of chromosome-specific cfDNA Ql (cfDNA) [Interp] Negative Normal [facility] Comment on above: Order Comment: Speci men Type: BLOOD SPECIMEN Ordering Facility: [facility] Address: [address] [place] [address] Performed By: #### T SPN #### [facility] CLIA [id number] [address] [place] [address] [place] Trisomy 18 risk Dosage of chromosome-specific cfDNA Ql (Plasma cell-free+WBC DNA) [Interp] Negative Normal [facility] Comment on above: Order Comment: Speci men Type: BLOOD SPECIMEN Ordering Facility: [facility] Address: [address] [place] [address] Performed By: #### T SPN #### [facility] CLIA [id number] [address] [place] [address] [place] CNCOon 10-06-2024 CNCO Letter Text Normal [facility] CBC W Auto Differential pane l (Bld)on 10-02-2024 Basophils (Bld) [#/Vol] 0.04 10*3/uL Normal <0.11 [facility] Comment on above: Order Comment: Speci men Type: BLOOD SPECIMEN Ordering Facility: [facility] Address: [address] [place] [address] Performed By: #### 3 024-7, 3016-3 #### [facility] CLIA [id number] [address] [place] [address] [place] Basophils/100 WBC (Bld) 0.5 % Normal [facility] Comment on above: Order Comment: Speci men Type: BLOOD SPECIMEN Ordering Facility: [facility] Address: [address] [place] [address] Performed By: #### 3 024-7, 3016-3 #### [facility] CLIA [id number] [address] [place] [address] [place] Differential cell count method Nom (Bld) Auto Normal [facility] Comment on above: Order Comment: Speci men Type: BLOOD SPECIMEN Ordering Facility: [facility] Address: [address] [place] [address] Performed By: #### 3 024-7, 3016-3 #### [facility] CLIA [id number] [address] [place] [address] [place] Eosinophils (Bld) [#/Vol] 0.04 10*3/uL Normal <0.46 [facility] Comment on above: Order Comment: Speci men Type: BLOOD SPECIMEN Ordering Facility: [facility] Address: [address] [place] [address] Performed By: #### 3 024-7, 3016-3 #### [facility] CLIA [id number] [address] [place] [address] [place] Eosinophils/100 WBC (Bld) 0.5 % Normal [facility] Comment on above: Order Comment: Speci men Type: BLOOD SPECIMEN Ordering Facility: [facility] Address: [address] [place] [address] Performed By: #### 3 024-7, 3016-3 #### [facility] CLIA [id number] [address] [place] [address] [place] Erythrocyte distribution width (RBC) [Ratio] 12.1 % Normal 11.5-15.0 [facility] Comment on above: Order Comment: Speci men Type: BLOOD SPECIMEN Ordering Facility: [facility] Address: [address] [place] [address] Performed By: #### 3 024-7, 3016-3 #### [facility] CLIA [id number] [address] [place] [address] [place] Hematocrit (Bld) [Volume fraction] 38.6 % Normal 36.0-46.0 [facility] Comment on above: Order Comment: Speci men Type: BLOOD SPECIMEN Ordering Facility: [facility] Address: [address] [place] [address] Performed By: #### 3 024-7, 3016-3 #### [facility] CLIA [id number] [address] [place] [address] [place] Hemoglobin (Bld) [Mass/Vol] 13.1 g/dL Normal 11.5-15.5 [facility] Comment on above: Order Comment: Speci men Type: BLOOD SPECIMEN Ordering Facility: [facility] Address: [address] [place] [address] Performed By: #### 3 024-7, 3016-3 #### [facility] CLIA [id number] [address] [place] [address] [place] Immature granulocytes (Bld) [#/Vol] 0.04 10*3/uL Normal <0.10 [facility] Comment on above: Order Comment: Speci men Type: BLOOD SPECIMEN Ordering Facility: [facility] Address: [address] [place] [address] Performed By: #### 3 024-7, 3016-3 #### [facility] CLIA [id number] [address] [place] [address] [place] Immature granulocytes/100 WBC (Bld) 0.5 % Normal [facility] Comment on above: Order Comment: Speci men Type: BLOOD SPECIMEN Ordering Facility: [facility] Address: [address] [place] [address] Performed By: #### 3 024-7, 3016-3 #### [facility] CLIA [id number] [address] [place] [address] [place] Lymphocytes (Bld) [#/Vol] 1.89 10*3/uL Normal 1.00-4.00 [facility] Comment on above: Order Comment: Speci men Type: BLOOD SPECIMEN Ordering Facility: [facility] Address: [address] [place] [address] Performed By: #### 3 024-7, 3016-3 #### [facility] CLIA [id number] [address] [place] [address] [place] Lymphocytes/100 WBC (Bld) 22.3 % Normal [facility] Comment on above: Order Comment: Speci men Type: BLOOD SPECIMEN Ordering Facility: [facility] Address: [address] [place] [address] Performed By: #### 3 024-7, 3015-3 #### [facility] CLIA [id number] [address] [place] [address] [place] MCH (RBC) [Entitic mass] 30.2 pg Normal 26.0-34.0 [facility] Comment on above: Order Comment: Speci men Type: BLOOD SPECIMEN Ordering Facility: [facility] Address: [address] [place] [address] Performed By: #### 3 024-7, 3015-3 #### [facility] CLIA [id number] [address] [place] [address] [place] MCHC (RBC) [Mass/Vol] 33.9 g/dL Normal 30.5-36.0 [facility] Comment on above: Order Comment: Speci men Type: BLOOD SPECIMEN Ordering Facility: [facility] Address: [address] [place] [address] Performed By: #### 3 024-7, 3 #### [facility] CLIA [id number] [address] [place] [address] [place] MCV (RBC) [Entitic vol] 88.9 fL Normal 80.0-100.0 [facility] Comment on above: Order Comment: Speci men Type: BLOOD SPECIMEN Ordering Facility: [facility] Address: [address] [place] [address] Performed By: #### 3 024-7, 3 #### [facility] CLIA [id number] [address] [place] [address] [place] Monocytes (Bld) [#/Vol] 0.42 10*3/uL Normal <0.87 [facility] Comment on above: Order Comment: Speci men Type: BLOOD SPECIMEN Ordering Facility: [facility] Address: [address] [place] [address] Performed By: #### 3 024-7, 3015-3 #### [facility] CLIA [id number] [address] [place] [address] [place] Monocytes/100 WBC (Bld) 5.0 % Normal [facility] Comment on above: Order Comment: Speci men Type: BLOOD SPECIMEN Ordering Facility: [facility] Address: [address] [place] [address] Performed By: #### 3 024-7, 3016-3 #### [facility] CLIA [id number] [address] [place] [address] [place] Neutrophils (Bld) [#/Vol] 6.03 10*3/uL Normal 1.45-7.50 [facility] Comment on above: Order Comment: Speci men Type: BLOOD SPECIMEN Ordering Facility: [facility] Address: [address] [place] [address] Performed By: #### 3 024-7, 3016-3 #### [facility] CLIA [id number] [address] [place] [address] [place] Neutrophils/100 WBC (Bld) 71.2 % Normal [facility] Comment on above: Order Comment: Speci men Type: BLOOD SPECIMEN Ordering Facility: [facility] Address: [address] [place] [address] Performed By: #### 3 024-7, 3016-3 #### [facility] CLIA [id number] [address] [place] [address] [place] Nucleated RBC (Bld) [#/Vol] 10*3/uL Normal <0.01 [facility] Comment on above: Order Comment: Speci men Type: BLOOD SPECIMEN Ordering Facility: [facility] Address: [address] [place] [address] Performed By: #### 3 024-7, 3016-3 #### [facility] CLIA [id number] [address] [place] [address] [place] Nucleated RBC/100 WBC (Bld) [Ratio] 0.0 /100 WBC Normal [facility] Comment on above: Order Comment: Speci men Type: BLOOD SPECIMEN Ordering Facility: [facility] Address: [address] [place] [address] Performed By: #### 3 024-7, 3016-3 #### [facility] CLIA [id number] [address] [place] [address] [place] Platelet mean volume (Bld) [Entitic vol] 10.8 fL Normal 9.0-12.7 [facility] Comment on above: Order Comment: Speci men Type: BLOOD SPECIMEN Ordering Facility: [facility] Address: [address] [place] [address] Performed By: #### 3 024-7, 3016-3 #### [facility] CLIA [id number] [address] [place] [address] [place] Platelets (Bld) [#/Vol] 277 10*3/uL Normal 150-400 [facility] Comment on above: Order Comment: Speci men Type: BLOOD SPECIMEN Ordering Facility: [facility] Address: [address] [place] [address] Performed By: #### 3 024-7, 3016-3 #### [facility] CLIA [id number] [address] [place] [address] [place] RBC (Bld) [#/Vol] 4.34 10*6/uL Normal 3.90-5.20 [facility] Comment on above: Order Comment: Speci men Type: BLOOD SPECIMEN Ordering Facility: [facility] Address: [address] [place] [address] Performed By: #### 3 024-7, 3016-3 #### [facility] CLIA [id number] [address] [place] [address] [place] WBC (Bld) [#/Vol] 8.46 10*3/uL Normal 3.70-11.00 [facility] Comment on above: Order Comment: Speci men Type: BLOOD SPECIMEN [facility] [facility] Address: [address] [place] [address] Performed By: #### 3 024-7, 3016-3 #### [facility] CLIA [id number] [address] [place] [address] [place] [address] [place] [facility] Examination level ultrasound on 10-02-2024 Indication First trimester anatomic survey Impression REMOTE READ The patient is referred for a first trimester anatomy scan including nuchal translucency measurement as clinically indicated. - Single, live, intrauterine . - [place] rump length measurement is consistent with the [...] view: suboptimal 4-chamber view with color: suboptimal 2-hphlvz-szitxpa view: suboptimal Abdominal cord insertion: normal Stomach: [...] Lt ovary Vol 3.8 cm Performed By: Mea Jordan, CARLOS, RVT Read By: Marisel Ojeda M.D. MATERNAL MEDICINE [facility] Radiology Study observation (narrative) [facility] HBV surface Ag Ser Qlon 09-14 HBV surface Ag Ql (S) Negative Normal Negative [facility] Comment on above: Order Comment: Speci men Type: BLOOD SPECIMEN Ordering Facility: [facility] Address: [address] [place] [address] Performed By: #### T SPN #### [facility] CLIA [id number] [address] [place] [address] [place] HCV Ab Ser Qlon 10-02-2024 HCV Ab Ql (S) Negative Normal Negative [facility] Comment on above: Order Comment: Speci men Type: BLOOD SPECIMEN Ordering Facility: [facility] Address: [address] [place] [address] Result Comment: The result suggests no evidence of active infection with Hepatitis C virus. Should recent infection be suspected, repeat testing may be considered 4-6 weeks after this draw. Performed By: #### 3 016-3 #### [facility] CLIA [id number] [address] [place] [address] [place] HIV 1+2 Ab IA Qlon HIV 1 and 2 Ab IA.rapid Nom (S/P/Bld) Normal [facility] Comment on above: Order Comment: Speci men Type: BLOOD SPECIMEN Ordering Facility: [facility] Address: [address] [place] [address] Result Comment: Test not indicated. Performed By: #### T SPN #### [facility] CLIA [id number] [address] [place] [address] [place] HIV 1+2 Ab+HIV1 p24 Ag IA Ql Non-Reactive Normal Nonreactive [facility] Comment on above: Order Comment: Speci men Type: BLOOD SPECIMEN Ordering Facility: [facility] Address: [address] [place] [address] Performed By: #### T SPN #### [facility] CLIA [id number] [address] [place] [address] HIV immunoassay testing algorithm interpretation (S/P/Bld) [Interp] Normal [facility] Comment on above: Order Comment: Speci men Type: BLOOD SPECIMEN Ordering Facility: [facility] Address: [address] [place] [address] Result Comment: No e vidence of HIV-1 or HIV-2 infection. Should recent infection be suspected, repeat testing may be considered 2-3 weeks after this draw. [place] Rev. Code 3701.243(E): This information has been [...] SPN #### [facility] CLIA [id number] [address] [place] [address] [place] HbA1c (Bld)on 10-02-2024 Average glucose Estimated from glycated hemoglobin (Bld) [Mass/Vol] 97 mg/dL Normal [facility] Comment on above: Order Comment: Speci men Type: BLOOD SPECIMEN Ordering Facility: [facility] Address: [address] [place] [address] Result Comment: eAG: (Estimated average glucose) is a calculated value from HgbA1c and is signs sales representative of the average blood glucose level in the last 2-3 month period. Performed By: #### T SPN #### [facility] CLIA [id number] [address] [place] [address] [place] HbA1c (Bld) [Mass fraction] 5.0 % Normal 4.3-5.6 [facility] Comment on above: Order Comment: Speci [facility] Type: BLOOD SPECIMEN Ordering Facility: [facility] Address: [address] [place] [address] Result Comment: [place] Diabetes Association guidelines indicate that patients with HgbA1c in the range 5.7-6.4% are at increased risk for development of diabetes, and intervention by lifestyle modification may be beneficial. HgbA1c greater or equal to 6.5% is considered diagnostic of diabetes. Performed By: #### T SPN #### [facility] CLIA [id number] [address] [place] [address] OF [place] RUBELLA IGG ANTIBODYon 10-02 RUBELLA IGG AB, QUAL Positive Normal Positive [facility] Comment on above: Order Comment: Juan [facility] Type: BLOOD SPECIMEN Ordering Facility: [facility] Address: [address] [place] [address] Result Comment: The result suggests recent or past exposure to Rubella virus or history of Rubella vaccination. Positive result may also be seen due to presence of passively-transferred antibodies. Please correlate with patient's history. Performed By: #### T SPN #### [facility] CLIA [id number] [address] [place] [address] OF [place] Reagin and Treponema pallidu m IgG and IgM [Interp]on 10-02-2024 T. pallidum IgG+IgM IA Ql (S) Non-Reactive Normal Nonreactive [facility] Comment on above: Order Comment: Juan saini Type: BLOOD SPECIMEN Ordering Facility: [facility] Address: [address] [place] [address] Performed By: #### T SPN #### [facility] CLIA [id number] [address] [place] [address] [place] Reagin+T pallidum IgG+IgM Se rPl-Impon 10-02-2024 Reagin and Treponema pallidum IgG and IgM [Interp] Cannot exclude recent Treponemal infection if specimen collected within 7-10 days after appearance of suspect lesions or 2-3 weeks after an exposure. Clinical correlation is required. Normal [facility] Comment on above: Order Comment: Speci men Type: BLOOD SPECIMEN Ordering Facility: [facility] Address: [address] [place] [address] Performed By: #### T SPN #### [facility] CLIA [id number] [address] [place] [address] [place] T4 Free SerPl-mCncon 025 Free T4 [Mass/Vol] 1.1 ng/dL Normal 0.9-1.7 [facility] Comment on above: Order Comment: Speci men Type: BLOOD SPECIMEN Ordering Facility: [facility] Address: [address] [place] [address] Performed By: #### 3 016-3 #### [facility] CLIA [id number] [address] [place] [address] [place] TSH SerPl-aCncon 10-02-2024 TSH Qn 2.060 m[IU]/L Normal 0.270-4.200 [facility] Comment on above: Order Comment: Speci men Type: BLOOD SPECIMEN Ordering Facility: [facility] Address: [address] [place] [address] Result Comment: If t he patient is [...] Simons et al. 2017 Guidelines of the [place] Thyroid Association for the Diagnosis and Management of Thyroid Disease during and the . Thyroid, 2017:27:3:315-389. Performed By: #### 3 016-3 #### [facility] CLIA [id number] [address] [place] [address] [place] TYPE + SCREEN PRENATALon ABO A Normal [facility] Comment on above: Order Comment: Speci men Type: BLOOD SPECIMEN Ordering Facility: [facility] Address: [address] [place] [address] Performed By: #### T SPN #### [facility] CLIA [id number] [address] [place] [address] [place] Rh Nom (Bld) Positive Normal [facility] Comment on above: Order Comment: Speci men Type: BLOOD SPECIMEN Ordering Facility: [facility] Address: [address] [place] [address] Performed By: #### T SPN #### [facility] CLIA [id number] [address] [place] [address] [place] TYPE AND SCREEN EXPIRATION 10/05/2024 23:59 Normal [facility] Comment on above: Order Comment: Speci men Type: BLOOD SPECIMEN Ordering Facility: [facility] Address: [address] [place] [address] Performed By: #### T SPN #### [facility] CLIA [id number] [address] [place] [address] [place] Bacteria Ur Culton 5 Bacteria identified Cx Nom (U) ORGANISM ID: 1 <10,000 CFU/ml Lactose positive gram negative bacilli Insignificant colony count. No further workup. Normal [facility] Comment on above: Performed By: #### T SPN #### [facility] CLIA [id number] [address] [place] [address] [place] C. trachomatis+N. gonorrhoea e DNA DIMITRY+probe Ql (Unsp spec)on 09-09-2024 C. trachomatis rRNA DIMITRY+probe Ql (Unsp spec) Not detected Normal Not detected [facility] Comment on above: Order Comment: Speci men Type: BLOOD SPECIMEN Ordering Facility: [facility] Address: [address] [place] [address] Performed By: #### T SPN #### [facility] CLIA [id number] [address] [place] [address] [place] N. gonorrhoeae rRNA DIMITRY+probe Ql (Unsp spec) Not detected Normal Not detected [facility] Comment on above: Order Comment: Speci men Type: BLOOD SPECIMEN Ordering Facility: [facility] Address: [address] [place] [address] Performed By: #### T SPN #### [facility] CLIA [id number] [address] [place] [address] [place] HIGH RISK HUMAN PAPILLOMA KENDRA (HPV), PCR FOR DETECTION AND GENOTYPINGon 09-09-2024 HPV 16 Ag Ql (Unsp spec) Not detected Normal Not detected [facility] Comment on above: Order Comment: Speci men Type: BLOOD SPECIMEN Ordering Facility: [facility] Address: [address] [place] [address] Performed By: #### T SPN #### [facility] CLIA [id number] [address] [place] [address] [place] HPV 18 Ag Ql (Unsp spec) Not detected Normal Not detected [facility] Comment on above: Order Comment: Speci men Type: BLOOD SPECIMEN Ordering Facility: [facility] Address: [address] [place] [address] Performed By: #### T SPN #### [facility] CLIA [id number] [address] [place] [address] [place] HPV 31+33+35+39+45+51+52+5 6+58+59+66+68 DNA DIMITRY+probe Ql (Cvx) Not detected Normal Not detected [facility] Comment on above: Order Comment: Speci men Type: BLOOD SPECIMEN Ordering Facility: [facility] Address: [address] [place] [address] Result Comment: High Risk HPV Other Type includes HPV types 31, 33, 35, 39, 45, 51, 52, 56, 58, 59, 66 and 68. Performed By: #### T SPN #### [facility] CLIA [id number] [address] [place] [address] [place] PAP TESTon 09-09-2024 ADEQUACY Satisfactory for interpretation. Normal [facility] Comment on above: Order Comment: Speci men Type: BLOOD SPECIMEN Ordering Facility: [facility] Address: [address] [place] [address] Performed By: #### T SPN #### [facility] CLIA [id number] [address] [place] [address] STATES OF [place] CASE REPORT Normal [facility] Comment on above: Order Comment: Speci men Type: BLOOD SPECIMEN Ordering Facility: [facility] Address: [address] [place] [address] Result Comment: Gyne cologic Cytology Report Case: [id number] Authorizing Provider: Meagan Paul APRN.MILK DELIVERER Collected: 09/09/2024 09:31 AM Ordering Location: OB/Gynecology Received: 09/09/2024 12:04 PM First Screen: Sharon, Tammi, CT, ASCP Specimen: Pap Test, ThinPrep, Cervix Performed By: #### T SPN #### [facility] CLIA [id number] [address] [place] [address] [place] CLINICAL HISTORY, CYTOLOGY, ACCOUNTS RECEIVABLE ANALYST Routine Exam Normal [facility] Comment on above: Order Comment: Speci men Type: BLOOD SPECIMEN Ordering Facility: [facility] Address: [address] [place] [address] Performed By: #### T SPN #### [facility] CLIA [id number] [address] [place] [address] STATES OF [place] FINAL PERFORMING LAB Normal [facility] Comment on above: Order Comment: Speci men Type: BLOOD SPECIMEN Ordering Facility: [facility] Address: [address] [place] [address] Result Comment: Tech nical component, enterprise infrastructure architect screening performed at [facility], [address] [place] [address] CLIA# [id number] Diagnostic interpretation performed at [facility], [address] [place] [address] CLIA# [id number] Welding Machine Operator Electroslag: Edward Toledo M.D. Performed By: #### T SPN #### [facility] CLIA [id number] [address] [place] [address] [place] INTERPRETATION, CYTOLOGY, ACCOUNTS RECEIVABLE ANALYST Normal [facility] Comment on above: Order Comment: Speci men Type: BLOOD SPECIMEN Ordering Facility: [facility] Address: [address] [place] [address] Result Comment: Nega tive for intraepithelial lesion or malignancy. Performed By: #### T SPN #### [facility] CLIA [id number] [address] [place] [address] [place] LMP 07/05/2024 Normal [facility] Comment on above: Order Comment: Speci men Type: BLOOD SPECIMEN Ordering Facility: [facility] Address: [address] [place] [address] Performed By: #### T SPN #### [facility] CLIA [id number] [address] [place] [address] [place] PAP DISCLAIMER COMMENT The Pap Smear is a screening test for cervical cancer. False negative results occur with all screening tests, emphasizing the need for rescreening at recommended intervals, and clinical correlation. Normal [facility] Comment on above: Order Comment: Speci men Type: BLOOD SPECIMEN Ordering Facility: [facility] Address: [address] [place] [address] Performed By: #### T SPN #### [facility] CLIA [id number] OF [place] PAP BUGGY LOADER COMMENT This specimen has been analyzed by the ThinPrep Imaging System, an automated imaging and review system, which assists the laboratory in evaluating cells on ThinPrep Pap tests. Following automated imaging, selected rudd from every slide are reviewed by a enterprise infrastructure architect. Normal [facility] Comment on above: Order Comment: Speci men Type: BLOOD SPECIMEN Ordering Facility: [facility] Address: [address] [place] [address] Performed By: #### T SPN #### [facility] B[facility]OD [facility] CLIA [id number] [address] [place] [address] OF [facility] P[facility] BRANCH SERVICES MANAGER ULTRASOUNDon 09-09-19 Indication Confirmation of intrauterine . [...] Read By: Meagan Paul CNP MATERNAL MEDICINE [facility] Radiology Study observation (narrative) [facility] B-HCG SerPl-aCncon 5 HCG.beta subunit Qn 7485.0 m[IU]/mL High <5.0 [facility] Comment on above: Order Comment: Speci men Type: BLOOD SPECIMEN Ordering Facility: [facility] Address: [address] [place] [address] Result Comment: STEPHANIE TITATIVE HCG NORMAL RANGES Weeks of Gestation (Weeks Since LMP) 3 Weeks (5.8-71.2 mIU/mL) 4 Weeks (9.5-750 mIU/mL) 5 Weeks (217-7138 mIU/mL) 6 Weeks (158-40083 mIU/mL) 7 Weeks (3697-683537 mIU/mL) 8 Weeks (84792-863838 mIU/mL) 9 Weeks (37043-792071 mIU/mL) 10 Weeks (08398-958236 mIU/mL) 12 Weeks (24058-795416 mIU/mL) Referenced to 4th IS of NIBS Performed By: #### 3 016-3 #### [facility] CLIA [id number] [address] [place] [address] [place] B-HCG SerPl-aCncon 4 HCG.beta subunit Qn 4864.0 m[IU]/mL High <5.0 [facility] Comment on above: Order Comment: Speci men Type: BLOOD SPECIMEN Ordering Facility: [facility] Address: [address] [place] [address] Result Comment: STEPHANIE TITATIVE HCG NORMAL RANGES Weeks of Gestation (Weeks Since LMP) 3 Weeks (5.8-71.2 mIU/mL) 4 Weeks (9.5-750 mIU/mL) 5 Weeks (217-7138 mIU/mL) 6 Weeks (158-58283 mIU/mL) 7 Weeks (3697-170128 mIU/mL) 8 Weeks (97476-185463 mIU/mL) 9 Weeks (32999-128090 mIU/mL) 10 Weeks (47253-463433 mIU/mL) 12 Weeks (12440-236125 mIU/mL) Referenced to 4th IS of NIBSC Performed By: #### T SPN #### [facility] CLIA [id number] [address] [place] [address] [place] CARRIER SCREEN, EXPANDEDon 1 CARRIER SCREEN RESULTS View results in Scanned Documents link when available. Normal [facility] Comment on above: Order Comment: Speci men Type: BLOOD SPECIMEN Ordering Facility: [facility] Address: [address] [place] [address] Performed By: #### T SPN #### [facility] CLIA [id number] [address] [place] [address] [place] TYPE + SCREEN PRENATALon ABO A Normal [facility] Comment on above: Order Comment: Speci men Type: BLOOD SPECIMEN Ordering Facility: [facility] Address: [address] [place] [address] Performed By: #### T SPN #### [facility] CLIA [id number] [address] [place] [address] [place] Rh Nom (Bld) Positive Normal [facility] Comment on above: Order Comment: Speci men Type: BLOOD SPECIMEN Ordering Facility: [facility] Address: [address] [place] [address] Performed By: #### T SPN #### [facility] CLIA [id number] [address] [place] [address] [place] TYPE AND SCREEN EXPIRATION 06/13/2024 23:59 Normal [facility] Comment on above: Order Comment: Speci men Type: BLOOD SPECIMEN Ordering Facility: [facility] Address: [address] [place] [address] Performed By: #### T SPN #### [facility] CLIA [id number] [address] [place] [address] [place] WHIIVF GC/CHLAMYDIA AMPLIF, URINEon 06-10-2024 WHIIVF GC/CHLAMYDIA AMPLIF, URINE NEISSERIA GONORRHOEAE (GC): Negative for Neisseria gonorrhoeae by amplification CHLAMYDIA TRACHOMATIS (CT): Negative for Chlamydia trachomatis by amplification Normal [facility] Comment on above: Performed By: #### T SPN #### [facility] BLOOD [facility] CLIA [id number] [address] [place] [address] [place] HBV core Ab Ser Qlon 024 HBV core Ab Ql (S) Negative Normal Negative [facility] Comment on above: Order Comment: Speci men Type: BLOOD SPECIMEN Ordering Facility: [facility] Address: [address] [place] [address] Result Comment: No e vidence of current or past infection with Hepatitis B virus. Should recent infection be suspected, repeat testing may be considered 3-4 weeks after this draw. Performed By: #### 3 016-3 #### [facility] CLIA [id number] [address] [place] [address] [place] HBV surface Ag Ser Qlon 05-13 HBV surface Ag Ql (S) Negative Normal Negative [facility] Comment on above: Order Comment: Speci men Type: BLOOD SPECIMEN Ordering Facility: [facility] Address: [address] [place] [address] Performed By: #### 3 016-3 #### [facility] CLIA [id number] [address] [place] [address] OF [place]AM[place] HCV Ab Ser Qlon 05-29-2024 HCV Ab Ql (S) Negative Normal Negative [facility] Comment on above: Order Comment: Speci men Type: BLOOD SPECIMEN Ordering Facility: [facility] Address: [address] [place] [address] Result Comment: The result suggests no evidence of active infection with Hepatitis C virus. Should recent infection be suspected, repeat testing may be considered 4-6 weeks after this draw. Performed By: #### 3 024-7, 3016-3 #### [facility] CLIA [id number] [address] [place] [address] [place] HIV 1+2 Ab IA Qlon HIV 1 and 2 Ab IA.rapid Nom (S/P/Bld) Normal [facility] Comment on above: Order Comment: Speci men Type: BLOOD SPECIMEN Ordering Facility: [facility] Address: [address] [place] [address] Result Comment: Test not indicated. Performed By: #### 3 016-3 #### [facility] CLIA [id number] [address] [place] [address] HIV 1+2 Ab+HIV1 p24 Ag IA Ql Non-Reactive Normal Nonreactive [facility] Comment on above: Order Comment: Speci men Type: BLOOD SPECIMEN Ordering Facility: [facility] Address: [address] [place] [address] Performed By: #### 3 016-3 #### [facility] CLIA [id number] [address] [place] [address] HIV immunoassay testing algorithm interpretation (S/P/Bld) [Interp] Normal [facility] Comment on above: Order Comment: Speci men Type: BLOOD SPECIMEN Ordering Facility: [facility] Address: [address] [place] [address] Result Comment: No e vidence of HIV-1 or HIV-2 infection. Should recent infection be suspected, repeat testing may be considered 2-3 weeks after this draw. [place] Rev. Code 3701.243(E): This information has been [...] diagnoses. Performed By: #### 3 016-3 #### [facility] CLIA [id number] [address] [place] [address] [place] RUBELLA IGG ANTIBODYon 05-29 RUBELLA IGG AB, QUAL Positive Normal Positive [facility] Comment on above: Order Comment: Juan saini Type: BLOOD SPECIMEN Ordering Facility: [facility] Address: [address] [place] [address] Result Comment: The result suggests recent or past exposure to Rubella virus or history of Rubella vaccination. Positive result may also be seen due to presence of passively-transferred antibodies. Please correlate with patient's history. Performed By: #### 3 024-7, 3016-3 #### [facility] CLIA [id number] [address] [place] [address] [place] Reagin and Treponema pallidu m IgG and IgM [Interp]on 05-29-2024 T. pallidum IgG+IgM IA Ql (S) Non-Reactive Normal Nonreactive [facility] Comment on above: Order Comment: Juan saini Type: BLOOD SPECIMEN Ordering Facility: [facility] Address: [address] [place] [address] Performed By: #### 3 016-3 #### [facility] CLIA [id number] [address] [place] [address] [place] Reagin+T pallidum IgG+IgM Se rPl-Impon 05-29-2024 Reagin and Treponema pallidum IgG and IgM [Interp] Cannot exclude recent Treponemal infection if specimen collected within 7-10 days after appearance of suspect lesions or 2-3 weeks after an exposure. Clinical correlation is required. Normal [facility] Comment on above: Order Comment: Juan saini Type: BLOOD SPECIMEN Ordering Facility: [facility] Address: [address] [place] [address] Performed By: #### 3 016-3 #### [facility] CLIA [id number] [address] [place] [address] [place] VARICELLA ZOSTER IGGon 05-29 VARICELLA ZOSTER IGG, QUAL Positive Normal Positive [facility] Comment on above: Order Comment: [facility] Type: BLOOD SPECIMEN Ordering Facility: [facility] Address: [address] [place] [address] Result Comment: The result suggests recent or past exposure to Varicella-Zoster virus or chickenpox vaccination or zoster vaccination. Positive result may also be seen due to presence of passively-transferred antibodies. Please correlate with patient's history. Performed By: #### 3 024-7, 3016-3 #### [facility] CLIA [id number] [address] [place] [address] [place] T3Free SerPl-mCncon 04-25-20 24 Free T3 [Mass/Vol] 2.6 pg/mL Normal 2.3-4.1 [facility] Comment on above: Order Comment: Speci men Type: BLOOD SPECIMEN Ordering Facility: [facility] Address: [address] [place] [address] Performed By: #### T SPN #### [facility]OD [facility] CLIA [id number] [address] [place] [address] [place] T4 Free SerPl-mCncon 024 Free T4 [Mass/Vol] 1.1 ng/dL Normal 0.9-1.7 [facility] Comment on above: Order Comment: Speci parveen Type: BLOOD SPECIMEN Ordering Facility: [facility] Address: [address] [place] [address] Performed By: #### T SPN #### [facility] BLOOD [facility]ANK CLIA [id number] [address] [place] [address] [place] TSH SerPl-aCncon 04-25-2024 TSH Qn 3.760 m[IU]/L Normal 0.270-4.200 [facility] Comment on above: Order Comment: Speci men Type: BLOOD SPECIMEN Ordering Facility: [facility] Address: [address] [place] [address] Result Comment: If t he patient is [...] Simons, et al. 2017 Guidelines of the [place] [employer] for the Diagnosis and Management of Thyroid Disease during and the . Thyroid, 2017:27:3:315-389. Performed By: #### T SPN #### CC MAIN BLOOD BANK [facility] [id number] [facility] [address] OF [facility] Serum or plasma choriogonado tropin detectionOrdered By: Rakesh Vega on 11-27-2023 HCG ( test) Ql Negative [facility] Absolute lymphocyte countOrd ered By: Rakesh Vega on 11-06-2023 Lymphocytes Auto (Unsp spec) [#/Vol] 2.96 10*3/uL 0.83-4.51 [facility] Automated lymphocyte count a s percentage of total leukocytesOrdered By: Rakesh Vega on 11-06-2023 Lymphocytes/100 WBC Auto (Unsp spec) 38.1 % 19-41 [facility] Basophil percentageOrdered B y: Rakesh Vega on 11-06-2023 Basophils/100 WBC (Bld) 0.6 % 0-1 [facility] Bilirubin [Mass/Vol] 0.40 mg/dL 0.20-1.00 [facility] Comment on above: For patients on eltr ombopag therapy, use of Dimension [place] TBIL is not recommended. Chloride [Moles/Vol] 105 mmol/L 98-107 [facility] Cholesterol [Mass/Vol] 169 mg/dL <200 [facility] Comment on above: <200 mg/dL Desirable 200-240 mg/dL Borderline >240 mg/dL High Risk Eosinophils/100 WBC (Bld) 1.2 % 0-5 [facility] Glucose [Mass/Vol] 98 mg/dL 74-106 [facility] Hemoglobin (Bld) [Mass/Vol] 14.0 g/dL 12.0-15.0 [facility] Monocytes/100 WBC (Bld) 7.3 % 0-10 [facility] Neutrophils (Bld) [#/Vol] 4.1 10*3/uL 2.0-7.7 [facility] Neutrophils/100 WBC (Bld) 52.3 % 47-70 [facility] Potassium [Moles/Vol] 3.9 mmol/L 3.5-5.1 [facility] Protein [Mass/Vol] 8.0 g/dL 6.4-8.2 [facility] Sodium [Moles/Vol] 139 mmol/L 136-145 [facility] Triglyceride [Mass/Vol] 117 mg/dL <199 [facility] Comment on above: The drugs N-Acetylcy steine and Metamizole may falsely depress this assay.Serum Triglycerides Reference Interval Normal <150 mg/dL Borderline high 150 - 199 mg/dL High 200 - 499 mg/dL Very High > or = 500 mg/dL WBC (Bld) [#/Vol] 7.8 10*3/uL 4.4-11.0 [facility] Determination of erythrocyte mean corpuscular volume (MCV)Ordered By: Rakesh Vega on 11-06-2023 MCV (RBC) [Entitic vol] 92.7 fL 81-99 [facility] Erythrocyte distribution wid th ratioOrdered By: Rakesh Vega on 11-06-2023 Erythrocyte distribution width (RBC) [Ratio] 11.9 % 11.6-14.6 [facility] Erythrocyte distribution wid th standard deviationOrdered By: Rakesh Vega on 11-06-2023 Erythrocyte distribution width (RBC) [Entitic vol] 40.7 fL 35.1-43.9 [facility] Hematocrit Auto (Bld) [Volum e fraction]Ordered By: Rakesh Vega on 11-06-2023 Hematocrit (Bld) [Volume fraction] 43.3 % 37-47 [facility] Immature granulocytes/100 WB C Auto (Bld)Ordered By: Rakesh Vega on 11-06-2023 Immature granulocytes/100 WBC (Bld) 0.500 % 0.0-0.9 [facility] Comment on above: IG% - Immature Granu locytes (promyelocytes, myelocytes and metamyelocytes) > 1% indicates that a LEFT SHIFT is Present. Laboratory - Chemistry and C hemistry - challengeOrdered By: Rakehs Vega on 11-06-2023 Albumin/Globulin [Mass ratio] 1.0 {ratio} 0.9-2.4 [facility] ALP [Catalytic activity/Vol] 55 U/L 45-117 [facility] ALT [Catalytic activity/Vol] 21 U/L 13-56 [facility] Cholesterol in HDL [Mass/Vol] 43 mg/dL >40 [facility] Comment on above: The drugs N-Acetylcy steine and Metamizole may falsely depress this assay. Reference Range HDL <40 mg/dL Low HDL Cholesterol HDL >or= 60 mg/dL High HDL Cholesterol Cholesterol in LDL [Mass/Vol] 103 mg/dL 0-130 [facility] CO2 [Moles/Vol] 27.0 mmol/L 21.0-32.0 [facility] Globulin (S) [Mass/Vol] 4.0 g/dL 2.2-4.2 [facility] Urea nitrogen/Creatinine [Mass ratio] 15.9 mg/mg 10-20 [facility] Laboratory - Hematology and Cell countsOrdered By: Rakesh Vega on 11-06-2023 MCH (RBC) [Entitic mass] 30.0 pg 27.0-32.0 [facility] MCHC (RBC) [Mass/Vol] 32.3 g/dL 32-36 [facility] Nucleated RBC/100 WBC (Bld) [Ratio] 0 % 0-5 [facility] Platelet mean volume (Bld) [Entitic vol] 12.1 fL 6.2-12.0 [facility] Platelets (Bld) [#/Vol] 278 10*3/uL 150-450 [facility] No Panel InformationOrdered By: Rakesh Vega on 11-06-2023 Estimated GFR (MDRD) Amer 142 mL/min >60 [facility] Comment on above: GFR Calc Estimated GFR (MDRD) Non-Af Amer 117 mL/min >60 [facility] Comment on above: Non- GFR Calc Follicle Stimulating Hormone 5.7 mIU/mL [facility] Comment on above: NORMAL REFERENCE RAN GES FEMALE FOLLICULAR 2.3 - 12.6 mIU/mL MID-CYCLE PEAK 5.2 - 17.5 mIU/mL LUTEAL 1.7 - 12.9 mIU/mL POST-MENOPAUSAL ON MHT 5.9 - 72.8 mIU/mL NOT ON MHT 12.7 - 132.2 mlU/mL MALE 0.7 - 10.8 mIU/mL Luteinizing Hormone 20.8 mIU/mL [facility] Comment on above: NORMAL REFERENCE RAN GES FEMALE FOLLICULAR 1.9 - 26.2 mIU/mL MID-CYCLE PEAK 22.8 - 76.1 mIU/mL LUTEAL 0.6 - 16.6 mIU/mL POST-MENOPAUSAL ON MHT 1.1 - 52.4 mIU/mL NOT ON MHT 8.6 - 61.8 mIU/mL MALE 1.2 - 10.6 mIU/mL Prolactin 10.0 ng/mL [facility] Comment on above: NORMAL REFERENCE RAN GES FEMALE NON- 2.2 - 30.3 ng/mL 8.1 - 347.6 ng/mL POST-MENOPAUSAL 0.7 - 31.5 ng/mL MALE 2.5 - 17.4 ng/mL VLDL Cholesterol 23 mg/dL 5-40 [facility] RBC Auto (Bld) [#/Vol]Ordere d By: Rakesh Vega on 11-06-2023 RBC (Bld) [#/Vol] 4.67 10*6/uL 4.2-5.4 [facility] Serum or plasma calcium sin urement (mass/volume)Ordered By: Rakesh Vega on 11-06-2023 Calcium [Mass/Vol] 9.0 mg/dL 8.5-10.1 [facility] Serum or plasma creatinine m easurement (mass/volume)Ordered By: Rakesh Vega on 11-06-2023 Creatinine [Mass/Vol] 0.63 mg/dL 0.55-1.02 [facility] Comment on above: The validity of the calculated GFR & GFRAA in patients over 70 years has not been determined. Clinical correlation is essential. Serum or plasma thyroid stim ulating hormone (TSH) measurement (units/volume)Ordered By: Rakesh Vega on 11-06-2023 TSH Qn 4.81 uIU/mL 0.358-3.74 [facility] Serum or plasma urea nitroge n measurement (mass/volume)Ordered By: Rakesh Vega on 11-06-2023 Urea nitrogen [Mass/Vol] 10 mg/dL 7-18 [facility] Thin prep Papanicolaou smear with manual screeningOrdered By: Rakesh Vega on 11-06-2023 Thin prep Papanicolaou smear with manual screening 4.0 g/dL 3.2-5.0 [facility] Thin prep Papanicolaou smear with manual screening 19 U/L 15-37 [facility] Thin prep Papanicolaou smear with manual screening 7 5-15 [facility] Vital Signs Date Time Vital Sign Value Performing Clinician Faci lity 04-13-2025 22:25-0400 Body temperature 98 [degF] Dr. Rakesh Vega DO Work Phone: [facility] 04-13-2025 22:25-0400 Diastolic blood pressure 72 mm[Hg] Dr. Rakesh Vega DO Work Phone: [facility] 04-13-2025 22:25-0400 Heart rate 85 /min Dr. Rakesh Vega DO Work Phone: [facility] 04-13-2025 22:25-0400 Respiratory rate 16 /min Dr. Rakesh Vega DO Work Phone: [facility] 04-13-2025 22:25-0400 Systolic blood pressure 110 mm[Hg] Dr. Rakesh Vega DO Work Phone: [facility] 04-13-2025 22:18-0400 Body height 152.[address] Rakesh Vega DO Work Phone: [facility] 04-13-2025 22:18-0400 Body mass index (BMI) [Ratio] 29.7 kg/m2 Dr. Rakesh Vega DO Work Phone: [facility] 04-13-2025 22:18-0400 Body weight 68.[address] Rakesh Vega DO Work Phone: [facility] 04-07-2025 08:46-0400 Body mass index (BMI) [Ratio] 28.9 kg/m2 Lois Perez MD Work Phone: [facility] 04-07-2025 08:46-0400 Body weight 67.13 kg Lois Perez MD Work Phone: [facility] 04-07-2025 08:46-0400 Diastolic blood pressure 60 mm[Hg] Lois Perez MD Work Phone: [facility] 04-07-2025 08:46-0400 Systolic blood pressure 100 mm[Hg] Lois Perez MD Work Phone: [facility] 03-31-2025 10:04-0400 Body mass index (BMI) [Ratio] 29.29 kg/m2 John Mae MD Work Phone: [facility] 03-31-2025 10:04-0400 Body weight 68.04 kg John Mae MD Work Phone: [facility] 03-31-2025 10:04-0400 Diastolic blood pressure 58 mm[Hg] John Mae MD Work Phone: [facility] 03-31-2025 10:04-0400 Systolic blood pressure 102 mm[Hg] John Mae MD Work Phone: [facility] 03-26-2025 11:20-0400 Diastolic blood pressure 66 mm[Hg] [facility] 03-26-2025 11:20-0400 Systolic blood pressure 118 mm[Hg] [facility] 03-24-2025 13:36-0400 Body mass index (BMI) [Ratio] 29.29 kg/m2 Fern Whittaker APRN.CNM Work Phone: [facility] 03-24-2025 13:36-0400 Body weight 68.04 kg Fern Whittaker APRN.CNM Work Phone: [facility] 03-24-2025 13:36-0400 Diastolic blood pressure 68 mm[Hg] Fern Whittaker G[employer]TER.CNM Work Phone: [facility] 03-24-2025 13:36-0400 Systolic blood pressure 114 mm[Hg] Fern Whittaker APRN.CNM Work Phone: [facility] 03-06-2025 08:58-0400 Body mass index (BMI) [Ratio] 28.32 kg/m2 Edmar Haury [employer]K DELIVERER Work Phone: [facility] 03-06-2025 08:58-0400 Body weight 65.77 kg Edmar Haury [employer]K DELIVERER Work Phone: [facility] 03-06-2025 08:58-0400 Diastolic blood pressure 60 mm[Hg] Edmar Haury [employer].MILK DELIVERER Work Phone: [facility] 03-06-2025 08:58-0400 Systolic blood pressure 98 mm[Hg] Edmar Haury [employer].MILK DELIVERER Work Phone: [facility] 02-20-2025 08:50-0400 Body mass index (BMI) [Ratio] 27.73 kg/m2 Anthony Villatoro MD Work Phone: [facility] 02-20-2025 08:50-0400 Body weight 64.41 kg Anthony Villatoro MD Work Phone: [facility] 02-20-2025 08:50-0400 Diastolic blood pressure 52 mm[Hg] Anthony Villatoro MD Work Phone: [facility] 02-20-2025 08:50-0400 Systolic blood pressure 96 mm[Hg] Anthony Villatoro MD Work Phone: [facility] 02-03-2025 13:40-0400 Body mass index (BMI) [Ratio] 27.38 kg/m2 Anthony Villatoro MD Work Phone: [facility] 02-03-2025 13:40-0400 Body weight 63.59 kg Anthony Villatoro MD Work Phone: [facility] 02-03-2025 13:40-0400 Diastolic blood pressure 60 mm[Hg] Anthony Villatoro MD Work Phone: [facility] 02-03-2025 13:40-0400 Systolic blood pressure 100 mm[Hg] Anthony Villatoro MD Work Phone: [facility] 01-23-2025 09:48-0400 Body mass index (BMI) [Ratio] 26.99 kg/m2 Arianna Nye MD Work Phone: [facility] 01-23-2025 09:48-0400 Body weight 62.69 kg Arianna Nye MD Work Phone: [facility] 01-23-2025 09:48-0400 Diastolic blood pressure 54 mm[Hg] Arianna Nye MD Work Phone: [facility] 01-23-2025 09:48-0400 Systolic blood pressure 98 mm[Hg] Arianna Nye MD Work Phone: [facility] 12-25-2024 08:04-0400 Body mass index (BMI) [Ratio] 25.58 kg/m2 Lois Perez MD Work Phone: [facility] 12-25-2024 08:04-0400 Body weight 59.42 kg Lois Perez MD Work Phone: [facility] 12-25-2024 08:04-0400 Diastolic blood pressure 56 mm[Hg] Lois Perez MD Work Phone: [facility] 12-25-2024 08:04-0400 Systolic blood pressure 100 mm[Hg] Lois Perez MD Work Phone: [facility] 11-27-2024 09:01-0400 Body mass index (BMI) [Ratio] 25 kg/m2 Rubina Landaverde [employer].CNM Work Phone: [facility] 11-27-2024 09:01-0400 Body weight 58.06 kg Rubina Landaverde [employer].CNM Work Phone: [facility] 11-27-2024 09:01-0400 Diastolic blood pressure 66 mm[Hg] Rubina Plotts [employer].CNM Work Phone: [facility] 11-27-2024 09:01-0400 Systolic blood pressure 102 mm[Hg] Rubina Lunats [employer].CNM Work Phone: [facility] 10-30-2024 08:35-0400 Body mass index (BMI) [Ratio] 24.41 kg/m2 John Mae MD Work Phone: [facility] 10-30-2024 08:35-0400 Body weight 56.7 kg John Mae MD Work Phone: [facility] 10-30-2024 08:35-0400 Diastolic blood pressure 60 mm[Hg] John Mae MD Work Phone: [facility] 10-30-2024 08:35-0400 Systolic blood pressure 108 mm[Hg] John Mae MD Work Phone: [facility] 10-02-2024 09:27-0500 Body mass index (BMI) [Ratio] 24.02 kg/m2 Anthony Villatoro MD Work Phone: [facility] 10-02-2024 09:27-0500 Body weight 55.79 kg Anthony Villatoro MD Work Phone: [facility] 10-02-2024 09:27-0500 Diastolic blood pressure 60 mm[Hg] Anthony Villatoro MD Work Phone: [facility] 10-02-2024 09:27-0500 Systolic blood pressure 102 mm[Hg] Anthony Villatoro MD Work Phone: [facility] 09-09-2024 08:20-0500 Body height 152.4 cm Meagan Humberto [employer]K DELIVERER Work Phone: [facility] 09-09-2024 08:20-0500 Body mass index (BMI) [Ratio] 24.06 kg/m2 Meagan Roscommon [employer].M[employer]K DELIVERER Work Phone: [facility] 09-09-2024 08:20-0500 Body weight 55.88 kg Meagan Roscommon [employer].M[employer]K DELIVERER Work Phone: [facility] 09-09-2024 08:20-0500 Diastolic blood pressure 62 mm[Hg] Meagan Roscommon [employer].M[employer]K DELIVERER Work Phone: [facility] 09-09-2024 08:20-0500 Systolic blood pressure 108 mm[Hg] Meagan Roscommon [employer]K DELIVERER Work Phone: [facility] 12-14-2023 09:18-0400 Body height 149.9 cm Lois Perez MD Work Phone: [facility] 12-14-2023 09:18-0400 Body mass index (BMI) [Ratio] 24.64 kg/m2 Lois Perez MD Work Phone: [facility] 12-14-2023 09:18-0400 Body weight 55.34 kg Lois Perez MD Work Phone: [facility] 12-14-2023 09:18-0400 Diastolic blood pressure 60 mm[Hg] Lois Perez MD Work Phone: [facility] 12-14-2023 09:18-0400 Systolic blood pressure 98 mm[Hg] Lois Perez MD Work Phone: [facility] 11-06-2023 14:21-0400 Body height 154.[address] Solis Berger Work Phone: [facility] 11-06-2023 14:21-0400 Body mass index (BMI) [Ratio] 22.6 kg/m2 Dr. Solis Berger Work Phone: [facility] 11-06-2023 14:21-0400 Body temperature 98.2 [degF] Dr. Solis Berger Work Phone: [facility] 11-06-2023 14:21-0400 Body weight 54.[address] Solis Berger Work Phone: [facility] 11-06-2023 14:21-0400 Diastolic blood pressure 72 mm[Hg] Dr. Solis Berger Work Phone: [facility] 11-06-2023 14:21-0400 Heart rate 74 /min Dr. Solis Berger Work Phone: [facility] 11-06-2023 14:21-0400 Respiratory rate 16 /min Dr. Solis Berger Work Phone: [facility] 11-06-2023 14:21-040 SaO2% (BldA) [Mass fraction] 99 % Dr. Solis Berger Work Phone: [facility] 11-06-2023 14:21-040 Systolic blood pressure 108 mm[Hg] Dr. Solis Berger Work Phone: [facility] Encounters Encounter Date Encounter Type Care Provider Facility Start: 04-13-2025 End: 04-14-[address] Rakesh Vega DO Work Phone: -[facility] Start: 04-13-2025 End: 04-14-[address] Corry Polanco MD -[facility] Work Phone: Start: 04-11-2025 ambulatory Lois Nava Facility:[facility] Start: 04-09-2025 End: 04-09-2025 Telephone encounter Corry Polanco MD Work Phone: OB/Gynecology Comment on above: Gary ramirez Start: 04-08-2025 End: 04-08-2025 Get Medical Advice Lois Perez MD Work Phone: OB/Gynecology Comment on above: Need refills for thy roid medication Start: 04-07-2025 End: 04-07-2025 ambulatory LOIS PEREZ Facility:[facility] Start: 04-07-2025 End: 04-07-2025 Patient encounter procedure Lois Perez MD Work Phone: OB/Gynecology Comment on above: Encounter for superv ision in primigravida, antepartum (HCC) (Primary Dx); Hypothyroidism, unspecified type; Uterine size-date discrepancy, third trimester (HCC); 39 weeks gestation of (HCC) Start: 04-01-2025 End: 04-01-2025 ambulatory Lexis Rogers MA [facility] Start: 04-01-2025 End: 04-01-2025 Patient encounter procedure Lexis Rogers MA [facility] Comment on above: Population Health Na vigation Outreach (Ob/peds) Start: 03-31-2025 End: 03-31-2025 Patient encounter procedure John Mae MD Work Phone: OB/Gynecology Comment on above: Encounter for superv ision in primigravida, antepartum (HCC) (Primary Dx); Hypothyroidism, unspecified type; 38 weeks gestation of (HCC) Start: 03-31-2025 End: 03-31-2025 ambulatory JOHN MAE Facility:[facility] Start: 03-26-2025 End: 03-26-2025 Patient encounter procedure Whi Tech 1 Electrophysiology Nurse Practitioner [facility] Comment on above: Uterine size date di screpancy, third trimester (HCC) (Primary Dx); Encounter for supervision of normal first in third trimester (HCC); 37 weeks gestation of (HCC) Start: 03-26-2025 End: 03-26-2025 ambulatory FERN WHITTAKER Facility:[facility] Start: 03-24-2025 End: 03-24-2025 Patient encounter procedure Fern Whittaker APRN.CNM Work Phone: OB/Gynecology Comment on above: Encounter for superv ision in primigravida, antepartum (HCC) (Primary Dx); Hypothyroidism, unspecified type; 37 weeks gestation of (HCC) Start: 03-24-2025 End: 03-24-2025 ambulatory FERN WHITTAKER Facility:[facility] Start: 03-20-2025 End: 03-20-2025 ambulatory FERN WHITTAKER Facility:[facility] Start: 03-06-2025 End: 03-06-2025 Patient encounter procedure Edmar Allison APRN.MILK DELIVERER Work Phone: OB/Gynecology Comment on above: Encounter for superv ision of normal first in third trimester (HCC) (Primary Dx); 34 weeks gestation of (HCC); Hypothyroidism, unspecified type Start: 03-06-2025 End: 03-06-2025 ambulatory EDMAR ALLISON Facility:[facility] Start: 02-20-2025 End: 02-20-2025 Patient encounter procedure Anthony Villatoro MD Work Phone: OB/Gynecology Comment on above: Encounter for superv ision of normal first in third trimester (HCC) (Primary Dx); Hypothyroidism, unspecified type; 32 weeks gestation of (HCC) Start: 02-20-2025 End: 02-20-2025 ambulatory ANTHONY VILLATORO Facility:[facility] Start: 02-16-2025 End: 02-17-2025 ambulatory Anthony Villatoro [...] type Start: 02-03-2025 End: 02-03-2025 ambulatory ARIANNA NYE Facility:[facility] Start: 01-26-2025 End: 03-28-2025 Follow-up encounter Lois Perez MD Work Phone: OB/Gynecology Start: 01-23-2025 End: 01-23-2025 Patient encounter procedure Arianna Nye MD Work Phone: OB/Gynecology Comment on above: 28 weeks gestation o f (HCC) (Primary Dx); Encounter for supervision of normal first in third trimester (HCC); Need for vaccination; Hypothyroidism, unspecified type Start: 01-23-2025 End: 01-23-2025 ambulatory [facility]ANNA [facility] Facility:[facility] Start: 01-22-2025 End: 01-22-2025 ambulatory Lois Perez MD Work Phone: OB/Gynecology Start: 01-22-2025 End: 01-22-2025 Letter encounter Lois Perez MD Work Phone: OB/Gynecology Comment on above: Can I get a letter s aying I am ? Start: 12-31-2024 End: 12-31-2024 ambulatory CORRY POLANCO Facility:[facility] Start: 12-25-2024 End: 12-25-2024 Patient encounter procedure Lois Perez MD Work Phone: OB/Gynecology Comment on above: Encounter for superv ision of normal first in second trimester (HCC) (Primary Dx); Hypothyroidism, unspecified type; Screening for diabetes mellitus; Encounter for supervision of normal first in third trimester (HCC); 24 weeks gestation of (HCC) Start: 12-25-2024 End: 12-25-2024 ambulatory LOIS PEREZ Facility:[facility] Start: 12-01-2024 End: 01-31-2025 Follow-up encounter Corry Polanco MD Work Phone: OB/Gynecology Start: 11-27-2024 End: 11-27-2024 ambulatory RUBINA LANDAVERDE Facility:[facility] Start: 11-27-2024 End: 11-27-2024 Patient encounter procedure Rubina Landaverde [employer].CNM Work Phone: OB/Gynecology Comment on above: Hypothyroidism, unsp ecified type (Primary Dx); Encounter for supervision of normal first in second trimester (HCC); 20 weeks gestation of (HCC) Encounter for anatomic survey (HCC) (Primary Dx); 20 weeks gestation of (HCC) Start: 11-27-2024 End: 11-27-2024 ambulatory MEAGAN PAUL Facility:[facility] Start: 11-10-2024 End: 11-10-2024 [facility] Get Medical Advice Anthony Villatoro MD Work Phone: OB/Gynecology Comment on above: Thyroid medication r efill Start: 10-30-2024 End: 10-30-2024 ambulatory JOHN MAE Facility:[facility] Start: 10-30-2024 End: 10-30-2024 Patient encounter procedure John Mae MD Work Phone: OB/Gynecology Comment on above: Hypothyroidism, unsp ecified type (Primary Dx); 16 weeks gestation of ; Encounter for supervision of normal first in second trimester Start: 10-15-2024 End: 10-15-2024 [facility] Facility:[facility] Start: 10-02-2024 End: 12-02-2024 Follow-up encounter John Mae MD Work Phone: OB/Gynecology Start: 10-02-2024 End: 10-02-2024 [facility] Facility:[facility] Start: 10-02-2024 End: 10-02-2024 Patient encounter procedure Anthony Villatoro MD Work Phone: OB/Gynecology Comment on above: Encounter for prenat al care in first trimester of first (Primary Dx); 12 weeks gestation of ; Hypothyroidism, unspecified type Encounter for antena tamara screening for malformation using ultrasound (Primary Dx); 12 weeks gestation of Start: 09-11-2024 End: 09-11-2024 ambulatory [facility] [employer].MILK DELIVERER Work Phone: OB/Gynecology Comment on above: NIPT needs prior aut horization from insurance Start: 09-09-2024 End: 09-09-2024 [facility] Facility:[facility] Start: 09-09-2024 End: 09-09-2024 Patient encounter procedure [facility] [employer].MILK DELIVERER Work Phone: OB/Gynecology Comment on above: Encounter for superv ision in primigravida, antepartum (Primary Dx); with uncertain dates, antepartum; Encounter for care in first trimester of first ; Screening for cervical cancer; 9 weeks gestation of ; Hypothyroidism, unspecified type Start: 08-14-2024 End: 08-14-2024 [facility] Facility:[facility] Start: 08-12-2024 End: 08-12-2024 [facility] Facility:[facility] Start: 08-05-2024 End: 08-11-2024 ambulatory Kamila Beard APRN.MILK DELIVERER Work Phone: [facility] Start: 08-05-2024 End: 08-11-2024 Patient encounter procedure Kamila Beard APRN.MILK DELIVERER Work Phone: [facility] Comment on above: Got a positive pregn fide test!! Start: 08-04-2024 End: 08-04-2024 Get Medical Advice Lois Perez MD Work Phone: OB/Gynecology Comment on above: Metformin is about t o finish with no refills left Start: 07-06-2024 End: 07-07-2024 ambulatory Kamila Beard APRN.MILK DELIVERER Work Phone: [facility] Start: 07-06-2024 End: 07-07-2024 Patient encounter procedure Kamila Beard APRN.MILK DELIVERER Work Phone: [facility] Comment on above: Updates Start: 06-10-2024 End: 06-10-2024 ambulatory KAMILA BEARD Facility:[facility] Start: 06-03-2024 End: 06-04-2024 ambulatory Kamila Beard APRN.MILK DELIVERER Work Phone: [facility]ology [facility] Start: 06-03-2024 End: 06-04-2024 Patient encounter procedure Kamila Beard APRN.MILK DELIVERER Work Phone: [facility] Comment on above: Request for missing labs Missing tests Start: 05-29-2024 End: 05-29-2024 ambulatory KAMILA BEARD Facility:[facility] Start: 05-19-2024 End: 06-02-2024 [facility] Kamila Beard APRN.MILK DELIVERER Work Phone: [facility]ology [facility] Comment on above: Screen for sexually transmitted diseases (Primary Dx); PCOS (polycystic ovarian syndrome); Fallopian tube disorder; Female infertility; Procreation management investigation and testing; Screening for genetic disease carrier status IUI scheduling with monitoring Start: 04-25-2024 End: 04-25-2024 ambulatory LOIS PEREZ Facility:[facility] Start: 04-22-2024 End: 04-23-2024 ambulatory Lois Perez MD Work Phone: OB/Gynecology Comment on above: Any suggestions on w hat to do next? Start: 04-10-2024 End: 04-10-2024 ambulatory Lois Perez MD Work Phone: OB/Gynecology Start: 01-24-2024 Orders Only Lois Perez MD [...] 11-27-[address] Solis Berger Work Phone: [facility] Work Phone: Start: 11-27-2023 End: 11-27-[address] Solis Berger Work Phone: [facility] Start: 11-13-2023 End: 11-13-[address] Solis Berger Work Phone: [facility] Work Phone: Start: 11-13-2023 End: 11-13-[address] Solis Berger Work Phone: [facility] Work Phone: Start: 11-06-2023 End: 11-06-[address] Solis Berger Work Phone: [facility] Work Phone: Start: 11-06-2023 End: 11-06-[address] Solis Berger Work Phone: [facility] Start: 11-06-2023 End: 11-06-[address] Solis Berger Work Phone: [facility] Work Phone: Start: 11-15-2017 Ambulatory CLAUDY BERGER [facility] Procedures Date Procedure Procedure Detail Performing Clinician Start: 04-13-2025 Measurement of pH in vaginal fluid specimen using nitrazine yellow for detection of rupture of amniotic membrane Dr. Rakesh Vega DO Work Phone: Comment on above: Amniotic fluid not p resent indicates No Rupture of FetalMembranes at time of specimen collection. Start: 04-07-2025 Urnls dip stick/tabl et rgnt non-auto w/o micrscp Lois Perez MD Work Phone: Start: 03-31-2025 Urnls dip stick/tabl et rgnt non-auto w/o micrscp John Mae MD Work Phone: Start: 03-26-2025 Us preg uterus after 1st trimest 08/13 gestation Fern Whittaker APRN.CNM Work Phone: Start: 03-24-2025 Urnls dip stick/tabl et rgnt non-auto w/o micrscp Fern Whittaker APRN.CNM Work Phone: Start: 03-06-2025 Urnls dip stick/tabl et rgnt non-auto w/o micrscp Edmar Haury GLOST TILE SORTER.MILK DELIVERER Work Phone: Start: 11-27-2024 Us preg uterus after 1st trimest / gestation Meagan [place] G[employer] TI[employer] SORTER.MILK DELIVERER Work Phone: Start: 10-02-2024 Antibody screen KAMILA CHIRAG Comment on above: Order Comment: Speci men Type: BLOOD SPECIMEN Ordering Facility: [facility] Address: [address] [place] [address] Performed By: #### T SPN #### [facility] CLIA [id number] [address] [place] [address] [place] Start: 10-02-2024 Us preg uterus after 1st trimest 1/ gestation Meagan [place] [employer] TI[employer] SORTER.MILK DELIVERER Work Phone: Start: 09-09-2024 Us uterus l imited / fetuses Meagan [place] GLOST TILE SORTER.MILK DELIVERER Work Phone: Start: 09-09-2024 Adult depression scr eening assessment Anthony Villatoro MD Work Phone: Start: 06-10-2024 Antibody screen KAMILA BEARD Comment on above: Order Comment: Speci men Type: BLOOD SPECIMEN Ordering Facility: [facility] Address: [address] [place] [address] Performed By: #### T SPN #### [facility] CLIA [id number] [address] [place] [address] [place] Start: 11-13-[address] Solis Berger Work Phone: Plan of Treatment Date Care Activity Detail Author Start: 01-23-2035 Urine microalbumin profile DTaP,Tdap,Td Vaccine (2 - Td or Tdap) [facility] Start: 09-09-2029 Screening for malign ant neoplasm of cervix Cervical Cancer Screening [facility] Start: 09-09-2025 Anxiety Screening Anxiety Screening [facility] Start: 09-09-2025 Depression Screening Depression Scre ening [facility] Start: 04-16-2025 End: 04-16-2025 Patient encounter procedure 04/16/2025 10:00 AM EDT Routine Office Visit OB/Gynecology [address] [place] [address] Coryr Polanco MD [address] [place] [address] OB OB/Gynecology Comment on above: OB Start: 04-13-2025 Nonstress test [facility] Start: 04-13-2025 Obstetric monitoring [facility] Start: 04-13-2025 Vital signs measurements [facility] Start: 04-13-2025 [facility] Start: 04-13-2025 Influenza vaccination [facility] Start: 04-07-2025 End: 04-07-2025 Patient encounter procedure 04/07/2025 8:40 AM EDT Routine Office Visit OB/Gynecology [address] [place] [address] Lois Quinn MD [address] [place] [address] OB OB/Gynecology Comment on above: OB Start: 03-31-2025 End: 03-31-2025 Patient encounter procedure 03/31/2025 10:10 AM EDT Routine Office Visit OB/Gynecology [address] [place] [address] John Mae MD [address] [place] [address] OB OB/Gynecology Comment on above: OB Start: 03-26-2025 End: 03-26-2025 Patient encounter procedure 03/26/2025 9:00 AM EDT Routine Office Visit Maternal Medicine [address] [place] [address] Growth [facility] Comment on above: Growth Start: 03-24-2025 End: 03-24-2025 Patient encounter procedure 03/24/2025 1:45 PM EDT Office Visit OB/Gynecology [address] [place] [address] Fern Whittaker APRN.CNM [address] [place] [address] OB OB/Gynecology Comment on above: OB Start: 03-20-2025 End: 03-20-2025 Patient encounter procedure 03/20/2025 9:15 AM EDT Routine Office Visit OB/Gynecology [address] [place] [address] Fern Whittaker APRN.CNM [address] [place] [address] OB OB/Gynecology Comment on above: OB Start: 03-06-2025 End: 03-06-2025 Patient encounter procedure 03/06/2025 9:00 AM EDT Routine Office Visit OB/Gynecology [address] [place] [address] Edmar Allison APRN.MILK DELIVERER [address] [place] [address] OB OB/Gynecology Comment on above: OB Start: 02-23-2025 Hepatitis B Vaccine (2 of 2 - CpG 2-dose series) Hepatitis B Vaccine (2 of 2 - CpG 2-dose series) [facility] Start: 02-20-2025 End: 02-20-2025 Patient encounter procedure OB/Gynecology Comment on above: OB OB- FMLA paperwork c ompleted, extra copy for patient in chart prep binder Start: 02-03-2025 End: 02-03-2025 Patient encounter procedure 02/03/2025 1:50 PM EDT Routine Office Visit OB/Gynecology [address] [place] [address] Anthony Villatoro MD [address] [place] [address] OB OB/Gynecology Comment on above: OB Start: 01-26-2025 End: 01-26-2025 ambulatory 01/26/2025 8:30 AM EDT Results Only Jermain Waterford [facility] Laboratory [address] [place] [address] Jermain Waterford [facility] Start: 01-25-2025 End: 04-26-2025 ANEMIA REFLEX PANEL ANEMIA REFLEX PANEL Lab Routine Encounter for supervision of normal first in third trimester ([facility]) Expected: 01/25/2025, Expires: 04/26/2025 [facility] Comment on above: Expected: 01/25/2025 , Expires: 04/26/2025 Start: 01-25-2025 End: 12-25-2025 GESTATIONAL GLUCOSE SCREEN, 1-HOUR, 50 GRAM, NON-FASTING GESTATIONAL GLUCOSE SCREEN, 1-HOUR, 50 GRAM, NON-FASTING Lab Routine Screening for diabetes mellitus Expected: 01/25/2025, Expires: 12/25/2025 [facility] Work Phone: Comment on above: Expected: 01/25/2025 , Expires: 12/25/2025 Start: 01-25-2025 End: 12-25-2025 SYPHILIS TREPONEMAL W/REFLEX SYPHILIS TREPONEMAL W/REFLEX Lab Routine Encounter for supervision of normal first in third trimester ([facility]) Expected: 01/25/2025, Expires: 12/25/2025 [facility] Comment on above: Expected: 01/25/2025 , Expires: 12/25/2025 Start: 01-23-2025 End: 04-24-2025 Thyrotropin [Units/volume] in Serum or Plasma THYROID STIMULATING HORMONE Lab Routine 28 weeks gestation of ([facility]) Hypothyroidism, unspecified type Expected: 01/23/2025, Expires: 04/24/2025 [facility] Work Phone: Comment on above: Expected: 01/23/2025 , Expires: 04/24/2025 Start: 01-23-2025 End: 01-23-2025 Patient encounter procedure 01/23/2025 10:10 AM EDT Routine Office Visit OB/Gynecology [address] [place] [address] Arianna Nye MD [address] [place] [address] Glucose Test OB/Gynecology Comment on above: Glucose Test Start: 01-23-2025 End: 01-23-2025 ambulatory 01/23/2025 9:45 AM EDT Results Only Jermain Marie [facility] Laboratory [address] [place] [address] Glucose Test Jermain Broussardwn [facility] Laboratory Comment on above: Glucose Test Start: 01-22-2025 End: 01-22-2025 Patient encounter procedure 01/22/2025 8:45 AM EDT Routine Office Visit OB/Gynecology [address] [place] [address] Edmar Allison APRN.MILK DELIVERER [address] [place] [address] Glucose Test OB/Gynecology Comment on above: Glucose Test Start: 01-22-2025 End: 01-22-2025 ambulatory 01/22/2025 8:30 AM EDT Results Only Jermain Marie [facility] Laboratory [address] [place] [address] Glucose Test Jermain Marie [facility] Laboratory Comment on above: Glucose Test Start: 12-31-2024 End: 12-31-2024 ambulatory 12/31/2024 8:45 AM EDT Results Only Jermain Marie [facility] [address] [place] [address] Jermain Marie [facility] Start: 12-25-2024 End: 12-25-2024 Patient encounter procedure 12/25/2024 8:10 AM EDT Routine Office Visit OB/Gynecology [address] [place] [address] Lois Quinn MD [address] [place] [address] OB OB/Gynecology Comment on above: OB Start: 11-27-2024 End: 02-26-2025 Thyrotropin [Units/volume] in Serum or Plasma [facility] Work Phone: Comment on above: Expected: 11/27/2024 , Expires: 02/26/2025 Start: 11-27-2024 End: 02-26-2025 Thyroxine (T4) free [Mass/volume] in Serum or Plasma [facility] Comment on above: Expected: 11/27/2024 , Expires: 02/26/2025 Start: 11-27-2024 End: 11-27-2024 Patient encounter procedure [facility] Comment on above: Anatomy Anatomy/OB Start: 10-30-2024 End: 10-30-2024 Patient encounter procedure 10/30/2024 8:30 AM EDT Routine Office Visit OB/Gynecology [address] [place] [address] John Mae MD [address] [place], [place] [id number] OB OB/Gynecology Comment on above: OB Start: 10-02-2024 End: 01-01-2025 Thyroxine (T4) free [Mass/volume] in Serum or Plasma [facility] Work Phone: Comment on above: Expected: 10/02/2024 , Expires: 01/01/2025 Start: 10-02-2024 End: 10-02-2024 Patient encounter procedure Maternal Medicine Comment on above: Nuchal OB Routine Start: 09-09-2024 End: 12-09-2024 ANEMIA REFLEX PANEL ANEMIA REFLEX PANEL Lab Routine Encounter for supervision in primigravida, antepartum with uncertain dates, antepartum Encounter for care in first trimester of first Expected: 09/09/2024, Expires: 12/09/2024 [facility] Work Phone: Comment on above: Expected: 09/09/2024 , Expires: 12/09/2024 Start: 09-09-2024 End: 12-09-2024 Chromosome 21 trisomy [Presence] in Blood or Tissue by Cytogenetics [id number] [id number] Lab Routine 9 weeks gestation of Expected: 09/09/2024, Expires: 12/09/2024 [facility] Comment on above: Expected: 09/09/2024 , Expires: 12/09/2024 Start: 09-09-2024 End: 12-09-2024 Hemoglobin A1c in Blood HEMOGLOBIN A1C Lab Routine Encounter for supervision in primigravida, antepartum with uncertain dates, antepartum Encounter for care in first trimester of first Expected: 09/09/2024, Expires: 12/09/2024 [facility] Comment on above: Expected: 09/09/2024 , Expires: 12/09/2024 Start: 09-09-2024 End: 12-09-2024 Hepatitis B virus surface Ag [Presence] in Serum HEPATITIS B SURFACE ANTIGEN Lab Routine Encounter for supervision in primigravida, antepartum with uncertain dates, antepartum Encounter for care in first trimester of first Expected: 09/09/2024, Expires: 12/09/2024 [facility] Comment on above: Expected: 09/09/2024 , Expires: 12/09/2024 Start: 09-09-2024 End: 12-09-2024 Hepatitis C virus Ab [Presence] in Serum HEPATITIS C ANTIBODY IA WITH CONFIRMATION Lab Routine Encounter for supervision in primigravida, antepartum with uncertain dates, antepartum Encounter for care in first trimester of first Expected: 09/09/2024, Expires: 12/09/2024 [facility] Comment on above: Expected: 09/09/2024 , Expires: 12/09/2024 Start: 09-09-2024 End: 12-09-2024 HIV 1+2 Ab [Presence] in Serum or Plasma by Immunoassay HIV 1/2 COMBO WITH REFLEX TO DIFFERENTIATION Lab Routine Encounter for supervision in primigravida, antepartum with uncertain dates, antepartum Encounter for care in first trimester of first Expected: 09/09/2024, Expires: 12/09/2024 [facility] Comment on above: Expected: 09/09/2024 , Expires: 12/09/2024 Start: 09-09-2024 End: 09-09-2025 OBSTETRIC ULTRASOUND WHI OBSTETRIC ULTRASOUND WHI Anc Imaging Routine Encounter for supervision in primigravida, antepartum with uncertain dates, antepartum Encounter for care in first trimester of first Expected: 09/09/2024, Expires: 09/09/2025 [facility] Comment on above: Expected: 09/09/2024 , Expires: 09/09/2025 Start: 09-09-2024 End: 12-09-2024 RUBELLA IGG ANTIBODY RUBELLA IGG ANTIBODY Lab Routine Encounter for supervision in primigravida, antepartum with uncertain dates, antepartum Encounter for care in first trimester of first Expected: 09/09/2024, Expires: 12/09/2024 [facility] Comment on above: Expected: 09/09/2024 , Expires: 12/09/2024 Start: 09-09-2024 End: 12-09-2024 SYPHILIS TREPONEMAL W/REFLEX SYPHILIS TREPONEMAL W/REFLEX Lab Routine Encounter for supervision in primigravida, antepartum with uncertain dates, antepartum Encounter for care in first trimester of first Expected: 09/09/2024, Expires: 12/09/2024 [facility] Comment on above: Expected: 09/09/2024 , Expires: 12/09/2024 Start: 09-09-2024 End: 12-09-2024 Thyrotropin [Units/volume] in Serum or Plasma THYROID STIMULATING HORMONE Lab Routine 9 weeks gestation of Hypothyroidism, unspecified type Expected: 09/09/2024, Expires: 12/09/2024 [facility] Comment on above: Expected: 09/09/2024 , Expires: 12/09/2024 Start: 09-09-2024 End: 12-09-2024 TYPE + SCREEN TYPE + SCREEN Blood Bank Routine Encounter for supervision in primigravida, antepartum with uncertain dates, antepartum Encounter for care in first trimester of first Expected: 09/09/2024, Expires: 12/09/2024 [facility] Comment on above: Expected: 09/09/2024 , Expires: 12/09/2024 Start: 05-19-2024 End: 08-18-2024 CARRIER SCREEN, EXPANDED CARRIER SCREEN, EXPANDED Lab Routine Screening for genetic disease carrier status Expected: 05/19/2024, Expires: 08/18/2024 [facility] Comment on above: Expected: 05/19/2024 , Expires: 08/18/2024 Start: 05-19-2024 End: 08-18-2024 Hepatitis B virus core Ab [Presence] in Serum HEPATITIS B CORE ANTIBODY TOTAL Lab Routine Screen for sexually transmitted diseases Expected: 05/19/2024 (Approximate), Expires: 08/18/2024 [facility] Comment on above: Expected: 05/19/2024 (Approximate), Expires: 08/18/2024 Start: 05-19-2024 End: 08-18-2024 Hepatitis B virus surface Ag [Presence] in Serum HEPATITIS B SURFACE ANTIGEN Lab Routine Screen for sexually transmitted diseases Expected: 05/19/2024 (Approximate), Expires: 08/18/2024 [facility] Comment on above: Expected: 05/19/2024 (Approximate), Expires: 08/18/2024 Start: 05-19-2024 End: 08-18-2024 Hepatitis C virus Ab [Presence] in Serum HEPATITIS C ANTIBODY IA WITH CONFIRMATION Lab Routine Screen for sexually transmitted diseases Expected: 05/19/2024 (Approximate), Expires: 08/18/2024 [facility] Comment on above: Expected: 05/19/2024 (Approximate), Expires: 08/18/2024 Start: 05-19-2024 End: 08-18-2024 HIV 1+2 Ab [Presence] in Serum or Plasma by Immunoassay HIV 1/2 COMBO WITH REFLEX TO DIFFERENTIATION Lab Routine Screen for sexually transmitted diseases Expected: 05/19/2024, Expires: 08/18/2024 [facility] Comment on above: Expected: 05/19/2024 , Expires: 08/18/2024 Start: 05-19-2024 End: 08-18-2024 RUBELLA IGG ANTIBODY RUBELLA IGG ANTIBODY Lab Routine Procreation management investigation and testing Expected: 05/19/2024, Expires: 08/18/2024 [facility] Comment on above: Expected: 05/19/2024 , Expires: 08/18/2024 Start: 05-19-2024 End: 08-18-2024 SYPHILIS TOTAL W/REFLEX SYPHILIS TOTAL W/REFLEX Lab Routine Screen for sexually transmitted diseases Expected: 05/19/2024 (Approximate), Expires: 08/18/2024 [facility] Comment on above: Expected: 05/19/2024 (Approximate), Expires: 08/18/2024 Start: 05-19-2024 End: 08-18-2024 TYPE + SCREEN TYPE + SCREEN Blood Bank Routine Procreation management investigation and testing Expected: 05/19/2024 (Approximate), Expires: 08/18/2024 [facility] Comment on above: Expected: 05/19/2024 (Approximate), Expires: 08/18/2024 Start: 05-19-2024 End: 08-18-2024 VARICELLA ZOSTER IGG VARICELLA ZOSTER IGG Lab Routine Procreation management investigation and testing Expected: 05/19/2024, Expires: 08/18/2024 [facility] Comment on above: Expected: 05/19/2024 , Expires: 08/18/2024 Start: 05-19-2024 End: 08-18-2024 WHIIVF GC/CHLAMYDIA AMPLIF, URINE WHIIVF GC/CHLAMYDIA AMPLIF, URINE Microbiology Routine Screen for sexually transmitted diseases Expected: 05/19/2024 (Approximate), Expires: 08/18/2024 [facility] Work Phone: Comment on above: Expected: 05/19/2024 (Approximate), Expires: 08/18/2024 Start: 04-23-2024 End: 07-23-2024 Thyrotropin [Units/volume] in Serum or Plasma THYROID STIMULATING HORMONE Lab Routine Hypothyroidism, unspecified type Expected: 04/23/2024, Expires: 07/23/2024 [facility] Work Phone: Comment on above: Expected: 04/23/2024 , Expires: 07/23/2024 Start: 04-23-2024 End: 07-23-2024 Thyroxine (T4) free [Mass/volume] in Serum or Plasma T4 FREE/FREE THYROXINE Lab Routine Hypothyroidism, unspecified type Expected: 04/23/2024, Expires: 07/23/2024 [facility] Comment on above: Expected: 04/23/2024 , Expires: 07/23/2024 Start: 04-23-2024 End: 07-23-2024 Triiodothyronine (T3) Free [Mass/volume] in Serum or Plasma T3, FREE Lab Routine Hypothyroidism, unspecified type Expected: 04/23/2024, Expires: 07/23/2024 [facility] Comment on above: Expected: 04/23/2024 , Expires: 07/23/2024 Start: 04-13-2024 Covid-19 Vaccine () Covid-19 Vaccine () [facility] Start: 04-13-2024 Covid-19 Vaccine () Covid-19 Vaccine () [facility] Start: 04-13-2024 Covid-19 Vaccine () Covid-19 Vaccine () [facility] Start: 04-13-2024 Influenza vaccination C [facility] Start: 01-22-2024 End: 01-22-2024 ambulatory 01/22/2024 8:45 AM EDT Results Only [facility] [address] [place] [address] [facility] Start: 01-15-2024 End: 04-15-2024 Progesterone [Mass/volume] in Serum or Plasma PROGESTERONE Lab Routine Irregular menstrual cycle Expected: 01/15/2024, Expires: 04/15/2024 [facility] Work Phone: Comment on above: Expected: 01/15/2024 , Expires: 04/15/2024 Start: 01-01-2024 End: 04-01-2024 DHEA-S BLD DHEA-S BLD Lab Routine Abnormal uterine bleeding (AUB) Hirsutism Expected: 01/01/2024, Expires: 04/01/2024 [facility] Comment on above: Expected: 01/01/2024 , Expires: 04/01/2024 Start: 01-01-2024 End: 04-01-2024 Hemoglobin A1c in Blood HEMOGLOBIN A1C Lab Routine Encounter for screening for diabetes mellitus Expected: 01/01/2024 (Approximate), Expires: 04/01/2024 [facility] Comment on above: Expected: 01/01/2024 (Approximate), Expires: 04/01/2024 Start: 01-01-2024 End: 04-01-2024 Insulin [Units/volume] in Serum or Plasma INSULIN ASSAY BLOOD Lab Routine Encounter for screening for diabetes mellitus Expected: 01/01/2024 (Approximate), Expires: 04/01/2024 [facility] Work Phone: Comment on above: Expected: 01/01/2024 (Approximate), Expires: 04/01/2024 Start: 01-01-2024 End: 04-01-2024 Lipid 1996 panel - Serum or Plasma LIPID PANEL BASIC Lab Routine Screening cholesterol level Expected: 01/01/2024 (Approximate), Expires: 04/01/2024 [facility] Comment on above: Expected: 01/01/2024 (Approximate), Expires: 04/01/2024 Start: 01-01-2024 End: 04-01-2024 TESTOSTERONE, FREE AND TOTAL TESTOSTERONE, FREE AND TOTAL Lab Routine Abnormal uterine bleeding (AUB) Hirsutism Expected: 01/01/2024, Expires: 04/01/2024 [facility] Comment on above: Expected: 01/01/2024 , Expires: 04/01/2024 Start: 01-01-2024 End: 04-01-2024 Thyrotropin [Units/volume] in Serum or Plasma THYROID STIMULATING HORMONE Lab Routine Hypothyroidism, unspecified type Expected: 01/01/2024 (Approximate), Expires: 04/01/2024 [facility] Comment on above: Expected: 01/01/2024 (Approximate), Expires: 04/01/2024 Start: 01-01-2024 End: 04-01-2024 WHIIVF ANTI MULLERIAN HORMONE WHIIVF ANTI MULLERIAN HORMONE Lab Routine Abnormal uterine bleeding (AUB) Hirsutism Expected: 01/01/2024 (Approximate), Expires: 04/01/2024 [facility] Comment on above: Expected: 01/01/2024 (Approximate), Expires: 04/01/2024 Start: 01-01-2024 End: 01-01-2024 ambulatory 01/01/2024 8:15 AM EDT Results Only Jermain Rufino [facility] [address] [place] [address] [facility] Start: 08-13-2023 Behavioral Health Screening Behavioral Health Screening [facility] Start: 04-13-2023 Covid-19 Vaccine ( season) Covid-19 Vaccine ( season) [facility] Start: 2022 Screening for malign ant neoplasm of cervix HPV Testing [facility] Start: 2019 HPV Vaccine (1 - 3-d ose SCDM series) HPV Vaccine (1 - 3-dose SCDM series) [facility] Start: 2013 Screening for malign ant neoplasm of cervix [facility] Start: 2011 Hepatitis B Vaccine (1 of 3 - 19+ 3-dose series) Hepatitis B Vaccine (1 of 3 - 19+ 3-dose series) [facility] Start: 2011 Urine microalbumin profile DTaP,Tdap,Td Vaccine (1 - Tdap) [facility] Start: 2010 Annual PCP Team Publication Distributor erica Disease Visit Annual PCP Team Chronic Disease Visit [facility] Start: 2010 Anxiety Screening Anxiety Screening [facility] Start: 2010 Depression Screening Depression Scre ening [facility] Start: 2010 Hepatitis C screening Hepatitis C Sc lucía [facility] Start: 2010 HIV screening HIV Screening [facility] Bacteria identified in Urine by Culture BACTERIAL CULTURE, URINE Microbiology Routine Encounter for supervision in primigravida, antepartum with uncertain dates, antepartum Encounter for care in first trimester of first 09/09/2024 9:31 AM [facility] Chlamydia trachomatis+Neisseria gonorrhoeae DNA [Presence] in Unspecified specimen by DIMITRY with probe detection GONORRHEA/CHLAMYDIA NAAT Lab Routine Encounter for supervision in primigravida, antepartum with uncertain dates, antepartum Encounter for care in first trimester of first 09/09/2024 9:31 AM [facility] End: 08-11-2025 Choriogonadotropin.beta subunit [Units/volume] in Serum or Plasma HCG QUANTITATIVE Lab Routine examination or test, unconfirmed Daily for 2 Occurrences starting 08/11/2024 until 08/11/2025 [facility] Work Phone: Comment on above: Daily for 2 Occurren octavia starting 08/11/2024 until 08/11/2025 PAP TEST PAP TEST Lab Nima magana Screening for cervical cancer 09/09/2024 9:31 AM EST [facility] Patient Education Kick Counts ED False Labor OB Triage: Return to Hospital or Notify Physician if you Experience: [facility] Work Phone: US Pelvis transvaginal [facility] Immunizations Immunization Date Immunization Notes Care Provider Fa lori 01-23-2025 tetanus toxoid, redu jose diphtheria toxoid, and acellular pertussis vaccine, adsorbed Arianna Nye MD Work Phone: [facility] Payers Date Payer Category Payer Self-pay [id number] 2025 Self-pay [id number] 2023 Private Health Insurance [id number] 2023 Unknown [employer] CE PLAN [place] [employer] CHOICE PLAN GENERIC [id number] 2023-Present [address] [place] [address] PPO [id number] 2023 Unknown [id number] 2017 Unknown [id number] Unknown [id number] Unknown [id number] Social History Date Type Detail Facility Start: 11-06-2023 Tobacco smoking stat us IAIS Unknown if ever smoked [facility] Start: 1990 Sex Assigned At Female [facility] Start: 11-06-2023 End: 12-14-2023 Tobacco smoking status NHIS Never smoked tobacco [facility] Start: 12-14-2023 Tobacco use and exposure Smokeless tobacco non-user [facility] Start: 12-14-2023 End: 03-31-2025 Alcohol intake Lifetime non-drinker (finding) [facility] Start: 12-14-2023 End: 01-23-2025 History of Social function [facility] Start: 12-14-2023 End: 01-23-2025 Tobacco use panel [facility] Start: 03-08-2019 National Score (1-10 0), lower number is lower risk 35 [facility] Start: 12-11-2023 Gender identity Identifies as female gender (finding) [facility] Start: 12-11-2023 Sexual orientation Heterosexual (fin ding) [facility] Start: 09-03-2024 Education 20 [facility] Start: 07-19-2024 [facility] Goals Date Patient Goal Desired Activity /State Personal health goal Clinical Notes 12-14-2023 to 04-14-2025 Note Date & Type Note Facility 04-14-2025 Evaluation note Diagnosis Onset Date Resolution 40 weeks gestation of acute April 13 10:12pm Encounter for suspected PROM, with rupture of membranes not found acute April 13 10:12pm [facility] Work Phone: 1(941) 962-909208-28-2025 Telephone encounter Note* Telephone Encounter - Corry Polanco MD - 04/09/2025 10:09 AM EDT agree [facility] Work Phone: 1(269) 312-749008-28-2025 Miscellaneous Notes* Telephone Encounter - Corry Polanco MD - 04/09/2025 10:09 AM EDT agree * Telephone Encounter - Shadia Hargrove RN - 04/09/2025 9:20 AM EDT 39w5d Pt calls c/o dark brown sticky [...] unless additional advise is needed.Shadia Hargrove RN documented in this encounterMag[facility]08-28-2025 Telephone encounter Note * Telephone Encounter - Shadia Hargrove RN - 04/09/2025 9:20 AM EDT 39w5d Pt calls c/o dark brown sticky [...] unless additional advise is needed.Shadia Hargrove RN [facility]08-27-2025 Telephone encounter Note* Telephone Encounter - Lois Quinn MD - 04/08/2025 3:17 PM EDT ordered [facility]08-27-2025 Miscellaneous Notes* Telephone Encounter - Lois Quinn MD - 04/08/2025 3:17 PM EDT ordered * Telephone Encounter - Aisha Stroud LPN - 04/08/2025 1:49 PM EDT Last refill 11/2024. Thyroid labs drawn 03/20/2025 documented in this encounterMag[facility] Hospital08-27-2025 Telephone encounter Note * Telephone Encounter - Aisha Stroud LPN - 04/08/2025 1:49 PM EDT Last refill 11/2024. Thyroid labs drawn 03/20/2025 [facility]08-26-2025 Progress note* Quick Notes - Lois Qiunn MD - 04/07/2025 9:31 AM EDT DM-Pt doing well. Denies vaginal Bleeding, Leaking fluid, or regular Contractions. Pt reports good movement Physical Exam: Gen: female in no apparent distress Abd: soft, Gravid. Non tender to palpation. See flow sheet Participation of a fellow, resident, medical student, or advanced practice provider student in performing the sensitive examination was discussed with the patient or authorized signs sales representative. The patient or authorized signs sales representative has agreed to proceed with the sensitive examination. @ 39.3 weeks Assessment & Plan Encounter for supervision in primigravida, antepartum (HCC) Orders: URINE OB DIP B/O Hypothyroidism, unspecified type Orders: URINE OB DIP B/O Uterine size-date discrepancy, third trimester ([facility]) Orders: URINE OB DIP B/O 39 weeks gestation of (HCC) Kick counts and labor reviewed RTO weekly- pt agreeable to IOL 41 weeks- will schedule next week if no spontaneous labor at that time. Orders: URINE OB DIP B/O Lois Nava MD [facility]08-26-2025 Miscellaneous Notes* Quick Notes - Lois Quinn MD - 04/07/2025 9:31 AM EDT DM-Pt doing well. Denies vaginal Bleeding, Leaking fluid, or regular Contractions. Pt reports good movement Physical Exam: Gen: female in no apparent distress Abd: soft, Gravid. Non tender to palpation. See flow sheet Participation of a fellow, resident, medical student, or advanced practice provider student in performing the sensitive examination was discussed with the patient or authorized signs sales representative. The patient or authorized signs sales representative has agreed to proceed with [...] B/O Lois Nava MD documented in this encounterMagr[facility] Hospital08-26-2025 Instructions* Patient Instructions* Dulce Schmitz MA - 04/07/2025 8:43 AM EDT SEQUENTIAL SCREENINGS The [facility] offers sequential screenings for women who are interested in screenings for chromosomal abnormalities and certain defects during a . The sequential screen combinesultrasound and blood tests to determine the risk [...] this testing. It will require an appointment withour ultrasound manager. This is not an ultrasound performed by [...] the above symptoms, contact our office at [phone] and ask to speak with anurse. After hours, you can call doctors registry at [phone] OR call [facility] at [phone] ask to have the doctor multimedia instructional designer paged. If you consider this an emergency, dial 91-0 or go to your nearest emergency department. NEED HELP? Are you dealing with a violent or abusive relationship? Are you a victim of rape or sexual assult? Call [facility] ([place]) 24 hour Crisis Hotline: 172.381.2264 or 121-279-2853. MANUAL Your Guide to a Healthy manual is now on-line. Visit [email or web address] to download your free copy documented in this encounterMagruder Hospital08-20-2025 NoteHNO ID: [id number] Author: LEXIS ROGERS MA Service: ? Author Type: Canal Structure Operator Type: Progress Notes Filed: 04/01/2025 13:27 Note [...] Lexis Magaña MA April 01, 2025 1:26 [facility]08-20-2025 History of Present illness Narrative* Lexis Rogers MA - 04/01/2025 1:24 PM EDT POPULATION HEALTH NAVIGATION OUTREACH Action/FYI Called and [...] 01, 2025 1:26 PM documented in this encounterMagr[facility] Hospital08-20-2025 NotePatient Outreach (NETNAV) CELIA TORRES ([id number]) 1990 F Date Time Provider Department 04/01/25 [...] 2 tablets by mouth once daily. - lkqvh-5-ydk-rby-mvz-laru oil 1,050 mg(300 mg -675 mg-75 mg) cap Take 3 tablets by mouth once daily. 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 LOF No. CTXS No. [...] URINE OB DIP B/O John Mae MD [facility]08-19-2025 Miscellaneous Notes* Quick Notes - John Mae MD - 03/31/2025 10:33 AM EDT RR- VB No. LOF No. CTXS No. [...] B/O John Mae MD documented in this encounterMagruder Hospital08-19-2025 Instructions* Patient Instructions* Shanta Charles MA - 03/31/2025 10:02 AM EDT SEQUENTIAL SCREENINGS The [facility] offers sequential screenings for women who are interested in screenings for chromosomal abnormalities and certain defects during a . The sequential screen combinesultrasound and blood tests to determine the risk [...] this testing. It will require an appointment withour ultrasound manager. This is not an ultrasound performed by [...] the above symptoms, contact our office at [phone] and ask to speak with anurse. After hours, you can call doctors registry at [phone] OR call [facility] at [phone] ask to have the doctor multimedia instructional designer paged. If you consider this an emergency, dial 9--2 or go to your nearest emergency department. NEED HELP? Are you dealing with a violent or abusive relationship? Are you a victim of rape or sexual assult? Call [facility] ([place]) 24 hour Crisis Hotline: 914.922.9231 or 788-561-3377. MANUAL Your Guide to a Healthy manual is now on-line. Visit [email or web address] to download your free copy documented in this encounterMagruder Hospital08-14-2025 Note Indication Evaluation of growth Discrepancy between [...] 14 oz EFW by: Hadlock (HC-AC-FL) Extended Grease Maker Head 4.6 mm Extremities / Bony Struc FL [...] to know sex: yes Performed By: Mae Jordan, [facility], RVT Read By: Leonardo Car M.D.MATERNAL [id number] Progress note* Quick Notes - Fern Whittaker APRN.CNM - 03/24/2025 2:26 PM EDT ARMANDO-S: Celia Torres is a 34 year [...] RTO in one week Fern Whittaker APRN.CNM [facility] Work Phone: 1(963) 471-384808-12-2025 Miscellaneous Notes* Quick Notes - Fern Whittaker APRN.CNM - 03/24/2025 2:26 PM EDT ARMANDO-S: Celia Torres is a 34 year [...] week Fern Whittaker APRN.CNM documented in this encounterMagruder Hospital08-12-2025 Instructions* Patient Instructions* Sowmya Edgar MA - 03/24/2025 1:34 PM EDT SEQUENTIAL SCREENINGS The [facility] offers sequential screenings for women who are interested in screenings for chromosomal abnormalities and certain defects during a . The sequential screen combinesultrasound and blood tests to determine the risk [...] this testing. It will require an appointment withour ultrasound manager. This is not an ultrasound performed by [...] the above symptoms, contact our office at [phone] and ask to speak with anurse. After hours, you can call [employer] registry at [phone] OR call [facility] at [phone] ask to have the doctor multimedia instructional designer paged. If you consider this an emergency, dial 9-1-3 or go to your nearest emergency department. NEED HELP? Are you dealing with a violent or abusive relationship? Are you a victim of rape or sexual assult? Call [facility] ([place]) 24 hour Crisis Hotline: 530.108.1162 or 636-090-4132. MANUAL Your Guide to a Healthy manual is now on-line. Visit [email or web address] to download your free copy documented in this encounterMagr[facility] Hospital07-25-2025 Progress note* Quick Notes - Edmar Allison APRN.CNP - 03/06/2025 8:54 AM EDT EH - S: Celia is a 34 [...] of normal first in third trimester (HCC) - ICD9: V22.0, ICD10: Z34.03 (primary diagnosis) - Continue PNV and LDA 2. 34 weeks gestation of (HCC) - ICD9: V22.2, ICD10: Z3A.34 - GBS next visit 3. Hypothyroidism, unspecified type - ICD9: 244.9, ICD10: E03.9 - Repeat TSH/T4 next visit - Continue Synthroid PTL precautions and kick counts reviewed. RTO in 2 weeks or sooner as needed. Edmar Allison APRN.CNP [facility]07-25-2025 Miscellaneous Notes* Quick Notes - Edmar Allison APRN.CNP - 03/06/2025 8:54 AM EDT EH - S: Celia is a 34 [...] supervision of normal first in third trimester ([facility]) - ICD9: V22.0, ICD10: Z34.03 (primary diagnosis) - Continue PNV and LDA 2. 34 weeks gestation of ([facility]) - ICD9: V22.2, ICD10: Z3A.34 - GBS next visit 3. Hypothyroidism, unspecified type - ICD9: 244.9, ICD10: E03.9 - Repeat TSH/T4 next visit - Continue Synthroid PTL precautions and kick counts reviewed. RTO in 2 weeks or sooner as needed. Edmar Allison APRN.MILK DELIVERER documented in this encounterMagr[facility] Hospital07-25-2025 Instructions* Patient Instructions* Sowmya Edgar MA - 03/06/2025 8:51 AM EDT SEQUENTIAL SCREENINGS The [facility] offers sequential screenings for women who are interested in screenings for chromosomal abnormalities and certain defects during a . The sequential screen combinesultrasound and blood tests to determine the risk [...] this testing. It will require an appointment withour ultrasound manager. This is not an ultrasound performed by [...] the above symptoms, contact our office at [phone] and ask to speak with anurse. After hours, you can call doctors registry at [phone] OR call [facility] at [phone] ask to have the doctor multimedia instructional designer paged. If you consider this an emergency, dial 9--0 or go to your nearest emergency department. NEED HELP? Are you dealing with a violent or abusive relationship? Are you a victim of rape or sexual assult? Call [facility] ([place]) 24 hour Crisis Hotline: 681.990.6986 or 323-914-7172. MANUAL Your Guide to a Healthy manual is now on-line. Visit [email or web address] to download your free copy documented in this encounterMagr[facility] Hospital07-11-2025 Progress note* Quick Notes - Anthony Villatoro MD - 02/20/2025 9:29 AM EDT KJ - S: Celia denies LOF, contractions or vaginal bleeding. O: 32w6d, see flow sheet SENSITIVE EXAM: Sensitive exam not performed. A/P: Assessment & Plan Encounter for supervision of normal first in third trimester (HCC) Hypothyroidism, unspecified type Continue synthroid 32 weeks gestation of (HCC) Reviewed PTL & FM precautions Anthony Villatoro MD [facility]07-11-2025 Miscellaneous Notes* Quick Notes - Anthony Villatoro MD - 02/20/2025 9:29 AM EDT KJ - S: Celia denies LOF, contractions or vaginal bleeding. O: 32w6d, see flow sheet SENSITIVE EXAM: Sensitive exam not performed. A/P: Assessment & Plan Encounter for supervision of normal first in third trimester (HCC) Hypothyroidism, unspecified type Continue synthroid 32 weeks gestation of (HCC) Reviewed PTL & FM precautions Anthony Villatoro MD documented in this encounterMagr[facility] Hospital07-11-2025 Instructions* Patient Instructions* Shanta Charles MA - 02/20/2025 8:50 AM EDT SEQUENTIAL SCREENINGS The [facility] offers sequential screenings for women who are interested in screenings for chromosomal abnormalities and certain defects during a . The sequential screen combinesultrasound and blood tests to determine the risk [...] this testing. It will require an appointment withour ultrasound manager. This is not an ultrasound performed by [...] the above symptoms, contact our office at [phone] and ask to speak with anurse. After hours, you can call doctors registry at [phone] OR call [facility] at [phone] ask to have the doctor multimedia instructional designer paged. If you consider this an emergency, dial 9-1-8 or go to your nearest emergency department. NEED HELP? Are you dealing with a violent or abusive relationship? Are you a victim of rape or sexual assult? Call [facility] ([facility] 24 hour Crisis Hotline: 247.501.7593 or 563-723-7950. MANUAL Your Guide to a Healthy manual is now on-line. Visit [email or web address] to download your free copy documented in this encounterMagr[facility] Hospital07-07-2025 Telephone encounter Note * Telephone Encounter - Sowmya Edgar MA - 02/16/2025 3:35 PM EDT Received FMLA papework - 02/16/2025 FMLA completed and in providers mail box for signing. 02/16/2025 FMLA signed and faxed, 02/17/2025 Sowmya Edgar MA [facility]07-07-2025 Miscellaneous Notes* Telephone Encounter - Sowmya Edgar MA - 02/16/2025 3:35 PM EDT Received FMLA papework - 02/16/2025 FMLA completed and in providers mail box for signing. 02/16/2025 FMLA signed and faxed, 02/17/2025 Sowmya Edgar MA documented in this encounterMag[facility] Hospital06-24-2025 Progress note* Quick Notes - Anthony Villatoro MD - 02/03/2025 2:01 PM EDT KJ - S: Celia denies LOF, contractions or vaginal bleeding. O: 30w3d, see flow sheet SENSITIVE EXAM: Sensitive exam not performed. A/P: Assessment & Plan 30 weeks gestation of (HCC) Encounter for supervision of normal first in third trimester (HCC) Hypothyroidism, unspecified type COntinue synthroid Repeat TSH today Reviewed PTL & FM Precautions Anthony Villatoro MD [facility]06-24-2025 Miscellaneous Notes* Quick Notes - Anthony Villatoro MD - 02/03/2025 2:01 PM EDT KJ - S: Celia denies LOF, contractions or vaginal bleeding. O: 30w3d, see flow sheet SENSITIVE EXAM: Sensitive exam not performed. A/P: Assessment & Plan 30 weeks gestation of (HCC) Encounter for supervision of normal first in third trimester (HCC) Hypothyroidism, unspecified type COntinue synthroid Repeat TSH today Reviewed PTL & FM Precautions Anthony Villatoro MD documented in this encounterMagr[facility] Hospital06-24-2025 Instructions* Patient Instructions* Lexis Akbar MA - 02/03/2025 1:38 PM EDT SEQUENTIAL SCREENINGS The [facility] offers sequential screenings for women who are interested in screenings for chromosomal abnormalities and certain defects during a . The sequential screen combinesultrasound and blood tests to determine the risk [...] this testing. It will require an appointment withour ultrasound manager. This is not an ultrasound performed by [...] the above symptoms, contact our office at [phone] and ask to speak with anurse. After hours, you can call [facility] at [phone] OR call [facility] at [phone] ask to have the doctor multimedia instructional designer paged. If you consider this an emergency, dial 9-1-1 or go to your nearest emergency department. NEED HELP? Are you dealing with a violent or abusive relationship? Are you a victim of rape or sexual assult? Call [facility] ([place]) 24 hour Crisis Hotline: 160.269.3801 or 356-028-5677. MANUAL Your Guide to a Healthy manual is now on-line. Visit [email or web address] to download your free copy documented in this encounterMagr[facility] Hospital06-13-2025 Progress note* Quick Notes - Arianna Nye MD - 01/23/2025 10:39 AM EDT SW- Pt doing well. No pain, vb, lof. Good FM. Exertional dyspnea PE: Gen- NAD, well appearing Abd- Soft, gravid, NT See flowsheet A/p 28 wk gestation - Hypothyroidism: TSH next visit - Cont LDA - plan sheet given - LARC declined - Signed up for classes at [facility] 28 labs today - Tdap today - Discussed peds - RTO 2 wks Arianna Nye DO [facility]06-13-2025 Miscellaneous Notes* Quick Notes - Arianna Nye MD - 01/23/2025 10:39 AM EDT SW- Pt doing well. No pain, vb, lof. Good FM. Exertional dyspnea PE: Gen- NAD, well appearing Abd- Soft, gravid, NT See flowsheet A/p 28 wk gestation - Hypothyroidism: TSH next visit - Cont LDA - plan sheet given - LARC declined - Signed up for classes at [address] labs today - Tdap today - Discussed peds - RTO 2 wks Arianna Nye DO documented in this encounterMagruder Hospital06-13-2025 NoteHNO ID: [id number] Author: LEXIS AKBAR MA Service: ? Author Type: Canal Structure Operator Type: Progress Notes Filed: 01/23/2025 11:05 Note [...] severely ill: Yes Patient denies history of Guillain-Breckenridge Syndrome (a severe paralytic illness): Yes Tdap Adacel injection was given without incident. See immunizations for details of immunizations administered today. VIS sheet provided: Yes Provider Arianna Nye DO was present in office at time of injection. Lexis Akbar [facility]06-13-2025 History of Present illness Narrative* Lexis Akbar MA - 01/23/2025 9:48 AM EDT Patient identified by name and date of . Celia Trores presents today for a vaccination of Tdap. Patient denies an allergy to latex: yes Patient denies a severe (life-threatening) allergy to a previous dose of Tdap, DTP, DTaP, DT or Td vaccine. Yes Patient denies history of epilepsy or neurological problems: Yes Patient is afebrile and denies being moderately or severely ill: Yes Patient denies history of Guillain-Breckenridge Syndrome (a severe paralytic illness): Yes Tdap Adacel injection was given without incident. See immunizations for details of immunizations administered today. VIS sheet provided: Yes Provider Arianna Nye DO was present in office at time of injection. Lexis Akbar MA documented in this encounterMagr[facility] Hospital06-13-2025 Instructions* Patient Instructions* Lexis Akbar MA - 01/23/2025 9:45 AM EDT SEQUENTIAL SCREENINGS The [facility] offers sequential screenings for women who are interested in screenings for chromosomal abnormalities and certain defects during a . The sequential screen combinesultrasound and blood tests to determine the risk [...] this testing. It will require an appointment withour ultrasound manager. This is not an ultrasound performed by [...] the above symptoms, contact our office at [phone] and ask to speak with anurse. After hours, you can call doctors registry at [phone] OR call [facility] at [phone] ask to have the doctor multimedia instructional designer paged. If you consider this an emergency, dial 7-8-4 or go to your nearest emergency department. NEED HELP? Are you dealing with a violent or abusive relationship? Are you a victim of rape or sexual assult? Call [facility] ([place]) 24 hour Crisis Hotline: 366.937.7476 or 785-894-4549. MANUAL Your Guide to a Healthy manual is now on-line. Visit [email or web address] to download your free copy documented in this encounterMagr[facility] Hospital05-15-2025 Progress note* Quick Notes - Lois Quinn MD - 12/25/2024 8:14 AM EDT DM-Pt doing well. Denies vaginal Bleeding, Leaking fluid, or regular Contractions. Pt reports good movement Physical Exam: Gen: female in no apparent distress Abd: soft, Gravid. Non tender to palpation. See flow sheet @ 24.5 weeks Assessment & Plan Encounter for supervision of normal first in second trimester ([facility]) Hypothyroidism, unspecified type Screening for diabetes mellitus Orders: GESTATIONAL GLUCOSE SCREEN, 1-HOUR, 50 GRAM, NON-FASTING; Future Encounter for supervision of normal first in third trimester ([facility]) Orders: SYPHILIS TREPONEMAL W/REFLEX; Future ANEMIA REFLEX PANEL; Future 24 weeks gestation of ([facility]) RTO 4 wks Lois Nava MD [facility]05-15-2025 Miscellaneous Notes* Quick Notes - Lois Quinn MD - 12/25/2024 8:14 AM EDT DM-Pt doing well. Denies vaginal Bleeding, Leaking fluid, or regular Contractions. Pt reports good movement Physical Exam: Gen: female in no apparent distress Abd: soft, Gravid. Non tender to palpation. See flow sheet @ 24.5 weeks Assessment & Plan Encounter for supervision of normal first in second trimester ([facility]) Hypothyroidism, unspecified type Screening for diabetes mellitus Orders: GESTATIONAL GLUCOSE SCREEN, 1-HOUR, 50 GRAM, NON-FASTING; Future Encounter for supervision of normal first in third trimester ([facility]) Orders: SYPHILIS TREPONEMAL W/REFLEX; Future ANEMIA REFLEX PANEL; Future 24 weeks gestation of ([facility]) RTO 4 wks Lois Nava MD documented in this encounterMagr[facility] Hospital05-15-2025 Instructions* Patient Instructions* Dulce Schmitz MA - 12/25/2024 8:02 AM EDT SEQUENTIAL SCREENINGS The [facility] offers sequential screenings for women who are interested in screenings for chromosomal abnormalities and certain defects during a . The sequential screen combinesultrasound and blood tests to determine the risk [...] this testing. It will require an appointment withour ultrasound manager. This is not an ultrasound performed by [...] the above symptoms, contact our office at [phone] and ask to speak with anurse. After hours, you can call doctors registry at [phone] OR call [facility] at [phone] ask to have the doctor multimedia instructional designer paged. If you consider this an emergency, dial 91-8 or go to your nearest emergency department. NEED HELP? Are you dealing with a violent or abusive relationship? Are you a victim of rape or sexual assult? Call [facility] ([place]) 24 hour Crisis Hotline: 521.577.2200 or 012-707-3309. MANUAL Your Guide to a Healthy manual is now on-line. Visit [email or web address] to download your free copy documented in this encounterMagruder Hospital04-17-2025 Progress note* Quick Notes - Rubina Landaverde APRN.CNM - 11/27/2024 9:16 AM EDT S: Celia Torres is a 34 year [...] RTO 4 weeks for HERVE Landaverde APRN.CNM [facility] Work Phone: 1(130) 768-105504-17-2025 Miscellaneous Notes* Quick Notes - Rubina Landaverde APRN.CNM - 11/27/2024 9:16 AM EDT S: Celia Torres is a 34 year [...] for HERVE Landaverde APRN.CNM documented in this encounterMagruder Hospital04-17-2025 Instructions* Patient Instructions* Kyle Aguirre MA - 11/27/2024 8:48 AM EDT SEQUENTIAL SCREENINGS The [facility] offers sequential screenings for women who are interested in screenings for chromosomal abnormalities and certain defects during a . The sequential screen combinesultrasound and blood tests to determine the risk [...] this testing. It will require an appointment withour ultrasound manager. This is not an ultrasound performed by [...] the above symptoms, contact our office at [phone] and ask to speak with anurse. After hours, you can call doctors registry at [phone] OR call [facility] at [phone] ask to have the doctor multimedia instructional designer paged. If you consider this an emergency, dial 9--1 or go to your nearest emergency department. NEED HELP? Are you dealing with a violent or abusive relationship? Are you a victim of rape or sexual assult? Call [facility] ([place]) 24 hour Crisis Hotline: 842.456.8916 or 115-417-6901. MANUAL Your Guide to a Healthy manual is now on-line. Visit [email or web address] to download your free copy documented [facility] Telephone encounter Note * Telephone Encounter - Arianna Nye MD - 11/10/2024 5:01 PM EDT Refill sent [facility]03-31-2025 Miscellaneous Notes* Telephone Encounter - Arianna Nye MD - 11/10/2024 5:01 PM EDT Refill sent * Telephone Encounter - Corry Aguero RN - 11/10/2024 1:43 PM EDT 18w2d Can you please review in KJ's absence? Patient is out of medication. documented [facility] encounterMag[facility] Telephone encounter Note * Telephone Encounter - Corry Aguero RN - 11/10/2024 1:43 PM EDT 18w2d Can you please review in KJ's absence? Patient is out of medication. [facility]03-20-2025 Progress note* Quick Notes - John Mae MD - 10/30/2024 8:51 AM EDT RR- VB No. LOF No. CTXS No. [...] cont PNV and asa John Mae M.D. [facility]03-20-2025 Miscellaneous Notes* Quick Notes - John Mae MD - 10/30/2024 8:51 AM EDT RR- VB No. LOF No. CTXS No. [...] asa John Mae M.D. documented in this encounterMag[facility] Hospital03-20-2025 Instructions* Patient Instructions* Shanta Charles MA - 10/30/2024 8:32 AM EDT SEQUENTIAL SCREENINGS [facility] offers sequential screenings for women who are interested in screenings for chromosomal abnormalities and certain defects during a . The sequential screen combinesultrasound and blood tests to determine the risk [...] this testing. It will require an appointment withour ultrasound manager. This is not an ultrasound performed by [...] the above symptoms, contact our office at [phone] and ask to speak with anurse. After hours, you can call doctors registry at [phone] OR call [facility] at [phone] ask to have the doctor multimedia instructional designer paged. If you consider this an emergency, dial 9--6 or go to your nearest emergency department. NEED HELP? Are you dealing with a violent or abusive relationship? Are you a victim of rape or sexual assult? Call [facility] ([place]) 24 hour Crisis Hotline: 275.824.6961 or 487-084-9925. MANUAL Your Guide to a Healthy manual is now on-line. Visit [email or web address] to download your free copy documented in this encounterMag[facility]02-20-2025 Progress note* Result Encounter Note - John Mae MD - 10/02/2024 2:59 PM EST Anatomy ultrasound reviewed. No abnormalities identified. Follow up as clinically indicated. Pleaseplace copy in ob chart. John Mae MD [facility]02-20-2025 Miscellaneous Notes* Result Encounter Note - John Mae MD - 10/02/2024 2:59 PM EST Anatomy ultrasound reviewed. No abnormalities identified. Follow up as clinically indicated. Pleaseplace copy in ob chart. John Mae MD documented in this encounterMag[facility] Hospital02-20-2025 Progress note* Quick Notes - Anthony Villatoro MD - 10/02/2024 9:56 AM EST KJ - VB No. LOF No. CTXS No. Movement: absent. Other c/o: No. Medication list reviewed. Physical Exam See Flow Sheet Gen: no accute distress, well appearing A/P 12w5d Estimated Date of Delivery: 04/11/25 NT today PNB Plans NIPT when approved by insurance Discussed weaning off metfomin over the next 2 weeks Anthony Villatoro MD [facility]02-20-[facility]25 Miscellaneous Notes* Quick Notes - Anthony Villatoro MD - 10/02/2024 9:56 AM EST KJ - VB No. LOF No. CTXS No. Movement: absent. Other c/o: No. Medication list reviewed. Physical Exam See Flow Sheet Gen: no accute distress, well appearing A/P 12w5d Estimated Date of Delivery: 04/11/25 NT today PNB Plans NIPT when approved by insurance Discussed weaning off metfomin over the next 2 weeks Anthony Villatoro MD documented in this encounterMag[facility] Hospital02-20-2025 Instructions* Patient Instructions* Aisha Stroud LPN - 10/02/2024 9:25 AM EST SEQUENTIAL SCREENINGS [facility] offers sequential screenings for women who are interested in screenings for chromosomal abnormalities and certain defects during a . The sequential screen combinesultrasound and blood tests to determine the risk [...] this testing. It will require an appointment withour ultrasound manager. This is not an ultrasound performed by [...] the above symptoms, contact our office at [phone] and ask to speak with anurse. After hours, you can call doctors registry at [phone] OR call [facility] at [phone] ask to have the doctor multimedia instructional designer paged. If you consider this an emergency, dial 9--3 or go to your nearest emergency department. NEED HELP? Are you dealing with a violent or abusive relationship? Are you a victim of rape or sexual assult? Call [facility] ([place]) 24 hour Crisis Hotline: 292.527.9631 or 219-970-5782. MANUAL Your Guide to a Healthy manual is now on-line. Visit [email or web address] to download your free copy documented in this encounterMag[facility] Hospital01-22-2025 NoteHNO ID: [id number] Author: MEAGAN PAUL APRN.MILK DELIVERER Service: ? Author Type: Nurse Practitioner Type: Progress Notes Filed: 09/09/2024 11:29 Note Text: Patient declined aadc plans staff officer. INITIAL OB ASSESSMENT HPI: Celia is a [...] all that apply)? 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 spkvr-8-qei-kfd-tno-sipq oil 1,050 mg(300 mg -675 mg-75 mg) cap Take 3 tablets by mouth once daily. PNV no.95/ferrous fum/folic ac ( ORAL) Take 2 tablets by mouth once daily. letrozole (FEMARA) 2.5 mg tablet Take 2 tablets by mouth once daily. Cycle days 3-7 (Patient not taking: Reported on 09/03/2024) 10 tablet 3 ADESKPSR-UDKPFUQ-PUUGTBDBE ORAL Take by mouth. (Patient not taking: Reported on 09/03/2024) QCWVXDBRZUIT-AVMR-RIKXO ACID ORAL Take by mouth. (Patient not taking: Reported on 09/03/2024) No current facility-administered medications for this visit. Allergies As of Date: 09/09/2024 Allergen Noted Reactio (more content not included)...[facility] 09-03-2024 History of Present illness Narrative* Meagan Paul APRN.MILK DELIVERER - 09/03/2024 2:07 PM EST Patient declined aadc plans staff officer. INITIAL OB ASSESSMENT HPI: Celia is a [...] all that apply)? 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 sprsf-2-otm-rqy-hfq-ckfs oil 1,050 mg(300 mg -675 mg-75 mg) cap Take 3 tablets by mouth once daily. PNV no.95/ferrous fum/folic ac ( ORAL) Take 2 tablets by mouth once daily. letrozole (FEMARA) 2.5 mg tablet Take 2 tablets by mouth once daily. Cycle days 3-7 (Patient not taking: Reported on 09/03/2024) 10 tablet 3 HNGZTCHZ-ULKSNTA-UGPARPDUZ ORAL Take by mouth. (Patient not taking: Reported on 09/03/2024) ZGMTQUWYXHDM-BLBT-XRSWU ACID ORAL Take by mouth. (Patient not [...] discussed with the Patient or Patient's Authorized Quality Control Lab Tech. As applicable, any other physician, advance practice provider, medical student, or other health professional student that will be observing or involved in the sensitive examination for educational or training purposes was discussed with the Patient or Authorized Quality Control Lab Tech. The Patient or Authorized Quality Control Lab Tech has agreed to proceed with the sensitive [...] +cardiac activity, CRL consistent with LMP. Meagan Paul APRN.MILK DELIVERER ASSESSMENT: 33 year old at 8w4d wks gestational age PLAN: 1) Patient oriented to practice. Patient given new OB orientation folder. Discussed nutrition, folic acid supplementation, dietary guidelines, exercise, smoking, alcohol, caffeine, and drug use. Discussed gestational weight gain guidelines. Discussed routine OB labs including STD/HIV. Discussed how to access Your guide to a health and the Pbx Operator. Reviewed midwifery and manufacturing industrial engineer services that are available. 2) Screening: Hemoglobin [...] aneuploidy screening was provided. The patient chooses toproceed with First trimester early anatomy ultrasound (12-13w6d) [...] 4 weeks or sooner prn. Meagan Paul APRN.MILK DELIVERER documented in this encounterMagruder Hospital01-22-2025 Instructions* Patient Instructions* Shaylee Martinez LPN - 09/03/2024 2:07 PM EST Please select the following link to access the [facility] Your Guide to a Healthy . [email or web address] Please select the following link to access the [facility] Your Guide to a Healthy . [email or web address] documented in this encounterMagruder Hospital12-23-2024 Telephone encounter Note * Telephone Encounter - Lois Quinn MD - 08/04/2024 4:16 PM EST ordered [facility] Miscellaneous Notes* Telephone Encounter - Lois Quinn MD - 08/04/2024 4:16 PM EST ordered * Telephone Encounter - Mae Parrish RN - 08/04/2024 2:30 PM EST Please order with increase dosage. Mae Parrish RN * Telephone Encounter - Lois Quinn MD - 08/04/2024 1:22 PM EST Was she ever able to get up to taking 1000mg (2 tabs with dinner)? If so then I would like to bump up to 1500mg daily if possible she can do 500mg with breakfast or lunch then 1000mg at dinner or if she can tolerate she can do all 1500mg with dinner. Please let me know so I can order appropriately. * Telephone Encounter - Lexie Sainz RN - 08/04/2024 12:38 PM EST Last visit with DM 12/14/23. Lexie Sainz RN documented in this encounterMagruder Hospital12-23-2024 Telephone encounter Note * Telephone Encounter - Mae Parrish RN - 08/04/2024 2:30 PM EST Please order with increase dosage. Mae Parrish RN [facility]12-23-2024 Telephone encounter Note* Telephone Encounter - Lois Quinn MD - 08/04/2024 1:22 PM EST Was she ever able to get up to taking 1000mg (2 tabs with dinner)? If so then I would like to bump up to 1500mg daily if possible she can do 500mg with breakfast or lunch then 1000mg at dinner or if she can tolerate she can do all 1500mg with dinner. Please let me know so I can order appropriately. [facility]12-23-[facility]24 Telephone encounter Note* Telephone Encounter - Lexie Sainz RN - 08/04/2024 12:38 PM EST Last visit with DM 12/14/23. Lexie Sainz RN [facility]10-07-2024 NoteHNO ID: [id number] Author: KAMILA BEARD APRN.MILK DELIVERER Service: ? Author Type: Nurse Practitioner Type: Progress Notes Filed: 05/19/2024 15:48 Note Text: REPRODUCTIVE ENDOCRINOLOGY AND INFERTILITY JESSICA [facility]A PATIENT CLINIC NOTE SERVICE DATE: 05/19/2024 SERVICE TIME: 2:59 PM NAME: Celia Torres This is a virtual visit. It required patient-provider interaction for the medical decision making as documented below. Patient name and birthday verified: Yes Location of patient: [place] Persons Present: patient This is a virtual visit using Zoom. It required patient-provider interaction for the medical decision making as documented below. I have communicated my name and active licensure. The patient's identity and physical location were verified at the time of this visit. Either the patient or their legal signs sales representative has been informed of the [...] via US mail. Lois Nava [address] [facility] [id number] CHIEF COMPLAINT: Procreative management and counseling HISTORY [...] infertility: male factor, ova (more content not included)...[facility]10-07-2024 History of Present illness Narrative* Kamila Beard APRN.MILK DELIVERER - 05/19/2024 2:59 PM EDT Images from the original note were not included. REPRODUCTIVE ENDOCRINOLOGY AND INFERTILITY [facility] PATIENT CLINIC NOTE SERVICE DATE: 05/19/2024 SERVICE TIME: 2:59 PM NAME: Celia Torres This is a virtual visit. It required patient-provider interaction for the medical decision making as documented below. Patient name and birthday verified: Yes Location of patient: [place] Persons Present: patient This is a virtual visit using Zoom. It required patient-provider interaction for the medical decision making as documented below. I have communicated my name and active licensure. The patient's identity and physical location were verified at the time of this visit. Either the patient or their legalrepresentative has been informed of the risks and benefits of -- and alternatives to -- treatment through a remote evaluation and consents to proceed with the evaluation remotely. REFERRED BY: Consultation requested by Dr. Nava for an opinion regarding infertilty. Myfinal recommendations will be communicated back to the requesting physician by way of shared Medical record or letter to requesting physician via US mail. Lois Nava [address] [facility] [address] CHIEF COMPLAINT: Procreative management and counseling HISTORY [...] of infertility: male factor, ovarian factor, cervical factor,tubal/uterine factor, and unexplained infertility. Latest Ref Rng [...] all results from labs outside of the [facility]. [] labs: T&S, Rubella IgG, Varicella [...] +/- monitoring/ IUI x3-4 cycles Kamila Beard APRN.MISAEL I spent a total of 45 minutes on the date of the service which included preparing to see the patient, bokl-uq-tjgz patient care, completing clinical documentation, obtaining and/or reviewing separately obtained history, performing a medically appropriate examination, counseling and educating the pat ient/family/caregiver, ordering medications, tests, or procedures, and care [...] errors missed in proofreading. documented in this encounterMagruder Hospital09-11-2024 Note* Addendum Note - Lois Quinn MD - 04/23/2024 3:36 PM EDTAddended by: LOIS PEREZ on: 04/23/2024 03:36 PM Modules accepted: Orders [facility]09-11-2024 Miscellaneous Notes* Addendum Note - Lois Quinn MD - 04/23/2024 3:36 PM EDTAddended by: LOIS PEREZ on: 04/23/2024 03:36 PM Modules accepted: Orders * Telephone Encounter - Lois Quinn MD - 04/23/2024 3:33 PM EDT Labs ordered and MARIXA consult ordered documented in this encounterMagruder Hospital09-11-2024 Telephone encounter Note * Telephone Encounter - Lois Quinn MD - 04/23/2024 3:33 PM EDT Labs ordered and MARIXA consult ordered [facility]08[facility]29[facility] History of Present illness Narrative* Lois Quinn MD - 04/10/2024 9:30 AM EDT Pt had HSG at [facility] on 04/10/24- Right tube was patent but left tube did not demonstrate dye spillage. Pt counseled on findings. documented in this encounterMagruder Hospital07-19-2024 Telephone encounter Note * Telephone Encounter - Mae Parrish RN - 02/29/2024 12:19 PM EDT Semen analysis results mailed to patient. Mae Parrish RN [facility]07-19-2024 Miscellaneous Notes* Telephone Encounter - Mae Parrish RN - 02/29/2024 12:19 PM EDT Semen analysis results mailed to patient. Mae Parrish RN * Telephone Encounter - Lois Quinn MD - 02/28/2024 3:57 PM EDT Refills for metformin. The semen analysis was reviewed and scanned to husbands chart I believe. * Telephone Encounter - Aisha Stroud LPN - 02/28/2024 3:53 PM EDT Spouse's semen analysis to provider. * Telephone Encounter - Lois Quinn MD - 02/10/2024 10:08 AM EDT [facility]. The HSG can be done by whoever is available. I will always try but with my schedule it may not be possible. HSG can be done CD 6-10 if not done this cycle look for next- she needto call or send a message on CD 1 so it can be arranged. * Telephone Encounter - Brissa Villaseñor RN - 01/23/2024 11:09 AM EDT Patient last seen on December 14, 2023 for AUB/trying to conceive. Order was faxed to [facility] in [place] on January 13 for semen analysis for . Serum progesterone level 4.5 yesterday. Patient responding to result note sent yesterday by Dr. Perez regarding her interest in metformin and ovulation testing. documented in this encounterMagruder Hospital07-18-2024 Telephone encounter Note * Telephone Encounter - Lois Quinn MD - 02/28/2024 3:57 PM EDT Refills for metformin. The semen analysis was reviewed and scanned to husbands chart I believe. [facility] Work Phone: 1(715) 677-258907-18-2024 Telephone encounter Note* Telephone Encounter - Aisha Stroud LPN - 02/28/2024 3:53 PM EDT Spouse's semen analysis to provider. [facility]06-30-2024 Telephone encounter Note* Telephone Encounter - Lois Quinn MD - 02/10/2024 10:08 AM EDT See [employer] message. The HSG can be done by whoever is available. I will always try but with my schedule it may not be possible. HSG can be done CD 6-10 if not done this cycle look for next- she needto call or send a message on CD 1 so it can be arranged. [facility]06-13-2024 History of Present illness Narrative* Lois Quinn MD - 01/24/2024 8:35 AM EDT Creatinine and GFR wnl - done at [facility]- 10/2023 documented in this encounterMagruder Hospital06-12-2024 Telephone encounter Note * Telephone Encounter - Brissa Villaseñor RN - 01/23/2024 11:09 AM EDT Patient last seen on December 14, 2023 for AUB/trying to conceive. Order was faxed to [facility] in [place] on January 13 for semen analysis for . Serum progesterone level 4.5 yesterday. Patient responding to result note sent yesterday by Dr. Perez regarding her interest in metformin and ovulation testing. [facility]06-06-2024 Telephone encounter Note* Telephone Encounter - Lexie Sainz RN - 01/17/2024 11:22 AM EDT Order signed and [facility] to [facility]. Lexie Sainz RN [facility]06-06-2024 Miscellaneous Notes* Telephone Encounter - Lexie Sainz RN - 01/17/2024 11:22 AM EDT Order signed and faxed to [facility]. Lexie Sainz RN * Telephone Encounter - Mae Parrish RN - 01/16/2024 3:33 PM EDT Specimen cup and form at desk manager for peanut picker. Semen analysis form to provider to sign. Mae Parrish RN * Telephone Encounter - Lois Quinn MD - 01/15/2024 4:11 PM EDT Please prepare semen analysis order for , see mychart message. Schedule HSG with me or available provider on day 6-10 of cycle. documented in this encounterMagruder Hospital06-05-2024 Telephone encounter Note * Telephone Encounter - Mae Parrish RN - 01/16/2024 3:33 PM EDT Specimen cup and form at desk manager for peanut picker. Semen analysis form to provider to sign. Mae Parrish RN [facility]06-04-2024 Telephone encounter Note* Telephone Encounter - Lois Quinn MD - 01/15/2024 4:11 PM EDT Please prepare semen analysis order for , see [facility] Schedule HSG with me or available provider on day 6-10 of cycle. [facility]05-03-[facility] History of Present illness Narrative* Lois Quinn MD - 12/14/2023 9:16 AM EDT Celia Torres is a 33 year old [...] had regular visits with PCP last pap inA2022, wnl. Pt had ultrasound and blood work recently- started on synthroid 25mcg. Pt taking supplement for ? PCOS but was never diagnosed- pt has never seen molded goods operator but was told to establish with one. Pt was given appt with [facility] in [place]. Pt states has been actively trying to [...] L0 SAB0 IAB0 Ectopic0 Multiple0 Live Births0 Film Sorter History LMP: 11/28/2023, Having periods Age at Menarche: Age at First : Age at Menopause: Film Sorter History Comments: Sexual Activity: Yes; Male Contraception: [...] Take 1 tablet by mouth every afternoon. HBTCBPYF-DAXBYHM-GAIFIBACT ORAL Take by mouth. wlzuq-3-ucz-oxd-kcs-xklu oil 1,050 mg(300 mg -675 mg-75 mg) cap Take by mouth. KVQXIZVADLIU-FNIY-WXVYX ACID ORAL Take by mouth. No current [...] LMP 11/28/2023 BMI 24.63 kg/(m^2). GENERAL: pleasant, [place] female in no apparent distress HEENT: Normocephalic, [...] 8. Will call with results 9 . [facility] labs reviewed including Ultrasound- TSH, CBC, CMP, FSH, PRL, LH Medical Decision Making: Problems: Moderate: New problem with uncertain prognosis Data: Unique test result(s) reviewed: 3+ Unique test(s) ordered: 3+ Medical Decision Making Level: 4 - Moderate Lois Nava MD [facility]* Diagnosis Onset Date Resolution Status Hyperlipidemia with low HDL acute Infertility [facility] Work Phone: Evaluation note* Diagnosis Abnormal uterine bleeding (AUB)- Primary Hirsutism Hypothyroidism, unspecified type Encounter for screening for diabetes mellitus Screening for diabetes mellitus Screening cholesterol level Screening for lipoid disorders documented in this encounter [facility] note* Diagnosis Irregular menstrual cycle- Primary documented in this encounter [facility] note* Diagnosis Hypothyroidism, unspecified type- Primary Hirsutism PCOS (polycystic ovarian syndrome) Polycystic ovaries Fallopian tube disorder Unspecified noninflammatory disorder of ovary, fallopian tube, and broad ligament Female infertility Female infertility of unspecified origin [facility] Diagnosis Screen for sexually transmitted diseases- Primary Screening examination for venereal disease PCOS (polycystic ovarian syndrome) Polycystic ovaries Fallopian tube disorder Unspecified noninflammatory disorder of ovary, fallopian tube, and broad ligament Female infertility Female infertility of unspecified origin Procreation management investigation and testing Other investigation and testing for procreative management Screening for genetic disease carrier status [facility]* Diagnosis Procreation management investigation and testing- Primary Other investigation and testing for procreative management [facility]* Diagnosis Procreation management investigation and testing- Primary Other investigation and testing for procreative management documented in this encounter [facility] note* Diagnosis examination or test, unconfirmed- Primary documented in this [facility]* Diagnosis Encounter for supervision in primigravida, antepartum- Primary with uncertain dates, antepartum state, incidental Encounter for care in first trimester of first Screening for cervical cancer Screening for malignant neoplasm of the cervix 9 weeks gestation of state, incidental Hypothyroidism, unspecified type documented in this encounter [facility] note* Diagnosis Encounter for care in first trimester of first - Primary 12 weeks gestation of state, incidental Hypothyroidism, unspecified type documented in this encounter [facility] note* Diagnosis Encounter for screening for malformation using ultrasound- Primary 12 weeks gestation of state, incidental documented in [facility]* Diagnosis Hypothyroidism, unspecified type- Primary 16 weeks gestation of state, incidental Encounter for supervision of normal first in second trimester Supervision of normal first * Assessment & Plan Note - John Mae MD - 10/30/2024 8:55 AM EDT Associated Problem(s): Hypothyroidism cont. synthroid, recheck tsh next visit documented in this encounter [facility] note* Diagnosis Hypothyroidism, unspecified type- Primary 16 weeks gestation of (HCC) state, incidental Encounter for supervision of normal first in second trimester ([facility]) Supervision of normal first Hypothyroidism, unspecified type- Primary Encounter for supervision of normal first in second trimester ([facility]) Supervision of normal first 20 weeks gestation of ([facility]) state, incidental documented in this encounter [facility] note* Diagnosis Hypothyroidism, unspecified type- Primary 16 weeks gestation of ([facility]) state, incidental Encounter for supervision of normal first in second trimester ([facility]) Supervision of normal first Encounter for anatomic survey ([facility])- Primary Encounter for anatomic survey 20 weeks gestation of ([facility]) state, incidental documented in this encounter [facility] note* Diagnosis Hypothyroidism, unspecified type- Primary 16 weeks gestation of ([facility]) state, incidental Encounter for supervision of normal first in second trimester ([facility]) Supervision of normal first Encounter for supervision of normal first in second trimester ([facility])- Primary Supervision of normal first Hypothyroidism, unspecified type Screening for diabetes mellitus Encounter for supervision of normal first in third trimester ([facility]) Supervision of normal first 24 weeks gestation of ([facility]) state, incidental * Assessment & Plan Note - Lois Quinn MD - 12/25/2024 8:15 AM EDT Associated Problem(s): Hypothyroidism documented in this encounter [facility] note* Diagnosis Hypothyroidism, unspecified type- Primary 16 weeks gestation of (HCC) state, incidental Encounter for supervision of normal first in second trimester ([facility]) Supervision of normal first Encounter for supervision of normal first in second trimester ([facility])- Primary Supervision of normal first Hypothyroidism, unspecified type Screening for diabetes mellitus Encounter for supervision of normal first in third trimester ([facility]) Supervision of normal first 24 weeks gestation of ([facility]) state, incidental 28 weeks gestation of ([facility])- Primary state, incidental Encounter for supervision of normal first in third trimester ([facility]) Supervision of normal first Need for vaccination Need for prophylactic vaccination and inoculation against unspecified single disease Hypothyroidism, unspecified type documented in this encounter [facility] note* Diagnosis Hypothyroidism, unspecified type- Primary 16 weeks gestation of (HCC) state, incidental Encounter for supervision of normal first in second trimester ([facility]) Supervision of normal first Hypothyroidism, unspecified type- Primary Encounter for supervision of normal first in second trimester ([facility])- Primary Supervision of normal first Hypothyroidism, unspecified type Screening for diabetes mellitus Encounter for supervision of normal first in third trimester ([facility]) Supervision of normal first 24 weeks gestation of ([facility]) state, incidental documented in this encounter [facility] note* Diagnosis Hypothyroidism, unspecified type- Primary 16 weeks gestation of (HCC) state, incidental Encounter for supervision of normal first in second trimester (HCC) Supervision of normal first Encounter for supervision of normal first in second trimester ([facility])- Primary Supervision of normal first Hypothyroidism, unspecified type Screening for diabetes mellitus Encounter for supervision of normal first in third trimester ([facility]) Supervision of normal first 24 weeks gestation of ([facility]) state, incidental 30 weeks gestation of ([facility])- Primary state, incidental Encounter for supervision of normal first in third trimester ([facility]) Supervision of normal first Hypothyroidism, unspecified type * Assessment & Plan Note - Anthony Villatoro MD - 02/03/2025 2:02 PM EDTAssociated Problem(s): Hypothyroidism COntinue synthroid Repeat TSH today documented in this encounter [facility] note* Diagnosis Hypothyroidism, unspecified type- Primary 16 weeks gestation of (HCC) state, incidental Encounter for supervision of normal first in second trimester (HCC) Supervision of normal first Encounter for supervision of normal first in second trimester (HCC)- Primary Supervision of normal first Hypothyroidism, unspecified type Screening for diabetes mellitus Encounter for supervision of normal first in third trimester ([facility]) Supervision of normal first 24 weeks gestation of ([facility]) state, incidental 30 weeks gestation of ([facility])- Primary state, incidental Encounter for supervision of normal first in third trimester ([facility]) Supervision of normal first Hypothyroidism, unspecified type Encounter for supervision of normal first in third trimester ([facility])- Primary Supervision of normal first Hypothyroidism, unspecified type 32 weeks gestation of ([facility]) state, incidental * Assessment & Plan Note - Anthony Villatoro MD - 02/20/2025 9:29 AM EDTAssociated Problem(s): Hypothyroidism Continue synthroid documented in this encounter [facility] note* Diagnosis Hypothyroidism, unspecified type- Primary 16 weeks gestation of (HCC) state, incidental Encounter for supervision of normal first in second trimester (HCC) Supervision of normal first Encounter for supervision of normal first in second trimester ([facility])- Primary Supervision of normal first Hypothyroidism, unspecified type Screening for diabetes mellitus Encounter for supervision of normal first in third trimester ([facility]) Supervision of normal first 24 weeks gestation of (HCC) state, incidental 30 weeks gestation of ([facility])- Primary state, incidental Encounter for supervision of normal first in third trimester ([facility]) Supervision of normal first Hypothyroidism, unspecified type Encounter for supervision of normal first in third trimester (HCC)- Primary Supervision of normal first Hypothyroidism, unspecified type 32 weeks gestation of (HCC) state, incidental Encounter for supervision of normal first in third trimester ([facility])- Primary Supervision of normal first 34 weeks gestation of ([facility]) state, incidental Hypothyroidism, unspecified type documented in this encounter [facility] note* Diagnosis Hypothyroidism, unspecified type- Primary 16 weeks gestation of ([facility]) state, incidental Encounter for supervision of normal first in second trimester ([facility]) Supervision of normal first Encounter for supervision of normal first in second trimester ([facility])- Primary Supervision of normal first Hypothyroidism, unspecified type Screening for diabetes mellitus Encounter for supervision of normal first in third trimester ([facility]) Supervision of normal first 24 weeks gestation of ([facility]) state, incidental 30 weeks gestation of ([facility])- Primary state, incidental Encounter for supervision of normal first in third trimester ([facility]) Supervision of normal first Hypothyroidism, unspecified type Encounter for supervision of normal first in third trimester ([facility])- Primary Supervision of normal first Hypothyroidism, unspecified type 32 weeks gestation of ([facility]) state, incidental Encounter for supervision in primigravida, antepartum ([facility])- Primary Hypothyroidism, unspecified type 37 weeks gestation of ([facility]) state, incidental documented in this encounter [facility] note* Diagnosis Hypothyroidism, unspecified type- Primary 16 weeks gestation of ([facility]) state, incidental Encounter for supervision of normal first in second trimester ([facility]) Supervision of normal first Encounter for supervision of normal first in second trimester ([facility])- Primary Supervision of normal first Hypothyroidism, unspecified type Screening for diabetes mellitus Encounter for supervision of normal first in third trimester ([facility]) Supervision of normal first 24 weeks gestation of ([facility]) state, incidental 30 weeks gestation of ([facility])- Primary state, incidental Encounter for supervision of normal first in third trimester ([facility]) Supervision of normal first Hypothyroidism, unspecified type Encounter for supervision of normal first in third trimester ([facility])- Primary Supervision of normal first Hypothyroidism, unspecified type 32 weeks gestation of ([facility]) state, incidental Uterine size date discrepancy, third trimester ([facility])- Primary Encounter for supervision of normal first in third trimester ([facility]) Supervision of normal first 37 weeks gestation of ([facility]) state, incidental documented in this encounter [facility] note* Diagnosis Hypothyroidism, unspecified type- Primary 16 weeks gestation of (HCC) state, incidental Encounter for supervision of normal first in second trimester (HCC) Supervision of normal first Encounter for supervision of normal first in second trimester (HCC)- Primary Supervision of normal first Hypothyroidism, unspecified type Screening for diabetes mellitus Encounter for supervision of normal first in third trimester ([facility]) Supervision of normal first 24 weeks gestation of ([facility]) state, incidental 30 weeks gestation of ([facility])- Primary state, incidental Encounter for supervision of normal first in third trimester ([facility]) Supervision of normal first Hypothyroidism, unspecified type Encounter for supervision of normal first in third trimester ([facility])- Primary Supervision of normal first Hypothyroidism, unspecified type 32 weeks gestation of ([facility]) state, incidental Encounter for supervision in primigravida, antepartum ([facility])- Primary Hypothyroidism, unspecified type 38 weeks gestation of ([facility]) state, incidental documented in this encounter [facility] note* Diagnosis Hypothyroidism, unspecified type- Primary 16 weeks gestation of ([facility]) state, incidental Encounter for supervision of normal first in second trimester ([facility]) Supervision of normal first Encounter for supervision of normal first in second trimester ([facility])- Primary Supervision of normal first Hypothyroidism, unspecified type Screening for diabetes mellitus Encounter for supervision of normal first in third trimester ([facility]) Supervision of normal first 24 weeks gestation of ([facility]) state, incidental 30 weeks gestation of ([facility])- Primary state, incidental Encounter for supervision of normal first in third trimester ([facility]) Supervision of normal first Hypothyroidism, unspecified type Encounter for supervision of normal first in third trimester ([facility])- Primary Supervision of normal first Hypothyroidism, unspecified type 32 weeks gestation of ([facility]) state, incidental Encounter for supervision in primigravida, antepartum ([facility])- Primary Hypothyroidism, unspecified type Uterine size-date discrepancy, third trimester ([facility]) 39 weeks gestation of ([facility]) state, incidental * Assessment & Plan Note - Lois Quinn MD - 04/07/2025 9:31 AM EDT Associated Problem(s): Encounter for supervision in primigravida, antepartum ([facility]) Orders: URINE OB DIP B/O * Assessment & Plan Note - Lois Quinn MD - 04/07/2025 9:31 AM EDT Associated Problem(s): Hypothyroidism Orders: URINE OB DIP B/O * Assessment & Plan Note - Lois Quinn MD - 04/07/2025 9:31 AM EDT Associated Problem(s): Uterine size-date discrepancy, third trimester (HCC) Orders: URINE OB DIP B/O documented in this encounter [facility] for referral (narrative)* Diagnostic Procedure Only (Routine) - New Request Specialty Diagnoses / Procedures Referred By Jasbir baumann Referred To Contact [facility] Diagnoses Encounter for supervision in primigravida, antepartum with uncertain dates, antepartum Encounter for care in first trimester of first Procedures OBSTETRIC ULTRASOUND WHI US PREG UTERUS AFTER 1ST TRIMEST GESTATION Meagan Paul APRN.CNP [address] [place] [address] [address] Referral ID Status Reason Start Date Expiration Date Visits Requested Visits Authorized [id number] New Request Auto-Generat ed Referral 09/09/2024 09/09/2025 1 1 * Diagnostic Procedure Only (Routine) - Pending Review Specialty Diagnoses / Procedures Referred By Jasbir baumann Referred To Contact [facility] Diagnoses Encounter for supervision in primigravida, antepartum with uncertain dates, antepartum Encounter for care in first trimester of first Procedures OBSTETRIC ULTRASOUND WHI US PREG UTERUS AFTER 1ST TRIMEST 1/1ST GESTATION Meagan Paul APRN.CNP [address] [place] [address] [facility] [address] [place] [address] Referral ID Status Reason Start Date Expiration Date Visits Requested Visits Authorized [id number] Pending Review Auto-Generat ed Referral 09/09/2024 09/09/2025 1 1 [facility] for referral (narrative)No reason for referral information availableWMansfield Hospital Work Phone: Summary Purpose Family History No Family History Records FoundNo Family History Records FoundNo Family History Records Found Advance Directives No Advanced Directives Records FoundNo Advanced Directives Records FoundNo Advanced Directives Records Found Chief Complaint and Reason for Visit Chief Complaint 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-PPW SENT Reason for Visit Hyperlipidemia with low HDL Infertility Chief Complaint 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-PPW SENT INFERTILITY Reason for Visit Hyperlipidemia with low HDL Infertility Chief Complaint Admit Date R/O LABOR April 13, 2025 10:12pm Reason for Visit Admit Date 40 weeks gestation of Septembe 2024 10:12pm Encounter for suspected PROM , with rupture of membranes not found April 13, 2025 10:12pm Reason for Referral Specialty Diagnoses / Procedures Referred By Jasbir baumann Referred To Contact Diagnoses PCOS (polycystic ovarian syndrome) Fallopian tube disorder Female infertility Procedures CONSULT TO INFERTILITY CLINIC OFFICE/OUTPATIENT [facility] 60 MINUTES Lois Quinn MD [address] [place] [address] Referral ID Status Reason Start Date Expiration Date Visits Requested Visits Authorized [id number] Pending Review PCP Requested Referral Auto-Generate d Referral 04/23/2024 04/23/2025 1 1 Additional Source Comments INFORMATION SOURCE (unrecogn ized section and content) DATE CREATED AUTHOR 02/16/2018 [facility] DATE CREATED AUTHOR AUTHOR'S ORGANIZ ATION 04/11/2025 [facility] DATE CREATED AUTHOR AUTHOR'S ORGANIZ ATION 04/14/2025 [facility] Care Teams (unrecognized sec tion and content) Team Status: Active Member Role Status Dates Dr. Solis Berger MD Family Provider Active Dr. Rakesh Vega , DO Primary Care Provider Active Team Status: Inactive Member Role Status Dates Dr. Solis Berger MD Primary Care Provider, Referring P rovider Active Dr. Rakesh Vega , DO Attending Provider Active Team Status: Inactive Member Role Status Dates Dr. Rakesh Vega , DO Primary Care Pr ovider, Attending Provider, Referring Provider Active Team Status: Inactive Member Role Status Dates Dr. Rakesh Vega , DO Primary Care Provider, Attend ing Provider Active Team Status: Active Member Role/Relationship Status Dates Dr. Solis Berger MD Family Provider Active Dr. Rakesh Vega , DO Primary Care Provider Active Team Status: Inactive Member Role/Relationship Status Dates Dr. Rakesh Vega , DO Primary Care Provider Active Start: April 13, 2025 End: April 14, 2025 Dr. Corry Polanco MD Attending Provider Active Start: April 13, 2025 End: April 14, 2025 Goals (unrecognized section and content) Goals may [...] or prosecute any alcohol or drug abuse patient.[facility] the event this information is protected by the Federal Confidentiality of Alcohol and Drug Abuse Patient Records regulations: The Federal rules restrict any use of the information to criminally investigate or prosecute any alcohol or drug abuse patient.[facility] HospitalIn the event this information is protected by the Federal Confidentiality of Alcohol and Drug Abuse Patient Records regulations: The Federal rules restrict any use of the information to criminally investigate or prosecute any alcohol or drug abuse patient.[facility] HospitalIn the event this information is protected by the Federal Confidentiality of Alcohol and Drug Abuse Patient Records regulations: The Federal rules restrict any use of the information to criminally investigate or prosecute any alcohol or drug abuse patient.[facility] HospitalIn the event this information is protected by the Federal Confidentiality of Alcohol and Drug Abuse Patient Records regulations: The Federal rules restrict any use of the information to criminally investigate or prosecute any alcohol or drug abuse patient.[facility] HospitalIn the event this information is protected by the Federal Confidentiality of Alcohol and Drug Abuse Patient Records regulations: The Federal rules restrict any use of the information to criminally investigate or prosecute any alcohol or drug abuse patient.[facility] HospitalIn the event this information is protected by the Federal Confidentiality of Alcohol and Drug Abuse Patient Records regulations: The Federal rules restrict any use of the information to criminally investigate or prosecute any alcohol or drug abuse patient.[facility] HospitalIn the event this information is protected by the Federal Confidentiality of Alcohol and Drug Abuse Patient Records regulations: The Federal rules restrict any use of the information to criminally investigate or prosecute any alcohol or drug abuse patient.[facility] HospitalIn the event this information is protected by the Federal Confidentiality of Alcohol and Drug Abuse Patient Records regulations: The Federal rules restrict any use of the information to criminally investigate or prosecute any alcohol or drug abuse patient.[facility] HospitalIn the event this information is protected by the Federal Confidentiality of Alcohol and Drug Abuse Patient Records regulations: The Federal rules restrict any use of the information to criminally investigate or prosecute any alcohol or drug abuse patient.[facility] HospitalIn the event this information is protected by the Federal Confidentiality of Alcohol and Drug Abuse Patient Records regulations: The Federal rules restrict any use of the information to criminally investigate or prosecute any alcohol or drug abuse patient.[facility] HospitalIn the event this information is protected by the Federal Confidentiality of Alcohol and Drug Abuse Patient Records regulations: The Federal rules restrict any use of the information to criminally investigate or prosecute any alcohol or drug abuse patient.[facility] HospitalIn the event this information is protected by the Federal Confidentiality of Alcohol and Drug Abuse Patient Records regulations: The Federal rules restrict any use of the information to criminally investigate or prosecute any alcohol or drug abuse patient.[facility] HospitalIn the event this information is protected by the Federal Confidentiality of Alcohol and Drug Abuse Patient Records regulations: The Federal rules restrict any use of the information to criminally investigate or prosecute any alcohol or drug abuse patient.[facility] HospitalIn the event this information is protected by the Federal Confidentiality of Alcohol and Drug Abuse Patient Records regulations: The Federal rules restrict any use of the information to criminally investigate or prosecute any alcohol or drug abuse patient.[facility] HospitalIn the event this information is protected by the Federal Confidentiality of Alcohol and Drug Abuse Patient Records regulations: The Federal rules restrict any use of the information to criminally investigate or prosecute any alcohol or drug abuse patient.[facility] HospitalIn the event this information is protected by the Federal Confidentiality of Alcohol and Drug Abuse Patient Records regulations: The Federal rules restrict any use of the information to criminally investigate or prosecute any alcohol or drug abuse patient.[facility] HospitalIn the event this information is protected by the Federal Confidentiality of Alcohol and Drug Abuse Patient Records regulations: The Federal rules restrict any use of the information to criminally investigate or prosecute any alcohol or drug abuse patient.[facility] HospitalIn the event this information is protected by the Federal Confidentiality of Alcohol and Drug Abuse Patient Records regulations: The Federal rules restrict any use of the information to criminally investigate or prosecute any alcohol or drug abuse patient.[facility] HospitalIn the event this information is protected by the Federal Confidentiality of Alcohol and Drug Abuse Patient Records regulations: The Federal rules restrict any use of the information to criminally investigate or prosecute any alcohol or drug abuse patient.[facility] HospitalIn the event this information is protected by the Federal Confidentiality of Alcohol and Drug Abuse Patient Records regulations: The Federal rules restrict any use of the information to criminally investigate or prosecute any alcohol or drug abuse patient.[facility] HospitalIn the event this information is protected by the Federal Confidentiality of Alcohol and Drug Abuse Patient Records regulations: The Federal rules restrict any use of the information to criminally investigate or prosecute any alcohol or drug abuse patient.[facility] HospitalIn the event this information is protected by the Federal Confidentiality of Alcohol and Drug Abuse Patient Records regulations: The Federal rules restrict any use of the information to criminally investigate or prosecute any alcohol or drug abuse patient.[facility]In the event this information is protected by the Federal Confidentiality of Alcohol and Drug Abuse Patient Records regulations: The Federal rules restrict any use of the information to criminally investigate or prosecute any alcohol or drug abuse patient.[facility] HospitalIn the event this information is protected by the Federal Confidentiality of Alcohol and Drug Abuse Patient Records regulations: The Federal rules restrict any use of the information to criminally investigate or prosecute any alcohol or drug abuse patient.[facility] HospitalIn the event this information is protected by the Federal Confidentiality of Alcohol and Drug Abuse Patient Records regulations: The Federal rules restrict any use of the information to criminally investigate or prosecute any alcohol or drug abuse patient.[facility] HospitalIn the event this information is protected by the Federal Confidentiality of Alcohol and Drug Abuse Patient Records regulations: The Federal rules restrict any use of the information to criminally investigate or prosecute any alcohol or drug abuse patient.[facility] HospitalIn the event this information is protected by the Federal Confidentiality of Alcohol and Drug Abuse Patient Records regulations: The Federal rules restrict any use of the information to criminally investigate or prosecute any alcohol or drug abuse patient.[facility] HospitalIn the event this information is protected by the Federal Confidentiality of Alcohol and Drug Abuse Patient Records regulations: The Federal rules restrict any use of the information to criminally investigate or prosecute any alcohol or drug abuse patient.[facility] HospitalIn the event this information is protected by the Federal Confidentiality of Alcohol and Drug Abuse Patient Records regulations: The Federal rules restrict any use of the information to criminally investigate or prosecute any alcohol or drug abuse patient.[facility] HospitalIn the event this information is protected by the Federal Confidentiality of Alcohol and Drug Abuse Patient Records regulations: The Federal rules restrict any use of the information to criminally investigate or prosecute any alcohol or drug abuse patient.[facility] HospitalIn the event this information is protected by the Federal Confidentiality of Alcohol and Drug Abuse Patient Records regulations: The Federal rules restrict any use of the information to criminally investigate or prosecute any alcohol or drug abuse patient.[facility] HospitalIn the event this information is protected by the Federal Confidentiality of Alcohol and Drug Abuse Patient Records regulations: The Federal rules restrict any use of the information to criminally investigate or prosecute any alcohol or drug abuse patient.[facility] HospitalIn the event this information is protected by the Federal Confidentiality of Alcohol and Drug Abuse Patient Records regulations: The Federal rules restrict any use of the information to criminally investigate or prosecute any alcohol or drug abuse patient.[facility] HospitalIn the event this information is protected by the Federal Confidentiality of Alcohol and Drug Abuse Patient Records regulations: The Federal rules restrict any use of the information to criminally investigate or prosecute any alcohol or drug abuse patient.[facility] HospitalIn the event this information is protected by the Federal Confidentiality of Alcohol and Drug Abuse Patient Records regulations: The Federal rules restrict any use of the information to criminally investigate or prosecute any alcohol or drug abuse patient.[facility] HospitalIn the event this information is protected by the Federal Confidentiality of Alcohol and Drug Abuse Patient Records regulations: The Federal rules restrict any use of the information to criminally investigate or prosecute any alcohol or drug abuse patient.[facility] HospitalIn the event this information is protected by the Federal Confidentiality of Alcohol and Drug Abuse Patient Records regulations: The Federal rules restrict any use of the information to criminally investigate or prosecute any alcohol or drug abuse patient.[facility] HospitalIn the event this information is protected by the Federal Confidentiality of Alcohol and Drug Abuse Patient Records regulations: The Federal rules restrict any use of the information to criminally investigate or prosecute any alcohol or drug abuse patient.[facility] Reason for Visit (unrecogniz ed section and content) Reason Comments Establish Care Specialty Diagnoses / Procedures Referred By Contac t Referred To Contact [employer] Superintendent / COMMUNITY SERVICE COORDINATOR Diagnoses Encounter for gynecological examination (general) (routine) without abnormal findings annual discuss conception Procedures [facility] RECEIVABLE ANALYST ANNUAL Self Lois Quinn MD [address] [place] [address] Referral ID Status Reason Start Date Expiration Date Visits Requested Visits Authorized [id number] Closed Financial Clearance Required - OON Payor OON Notification Letter Financial Clearance Not Required Patient Cleared - INN Insurance Found 12/14/2023 03/13/2024 1 1 Reason Comments New Patient Specialty Diagnoses / Procedures Referred By Contac t Referred To Contact COMMUNITY SERVICE COORDINATOR Diagnoses PCOS (polycystic ovarian syndrome) Fallopian tube disorder Female infertility Procedures CONSULT TO INFERTILITY CLINIC OFFICE/OUTPATIENT NEW HIGH MDM 60 MINUTES Lois Quinn MD [address] [place] [address] Electrophysiology Nurse Practitioner [employer] [address] [place] [address] Referral ID Status Reason Start Date Expiration Date V isits Requested Visits Authorized [id number] Closed PCP Requested Referral Auto-Generated Referral 05/19/2024 08/12/2024 1 1 Reason Comments Initial OB Visit Reason Onset Date Comments Care 10/02/2024 Reason Comments US Specialty Diagnoses / Procedures Referred By Contac t Referred To Contact [facility] Diagnoses Encounter for supervision in primigravida, antepartum with uncertain dates, antepartum Encounter for care in first trimester of first Procedures OBSTETRIC ULTRASOUND WHI US PREG UTERUS AFTER 1ST TRIMEST GESTATION Meagan Paul, NATI.MILK DELIVERER [address] [place] [address] Phone: tel: fax:[phone] [facility] [address] [place] [id number] Referral ID Status Reason Start Date Expiration Date Visits Requested Visits Authorized [id number] Authorized Auto-Generat ed Referral 09/22/2024 08/12/2025 20 20 Reason Onset Date Comments Care 10/30/2024 Reason Onset Date Comments Care 11/27/2024 Specialty Diagnoses / Procedures Referred By Contac t Referred To Contact [facility] Diagnoses Encounter for supervision in primigravida, antepartum (HCC) with uncertain dates, antepartum (HCC) Encounter for care in first trimester of first (HCC) Procedures OBSTETRIC ULTRASOUND WHI US PREG UTERUS AFTER 1ST TRIMEST GESTATION Meagan Paul, NATI.MILK DELIVERER [address] [place] [address] Phone: tel: fax:[phone] [facility] [address] [place] [address] Referral ID Status Reason Start Date Expiration Date Visits Requested Visits Authorized [id number] Authorized Auto-Generat ed Referral 11/13/2024 08/12/2025 20 20 Reason Onset Date Comments Care 12/25/2024 Reason Onset Date Comments Care 01/23/2025 Reason Onset Date Comments Care 02/03/2025 Reason Onset Date Comments Care 02/20/2025 Reason Onset Date Comments Care 03/06/2025 Reason Onset Date Comments Care 03/24/2025 Specialty Diagnoses / Procedures Referred By Jasbir t Referred To Contact [facility] Diagnoses 36 weeks gestation of (HCC) Encounter for supervision of normal first in third trimester (HCC) Procedures OBSTETRIC ULTRASOUND WHI US PREG UTERUS AFTER 1ST TRIMEST GESTATION Fern Whittaker APRN.CN [address] [place] [address] Phone: tel: fax: [address] [phone] Referral ID Status Reason Start Date Expiration Date Visits Requested Visits Authorized [id number] Authorized Auto-Generat ed Referral 03/23/2025 08/12/2025 20 [...] BE BASED ON THE PRIMARY CLINICAL RECORDS. [facility] [employer] [facility]. provides no warranty or guarantee of the accuracy or completeness of information in this document.
--- NOTE | 2025-04-16 19:42 | PN.OBGYN_ITS ---
Subjective Subjective Seen at bedside. Comfortable with epidural. Objective Data Objective Data Vital Signs: Vital Signs Temp Pulse Resp BP Pulse Ox 98.9 F 95 14 117/66 99 04/16/25 17:45 04/16/25 19:21 04/16/25 17:45 04/16/25 19:20 04/16/25 19:21 Weight: 151 lb Body Mass Index (BMI) 29.5 Intake & Output: Intake and Output for Last 24 Hours 04/14/25 04/15/25 04/16/25 23:59 23:59 23:59 Intake Total 1971.40 / 1971.40 Output Total 800 / 800 Balance 1171.40 / 1171.40 Lab / Micro Data 04/16/25 11:45 Labs: Laboratory Results - last 24 hr 04/16/25 11:45: WBC 8.1, RBC 4.05 L, Hgb 12.5, Hct 36.7 L, MCV 90.6, MCH 30.9, MCHC 34.1, RDW Std Deviation 46.5 H, RDW Coeff of Ele 13.9, Plt Count 198, MPV 11.7, Immature Gran % (Auto) 1.400 H, Neut % (Auto) 69.4, Lymph % (Auto) 21.3, [place] % (Auto) 7.2, Eos % (Auto) 0.2, Baso % (Auto) 0.5, Absolute Neuts (auto) 5.6, Absolute Lymphs (auto) 1.72, Nucleated RBC % 0, Syphilis Total Ab Nonreactive, Blood Type A POSITIVE, Antibody Screen NEGATIVE, Antibody Identification NEGATIVE ANTIBODY PANEL Assessment & Plan (1) Artificial rupture of membranes antepartum: (2) 40 weeks gestation of : (3) Hyperlipidemia with low HDL: (4) Subclinical hypothyroidism: PLAN: Plan CE Straight cath for clear/yellow urine Comfortable with epidural Continue Pitocin at 2 mu/min- increase per policy Anticipate
[2025-04-16] MEDS: Lactated Ringers 1,000 ML 200 ML IV (23:31)
[2025-04-17] VITALS (23 sets, daily range): BP systolic 98–144; BP diastolic 51–64; PULSE 81–114; RESP 14–18; TEMP 36.1–38.3; O2SAT 97–98
[2025-04-17] MEDS: LACTATED RINGERS 500 ML 999 ML IV (00:42)
--- NOTE | 2025-04-17 00:47 | PN.OBGYN_ITS ---
Subjective Subjective Providing bedside support to patient while pushing. Patient going on 4 hours of pushing and tired. Epidural rate turned down and several position changes completed. Objective Data Objective Data Vital Signs: Vital Signs Temp Pulse Resp BP Pulse Ox 98.6 F 96 16 118/58 L 100 04/17/25 00:10 04/16/25 23:39 04/17/25 00:10 04/16/25 23:39 04/16/25 20:22 Weight: 151 lb Body Mass Index (BMI) 29.5 Intake & Output: Intake and Output for Last 24 Hours 04/15/25 04/16/25 04/17/25 23:59 23:59 23:59 Intake Total 2624.16 / 2624.16 Output Total 1400 / 1400 Balance 1224.16 / 1224.16 Lab / Micro Data 04/16/25 11:45 Labs: Laboratory Results - last 24 hr 04/16/25 11:45: WBC 8.1, RBC 4.05 L, Hgb 12.5, Hct 36.7 L, MCV 90.6, MCH 30.9, MCHC 34.1, RDW Std Deviation 46.5 H, RDW Coeff of Ele 13.9, Plt Count 198, MPV 11.7, Immature Gran % (Auto) 1.400 H, Neut % (Auto) 69.4, Lymph % (Auto) 21.3, [place] % (Auto) 7.2, Eos % (Auto) 0.2, Baso % (Auto) 0.5, Absolute Neuts (auto) 5.6, Absolute Lymphs (auto) 1.72, Nucleated RBC % 0, Syphilis Total Ab Nonreactive, Blood Type A POSITIVE, Antibody Screen NEGATIVE, Antibody Identification NEGATIVE ANTIBODY PANEL Assessment & Plan (1) Artificial rupture of membranes antepartum: (2) 40 weeks gestation of : (3) Hyperlipidemia with low HDL: (4) Subclinical hypothyroidism: PLAN: Plan CE +1 with pushing with caput present Dr. Nye notified of A&P and maternal exhaustion In route for evaluation for possible vacuum assistance Discussed plan with patient and
[2025-04-17] MEDS: Oxytocin 15 Units/NS 250ml 15 UNITS/250 ML IV.SOLN 83 UNITS IV (02:01)
--- NOTE | 2025-04-17 02:14 | EX.PCM.OBVAG ---
Assessment & Plan (1) Artificial rupture of membranes antepartum: (2) 40 weeks gestation of : Maternal Data Information MAZIN Calculator Estimated Delivery Date Method Current WG Current Estimate 04/11/25 Manual 40w 6d Vaginal Delivery Maternal Presentation Maternal Presentation: Other (Rupture of membranes in the office incidentally on exam) Type of Induction: Pitocin Vaginal Delivery Information Procedure Performed: Vacuum Assisted Vaginal Delivery Station at time of placement: +2 Number of vacuum pulls: 1 Number of vacuum pop offs: 0 Surgeon/Practitioner: Jen Nye Date of Procedure: 04/17/25 Pre-Procedure Diagnosis: 40 week gestation, ruptured membranes, prolonged second stage labor Post-Procedure Diagnosis: As above Type of anesthesia: Epidural Special Medications: None Estimated Blood Loss: 350 mL Fluids Replaced: N/A Findings Description of procedure: I was called by CNM to evaluate the patient after 4 hours of pushing. Descent had been noted with pushing with good maternal effort. I was present at bedside. On exam the patient was comfortable with the epidural. Cervix 100% effaced and fetus at +2 station in OA position. Bladder was attempted to be drained with a straight catheter, but unable to place past the head given low station. Discussed r/b/a vacuum assisted vaginal delivery and the patient consented, and requested to proceed. The vacuum was then placed, and correct placement was confirmed digitally in front of the posterior fontanelle. With the next contraction the vacuum was inflated and a gentle downward pressure was used to assist with bringing the baby's head to +3 station. After 1 pull and 1 contraction, the vacuum was released and removed. With the next contraction the patient delivered the head. The anterior shoulder delivered with gentle downward traction, followed by the posterior shoulder and body without any excessive traction, force or delay. A vigorous VFI was placed on the maternal abdomen. The cord was clamped and cut after a 60 second delay by the FOB. Cord gases were obtained. The placenta delivered spontaneously and was noted to be normal appearing and intact with a 3VC. Fundus firm and bleeding hemostatic. Upon inspected bilateral sulcal lacerations were noted, which were superficial. These were repaired with 2-0 Vicryl in a running fashion to reapproximate and achieve hemostasis. A rectal exam was performed and a third degree laceration was noted. The anal sphincter was repaired end to end using 2-0 Vicryl. The remaining second degree laceration was repaired with 2-0 and 3-0 Vicryl. The tissue was very edematous, and pressure was applied. Bleeding was scant. A rectal exam was performed at the completion of the repair and was noted to be normal. A vaginal sweep was performed. Sharp and sponge counts were correct. Procedure findings: Vigorous VFI with Apgars 8, 9 Terminal meconium Normal appearing placenta with 3 VC Bilateral sulcal laceration Third degree perineal laceration Presentation: Vertex Amniotic Membrane Rupture Type: Artificial Amniotic Fluid Description: Clear and Other (Terminal meconium at time of delivery) Placental Delivery Description: Spontaneous Specimen collected: No Cord Vessel Description: 3 Vessels Cord Entanglement: None Cord Gases: ABG and VBG A Gender: Female (1 minute): 8 (5 minute): 9 Delayed Cord Clamping: Yes Swimming Instructor tool grinder set up operator gear: No Post Vaginal Deli Medications given after delivery: IV Pitocin Episiotomy Description: None Laceration: 3rd degree Complication Complications: No
[2025-04-17] MEDS: Senna/Docusate Sodium 1 Tablet PO (06:14)
--- NOTE | 2025-04-17 21:04 | PCM.DC.SUM ---
Providers Date of Admission: 04/16/25 Date of Discharge: 04/18/25 Primary Care Physician: Dr. Rakesh Vega DO Reason For Visit: LABOR AND DELIVERY Diagnosis Discharge Diagnosis (1) Artificial rupture of membranes antepartum: Status: Acute (2) 40 weeks gestation of : Status: Acute Code(s): Z3A.40 - 40 weeks gestation of Medications at Discharge Home Medications docosahexaenoic acid 200 mg capsule (Algal [place]-3 DHA) mg PO 11/06/23 multivitamin 1 tab PO DAILY 11/06/23 acetaminophen 500 mg tablet 1,000 mg (2 x 500 mg) PO Q6H PRN PRN Pain 1-10 Or Fever #0 tabs 04/17/25 levothyroxine 50 mcg tablet 50 mcg PO DAILY@0600 #0 tabs 04/17/25 naproxen 500 mg tablet 500 mg PO Q8H PRN PRN Pain Score 1-10 #0 tabs 04/17/25 Hospital Course Operations None Procedures None Summary of Care Provided Minutes Spent on Discharge: 15 Weight / BMI Weight Weight: 151 lb Body Mass Index (BMI) 29.5 ABG / Lab / Microbiology Data 04/16/25 11:45 D/C Instructions Discharge Activity: May Shower May resume sexual activity in: 6 weeks Weight Bearing Status: Weight bearing as tolerated Call your doctor if you observe: Fever of 101 or Higher, Coldness, Increased Pain, Change in Color, Inability to urinate, Inability to have a bowel movement, Using more than 1 pad per hour, Shortness of breath, Dizziness, Fainting spells, Chest pain, Increased palpitations (irregular heartbeat), Calf discomfort and Uncontrolled pain DC O2, CPAP, BIPAP Needs Home O2 Discharge instructions: No Please Follow Up With: Jen Nye DO When: Follow up in 2 and 6 weeks for visits. Meaningful Use Info Meaningful Use Meaningful Use Diagnoses (Choose all that apply): None applicable Discharge Plan Admission Admit Date/Time: 04/16/25 11:05 Primary Reason for Your Visit: Vaginal delivery Attending Provider: Jen Nye Primary Care Provider: Rakesh Vega Discharge Orders/Prescriptions Prescriptions: New acetaminophen 500 mg Tablet 1,000 mg PO Q6H PRN PRN (Reason: Pain 1-10 Or Fever) Qty: 0 0RF levothyroxine 50 mcg Tablet 50 mcg PO DAILY@0600 Qty: 0 0RF naproxen 500 mg Tablet 500 mg PO Q8H PRN PRN (Reason: Pain Score 1-10) Qty: 0 0RF Continued multivitamin Tablet 1 tab PO DAILY Algal [place]-3 DHA 200 mg capsule PO Discontinued levothyroxine 25 mcg tablet 50 mcg PO DAILY Referrals / Follow Up: Rakesh Vega DO [Primary Care Provider] - Disposition Disposition (needs filled in before D/C Order can be placed): Home, Self Care
[2025-04-18 04:05] VITALS: BP 102/58; PULSE 89; PULSE 90; RESP 16; TEMP 36.3; O2SAT 97
--- NOTE | 2025-04-18 05:13 | PCM.PN.OB ---
Subjective Subjective Denies complaints Objective Data Objective Data Vital Signs: Vital Signs Temp Pulse Resp BP Pulse Ox O2 Del Method 97.3 F L 90 16 102/58 L 97 Room Air 04/18/25 04:05 04/18/25 04:05 04/18/25 04:05 04/18/25 04:05 04/18/25 04:05 04/18/25 04:05 Oxygen Delivery Method Room Air Weight: 151 lb Body Mass Index (BMI) 29.5 Intake & Output: Intake and Output for Last 24 Hours 04/16/25 04/17/25 04/18/25 23:59 23:59 23:59 Intake Total 2624.16 / 2624.16 1352.51 / 1352.51 Output Total 1400 / 1400 1150 / 1150 Balance 1224.16 / 1224.16 202.51 / 202.51 Lab / Micro Data 04/16/25 11:45 Physical Exam Const alert, oriented x3 and no apparent distress HEENT normocephalic GI soft to palpation, non-tender and non-distended GI Narrative: fundus firm, mid & below umbilicus Extremity normal to inspection and no calf tenderness Assessment & Plan (1) Vaginal delivery: COMMENT: PPD#1 PLAN: Plan D/c home per patient request
[2025-04-18] MEDS: Senna/Docusate Sodium 1 Tablet PO (06:36)
[2025-04-18 08:38] VITALS: BP 87/55; PULSE 82
[2025-04-18 08:39] VITALS: BP 90/54; PULSE 80; PULSE 85; RESP 16; TEMP 36.3
[2025-04-18 08:40] VITALS: TEMP 36.3
== END 2025-04-18 11:35 | disposition home or self-care (01) | DRG 768 ==
PROVIDERS: Admitting Provider Advanced Practice Midwife; PCP Family Medicine; Referring Provider Advanced Practice Midwife; Visit Provider Obstetrics & Gynecology
DX: O48.0 Post-term pregnancy (principal); Z37.0 Single live birth; O70.20 Third degree perineal laceration during delivery, unspecified; O63.1 Prolonged second stage (of labor); E03.8 Other specified hypothyroidism; E28.2 Polycystic ovarian syndrome; E78.5 Hyperlipidemia, unspecified; O76 Abnormality in fetal heart rate and rhythm complicating labor and delivery; O75.81 Maternal exhaustion complicating labor and delivery; O77.0 Labor and delivery complicated by meconium in amniotic fluid; O99.284 Endocrine, nutritional and metabolic diseases complicating childbirth; Z3A.40 40 weeks gestation of pregnancy; Z79.890 Hormone replacement therapy
CPT/HCPCS: 59025; 59050; 85025; 86780; 86850; 86870; 86900; 86901; 99221; G0378